=== PATIENT | female | born 1955 | race Caucasian/White ===

== ENCOUNTER 2024-05-09 22:50 | Inpatient (IN) ==
--- OUTSIDE RECORDS SUMMARY | 2024-05-09 22:58 | External Medical Summary | Summary of Care ---
Author Name Unknown Organization [facility] Address [address] [place] [address] Phone [phone] Care Team Providers Care Press Setup Operator Name Role Phone Tawanna Limon DO Primary Care Provider [phone] Reason for Visit * Reason Onset Date Comments Advice 05/06/202405/07 Information 05/06/202405/06 Encounter Details Date Type Department Care Team (Late st Contact Info) Description 05/06/2024 Telephone Family Practice [address], [place] [address] [place] [address] Tawanna Limon DO [address] [place] [address] Advice (05/07); Information (05/06) Allergies Active Allergy Reactions Criticality Noted Date Comments Adhesive Tape Edema face/lips/tongue High 02/17/2011 States she is allergic to bandaid and it causes throat swelling. Adalimumab Itching 11/23/2023 Pt reports that she took Humira approx 1 year ago and had to stop it due to itchiness. Ibuprofen Nausea/vomiting 11/30/2011 Latex 05/15/2017 Nsaids 10/14/1997 stomache upset Sulfa Antibiotics 10/14/1997 Eyes like on fire documented as of this encounter (statuses as of 05/08/2024) Medications Medication Sig Dispensed Refills Start Date End Date Status OMEGA-3 FISH OIL 1000 MG PO CAPS Take 1 Capsule by mouth in the morning. Active ASPIRIN 325 MG PO TABSIndications:TI A (transient ischemic attack) Take 1 Tablet by mouth every evening. Active Cyanocobalamin 1000 MCG Oral Tablet Take 1 Tablet by mouth in the morning. 30 Tab 5 07/22/2016 Active TRAVATAN Z 0.004 % ophthalmic solution Instill 1 Drop into both eyes at bedtime. 07/11/2017 Active Cholecalciferol (VITAMIN D3) 1000 units CAPS Take 1 Capsule by mouth in the morning. 01/25/2018 Active Coconut Oil OIL Take by mouth every morning. Patient mixes a spoon of Louana Non Hydrogenated Trans Fat Coconut Oil in her coffee every morning, for brain health. Active Nebulizers (NEBULIZER COMPRESSOR) [facility] Inhale via nebulizer. Use as directed. 1 Each 1 05/14/2019 Active Dicyclomine HCl 10 MG Oral Capsule (Bentyl)Indication s:Abdominal cramping TAKE ONE CAPSULE BY MOUTH THREE TIMES DAILY NEEDED for abdominal pain 270 Capsule 1 05/16/2022 Active Albuterol Sulfate (2.5 MG/3ML) 0.083% Inhalation Nebulization Solution (Proventil)Indicat ions:Moderate persistent asthma, unspecified whether complicated Inhale 1 Vial via nebulizer every 6 hours as needed for Wheezing. 120 mL 11/01/2022 Active cycloSPORINE 0.05 % Ophthalmic Emulsion (Restasis) Instill 1 Drop into both eyes in the morning and 1 Drop before bedtime. 12/01/2022 Active Lisinopril 20 MG Oral Tablet (Prinivil)Indicati ons:Benign hypertension with CKD (chronic kidney disease) stage III (HCC) Take 1 Tablet by mouth in the morning. 90 Tablet 3 04/13/2023 Active Montelukast Sodium 10 MG Oral Tablet (Singulair)Indicat ions:Moderate persistent asthma without complication,Envir onmental and seasonal allergies Take 1 Tablet by mouth at bedtime. 90 Tablet 3 04/14/2023 Active Metamucil 0.36 GM Oral Capsule (Psyllium) Take by mouth daily. Active DULoxetine HCl 20 MG Oral Capsule Delayed Release Particles (Cymbalta) Take 2 Capsules by mouth in the morning and 2 Capsules before bedtime. 120 Capsule 3 09/20/2023 Active Fluticasone-Salmet onesimo 500-50 MCG/ACT Inhalation Aerosol Powder Breath Activated (Advair Diskus)Indications :Moderate persistent asthma without complication INHALE ONE PUFF BY MOUTH TWICE A DAY DIRECTED 180 Each 1 11/03/2023 Active Fluticasone Propionate 50 MCG/ACT Nasal Suspension (Flonase)Indicatio ns:Chronic rhinitis Administer 2 Sprays into each nostril at bedtime. 16 g 5 11/03/2023 Active Famotidine 40 MG Oral Tablet (Pepcid)Indication s:Gastroesophageal reflux disease without esophagitis Take 1 Tablet by mouth in the morning. 100 Tablet 1 11/03/2023 Active NATURAL SUPPLEMENT Take by mouth 2 times a day. Focus Factor Active Rosuvastatin Calcium 20 MG Oral Tablet (Crestor) Take 1 Tablet by mouth in the morning. 90 Tablet 1 01/31/2024 Active Azelastine HCl 0.1 % Nasal Solution (Astelin) Administer 1 Brandon into nostril in the morning and 1 Brandon before bedtime. 30 mL 12 03/04/2024 Active buPROPion HCl ER (SR) 100 MG Oral Tablet Extended Release 12 Hour (Wellbutrin SR) Take 1 Tablet by mouth daily. 03/06/2024 Active Omeprazole 20 MG Oral Capsule Delayed Release (PriLOSEC)Indicati ons:Gastroesophage al reflux disease without esophagitis,Pharyn goesophageal dysphagia Take 1 capsule by mouth once a day 1 hour before the first meal of the day 100 Capsule 1 04/15/2024 Active Erythromycin 5 MG/GM Ophthalmic Ointment Apply as directed to eye lid, brow and under eye 04/03/2024 Active traZODone HCl 150 MG Oral Tablet (Desyrel) Take 2 Tablets by mouth at bedtime. Active Albuterol Sulfate HFA 108 (90 Base) MCG/ACT Inhalation Aerosol SolutionIndication s:Moderate persistent asthma without complication Inhale 2 Puffs by mouth every 4 hours as needed for Wheezing. 18 g 5 04/19/2024 Active Meclizine HCl 12.5 MG Oral Tablet (Antivert)Indicati ons:Vertigo Take 1 Tablet by mouth 3 times a day as needed for Dizziness. 30 Tablet 1 04/19/2024 Active tiZANidine HCl 2 MG Oral Tablet (Zanaflex)Indicati ons:Myalgia,Muscle cramps TAKE 1 TABLET BY MOUTH EVERY 6 HOURS NEEDED FOR MUSCLE SPASMS 120 Tablet 04/19/2024 Active predniSONE 10 MG Oral Tablet (Deltasone)Indicat ions:Wheezing,Acut e cough Take 5 tabs for 2 days, 4 tabs for 2 days, 3 tabs for 2 days, 2 tabs for 2 days 1 tab for 2 days 30 Tablet 04/26/2024 Active Rinvoq 15 MG Oral Tablet Extended Release 24 Hour (Upadacitinib ER)Indications:Rhe umatoid arthritis involving multiple sites with positive rheumatoid factor (HCC) Take 1 tablet by mouth in the morning. 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 02/24/2021 Hypertensive kidney disease with stage 3b chronic kidney disease 02/24/2021 Primary open-angle glaucoma, bilateral, mild sta ge 03/10/2020 Other atherosclerosis of ramírez marley arteries of extremities, bilateral legs 03/10/2020 Gastroesophageal reflux disease without esophagi tis 03/10/2020 Moderate persistent asthma without complication 03/10/2020 Intellectual disability 03/10/2020 Diffuse dermatitis 12/18/2019 HTN, goal below 140/90 07/20/2016 Rheumatoid arthritis involvi ng multiple sites with positive rheumatoid factor 07/04/2016 Depression with anxiety 01/14/2016 Encounter for long-term (current) use of medicat ions 06/02/2015 COMFORT on CPAP 01/04/2011 Overview: [facility] 01/11/11 to 03/21/11 compliant with CPAP 11/26/12 set pressure to 14 cm of water pressure DYSLIPIDEMIA, GOAL LDL BELOW 100 10/15/2009 Overview: Per Lipid Taxonomy. History of migraine 09/15/2009 Sensorineural hearing loss 08/21/2007 Overview: Dr. 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 Eller Acquired hypothyroidism 07/05/2006 PTSD (post-traumatic stress disorder) 07/05/2006 Overview: With severe depression documented as of this encounter (statuses as of 05/08/2024) Resolved Problems Problem Noted Date Diagnosed Date Resolved Date Body mass index (BMI) of 40. 0 to 44.9 in adult 02/12/2024 03/20/2024 Overview: Per Obesity protocol Body mass index (BMI) 40.0-44.9, adult 11/23/2023 12/21/2023 Morbid obesity with BMI of 45.0-49.9, adult 10/11/2021 02/15/2024 Overview: Per Obesity protocol Body mass index (BMI) of 45. 0 to 49.9 in adult 04/20/2021 10/21/2021 Overview: Per Obesity protocol - Chronic obstructive pulmonary disease 03/10/2020 02/24/2021 Major depressive disorder, r ecurrent, moderate 09/20/2019 05/19/2021 Overview: More specific dx. On the problem list Benign hypertension with CKD (chronic kidney disease) stage III 04/24/2019 05/19/2021 Overview: duplicate Body mass index (BMI) of 40. 0 to 44.9 in adult 10/15/2018 04/22/2021 Overview: Per Obesity protocol #1 Kidney disease, chronic, sta ge III (GFR 30-59 ml/min) 09/21/2015 09/05/2017 Overview: Per CKD protocol #1 GERD (gastroesophageal reflux disease) 06/10/2013 04/19/2019 Rheumatoid arthritis 05/14/2012 016 Generalized osteoarthritis 03/27/2012 0 01/16/2017 Acute sinusitis 08/20/2011 09/05/2017 Obesity, morbid (more than 1 00 lbs over ideal weight or BMI > 40) 02/02/2010 07/27/2018 Overview: Per Obesity Taxonomy ICD-10 update of inactive term Chronic otitis externa 09/19/200802/09 Asthma with severity to be determined 07/10/2008 04/16/2013 Overview: ICD-10 update of inactive term Asthma, moderate persistent 07/10/2008 12/30/2020 Overview: duplicate KIDNEY DZ,CHRONIC (GFR>30-59) STAGE III 01/08/2008 02/23/2015 Overview: Added per CKD clinical protocol 1 Infective otitis externa 08/21/200702/2008 Overview: Dr. Eller Acute pharyngitis 08/21/2007 07/10/2008 Overview: Dr. Eller Reflux esophagitis 08/21/2007 9 Overview: Dr. Eller Temporomandibular joint diso rders, unspecified 08/21/2007 02/09/2011 Overview: Dr. Eller Otalgia 08/21/2007 07/27/2018 Overview: Dr. 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 7 Anemia 07/27/2018 OBESITY, UNSPECIFIED 010 Overview: Per Obesity Taxonomy documented as of this encounter (statuses as of 05/08/2024) Immunizations Name Administration Dates Next Due COVID-19 mRNA, LNP-s, No Pre serve, 2-Dose Series ([employer]) 09/07/2021,02/26/2021,02/05/2021 COVID-19, LNP-s, No Preserve , James-sucrose, Ages 12+ ([employer]) 05/26/2022 COVID-19, MRNA-LNP, 23-24, P F, 30 MCG/0.3 mL, 12 YRS AND ABOVE, IM ([employer]) 11/23/2023 Covid-19, Mrna, Lnp-s, Pf, B ivalent, 30 Mcg, IM, 12 yrs and above ([employer]) 04/17/2023 Pneumococcal Conjugate Vacc, 13 Valent (Prevnar) 05/05/2015 Pneumococcal Polysaccharide PPV23 (Pneumovax) 12/28/2020,07/09/2014,01/07/2009 Seasonal Influenza, PF, 6 M & above, IM , (FluLaval or Fluzone) 09/02/2020,07/27/2018 Seasonal Influenza, Quadriva lent Hd (Fluzone Hd) 08/15/2023,07/14/2022 Seasonal Influenza, Quadriva lent, No Preserve, IM 09/01/2019,07/19/2017,07/18/2016 Seasonal Influenza, Split, I IV3, With Preserve, Inj 07/16/2015,10/08/2014,09/05/2013,08/20,08/15/2011,08/03/2010,07/22/2009 ,09/09/2008,10/02/2007,10/17/2006 Seasonal Influenza, Trivalen t, High Dose, No Preserve, IM 08/20/2021 TDAP (age 10 and older)(Boostrix) 05/26/2021 Zoster Vaccine Recombinant (Shingrix) 09/27/2021 ,07/19/2021 documented as of this encounter Social History Tobacco Use Types Packs/Day Years Used Date Smoking Tobacco: Never Passive Smoke Exposure: Past Smokeless Tobacco: Never Alcohol Use Standard Drinks/Week Comments No 0 (1 standard drink = 0.6 oz pur e alcohol) PHQ-2 Answer Date Recorded PHQ Adult Total Score 0 04/19/2024 Hunger Vital Sign Answer Date Recorded Within the past 12 months, y ou worried that your food would run out before you got the money to buy more. Never true 04/09/20 24 Within the past 12 months, t he food you bought just didn't last and you didn't have money to get more. Never true 04/09/2024 Childcare Answer Date Recorded Do you feel overwhelmed with taking care of a child, family member or friend? No 04/09/2024 Does your family need help f inding childcare? (Household - for ages 0-17 years) Not on file 04/09/2024 Clothing Answer Date Recorded Have you been unable to get clothing when it was really needed? No 04/09/2024 Is your family able to get c lothes or diapers when needed? (Household - for ages 0-17 years) Not on file 04/09/2024 Personal Safety Answer Date Recorded Do you feel unsafe or have concerns for your saf ety? No 04/09/2024 Do you have concerns for you r family's safety? (Household - for ages 0-17 years) Not on file 04/09/2024 Utilities Answer Date Recorded Do you have trouble paying y our heating, water, or electric bill? No 04/09/2024 Is your family able to pay t he heat, water, or electric bill? (Household - for ages 0-17 years) Not on file 04/09/2024 Does your family have access to good internet? (Household - for ages 0-17 years) Not on file 04/09/2024 Employment Status Answer Date Recorded Are you unemployed or without regular income? No 04/09/2024 Does the household have a re gular source of income? (Household - for ages 0-17 years) Not on file 04/09/2024 Social Connections Answer Date Recorded How often do you feel lonely or isolated from th ose around you? Never 04/09/2024 Financial Resource Strain Answer Date R ecorded Do you have any trouble payi ng for your medications, or do you think you might in the future? No 04/09/2024 Does your family have troubl e paying for medicine? (Household - for ages 0-17 years) Not on file 04/09/2024 Transportation Needs Answer Date Record ed READ ONLY Do you have troubl e getting a ride to medical visits or work? Never True 04/09/2024 Does your family have a hard time getting a ride to doctors visits? (Household - for ages 0-17 years) Not on file 04/09/2024 Has lack of transportation k ept you from medical appointments, meetings, work, or from getting things needed for daily living? Check all that apply. (Adult - for ages 18 years and over) Not on file 04/09/2024 Do you (or your family) have trouble finding or paying for a ride (transportation)? (Household - for ages 0-17 years) Not on file 04/09/2024 Housing Stability Answer Date Recorded Do you currently live in a s helter or have no steady place to sleep at night? No 04/09/2024 READ ONLY Do you think you a re at risk of becoming homeless? No 04/09/2024 Does your family worry about paying for your home or becoming homeless? (Household - for ages 0-17 years) Not on file 0 04/09/2024 Are you homeless or worried that you might be in the future? (Adult - for ages 18 years and over) Not on file Are you (or your family) max eless or worried that you might be in the future? (Household - for ages 0-17 years) Not on file Food Insecurity Answer Date Recorded Do you need food for this week? No 04/09/2024 Are you able to get enough f ood for your family? (Household - for ages 0-17 years) Not on file 04/09/2024 Does your family need food t his week? (Household - for ages 0-17 years) Not on file 04/09/2024 Do you always have enough fo od for your family? (Household - for ages 0-17 years) Not on file 04/09/2024 Sex and Gender Information Value Date Recorded Sex Assigned at Female 04/24/2019 12:12 PM EDT Gender Identity Female 04/24/2019 12:12 PM EDT Sexual Orientation Straight 04/24/2019 12 :12 PM EDT Job Start Date Occupation Industry Not on file Not on file Not on file documented as of this encounter Miscellaneous Notes * Telephone Encounter - Tawanna Limon DO - 05/08/2024 3:32 PM EDT Noted. * Telephone Encounter - Ritika Oliva LPN - 05/07/2024 9:20 AM EDT Call placed to patient and relayed information from Dr. Limon. Pt acknowledged understanding andstates she will comply. Pt states she is feeling better today and her breathing is "much better". * Telephone Encounter - Tawanna Limon DO - 05/07/2024 7:58 AM EDT Should not take the Sudephrine. Can use flonase and plain antihistamine (claritin, zyrtec, or harshad). Avoid other decongestants as likely getting rebound congestion. How is her breathing? * Telephone Encounter - Ritika Oliva LPN - 05/06/2024 9:55 AM EDT Call placed to patient. Pt reports she has a sore throat and headache. States she is using a oral antiseptic throat spray which is helping her sore throat. Also taking allergy medication which has helped her headache. (Suphedrine PE). States she does not have a cough or fever. Pt completed antibiotic and prednisone. Usingnebulizer prn - used last night. Pt asking if Dr. Limon has any other recommendations. * Telephone Encounter - Domonique Barrow, COMFORT - 05/06/2024 8:02 AM EDT Has cold back. She has a spray to make throat numb and is taking allergy meds Will that be enough or does she need to come in Please advise documented in this encounter Plan of Treatment Upcoming Encounters Date Type Department Care Team (Late st Contact Info) Description 05/24/2024 1:00 PM EDT Office Visit Family Practice [address] [place] [address] [address] [place] [address] Tawanna Limon, [address] [place] [address] 05/30/2024 11:00 AM EDT Office Visit Rheumatology [place] [address] [employer] [address] Leland Novoa MD [facility] [facility] [place] [address] 06/04/2024 1:00 PM EDT Rehab Services Voice Lab [facility] [address] [facility] [place] [address] Víctor Lees, [facility] ENGINEER TECHNICIAN [address] [facility] [place] [address] 06/04/2024 1:00 PM EDT Office Visit Otolaryngology [facility] [address] [facility] [place] [address] Bettye Schwartz MD [address] [facility] [place] [address] Scheduled Procedures Name Priority Associated Diagnoses Date/Ti me COLONOSCOPY FLEXIBLE PROXIMA L DIAGNOSTIC Recall Encounter for screening colonoscopy Health Maintenance Due Date Last Done Comments Cologuard 2000 Sigmoidoscopy 2000 Fecal Occult Blood Test 04/03/2015 04/03/2014, 12/26 COVID-19 Vaccine (7 - 2023-24 season) 2024 11/23/2023, 04/17/2023, 05/26/2022, Additional history exists Mammogram 05/24/2024 05/24/2023, 05/06, 04/07/2022, Additional history exists Influenza Vaccine (FLU shot) (#1) 2024 08/15/2023, 07/14/2022, 08/20/2021, Additional history exists Albumin/Creatinine Ratio 08/15/2024 023, 07/14/2022, 04/24/2019, Additional history exists GFR 10/26/2024 04/26/2024, 02/05, 01/15/2024, Additional history exists HbA1c 11/23/2024 11/23/2023, 09/06, 02/23/2015, Additional history exists CKD PHOS USE SMARTSET 93991 02/25/202502/05, 02/10/2023, 02/15/2022, Additional history exists TSH 02/25/2025 02/26/2024, 04/0 05/2023, 02/15/2022, Additional history exists Depression Monitoring 04/19/2025 04/19/2024 CKD HGB USE SMARTSET [id number] 04/26/202504/26, 04/26/2024, 01/15/2024, Additional history exists Colonoscopy 02/14/2027 02/14/2017, 02/04, 01/02/2007, Additional history exists Colorectal Cancer Screening 02/14/2027 DXA Scan 03/08/2030 03/08/2023, 02/03/2016 DTaP,Tdap,and Td Vaccines (2 - Td or Tdap) 05/26/2031 05/26/2021, 07/27/2005, 05/29/1996 Pap Smear Discontinued 09/17/2018, 09/06, 04/20/2015, Additional history exists Pneumococcal Vaccine: 65+ Years Completed 12/28/2020, 05/05/2015, 07/09/2014, Additional history exists Zoster Vaccines Completed 09/27/2021, 07/19/2021 HPV (Gardasil) Vaccine Aged Out No lo nger eligible based on patient's age to complete this topic Hepatitis B Vaccine Aged Out No longe r eligible based on patient's age to complete this topic MENINGOCOCCAL (MENACTRA/MENVEO) Aged Out No longer eligible based on patient's age to complete this topic documented as of this encounter Medical Devices Not on filedocumented as of this encounter Advance Directives Healthcare Agents on File Name Relationship Healthcare Agent Relationship Communication Marcos Breaux Other - (no specific identity) Health Care Master [employer] (appointed verbally by patient or by statute hierarchy) Bob Manjarrez Adult Child Health Care Master [employer] (appointed verbally by patient or by statute hierarchy) Care Teams Press Setup Operator Relationship Specialty Start Date End Date Tawanna Limon DO [address] [place] [address] PCP - General Family Medicine 04/18/24 documented as of this encounter
--- OUTSIDE RECORDS SUMMARY | 2024-05-09 22:58 | External Medical Summary | Summary of Care ---
Author Name Unknown Organization [facility] Address [address] [place] [address] Phone [phone] Care Team Providers Care Transport Driver Name Role Phone Tawanna Limon DO Primary Care Provider [phone] Reason for Visit * Reason Onset Date Comments Appointment 04/25/2024 Encounter Details Date Type Department Care Team (Late st Contact Info) Description 04/25/2024 Telephone Family Practice [address], [place] [address] [place] [address] Tawanna Limon DO [address] [place] [address] Appointment Allergies Active Allergy Reactions Criticality Noted Date [...] as of this encounter (statuses as of 05/02/2024) Medications Medication Sig Dispensed Refills Start Date [...] for brain health. Active Nebulizers (NEBULIZER COMPRESSOR) [facility] Inhale via nebulizer. Use as directed. 1 [...] 0.1 % Nasal Solution (Astelin) Administer 1 [place] into nostril in the morning and 1 [place] before bedtime. 30 mL 12 03/04/2024 Active [...] FOR MUSCLE SPASMS 120 Tablet 04/19/2024 Active documented as of this encounter (statuses as of 05/02/2024) Active Problems Problem Noted Date Diagnosed Date [...] as of this encounter (statuses as of 05/02/2024) Resolved Problems Problem Noted Date Diagnosed Date [...] as of this encounter (statuses as of 05/02/2024) Immunizations Name Administration Dates Next Due COVID-19 mRNA, LNP-s, No Pre serve, 2-Dose Series (Dataium) 09/07/2021,02/26/2021,02/05/2021 COVID-19, LNP-s, No Preserve , James-sucrose, Ages 12+ (Pfizer) 05/26/2022 COVID-19, MRNA-LNP, 23-24, P F, 30 MCG/0.3 mL, 12 YRS AND ABOVE, IM ([facility]Com[facility]) 11/23/2023 Covid-19, Mrna, Lnp-s, Pf, B ivalent, 30 Mcg, IM, 12 yrs and above (Dataium) 04/17/2023 Pneumococcal Conjugate Vacc, 13 Valent (Prevnar) [...] 04/09/2024 Does the household have a re lar source of income? (Household - for ages [...] encounter Miscellaneous Notes * Telephone Encounter - Domonique Cooley OSA - 04/25/2024 4:53 PM EDT Appt added * Telephone Encounter - Celestina Guthrie LPN - 04/25/2024 4:30 PM EDT Patient calling, states on Monday she started not feeling well. Problems with cough and states in chest. Denies fever and chills currently, used neb last night but only using at night. Advised to use now and before bed and again in the morning. Advised to use nasal saline and nasal spray as directed. Please add to schedule tomorrow for 8:20 am Patient had audible wheezing. Thank you documented in this encounter Plan of Treatment Upcoming Encounters Date Type Department Care Team (Late st Contact Info) Description 05/24/2024 1:00 PM EDT Office Visit Family Practice [address] [facility], [place] 293 [place] [address] Tawanna Limon DO [address] [place] [address] 05/30/2024 11:00 AM EDT Office Visit Rheumatology [place] [id number] [place] [address] Leland Novoa MD [facility] [place] [address] 06/04/2024 1:00 PM EDT Rehab Services Voice Lab [facility] 132 [facility] [place] [facility] [place] [address] Víctor Lees, [facility] 132 [place] [address] 06/04/2024 1:00 PM EDT Office Visit Otolaryngology [facility] 132 [facility] [place] [address] Bettye Schwartz MD 132 [facility] [address] Scheduled Procedures Name Priority Associated Diagnoses Date/Ti me COLONOSCOPY FLEXIBLE PROXIMA L DIAGNOSTIC Recall Encounter for screening colonoscopy Health Maintenance Due Date Last Done Comments Cologuard 2000 Sigmoidoscopy 2000 Fecal Occult Blood Test 04/03/2015 04/03/2014, 12/26 COVID-19 Vaccine ( season) 2024 11/23/2023, 04/17/2023, 05/26/2022, Additional history exists Mammogram 05/24/2024 05/24/2023, 05/06, 04/07/2022, Additional history exists Albumin/Creatinine Ratio 08/15/2024 023, 07/14/2022, 04/24/2019, Additional history exists GFR 10/26/2024 04/26/2024, 02/05, 01/15/2024, Additional history exists HbA1c 11/23/2024 11/23/2023, 09/06, 02/23/2015, Additional history exists CKD PHOS USE SMARTSET 48885 02/25/202502/05, 02/10/2023, 02/15/2022, Additional history exists TSH 02/25/2025 02/26/2024, 04/0 05/2023, 02/15/2022, Additional history exists Depression Monitoring 04/19/2025 04/19/2024 CKD HGB USE SMARTSET 33631 04/26/202504/26, 04/26/2024, 01/15/2024, Additional history exists Colonoscopy 02/14/2027 02/14/2017, 02/04, 01/02/2007, Additional history exists Colorectal Cancer Screening 02/14/2027 DXA Scan 03/08/2030 03/08/2023, 02/03/2016 DTaP,Tdap,and Td Vaccines (2 - Td or Tdap) 05/26/2031 05/26/2021, 07/27/2005, 05/29/1996 Pap Smear Discontinued 09/17/2018, 09/06, 04/20/2015, Additional history exists Pneumococcal Vaccine: 65+ Years Completed 12/28/2020, 05/05/2015, 07/09/2014, Additional history exists Zoster Vaccines Completed 09/27/2021, 07/19/2021 Influenza Vaccine (FLU shot) Completed 08/15/2023, 07/14/2022, 08/20/2021, Additional history exists GARDASIL-HPV IMMUNIZATION SERIES Aged Out No longer eligible based on patient's age to complete this topic Hepatitis B Aged Out No longer eligi ble based on patient's age to complete this topic MENINGOCOCCAL (MENACTRA/MENVEO) Aged Out No longer eligible based on patient's age to complete this topic documented as of this encounter Medical Devices Not on filedocumented as of this encounter Advance Directives Healthcare Agents on File Name Relationship Healthcare Agent Relationship Communication Marcos Breaux Other - (no specific identity) Health Care Duralumin Mechanic (appointed verbally by patient or by statute hierarchy) Bob Manjarrez Adult Child Health Care Duralumin Mechanic (appointed verbally by patient or by statute hierarchy) Care Teams Transport Driver Relationship Specialty Start Date End Date Tawanna Limon DO [address] [place] [address] PCP - General Family Medicine 04/18/24 documented as of this encounter
--- OUTSIDE RECORDS SUMMARY | 2024-05-09 22:59 | External Medical Summary | Summary of Care ---
Author Name Unknown Organization [facility] Address [address] [place] [address] Phone [phone] Care Team Providers Care Director Vaccine Name Role Phone Tawanna Stuart DO Primary Care Provider [phone] Reason for Visit * Reason Onset Date Comments Medication Refill 04/30/2024 Encounter Details Date Type Department Care Team (Late st Contact Info) Description 04/30/2024 Refill Family Practice [address], [place] [address] [place] [address] Tawanna Stuart DO [address] [place] [address] Hypothyroidism Allergies Active Allergy Reactions Criticality Noted Date [...] as of this encounter (statuses as of 04/30/2024) Medications Medication Sig Dispensed Refills Start Date End Date Status OMEGA-3 FISH OIL 1000 MG PO CAPS Take 1 Capsule by mouth in the morning. Active ASPIRIN 325 MG PO TABSIndications:T IA (transient ischemic attack) Take 1 Tablet by [...] for brain health. Active Nebulizers (NEBULIZER COMPRESSOR) MISC Inhale via nebulizer. Use as directed. 1 Each 1 05/14/2019 Active Dicyclomine HCl 10 MG Oral Capsule (Bentyl)Indicatio ns:Abdominal cramping TAKE ONE CAPSULE BY MOUTH THREE TIMES DAILY NEEDED for abdominal pain 270 Capsule 1 05/16/2022 Active Albuterol Sulfate (2.5 MG/3ML) 0.083% Inhalation Nebulization Solution (Proventil)Indica tions:Moderate persistent asthma, unspecified whether complicated Inhale 1 Vial via nebulizer every 6 hours as needed for Wheezing. 120 mL 11/01/2022 Active cycloSPORINE 0.05 % Ophthalmic Emulsion (Restasis) Instill 1 Drop into both eyes in the morning and 1 Drop before bedtime. 12/01/2022 Active Lisinopril 20 MG Oral Tablet (Prinivil)Indicat ions:Benign hypertension with CKD (chronic kidney disease) stage III (HCC) Take 1 Tablet by mouth in the morning. 90 Tablet 3 04/13/2023 Active Montelukast Sodium 10 MG Oral Tablet (Singulair)Indica tions:Moderate persistent asthma without complication,Envi ronmental and seasonal allergies Take 1 Tablet by mouth at bedtime. 90 Tablet 3 04/14/2023 Active Metamucil 0.36 GM Oral Capsule (Psyllium) Take by mouth daily. Active DULoxetine HCl 20 MG Oral Capsule Delayed Release Particles (Cymbalta) Take 2 Capsules by mouth in the morning and 2 Capsules before bedtime. 120 Capsule 3 09/20/2023 Active Fluticasone-Salme terol 500-50 MCG/ACT Inhalation Aerosol Powder Breath Activated (Advair Diskus)Indication s:Moderate persistent asthma without complication INHALE ONE PUFF BY MOUTH TWICE A DAY DIRECTED 180 Each 1 11/03/2023 Active Fluticasone Propionate 50 MCG/ACT Nasal Suspension (Flonase)Indicati ons:Chronic rhinitis Administer 2 Sprays into each nostril at bedtime. 16 g 5 11/03/2023 Active Famotidine 40 MG Oral Tablet (Pepcid)Indicatio ns:Gastroesophage al reflux disease without esophagitis Take 1 Tablet by mouth in the morning. 100 Tablet 1 11/03/2023 Active NATURAL SUPPLEMENT Take by mouth 2 times a day. Focus Factor Active Rosuvastatin Calcium 20 MG Oral Tablet (Crestor) Take 1 Tablet by mouth in the morning. 90 Tablet 1 01/31/2024 Active Azelastine HCl 0.1 % Nasal Solution (Astelin) Administer 1 [place] into nostril in the morning and 1 [place] before bedtime. 30 mL 12 03/04/2024 Active buPROPion HCl ER (SR) 100 MG Oral Tablet Extended Release 12 Hour (Wellbutrin SR) Take 1 Tablet by mouth daily. 03/06/2024 Active Omeprazole 20 MG Oral Capsule Delayed Release (PriLOSEC)Indicat ions:Gastroesopha geal reflux disease without esophagitis,Phary ngoesophageal dysphagia Take 1 capsule by mouth once [...] HFA 108 (90 Base) MCG/ACT Inhalation Aerosol SolutionIndicatio ns:Moderate persistent asthma without complication Inhale 2 Puffs by mouth every 4 hours as needed for Wheezing. 18 g 5 04/19/2024 Active Meclizine HCl 12.5 MG Oral Tablet (Antivert)Indicat ions:Vertigo Take 1 Tablet by mouth 3 times a day as needed for Dizziness. 30 Tablet 1 04/19/2024 Active tiZANidine HCl 2 MG Oral Tablet (Zanaflex)Indicat ions:Myalgia,Musc le cramps TAKE 1 TABLET BY MOUTH EVERY 6 HOURS NEEDED FOR MUSCLE SPASMS 120 Tablet 04/19/2024 Active predniSONE 10 MG Oral Tablet (Deltasone)Indica tions:Wheezing,Ac barrett cough Take 5 tabs for 2 days, 4 tabs for 2 days, 3 tabs for 2 days, 2 tabs for 2 days 1 tab for 2 days 30 Tablet 04/26/2024 Active Doxycycline Hyclate 100 MG Oral CapsuleIndication s:Wheezing,Acute cough Take 1 Capsule by mouth in the morning and 1 Capsule before bedtime. Do all this for 10 days. Until gone.. 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 30 Tablet 2 04/29/2024 Active Levothyroxine Sodium 50 MCG Oral Tablet (Levoxyl)Indicati ons:Hypothyroidis m TAKE ONE-HALF TABLET BY MOUTH DAILY AT LEAST 30 MINUTES BEFORE BREAKFAST AND OTHER MEDICATIONS 135 Tablet 2 04/30/2024 Active Levothyroxine Sodium 50 MCG Oral Tablet (Levoxyl)Indicati ons:Hypothyroidis m TAKE ONE-HALF TABLET BY MOUTH DAILY AT LEAST 30 MINUTES BEFORE BREAKFAST AND OTHER MEDICATIONS 135 Tablet 3 04/22/2023 4 Discontinu ed(Refill) documented as of this encounter (statuses as of 04/30/2024) Active Problems Problem Noted Date Diagnosed Date [...] as of this encounter (statuses as of 04/30/2024) Resolved Problems Problem Noted Date Diagnosed Date [...] as of this encounter (statuses as of 04/30/2024) Immunizations Name Administration Dates Next Due COVID-19 mRNA, LNP-s, No Pre serve, 2-Dose Series (Strut) 09/07/2021,02/26/2021,02/05/2021 COVID-19, LNP-s, No Preserve , James-sucrose, Ages 12+ (Strut) 05/26/2022 COVID-19, MRNA-LNP, 23-24, P F, 30 MCG/0.3 mL, 12 YRS AND ABOVE, IM ([facility]-Comirnat) 11/23/2023 Covid-19, Mrna, Lnp-s, Pf, B ivalent, 30 Mcg, IM, 12 yrs and above (Strut) 04/17/2023 Pneumococcal Conjugate Vacc, 13 Valent (Prevnar) [...] encounter Miscellaneous Notes * Telephone Encounter - Rob Lowry [facility] - 04/30/2024 3:44 PM EDT Signed Prescriptions: Disp Refills Levothyroxine Sodium 50 MCG Oral Tablet (L*135 Ta*2 Sig: TAKE ONE-HALF TABLET BY MOUTH DAILY AT LEAST 30 MINUTES BEFORE BREAKFAST AND OTHER MEDICATIONS Authorizing Provider: TAWANNA STUART User: ROB LOWRY * Telephone Encounter - Michelle Huerta CPhT - 04/30/2024 8:35 AM EDT Did you pend patient's preferred pharmacy and medication before forwarding?yes [id number] [address] [facility] Pending Prescriptions: Disp Refills Levothyroxine Sodium 50 MCG Oral Tablet (*135 Ta*3 Sig: TAKE ONE-HALF TABLET BY MOUTH DAILY AT LEAST 30 MINUTES BEFORE BREAKFAST AND OTHER MEDICATIONS Last Visit: 04/26/2024 (in office), 04/15/2024 (telemedicine) Next Visit: 05/24/2024 If no future appointments scheduled, and last appointment is greater than a year ago, please schedule patient for a follow-up appointment Last date the medication was ordered: 04.22.23 Is this request for a controlled substance?No Urine Drug Screen:No results found. However, due to the size of the patient record, not all encounters were searched. Please check Results Review for a complete set of results. Patient Phone Numbers Labs: Lab Results Component Value Date/Time CREAT 1.5 (H) 04/26/2024 09:57 AM CREAT 1.1 (H) 08/04/2020 10:27 AM POTASSIUM 3.6 04/26/2024 09:57 AM POTASSIUM 4.5 04/13/2020 11:36 AM TSH 0.65 02/26/2024 02:04 PM TSH 1.07 04/13/2020 11:36 AM LDLCALC 174 (H) 01/15/2024 10:01 AM LDLCALC 57 04/13/2020 11:36 AM LDLDIRECT NOT APPLICABLE 04/13/2020 11:36 AM LDLDIRECT 81 04/24/2019 01:46 PM ALT 20 01/15/2024 10:01 AM ALT 23 08/04/2020 10:27 AM HGBA1C 5.7 (H) 11/23/2023 01:52 PM HGBA1C 4.9 02/23/2015 04:15 PM documented in this encounter Plan of Treatment Upcoming Encounters Date Type Department Care Team (Late st Contact Info) Description 05/24/2024 1:00 PM EDT Office Visit Family Practice [address] [place] [address] [address] [place] [address] [facility] [address] 05/30/2024 11:00 AM EDT Office Visit Rheumatology [facility] [address] [place] [address] Leland Novoa MD [address] [place], [place] [address] 06/04/2024 1:00 PM EDT Rehab Services Voice Lab [facility] [address] [place] [address] Víctor Lees, [facility] [address] [place] [address] 06/04/2024 1:00 PM EDT Office Visit Otolaryngology [facility] [address] [place] [address] Bettye Schwartz MD [address] [place] [address] Scheduled Procedures Name Priority Associated Diagnoses Date/Ti [...] Additional history exists CKD PHOS USE SMARTSET 34538 02/25/202502/05, 02/10/2023, 02/15/2022, Additional history exists TSH 02/25/2025 02/26/2024, 04/0 05/2023, 02/15/2022, Additional history exists Depression Monitoring 04/19/2025 04/19/2024 CKD HGB USE SMARTSET 29215 04/26/202504/26, 04/26/2024, 01/15/2024, Additional history exists Colonoscopy [...] Not on filedocumented as of this encounter Visit Diagnoses Diagnosis Hypothyroidism Unspecified hypothyroidism documented in this encounter Advance Directives Healthcare Agents on File Name Relationship Healthcare Agent Relationship Communication Marcos Breaux Other - (no specific identity) Health Care Branch Credit Counselor (appointed verbally by patient or by statute hierarchy) Bob Manjarrez Adult Child Health Care Branch Credit Counselor (appointed verbally by patient or by statute hierarchy) Care Teams Director Vaccine Relationship Specialty Start Date End Date Tawanna Stuart DO Mauricio [place] [address] PCP - General Family Medicine 04/18/24 documented as of this encounter
--- OUTSIDE RECORDS SUMMARY | 2024-05-09 22:59 | External Medical Summary | Summary of Care ---
Author Name Unknown Organization [facility] Address [address] [place] [address] Phone [phone] Care Team Providers Care Supervisor Network Control Operators Name Role Phone Tawanna Limon DO Primary Care Provider [phone] Reason for Visit * Reason Onset Date Comments Medication Refill 04/19/2024 Encounter Details Date Type Department Care Team (Late st Contact Info) Description 04/19/2024 Refill Family Practice [address] [place] [address] [place] [phone] Tawanna Limon DO [address] [place] [address] Moderate persistent asthma without complication; Vertigo; Myalgia; Muscle cramps Allergies Active Allergy Reactions Criticality Noted Date [...] as of this encounter (statuses as of 04/19/2024) Medications Medication Sig Dispensed Refills Start Date [...] Capsule (Psyllium) Take by mouth daily. Active Levothyroxine Sodium 50 MCG Oral Tablet (Levoxyl)Indicati ons:Hypothyroidis m TAKE ONE-HALF TABLET BY MOUTH DAILY AT LEAST 30 MINUTES BEFORE BREAKFAST AND OTHER MEDICATIONS 135 Tablet 3 04/22/2023 Active DULoxetine HCl 20 MG Oral Capsule [...] 2 times a day. 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 30 Tablet 2 01/12/2024 Active Rosuvastatin Calcium 20 MG Oral Tablet (Crestor) Take 1 Tablet by mouth in the morning. 90 Tablet 1 01/31/2024 Active Azelastine HCl 0.1 % Nasal Solution (Astelin) Administer 1 [place] into nostril in the morning and 1 [place] before bedtime. 30 mL 12 03/04/2024 Active [...] FOR MUSCLE SPASMS 120 Tablet 04/19/2024 Active Albuterol Sulfate HFA 108 (90 Base) MCG/ACT Inhalation Aerosol SolutionIndicatio ns:Moderate persistent asthma without complication Inhale 2 Puffs by mouth every 4 hours as needed for Wheezing. 18 g 5 05/26/2021 4 Discontinu ed(Refill) Meclizine HCl 12.5 MG Oral Tablet (Antivert)Indicat ions:Vertigo Take 1 Tablet by mouth 3 times a day as needed for Dizziness. 30 Tablet 1 08/25/2023 4 Discontinu ed(Refill) tiZANidine HCl 2 MG Oral Tablet (Zanaflex)Indicat ions:Myalgia,Musc le cramps TAKE 1 TABLET BY MOUTH EVERY 6 HOURS NEEDED FOR MUSCLE SPASMS 120 Tablet 02/26/2024 4 Discontinu ed(Refill) documented as of this encounter (statuses as of 04/19/2024) Active Problems Problem Noted Date Diagnosed Date [...] as of this encounter (statuses as of 04/19/2024) Resolved Problems Problem Noted Date Diagnosed Date [...] 07/10/2008 Overview: Dr. Eller Reflux esophagitis 08/21/2007 Overview: Dr. Eller Temporomandibular joint diso rders, [...] as of this encounter (statuses as of 04/19/2024) Immunizations Name Administration Dates Next Due COVID-19 mRNA, LNP-s, No Pre serve, 2-Dose Series ([employer]) 09/07/2021,02/26/2021,02/05/2021 COVID-19, LNP-s, No Preserve , James-sucrose, Ages 12+ (Pfizer) 05/26/2022 COVID-19, MRNA-LNP, 23-24, P F, 30 MCG/0.3 mL, 12 YRS AND ABOVE, IM ([facility]) 11/23/2023 Covid-19, Mrna, Lnp-s, Pf, B ivalent, 30 Mcg, IM, 12 yrs and above ([employer]s) 04/17/2023 Pneumococcal Conjugate Vacc, 13 Valent (Prevnar) [...] money to get more. Never true 04/09/2024 Sex and Gender Information Value Date Recorded Sex Assigned at Female 04/24/2019 12:12 PM EDT Gender Identity Female 04/24/2019 12:12 PM EDT Sexual Orientation Straight 04/24/2019 12 :12 PM EDT Job Start Date Occupation Industry Not on file Not on file Not on file documented as of this encounter Miscellaneous Notes * Telephone Encounter - Alexandra Jackson, - 04/19/2024 5:03 PM EDTSigned Prescriptions: Disp Refills Albuterol Sulfate HFA 108 (90 Base) MCG/AC*18 g 5 Sig: Inhale 2 Puffs by mouth every 4 hours as needed for Wheezing.Authorizing Provider: ALEXANDRA JACKSON Meclizine HCl 12.5 MG Oral Tablet (Antiver*30 Tab*1 Sig: Take 1 Tablet by mouth 3 times a day as needed for Dizziness.Authorizing Provider: ALEXANDRA JACKSON tiZANidine HCl 2 MG Oral Tablet (Zanaflex) 120 Ta*0 Sig: TAKE 1 TABLET BY MOUTH EVERY 6 HOURS NEEDED FOR MUSCLE SPASMSAuthorizing Provider: ALEXANDRA JACKSON * Telephone Encounter - Celestina Smith RN - 04/19/2024 11:08 AM EDT Did you pend patient's preferred pharmacy and medication before forwarding?yes [id number] [address] Pending Prescriptions: Disp Refills Albuterol Sulfate HFA 108 (90 Base) MCG/A*18 g 5 Sig: Inhale 2 Puffs by mouth every 4 hours as needed for Wheezing. Meclizine HCl 12.5 MG Oral Tablet (Antive*30 Tab*1 Sig: Take 1 Tablet by mouth 3 times a day as needed for Dizziness. tiZANidine HCl 2 MG Oral Tablet (Zanaflex)120 Ta*0 Sig: TAKE 1 TABLET BY MOUTH EVERY 6 HOURS NEEDED FOR MUSCLE SPASMS Last Visit: 02/26/2024 (in office), 04/15/2024 (telemedicine) Next Visit: 05/24/2024 If no future appointments scheduled, and last appointment is greater than a year ago, please schedule patient for a follow-up appointment Last date the medication was ordered: Albuterol inahaler 05/26/2021 Meclizine 08/25/2023 Tizanidine 02/26/2024 Is this request for a controlled substance?No Urine Drug Screen:No results found. However, due to the size of the patient record, not all encounters were searched. Please check Results Review for a complete set of results. Patient Phone Numbers Labs: Lab Results Component Value Date/Time CREAT 1.2 (H) 02/26/2024 02:04 PM CREAT 1.1 (H) 08/04/2020 10:27 AM POTASSIUM 4.6 02/26/2024 02:04 PM POTASSIUM 4.5 04/13/2020 11:36 AM TSH 0.65 [...] 1:00 PM EDT Office Visit Family Practice [address] [place] [address] 293 [facility] [place] [address] Tawanna Limon DO [address] [place] [address] 05/30/2024 11:00 AM EDT Office Visit Rheumatology [address] [place] [address] Leland Novoa MD [address] [place] [address] [place] [address] 06/04/2024 1:00 PM EDT Rehab Services Voice Lab [facility] 132 [facility] [place] [address] Víctor Lees, [facility] [address] [place] [address] 06/04/2024 1:00 PM EDT Office Visit Otolaryngology [facility] [address] [place] [address] Bettye Schwartz MD 132 [facility] [place] [address] Scheduled Procedures Name Priority Associated Diagnoses Date/Ti [...] 023, 07/14/2022, 04/24/2019, Additional history exists GFR 08/27/2024 02/26/2024, 01/04, 08/15/2023, Additional history exists HbA1c 11/23/2024 11/23/2023, 09/06, 02/23/2015, Additional history exists CKD HGB USE SMARTSET 20481 01/14/202501/14, 01/15/2024, 08/15/2023, Additional history exists CKD PHOS USE SMARTSET 72936 02/25/202502/05, 02/10/2023, 02/15/2022, Additional history exists TSH 02/25/2025 02/26/2024, 04/0 05/2023, 02/15/2022, Additional history exists Depression Monitoring 04/19/2025 04/19/2024 Colonoscopy 02/14/2027 02/14/2017, 02/04, 01/02/2007, Additional history [...] as of this encounter Visit Diagnoses Diagnosis Moderate persistent asthma without complication Unspecified asthma Vertigo Dizziness and giddiness Myalgia Mylagia and myositis, unspecified Muscle cramps Cramp of limb documented in this encounter Advance Directives Healthcare Agents on File Name Relationship Healthcare Agent Relationship Communication Marcos Breaux Other - (no specific identity) Health Care Master [employer] (appointed verbally by patient or by statute hierarchy) Bob Manjarrez Adult Child Health Care Master [employer] (appointed verbally by patient or by statute hierarchy) Care Teams Supervisor Network Control Operators Relationship Specialty Start Date End Date Tawanna Limon DO [address] [place] [address] PCP - General Family Medicine 04/18/24 documented as of this encounter
--- OUTSIDE RECORDS SUMMARY | 2024-05-09 22:59 | External Medical Summary | Summary of Care ---
Author Name Unknown Organization [facility] Address [address] [place] [address] Phone [phone] Care Team Providers Care Supervisor Fine Grading Name Role Phone Tawanna Limon DO Primary Care Provider [phone] Reason for Visit * Reason Comments Outpatient Testing Encounter Details Date Type Department Care Team (Late st Contact Info) Description 04/26/2024 10:10 AM EDT Laboratory [facility], [facility] [address] [facility] [id number] [facility] [address] [place] [address] Routine medical exam; Encounter for long-term (current) use of medications; Wheezing; Acute cough Allergies Active Allergy Reactions Criticality Noted Date [...] as of this encounter (statuses as of 04/26/2024) Medications Medication Sig Dispensed Refills Start Date [...] for brain health. Active Nebulizers (NEBULIZER COMPRESSOR) MIS Inhale via nebulizer. Use as directed. 1 [...] 0.1 % Nasal Solution (Astelin) Administer 1 [place] into nostril in the morning and 1 [place] before bedtime. 30 mL 12 03/04/2024 Active [...] 04/26/2024 Active Doxycycline Hyclate 100 MG Oral CapsuleIndications :Wheezing,Acute cough Take 1 Capsule by mouth in the morning and 1 Capsule before bedtime. Do all this for 10 days. Until gone.. 20 Capsule 04/26/2024 4 Active documented as of this encounter (statuses as of 04/26/2024) Active Problems Problem Noted Date Diagnosed Date [...] as of this encounter (statuses as of 04/26/2024) Resolved Problems Problem Noted Date Diagnosed Date [...] as of this encounter (statuses as of 04/26/2024) Immunizations Name Administration Dates Next Due COVID-19 mRNA, LNP-s, No Pre serve, 2-Dose Series (Zoosk) 09/07/2021,02/26/2021,02/05/2021 COVID-19, LNP-s, No Preserve , James-sucrose, Ages 12+ (Zoosk) 05/26/2022 COVID-19, MRNA-LNP, 23-24, P F, 30 MCG/0.3 mL, 12 YRS AND ABOVE, IM ([facility]) 11/23/2023 Covid-19, Mrna, Lnp-s, Pf, B ivalent, 30 Mcg, IM, 12 yrs and above (Zoosk) 04/17/2023 Pneumococcal Conjugate Vacc, 13 Valent (Prevnar) [...] on file documented as of this encounter Plan of Treatment Upcoming Encounters Date Type Department Care Team (Late st Contact Info) Description 05/24/2024 1:00 PM EDT Office Visit Family Practice [address] [facility], [place] 293 [place] [address] Tawanna Limon DO 293 [place] [address] 05/30/2024 11:00 AM EDT Office Visit Rheumatology [place] [id number] [facility] [place] [address] Leland Novoa MD [facility] [facility] [place] [address] 06/04/2024 1:00 PM EDT Rehab Services Voice Lab [facility] 132 [facility] [place] [address] Víctor Lees, [facility] INSTALLER [place] [address] [facility] [place] [address] 06/04/2024 1:00 PM EDT Office Visit Otolaryngology [facility] 132 [place] [address] Bettye Schwartz MD [address] [facility] [place] [address] Pending Results Name Type Priority Associated Diagnoses Date /Time MAGNESIUM Lab Routine Routine medical exam Encounter for long-term (current) use of medications 04/26/2024 9:57 AM EDT BASIC METABOLIC PANEL Lab STAT Wheezing Acute cough 04/26/2024 9:57 AM EDT CBC WITH WBC DIFFERENTIAL Lab STAT Wheezing Acute cough 04/26/2024 9:57 AM EDT CBC Lab STAT Wheezing Acute cough 04/26/2024 9:57 AM EDT DIFFERENTIAL, AUTOMATED Lab STAT Wheezing Acute cough 04/26/2024 9:57 AM EDT Scheduled Procedures Name Priority Associated Diagnoses Date/Ti me COLONOSCOPY FLEXIBLE PROXIMA L DIAGNOSTIC Recall Encounter for screening colonoscopy Health Maintenance Due Date Last Done Comments Cologuard 2000 Sigmoidoscopy 2000 Fecal Occult Blood Test 04/03/2015 04/03/2014, 12/26 COVID-19 Vaccine ( season) 2024 11/23/2023, 04/17/2023, 05/26/2022, Additional history exists Postponed from 01/18/2024 (Acute Illness) Mammogram 05/24/2024 05/24/2023, 05/06, 04/07/2022, Additional history exists Albumin/Creatinine Ratio 08/15/2024 023, 07/14/2022, 04/24/2019, Additional history exists GFR 08/27/2024 02/26/2024, 01/04, 08/15/2023, Additional history exists HbA1c 11/23/2024 11/23/2023, 09/06, 02/23/2015, Additional history exists CKD HGB USE SMARTSET 62955 01/14/202501/14, 01/15/2024, 08/15/2023, Additional history exists CKD PHOS USE SMARTSET 76875 02/25/202502/05, 02/10/2023, 02/15/2022, Additional history exists TSH [...] as of this encounter Visit Diagnoses Diagnosis Routine medical exam Routine general medical examination at a health care facility Encounter for long-term (current) use of medications Encounter for long-term (current) use of other medications Wheezing Acute cough documented in this encounter Advance Directives Healthcare Agents on File Name Relationship Healthcare Agent Relationship Communication Marcos Breaux Other - (no specific identity) Health Care Teacher Home Therapy (appointed verbally by patient or by statute hierarchy) Bob Manjarrez Adult Child Health Care Teacher Home Therapy (appointed verbally by patient or by statute hierarchy) Care Teams Supervisor Fine Grading Relationship Specialty Start Date End Date Tawanna Limon DO [address] [place], [place] [address] [address] PCP - General Family Medicine 04/18/24 documented as of this encounter
--- OUTSIDE RECORDS SUMMARY | 2024-05-09 22:59 | External Medical Summary ---
Author Name Unknown Address Unknown Organization K0G:[facility] [address] [place] [id number] Laboratory Report Ordering Provider Test Date Status NARCISO RHODES 04/26/2024 09:57:40 Final Observation Date Value Abnormality Reference (Units ) Status WBC, Total 04/26/2024 09:57:40 7.58 4.00-10.8 0 (K/uL) Final RBC 04/26/2024 09:57:40 3.43 3.85-5.15 (M/uL) Final Hemoglobin 04/26/2024 09:57:40 11.4 Below low normal 12 .0-15.3 (g/dL) Final HCT 04/26/2024 09:57:40 35.0 Below low normal 36. 0-45.2 (%) Final MCV 04/26/2024 09:57:40 102.0 81.5-97.5 (fL) Final MCH 04/26/2024 09:57:40 33.2 27.0-34.0 (pg) Final MCHC 04/26/2024 09:57:40 32.6 32.0-36.0 (g/dL) Final RDW 04/26/2024 09:57:40 12.0 11.5-15.5 (%) Final Platelets 04/26/2024 09:57:40 209 140-400 (K /uL) Final MPV 04/26/2024 09:57:40 9.6 6.6-11.1 ( fL) Final Performing Location [facility] [address] [place] [id number]
--- OUTSIDE RECORDS SUMMARY | 2024-05-09 22:59 | External Medical Summary | Summary of Care ---
Author Name Unknown Organization [facility] Address [address] [facility] [address] Phone [phone] Care Team Providers Care Teacher Ballet Name Role Phone Tawanna Limon Primary Care Provider [phone] Encounter Details Date Type Department Care Team (Late st Contact Info) Description 04/29/2024 Population Health External Data Unspecified Department Allergies Active Allergy Reactions Criticality Noted Date [...] for brain health. Active Nebulizers (NEBULIZER COMPRESSOR) [facility] Inhale via nebulizer. Use as directed. 1 [...] 0.1 % Nasal Solution (Astelin) Administer 1 [place] into nostril in the morning and 1 [place] before bedtime. 30 mL 12 03/04/2024 Active [...] the morning. 30 Tablet 2 04/29/2024 Active documented as of this encounter (statuses [...] mRNA, LNP-s, No Pre serve, 2-Dose Series (Acumatica) 09/07/2021,02/26/2021,02/05/2021 COVID-19, LNP-s, No Preserve , James-sucrose, Ages 12+ (Pfizer) 05/26/2022 COVID-19, MRNA-LNP, 23-24, P F, 30 MCG/0.3 mL, 12 YRS AND ABOVE, [facility] 11/23/2023 Covid-19, Mrna, Lnp-s, Pf, B ivalent, 30 Mcg, IM, 12 yrs and above (Acumatica) 04/17/2023 Pneumococcal Conjugate Vacc, 13 Valent (Prevnar) [...] PM EDT Office Visit Family Practice [address], [place] [address] [facility] [place] [address] Tawanna Limon, 293 [place] [address] 05/30/2024 11:00 AM EDT Office Visit Rheumatology [place] [address] [facility] [place] [address] Leland Novoa MD [address] [place] [address] [place] [address] 06/04/2024 1:00 PM EDT Rehab Services Voice Lab [facility] 132 [facility] [place] [address] Víctor Lees, [facility] INSTALLER 132 [facility] [place] [address] 06/04/2024 1:00 PM EDT Office Visit Otolaryngology [facility] 132 [facility] [place] [address] Bettye Schwartz MD 132 [facility] [place] [address] Scheduled Procedures Name Priority Associated Diagnoses Date/Ti [...] Additional history exists CKD PHOS USE SMARTSET 06102 02/25/202502/05, 02/10/2023, 02/15/2022, Additional history exists TSH 02/25/2025 02/26/2024, 04/05/2023, 02/15/2022, Additional history exists Depression Monitoring 04/19/2025 04/19/2024 CKD HGB USE SMARTSET 91984 04/26/202504/26, 04/26/2024, 01/15/2024, Additional history exists Colonoscopy [...] Other - (no specific identity) Health Care Public Health Professor (appointed verbally by patient or by statute hierarchy) Bob Manjarrez Adult Child Health Care Public Health Professor (appointed verbally by patient or by statute hierarchy) Care Teams Teacher Ballet Relationship Specialty Start Date End Date Tawanna Limon DO [address] [place] [address] PCP - General Family Medicine 04/18/24 documented as of this encounter
--- OUTSIDE RECORDS SUMMARY | 2024-05-09 22:59 | External Medical Summary ---
Author Name Unknown Address Unknown Organization K0G:LABORATORY [facility] [address] [place] [address] Laboratory Report Ordering Provider Test Date Status NARCISO RHODES 04/26/2024 09:57:40 Final Observation Date Value Abnormality Reference (Units ) Status BUN 04/26/2024 09:57:40 20 6-20 (mg/dL) Final Creatinine 04/26/2024 09:57:40 1.5 Above high normal 0.5-1.0 (mg/dL) Final Glomerular filtration rate/1.73 sq M.predicted [Volume Rate/Area] in Serum, Plasma or Blood by Creatinine-based formula (CKD-EPI) 04/26/2024 09:57:40 38 Below low normal >=60 (mL/min) Final eGFR is calculated based on the CKD-EPI 2020 equation Sodium 04/26/2024 09:57:40 136 135-146 (m mol/L) Final Potassium 04/26/2024 09:57:40 3.6 3.5-5.1 (m mol/L) Final Cl 04/26/2024 09:57:40 99 98-107 (mm ol/L) Final CO2 04/26/2024 09:57:40 23 22-32 (mmo l/L) Final Anion gap 04/26/2024 09:57:40 14 7-15 (mmol /L) Final Glucose 04/26/2024 09:57:40 131 Above high normal 70 -120 (mg/dL) Final Calcium 04/26/2024 09:57:40 9.7 8.4-10.2 ( mg/dL) Final Performing Location LABORATORY [place] [address] [place] [address]
--- OUTSIDE RECORDS SUMMARY | 2024-05-09 22:59 | External Medical Summary | Summary of Care ---
Author Name Unknown Organization [facility] Address [address] [place] [address] Phone [phone] Care Team Providers Care Continuity Reader Name Role Phone Tawanna Limon DO Primary Care Provider [phone] Reason for Visit * Reason Comments Acute Encounter Details Date Type Department Care Team (Late st Contact Info) Description 04/26/2024 8:20 AM EDT Office Visit Family Practice [address] [place] [address] [place] [id number] Tawanna Limon DO [address] [place] [address] Wheezing*; Acute cough; Risk and functional assessment Allergies Active Allergy Reactions Criticality Noted Date [...] for brain health. Active Nebulizers (NEBULIZER COMPRESSOR) [facility] [place] via nebulizer. Use as directed. 1 [...] 0.1 % Nasal Solution (Astelin) Administer 1 [place] into nostril in the morning and 1 [place] before bedtime. 30 mL 12 03/04/2024 Active [...] in the morning. 30 Tablet 2 01/12/2024 4 Discontinu ed(Refill) Hospital, Clinic, or Other Facility Administered Medication Ordered Dose Route Frequency Start Date End Date Status Albuterol Sulfate (Proventil) (2.5 MG/3ML) 0.083% inhalation solution 2.5 mgIndications:Wheezing, Acute cough 2.5 mg NEBULIZER ONCE 04/26/2024 04/26/2024 Ended documented as of this encounter (statuses as [...] mRNA, LNP-s, No Pre serve, 2-Dose Series ([facility]) 09/07/2021,02/26/2021,02/05/2021 COVID-19, LNP-s, No Preserve , James-sucrose, Ages 12+ ([facility]) 05/26/2022 COVID-19, MRNA-LNP, 23-24, P F, 30 MCG/0.3 mL, 12 YRS AND ABOVE, IM ([facility] [employer]) 11/23/2023 Covid-19, Mrna, Lnp-s, Pf, B ivalent, 30 Mcg, IM, 12 yrs and above ([facility]) 04/17/2023 Pneumococcal Conjugate Vacc, 13 Valent (Prevnar) [...] Passive Smoke Exposure: Past Smokeless Tobacco: Never Tobacco Cessation:Counseling Given: Yes Alcohol Use Standard Drinks/Week Comments No 0 [...] on file documented as of this encounter Last Filed Vital Signs Vital Sign Reading Time Taken Comments Blood Pressure 116/66 04/26/2024 8:26 AM EDT Pulse 76 04/26/2024 9:24 AM EDT Temperature 36.8 C (98.3 F) 04/26/2024 8:26 AM ED T Respiratory Rate 18 04/26/2024 8:26 AM EDT Oxygen Saturation 94% 04/26/2024 9:24 AM EDT Inhaled Oxygen Concentration - - Weight 121 kg (266 lb 12.8 oz) 04/26/2024 8:26 A M EDT Height 166.4 cm (5' 5.5") 04/26/2024 8:26 AM EDT Body Mass Index 43.72 04/26/2024 8:26 AM EDT documented in this encounter Patient Instructions * Patient Instructions* Ritika Oliva LPN - 04/26/2024 8:21 AM EDT Patient Instructions - Fall Prevention (This education is for all patients over 65 regardless of symptoms) Remember to take your current medications as prescribed. In order to prevent falls, you are encouraged to: Exercise Utilize assistive/adaptive devices Avoid multifocal lenses when walking Avoid hazards in home Maintain a regular toileting schedule Any questions please contact our office. Preventing Falls in the Home (This education is for all patients over 65 regardless of symptoms) As you get older, falls are more likely. Thats because your reaction time slows. Your muscles and joints may also get stiffer, making them less flexible. Illness, medications, and vision changes can also affect your balance. A fall could leave you unable to live on your own. To make your home safer, follow these tips: Floors Put nonskid pads under area rugs Remove throw rugs Replace worn floor coverings Tack carpets firmly to each step on carpeted stairs. Put nonskid strips on the edges of uncarpeted stairs Keep floors and stairs free of clutter and cords Arrange furniture so there are clear pathways Clean up any spills right away Bathrooms Install grab bars in the tub or shower Apply nonskid strips or put a nonskid rubber mat in the tub or shower Sit on a bath chair to bathe Use bathmats with nonskid backing Lighting Keep a flashlight in each room Put a nightlight along the pathway between the bedroom and the bathroom Low Patient Education Copyright 2008 - 2010 Low except where otherwise noted Preventing Falls: Exercises to Improve Balance, Flexibility, Strength, and Staying Power (This education is for all patients over 65 regardless of symptoms) Certain types of exercises may help make you less likely to fall. Try the ones below. Or do other exercises that your healthcare provider suggests. Depending on your health, you may need to start slowly. Dont let that stop you. Even small amounts of exercise can help you. Be sure to talk to yourhealthcare provider before starting any exercise program. Improve Balance Many types of exercise can help improve balance. Nick chi and yoga are good examples. Heres another one to try. You can do it anytime and almost anywhere. Stand next to a counter or solid support. Push yourself up onto your tiptoes. Hold for 5 seconds. If you start to lose your balance, hold on to the counter. Rest and repeat 5 times. Work up to holding for 20 to 30 seconds, if you can. Increase Flexibility Being more flexible makes it easier for you to move around safely. Try exercises like the seated hamstring stretch. Sit in a chair and put one foot on a stool. Straighten your leg and reach with both hands down either side of your leg. Reach as far down your leg as you can. Hold for about 20 seconds. Go back to the starting position. Then repeat 5 times. Switch legs. Build Strength Resistance exercises help build strength. You can do them without equipment. Or you can use weights, elastic bands, or special machines. One such exercise is called the biceps curl. You can hold a 1 pound weight or even a can of soup. Do this exercise at least 3 times a week. Strive for everyday. Sit up straight in a chair. Keep your elbow close to your body and your wrist straight. Bend your arm, moving your hand up to your shoulder. Then slowly lower your arm. Repeat 5 times. Switch to the other arm. Build Your Staying Power Aerobic exercises make your heart and lungs stronger so you can keep moving longer. Walking and swimming are two of the best types of exercises you can do. Using a stationary bike is great, too. Find an aerobic exercise that you enjoy. Start slowly and build up. Even 5 minutes is helpful. Aimfor a goal of 30 minutes, at least 3 times a week. You dont have to do 30 minutes in one session. Break it up and walk a little throughout the day. More Helpful Tips Start easy. Slowly work up to doing more. Talk with your healthcare provider about the best exercises for you. Call senior centers or health clubs about exercise programs. If needed, have a family member watch you walk every so often to check your stability. Exercise with a friend. Choose an activity you both enjoy. Try exercises that you can do anytime, anywhere. Here are two examples. Have someone with you when you first try these: Practice walking by placing one foot right in front of the other. Stand up and sit down 10 times. Repeat this throughout the day. [facility] Patient Education Copyright 2009 - 2010 Low except where otherwise noted. Preventing Falls: Moving Safely Using a Cane or Walker (This education is for all patients over 65 regardless of symptoms) Keep the cane away from your feet so you dont trip. A walking aid, such as a cane or walker, can help you stay more independent and avoid falls. Remember to keep your walking aid within easy reach when youre in a chair or in bed. And learn how to use it safely so you dont injure yourself. Using a Cane If you have a stronger side, hold the cane on that side. Get your balance. Move the cane and your weaker leg forward. Support your weight on both the cane and your weaker side. Step with your stronger leg. Start again from step 1. If youre using a folding walker, be sure you know how to lock it open. Check that its locked open before each use. Using a Walker Roll the walker (or lift it, if youre using one without wheels) forward about 12 inches. Step forward with your weaker leg first. Use the walker to help keep your balance. Bring your other foot forward to the center of the walker. Start again from step 1. Helpful Tips Check with your healthcare provider about the right walking aid to use. Ask about a walker with a seat attached. Check the tips of your cane or walker to make sure they have nonskid covers. Move slowly from room to room. Dont alexis. Sit down to get dressed. Use a gautam pack or backpack to keep your hands free. Get help for jobs that mean climbing, even on a stepstool. Low Patient Education Copyright 2008 - 2010 Low except where otherwise noted. Urinary Incontinence Plan of Care Documentation: (This education is for all patients over 65 regardless of symptoms) Current medications reconciled. Patient encouraged to: Practice kegal exercises Provide education materials Use the restroom every 2 hours throughout the day Limit caffeine, alcohol, spicy foods and acidic foods Keep a bladder diary Limit fluid intake 3-4 hours before bed Lose weight Prevent constipation Take fluid pills at a time when you can get to the bathroom quickly Control sugar better if diabetic Limit fluid intake to 60 oz. per day Wear support stockings (TEDs)if you have edema Ritika Oliva LPN 04/26/2024 Kegel Exercises Kegel exercises dont require special clothing or equipment. Theyre easy to learn and simple to do. And if you do them right, no one can tell youre doing them, so they can be done almost anywhere. Your doctor, nurse, or physical therapist can answer any questions you have and help you get started. A Weak Pelvic Floor The pelvic floor muscles may weaken due to aging, and vaginal childbirth, injury, surgery, chronic cough, or lack of exercise. If the pelvic floor is weak, your bladder and other pelvic organs may sag out of place. The urethra may also open too easily and allow urine to leak out. Kegel exercises can help you strengthen your pelvic floor muscles so they can better support the pelvic organs and control urine flow. How Kegel Exercises Are Done Try each of the Kegel exercises described below. When youre doing them, try not to move your leg, buttock, or stomach muscles. While youre urinating, try to stop the flow of urine. Start and stop it as often as you can. Contract as if you were stopping your urine stream, but do it when youre not urinating. Tighten your rectum as if trying not to pass gas. Contract your anus, but dont move your buttocks. Helpful Hints Do your Kegels as often as you can. The more you do them, the faster youll feel the results. Pick an activity you do often as a reminder. For instance, do your Kegels every time you sit down. Tighten your pelvic floor before you sneeze, get up from a chair, cough, laugh, or lift. This protects your pelvic floor from injury and can help prevent urine leakage. Try to hold each Kegel for a slow count to five. You probably wont be able to hold them for thatlong at first, but keep practicing. It will get easier as your pelvic floor gets stronger. Eventually, special weights that you place in your vagina may be recommended to help make your Kegels even more effective. Low Patient Education Copyright 2009 - 2010 Low except where otherwise noted. Here are some helpful tips for your urinary incontinence: (This education is for all patients over 65 regardless of symptoms) Practice Kegel exercises Use the restroom every 2 hours throughout the day Limit caffeine, alcohol, spicy foods, and acidic foods Keep a bladder diary Limit fluid intake 3-4 hours before bed Lose weight Prevent constipation Take fluid pills at a time when can get to the bathroom quickly Control sugar better if diabetic Limit fluid intake to 60 oz. per day Any questions, please feel free to contact our office. documented in this encounter Progress Notes * Tawanna Limon, DO - 04/26/2024 8:31 AM EDT SUBJECTIVE: Chief Complaint Patient presents with Acute HPI: Alena Manjarrez is a 68 year old female who presents today with complaints of cough and congestion. It started a week ago. She is wheezing. She does not feel short of breath. She had temperatures to 99. The last time she checked was Monday night. She notes she mostly slept. She notes that she was falling because she felt dizzy. She has a history of vertigo. She notes that she has been eating and drinking. She notes no sick contacts. Has lost 7lbs in a week. PHM: Patient Active Problem List Diagnosis Acquired hypothyroidism PTSD (post-traumatic stress disorder) Sensorineural hearing loss Presbyacusis History of migraine DYSLIPIDEMIA, GOAL LDL BELOW 100 COMFORT on CPAP Encounter for long-term (current) use of medications Depression with anxiety Rheumatoid arthritis involving multiple sites with positive rheumatoid factor ([facility]) HTN, goal below 140/90 Diffuse dermatitis Primary open-angle glaucoma, bilateral, mild stage Other atherosclerosis of cheesh-na arteries of extremities, bilateral legs ([facility]) Gastroesophageal reflux disease without esophagitis Moderate persistent asthma without complication Intellectual disability Major depressive disorder, recurrent, severe with psychotic symptoms ([facility]) Early onset Alzheimer's dementia without behavioral disturbance ([facility]) Hypertensive kidney disease with stage 3b chronic kidney disease ([facility]) Prediabetes Body mass index (BMI) of 45.0 to 49.9 in adult ([facility]) Current Outpatient Medications Medication Sig Dispense Refill OMEGA-3 FISH OIL 1000 MG PO CAPS Take 1 Capsule by mouth in the morning. ASPIRIN 325 MG PO TABS Take 1 Tablet by mouth every evening. Cyanocobalamin 1000 MCG Oral Tablet Take 1 Tablet by mouth in the morning. 30 Tab 5 TRAVATAN Z 0.004 % ophthalmic solution Instill 1 Drop into both eyes at bedtime. Cholecalciferol (VITAMIN D3) 1000 units CAPS Take 1 Capsule by mouth in the morning. Coconut Oil OIL Take by mouth every morning. Patient mixes a spoon of Louana Non Hydrogenated TransFat Coconut Oil in her coffee every morning, for brain health. Dicyclomine HCl 10 MG Oral Capsule (Bentyl) TAKE ONE CAPSULE BY MOUTH THREE TIMES DAILY NEEDED for abdominal pain 270 Capsule 1 Albuterol Sulfate (2.5 MG/3ML) 0.083% Inhalation Nebulization Solution (Proventil) Inhale 1 Vial via nebulizer every 6 hours as needed for Wheezing. 120 mL 0 cycloSPORINE 0.05 % Ophthalmic Emulsion (Restasis) Instill 1 Drop into both eyes in the morning and1 Drop before bedtime. Lisinopril 20 MG Oral Tablet (Prinivil) Take 1 Tablet by mouth in the morning. 90 Tablet 3 Montelukast Sodium 10 MG Oral Tablet (Singulair) Take 1 Tablet by mouth at bedtime. 90 Tablet 3 Metamucil 0.36 GM Oral Capsule (Psyllium) Take by mouth daily. Levothyroxine Sodium 50 MCG Oral Tablet (Levoxyl) TAKE ONE-HALF TABLET BY MOUTH DAILY AT LEAST 30 MINUTES BEFORE BREAKFAST AND OTHER MEDICATIONS 135 Tablet 3 DULoxetine HCl 20 MG Oral Capsule Delayed Release Particles (Cymbalta) Take 2 Capsules by mouth in the morning and 2 Capsules before bedtime. 120 Capsule 3 Fluticasone-Salmeterol 500-50 MCG/ACT Inhalation Aerosol Powder Breath Activated (Advair Diskus) INHALE ONE PUFF BY MOUTH TWICE A DAY DIRECTED 180 Each 1 Fluticasone Propionate 50 MCG/ACT Nasal Suspension (Flonase) Administer 2 Sprays into each nostril at bedtime. 16 g 5 Famotidine 40 MG Oral Tablet (Pepcid) Take 1 Tablet by mouth in the morning. 100 Tablet 1 NATURAL SUPPLEMENT Take by mouth 2 times a day. Focus Factor Rinvoq 15 MG Oral Tablet Extended Release 24 Hour (Upadacitinib ER) Take 1 tablet by mouth in the morning. 30 Tablet 2 Rosuvastatin Calcium 20 MG Oral Tablet (Crestor) Take 1 Tablet by mouth in the morning. 90 Tablet 1 Azelastine HCl 0.1 % Nasal Solution (Astelin) Administer 1 [place] into nostril in the morning and 1 [place] before bedtime. 30 mL 12 buPROPion HCl ER (SR) 100 MG Oral Tablet Extended Release 12 Hour (Wellbutrin SR) Take 1 Tablet by mouth daily. Omeprazole 20 MG Oral Capsule Delayed Release (PriLOSEC) Take 1 capsule by mouth once a day 1 hour before the first meal of the day 100 Capsule 1 Erythromycin 5 MG/GM Ophthalmic Ointment Apply as directed to eye lid, brow and under eye traZODone HCl 150 MG Oral Tablet (Desyrel) Take 2 Tablets by mouth at bedtime. Albuterol Sulfate HFA 108 (90 Base) MCG/ACT Inhalation Aerosol Solution Inhale 2 Puffs by mouth every 4 hours as needed for Wheezing. 18 g 5 Meclizine HCl 12.5 MG Oral Tablet (Antivert) Take 1 Tablet by mouth 3 times a day as needed for Dizziness. 30 Tablet 1 tiZANidine HCl 2 MG Oral Tablet (Zanaflex) TAKE 1 TABLET BY MOUTH EVERY 6 HOURS NEEDED FOR MUSCLE SPASMS 120 Tablet 0 Nebulizers (NEBULIZER COMPRESSOR) MISC Inhale via nebulizer. Use as directed. 1 Each 1 No current facility-administered medications for this visit. Past Medical History: Diagnosis Date Acute pharyngitis 08/21/07 Dr. Eller Anemia Asthma, moderate persistent 07/10/2008 PER PROVIDER PROTOCOL. Dyslipidemia, goal LDL below 100 10/15/2009 Per Lipid [facility]. Hypothyroidism Infective otitis externa 08/21/07 Dr. Eller Obesity, BMI not known COMFORT on CPAP 01/04/2011 [facility] 01/11/11 to 03/21/11 compliant with CPAP 11/26/12 set pressure to 14 cm of water pressure Otalgia 08/21/07 Dr. 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 Eller PTSD (post-traumatic stress disorder) 07/05/2006 With severe depression Reflux esophagitis 08/21/07 Dr. Eller Rheumatoid arthritis(714.0) 05/14/2012 Sensorineural hearing loss 08/21/07 Dr. Eller SLEEP APNEA, UNSPECIFIED: AHI 12.6 [facility] to 03/21/11 compliant with CPAP Temporomandibular joint disorders, unspecified 08/21/07 Dr. Eller Past Surgical History: Procedure Laterality Date DELIVERY X 2 COLONOSCOPY 04/10 normal (Dr. Quezada) COLONOSCOPY, DIAGNOSTIC (RECTUM) 02/14/2017 diverticulosis, repeat 10 yrs/COLONOSCOPY FLEXIBLE PROXIMAL DIAGNOSTIC performed by Alanis Zarate DO at END[facility]COPY [facility] EGD, FLEXIBLE, DIAGNOSTIC 07/02/2013 UPPER GI ENDOSCOPY DIAGNOSTIC performed by Alanis Zarate DO at [facility] EGD, FLEXIBLE, DIAGNOSTIC 10/09/2019 chronic inactive gastric inflammation / [facility] FRACTURE NOS left ankle LAPAROSCOPY; CHOLECYSTECTOMY 02/07/2013 02/07/2013 laparoscopic cholecystectomy [facility] Dr. Maddy Ospina LIGATE/CUT OVIDUCT(S) Review of patient's allergies indicates: Allergen Reactions Adhesive Tape Edema face/lips/tongue States she is allergic to bandaid and it causes throat swelling. Humira [Adalimumab] Itching Pt reports that she took Humira approx 1 year ago and had to stop it due to itchiness. Ibuprofen Nausea/vomiting Latex Nsaids stomache upset Sulfa Antibiotics Eyes like on fire Family History Problem Relation Name Age of Onset Osteoarthritis Mother Alzheimer's disease Mother Dementia Mother Lung Disorder Father "Black Lung" Gastro-intestinal disorder Sister Honey No Known Problems Daughter Lung cancer Brother Leland Mental retardation Son mild Schizophrenia Son Brain cancer Uncle (Unspecified) Kidney cancer Uncle (Unspecified) Diabetes Niece Neyda 11 Type I Arthritis Aunt (Maternal) Breast Cancer No significant family history Family Status Relation Status Mo Fa Sis Alive Sis Alive Carlo Alive Bro Alive Bro Alive Bro Son Alive schizophrenia UNCLE (Not Specified) UNCLE (Not Specified) Niece (Not Specified) MAUNT mother's sister-suffocated from neck bending/ neck swelling No history (Not Specified) Social History Tobacco Use Smoking status: Never Passive exposure: Past Smokeless tobacco: Never Substance Use Topics Alcohol use: No Vaping/E-Cigarette Use Vaping/E-Cigarette Use Never User Vaping/E-Cigarette Substances Vaping/E-Cigarette Devices REVIEW OF SYSTEMS: Review of Systems Constitutional: Positive for fatigue. Negative for chills, fever and unexpected weight change. HENT: Positive for congestion. Respiratory: Positive for cough and shortness of breath. Negative for chest tightness and wheezing. Cardiovascular: Negative for chest pain, palpitations and leg swelling. Gastrointestinal: Negative for abdominal pain, constipation, diarrhea, nausea and vomiting. Musculoskeletal: Negative for arthralgias, gait problem and joint swelling. Skin: Negative for color change, pallor and rash. Neurological: Positive for dizziness. OBJECTIVE: BP 116/66 (BP Site: Left Arm, BP Position: Sitting, BP Cuff Size: Large) | Pulse 64 | Temp 36.8 C(98.3 F) (Tympanic) | Resp 18 | Ht 1.664 m (5' 5.5") | Wt 121 kg (266 lb 12.8 oz) | LMP 09/16/2003 | SpO2 93% | BMI 43.72 kg/m | BSA 2.36 m PHYSICAL EXAM: Physical Exam Constitutional: General: She is not in acute distress. Appearance: She is well-developed. Cardiovascular: Rate and Rhythm: Normal rate and regular rhythm. Heart sounds: Normal heart sounds. No murmur heard. No friction rub. No gallop. Pulmonary: Effort: Pulmonary effort is normal. No respiratory distress. Breath sounds: Normal breath sounds. No wheezing or rales. Abdominal: General: Bowel sounds are normal. There is no distension. Palpations: Abdomen is soft. Tenderness: There is no abdominal tenderness. There is no guarding. Musculoskeletal: General: No tenderness or deformity. Normal range of motion. Skin: General: Skin is warm and dry. Coloration: Skin is not pale. Findings: No erythema or rash. Neurological: Mental Status: She is alert and oriented to person, place, and time. ASSESSMENT/PLAN: (R06.2) Wheezing (primary encounter diagnosis) (R05.1) Acute cough Plan: XR CHEST 2 VIEWS, NEBULIZER TREATMENTS, Albuterol Sulfate (Proventil) (2.5 MG/3ML) 0.083% inhalation solution 2.5 mg, BASIC METABOLIC PANEL, CBC WITH WBC DIFFERENTIAL, predniSONE 10 MG Oral Tablet (Deltasone), Doxycycline Hyclate 100 MG Oral Capsule X-ray with no obvious pneumonia, ? Atelectasis in right base. Nebulizer in clinic today. Start prednisone and doxycycline. Complete lab studies today. Will await results. (Z13.9) Risk and functional assessment Plan: See nursing note. Follow-up: as scheduled Total time today including reviewing chart before the visit, pertinent labs, imaging reports, face to face time, and documentation time was 45 minutes. Tawanna Limon DO * Ritika Oliva LPN - 04/26/2024 8:21 AM EDT Fall Risk Plan of Care Documentation: - Current medications reconciled Patient encouraged to: - Exercise - Provide education materials for Core strengthening - Utilize assistive/adaptive devices - Provide education materials - Avoid multifocal lenses when walking - Avoid hazards in home - Provide education materials - Maintain a regular toileting schedule Ritika Oliva LPN 04/26/2024 Urinary Incontinence Plan of Care Documentation: (This education is for all patients over 65 regardless of symptoms) Current medications reconciled. Patient encouraged to: Practice kegal exercises Provide education materials Use the restroom every 2 hours throughout the day Limit caffeine, alcohol, spicy foods and acidic foods Keep a bladder diary Limit fluid intake 3-4 hours before bed Lose weight Prevent constipation Take fluid pills at a time when you can get to the bathroom quickly Control sugar better if diabetic Limit fluid intake to 60 oz. per day Wear support stockings (TEDs)if you have edema Ritika Oliva LPN 04/26/2024 documented in this encounter Nursing Notes * Ritika Oliva LPN - 04/26/2024 9:03 AM EDT Nebulizer treatment per physician order. Pt tolerated nebulizer treatment. States she feels she is breathing "a little better". Pulse ox 94%, pulse 76. * Ritika Oliva LPN - 04/26/2024 8:17 AM EDT Patient here for acute visit. Reports symptoms started with sore throat that started on Monday, worsened on Monday. Reports cough, shortness of breath, fever, chills, and dizziness. Very fatigued -sleeping most of the day. Did not do COVID test. Fell Monday taking the dog out, was not injured, fell Monday morning getting up to go to the bathroom, fell Monday getting up to go to the bathroom. States she fell onto things. Reports worsening chronic neck and jaw pain. States not new, but has been getting worse. documented in this encounter Plan of Treatment Upcoming Encounters Date Type Department Care Team (Late st Contact Info) Description 05/24/2024 1:00 PM EDT Office Visit Family Practice [address] [place] [address] 293 [facility] [address] Taw[facility] Limon [facility] [address] 05/30/2024 11:00 AM EDT Office Visit Rheumatology [place] [id number] [place] [address] Leland Novoa MD [address] [facility] [address] 06/04/2024 1:00 PM EDT Rehab Services Voice Lab [facility] [address] [place] [address] Víctor Lees, [facility] [address] [place] [address] 06/04/2024 1:00 PM EDT Office Visit Otolaryngology [facility] [address] [place] [address] Bettye Schwartz MD [address] [place] [address] Scheduled Orders Name Type Priority Associated Diagnoses Orde r Schedule NEBULIZER TREATMENTS Procedures Routine Wheezing Acute cough Ordered: 04/26/2024 Scheduled Procedures Name Priority Associated Diagnoses Date/Ti [...] Additional history exists CKD PHOS USE SMARTSET 20267 02/25/202502/05, 02/10/2023, 02/15/2022, Additional history exists TSH 02/25/2025 02/26/2024, 04/0 05/2023, 02/15/2022, Additional history exists Depression Monitoring 04/19/2025 04/19/2024 CKD HGB USE SMARTSET 39255 04/26/202504/26, 04/26/2024, 01/15/2024, Additional history exists Colonoscopy [...] Not on filedocumented as of this encounter Procedures Procedure Name Priority Date/Time Associated Diagnosis Comments XR CHEST 2 VIEWS STAT 04/26/2024 9:01 AM EDT Wheezing Acute cough documented in this encounter Results * (ABNORMAL) BASIC METABOLIC PANEL (04/26/2024 9:57 AM EDT) BUN 20 6 - 20 mg/dL 04/26/2024 10:47 AM EDT [facility] Creatinine 1.5(H) 0.5 - 1.0 mg/dL 04/26/2024 10:47 AM EDT [facility] Estimated Glomerular Filtration Rate 38(L) >=60 mL/min 04/26/2024 10:47 AM EDT [facility] Comment:eGFR is calculated b ased on the CKD-EPI 2020 equation Sodium 136 135 - 146 mmol/L 04/26/2024 10:47 AM EDT [facility] Potassium 3.6 3.5 - 5.1 mmol/L 04/26/2024 10:47 AM EDT [facility] Chloride 99 98 - 107 mmol/L 04/26/2024 10:47 AM EDT [facility] CO2 23 22 - 32 mmol/L 04/26/2024 10:47 AM EDT [facility] Anion Gap 14 7 - 15 mmol/L 04/26/2024 10:47 AM EDT [facility] Glucose 131(H) 70 - 120 mg/dL 04/26/2024 10:47 AM EDT [facility] Calcium 9.7 8.4 - 10.2 mg/dL 04/26/2024 10:47 AM EDT [facility] Blood Venous blood specimen / Unknown Venipuncture / Unknown 04/26/2024 9:57 AM EDT 04/26/2024 9:57 AM EDT Tawanna Limon DO LAB BLOOD ORDERABLES Performing Organization Address City/State/[facility] Co de Phone Number [facility] 132 [place] [address] * XR CHEST 2 VIEWS (04/26/2024 9:01 AM EDT) Anatomical Region Laterality Modality Chest Digital Radiogra phy 04/26/2024 9:10 AM EDT Impressions 04/26/2024 9:08 AM EDT IMPRESSION No acute cardiopulmonary findings. Narrative 04/26/2024 9:08 AM EDT EXAM XR CHEST 2 VIEWS-04/26/2024 9:01 am HISTORY cough and wheezing COMPARISON 01/16/2017 TECHNIQUE PA and lateral FINDINGS The heart size and pulmonary vascularity are normal. Mild atherosclerotic calcifications thoracic aorta. The dana are normal. Lungs are clear. No infiltrate. No pleural effusion. No pneumothorax. No tracheal deviation. No mediastinal widening. The visualized osseous structures are intact. Surgical clips upper abdomen. Procedure Note Diego Bearden MD - 04/26/2024 EXAM XR CHEST 2 VIEWS-04/26/2024 9:01 am HISTORY cough and wheezing COMPARISON 01/16/2017 TECHNIQUE PA and lateral FINDINGS The heart size and pulmonary vascularity are normal. Mild atheroscleroticcalcifications thoracic aorta. The dana are normal. Lungs are clear. Noinfiltrate. No pleural effusion. No pneumothorax. No tracheal deviation.No mediastinal widening. The visualized osseous structures are intact.Surgical clips upper abdomen. IMPRESSION IMPRESSION No acute cardiopulmonary findings. Tawanna Limon DO RADIOLOGY (RAD GENER AL) documented in this encounter Visit Diagnoses Diagnosis Wheezing- Primary Acute cough Risk and functional assessment Screening for unspecified condition documented in this encounter Administered Medications Inactive Administered Medications - up to 3 most recent administrations Medication Order MAR Action Action Date Dose Rate Site Albuterol Sulfate (Proventil) (2.5 MG/3ML) 0.083% inhalation solution 2.5 mg 2.5 mg, Nebulizer, ONCE, On Mon04/26/24 at 0930, For 1 dose Given 04/26/2024 9:02 AM EDT 2.5 mg documented in this encounter Advance Directives Healthcare Agents on File Name Relationship Healthcare Agent Relationship Communication Marcos Breaux Other - (no specific identity) Health Care Volunteer Fire Fighter (appointed verbally by patient or by statute hierarchy) Bob Manjarrez Adult Child Health Care Volunteer Fire Fighter (appointed verbally by patient or by statute hierarchy) Care Teams Continuity Reader Relationship Specialty Start Date End Date Tawanna Limon DO 293 [place] [address] PCP - General Family Medicine 04/18/24 documented as of this encounter
--- OUTSIDE RECORDS SUMMARY | 2024-05-09 22:59 | External Medical Summary | Summary of Care ---
Author Name Unknown Organization [facility] Address [address] [place] [address] Phone [phone] Care Team Providers Care Checker Cashier Name Role Phone Tawanna Limon DO Primary Care Provider [phone] Reason for Visit * Reason Onset Date Comments Test Results 04/26/202404/26 Encounter Details Date Type Department Care Team (Late st Contact Info) Description 04/26/2024 Telephone Family Practice [address], [place] 293 [place] [phone] Tawanna Limon DO 293 [place], [place] [phone] Test Results (04/26) Allergies Active Allergy Reactions Criticality Noted Date [...] for brain health. Active Nebulizers (NEBULIZER COMPRESSOR) [facility] Inhale via nebulizer. Use as directed. 1 [...] 0.1 % Nasal Solution (Astelin) Administer 1 [place] into nostril in the morning and 1 [place] before bedtime. 30 mL 12 03/04/2024 Active [...] mRNA, LNP-s, No Pre serve, 2-Dose Series ([employer]) 09/07/2021,02/26/2021,02/05/2021 COVID-19, LNP-s, No Preserve , James-sucrose, Ages 12+ ([employer]) 05/26/2022 COVID-19, MRNA-LNP, 23-24, P F, 30 MCG/0.3 mL, 12 YRS AND ABOVE, IM ([facility]) 11/23/2023 Covid-19, Mrna, Lnp-s, Pf, B ivalent, 30 Mcg, IM, 12 yrs and above ([employer]) 04/17/2023 Pneumococcal Conjugate Vacc, 13 Valent (Prevnar) [...] encounter Miscellaneous Notes * Telephone Encounter - Ritika Oliva LPN - 04/26/2024 1:34 PM EDT Call placed to patient and relayed information from Dr. Limon. Pt acknowledged understanding andstates she will comply. * Telephone Encounter - Tawanna Limon DO - 04/26/2024 1:11 PM EDT Please let pt know: Her chest x-ray looked good. Her lab studies show that her kidney function is a bit worse than usual. She appears to be a bit dehydrated from her illness. Please advise her to stay hydrated. Can use water and sugar free gatoradeif needed. documented in this encounter Plan of Treatment Upcoming Encounters Date Type Department Care Team (Late st Contact Info) Description 04/29/2024 10:00 AM EDT Nurse Only Family Practice 65 [facility] 293 [facility] [place] [phone] College, Nurse Fam Prac [address] [place] [address] 05/24/2024 1:00 PM EDT Office Visit Family Practice 65 [facility] 293 [facility] [phone] Tawanna Limon DO 293 [place] [address] 05/30/2024 11:00 AM EDT Office Visit [address]umatology [address] [address] Leland Novoa MD [address] [facility] [place] [address] 06/04/2024 1:00 PM EDT Rehab Services Voice Lab [facility] [address] [place] [address] Víctor Lees, [facility] [address] [facility] [place] [address] 06/04/2024 1:00 PM EDT Office Visit Otolaryngology [facility] [address] [place] [address] Bettye Schwartz MD 132 [facility] [place] [address] Scheduled Procedures Name Priority Associated Diagnoses Date/Ti [...] Additional history exists CKD PHOS USE SMARTSET 79425 02/25/202502/05, 02/10/2023, 02/15/2022, Additional history exists TSH 02/25/2025 02/26/2024, 04/0 05/2023, 02/15/2022, Additional history exists Depression Monitoring 04/19/2025 04/19/2024 CKD HGB USE SMARTSET 87446 04/26/202504/26, 04/26/2024, 01/15/2024, Additional history exists Colonoscopy [...] Other - (no specific identity) Health Care Art Handler (appointed verbally by patient or by statute hierarchy) Bob Manjarrez Adult Child Health Care Art Handler (appointed verbally by patient or by statute hierarchy) Care Teams Checker Cashier Relationship Specialty Start Date End Date Tawanna Limon DO [address] [place], [place] [address] [address] PCP - General Family Medicine 04/18/24 documented as of this encounter
--- OUTSIDE RECORDS SUMMARY | 2024-05-09 22:59 | External Medical Summary ---
Author Name Unknown Address Unknown Organization K01:[facility] - [address] [place] [address] Laboratory Report Ordering Provider Test Date Status JEAN-PAUL HARTLEY 04/26/2024 09:57:40 Final Observation Date Value Abnormality Reference (Units ) Status Magnesium 04/26/2024 09:57:40 2.0 1.5-2.6 (m g/dL) Final Performing Location [facility] - [address] [place] [address]
--- OUTSIDE RECORDS SUMMARY | 2024-05-09 22:59 | External Medical Summary | Summary of Care ---
Author Name Unknown Organization [facility] Address [address] [place] [address] Phone [phone] Care Team Providers Care Mds Manager Name Role Phone Tawanna Limon DO Primary Care Provider [phone] Reason for Visit * Reason Onset Date Comments Nurse Documentation 04/29/202404/29 Encounter Details Date Type Department Care Team (Late st Contact Info) Description 04/29/2024 10:00 AM EDT Scheduled Telephone Family Practice 65 [facility] [place] 293 [place] [phone] College, Nurse [facility] Prac [address] [facility] 293 [place] [address] Allergies Active Allergy Reactions Criticality Noted Date [...] for brain health. Active Nebulizers (NEBULIZER COMPRESSOR) [facility] Inhale via nebulizer. Use as directed. 1 [...] 0.1 % Nasal Solution (Astelin) Administer 1 [place] into nostril in the morning and 1 [place] before bedtime. 30 mL 12 03/04/2024 Active [...] 01/04/2011 Overview: [facility] 01/11/11 to 5/16/11 compliant with CPAP 11/26/12 set pressure to [...] mRNA, LNP-s, No Pre serve, 2-Dose Series ([employer]) 09/07/2021,02/26/2021,02/05/2021 COVID-19, LNP-s, No Preserve , James-sucrose, Ages 12+ ([employer]) 05/26/2022 COVID-19, MRNA-LNP, 23-24, P F, 30 MCG/0.3 mL, 12 YRS AND ABOVE, IM ([facility]) 11/23/2023 Covid-19, Mrna, Lnp-s, Pf, B ivalent, 30 Mcg, IM, 12 yrs and above ([employer]) 04/17/2023 Pneumococcal Conjugate Vacc, 13 Valent (Prevnar) [...] Telephone Encounter - Tawanna Limon DO - 04/30/2024 7:49 AM EDT Noted. * Telephone Encounter - Ritika Oliva LPN - 04/29/2024 4:53 PM EDT Call placed to patient. Reports she is feeling just a little bit better; cough continues. States she woke up during the night with a sore throat, took some aspirin and did a nebulizer treatment. States it helped and she was able to fall back to sleep. States she is using nebulizer, taking prednisone, and antibiotic. States she is drinking fluids well. Denies fever. Reports she went to audiology appt today and was told she might have an ear infection. Instructed to contact office with worsening symptoms. Please advise with any additional recommendations. * Telephone Encounter - Ritika Oliva LPN - 04/29/2024 2:24 PM EDT Another message left for pt to return call. * Telephone Encounter - Ritika Oliva LPN - 04/29/2024 11:18 AM EDT Nurse phone call placed to patient. No answer. Message left to return call to [phone]. documented in this encounter Plan of Treatment Upcoming Encounters Date Type Department Care Team (Late st Contact Info) Description 05/24/2024 1:00 PM EDT Office Visit Family Practice 65 [facility] [place] [address] [facility] [place] [address] Tawanna Limon DO 293 [place] [address] 05/30/2024 11:00 AM EDT Office Visit Rheumatology [facility] 2520 [facility] [place] [address] Leland Novoa MD 2520 [facility] [place] [address] 06/04/2024 1:00 PM EDT Rehab Services Voice Lab [facility] 132 [facility] [place] [address] Víctor Lees, [facility] 132 [facility] [place] [address] 06/04/2024 1:00 PM EDT Office Visit Otolaryngology [facility] 132 [facility] [place] [address] Bettye Schwartz MD 132 [facility] [place] [address] Scheduled Procedures Name Priority Associated Diagnoses Date/Ti [...] Additional history exists CKD PHOS USE SMARTSET 55506 02/25/202502/05, 02/10/2023, 02/15/2022, Additional history exists TSH 02/25/2025 02/26/2024, 04/0 05/2023, 02/15/2022, Additional history exists Depression Monitoring 04/19/2025 04/19/2024 CKD HGB USE SMARTSET 55654 04/26/202504/26, 04/26/2024, 01/15/2024, Additional history exists Colonoscopy [...] Other - (no specific identity) Health Care Police Booking Officer (appointed verbally by patient or by statute hierarchy) Bob Manjarrez Adult Child Health Care Police Booking Officer (appointed verbally by patient or by statute hierarchy) Care Teams Mds Manager Relationship Specialty Start Date End Date Tawanna Limon DO [address] [place] [address] PCP - General Family Medicine 04/18/24 documented as of this encounter
--- OUTSIDE RECORDS SUMMARY | 2024-05-09 22:59 | External Medical Summary ---
Author Name Unknown Address Unknown Organization K0G:[facility] [place] [facility] - [address] [place] [address] Laboratory Report Ordering Provider Test Date Status JIM RHODESJORGEVENECIA 04/26/2024 09:57:40 Final Observation Date Value Abnormality Reference (Units ) Status SYNC LEUKOCYTES IN BLOOD BY AUTOMATED COUNT 04/26/2024 09:57:40 7.58 4.00-10.80 (K/uL) Final Segs 04/26/2024 09:57:40 63.0 40.0-75.0 (%) Final Lymphs % 04/26/2024 09:57:40 22.7 18.0-42.0 (%) Final Monos 04/26/2024 09:57:40 13.1 Above high normal 1.0-11.0 (%) Final Eosinophils 04/26/2024 09:57:40 1.1 0.0-6.0 (%) Final Basos 04/26/2024 09:57:40 0.1 0.0-2.0 (%) Final Absolute Segs 04/26/2024 09:57:40 4.78 1.80-7.70 (K/uL) Final Lymphs, absolute 04/26/2024 09:57:40 1.72 1.00-4.80 (K/ul) Final Monos, Abs 04/26/2024 09:57:40 0.99 0.00-1.10 (K/uL) Final Eos, Abs 04/26/2024 09:57:40 0.08 0.00-0.70 (K/uL) Final Basos, Abs 04/26/2024 09:57:40 0.01 0.00-0.20 (K/uL) Final Performing Location [facility] 0 - [address] [place] [address]
--- OUTSIDE RECORDS SUMMARY | 2024-05-09 22:59 | External Medical Summary | Summary of Care ---
Author Name Unknown Organization [facility] Address [address] [place] [address] Phone [phone] Care Team Providers Care Freight Checker Name Role Phone Tawanna Limon DO Primary Care Provider [phone] Reason for Referral * Ancillary Services (Within 24 hrs (call dept; emergent)) - Authorized Specialty Diagnoses / Procedures Referred By Contac t Referred To Contact Audiology Diagnoses Sensorineural hearing loss (SNHL), unspecified laterality Tawanna Limon DO 293 [place] [address] Referral ID Status Reason Start Date Expiration Date Visits Requested Visits Authorized [id number] Authorized Ancillary Services Required 04/26/2024 999 999 Question Answer Referral Priority Within 24 hrs (call dept; emergent) Where should this appointment be scheduled? External - [facility] Reason for Referral: Other Condition - hearing exam Comments Pt scheduled for hearing exam on 04/29/24. Reason for Visit * Reason Onset Date Comments Referral 04/26/2024 Audiology referr al Encounter Details Date Type Department Care Team (Late st Contact Info) Description 04/26/2024 Telephone Family Practice 65 [facility] [place] 293 [place] [phone] Tawanna Limon DO 293 [place] [address] Referral (Audiology referral) Allergies Active Allergy Reactions Criticality Noted Date [...] 0.1 % Nasal Solution (Astelin) Administer 1 [place] into nostril in the morning and 1 [place] before bedtime. 30 mL 12 03/04/2024 Active [...] mRNA, LNP-s, No Pre serve, 2-Dose Series ([employer]) 09/07/2021,02/26/2021,02/05/2021 COVID-19, LNP-s, No Preserve , James-sucrose, Ages 12+ (Pfizer) 05/26/2022 COVID-19, MRNA-LNP, 23-24, P F, 30 MCG/0.3 mL, 12 YRS AND ABOVE, IM ([employer]) 11/23/2023 Covid-19, Mrna, Lnp-s, Pf, B ivalent, 30 Mcg, IM, 12 yrs and above (Pfizer) 04/17/2023 Pneumococcal Conjugate Vacc, 13 Valent (Prevnar) [...] Miscellaneous Notes * Telephone Encounter - Domonique Barrow OSA - 04/26/2024 12:36 PM EDT Referral faxed * Telephone Encounter - Tawanna Limon DO - 04/26/2024 12:31 PM EDT Signed. Please fax. * Telephone Encounter - Ritika Oliva LPN - 04/26/2024 11:47 AM EDT Referral pended. medical front desk specialist - please fax when referral is signed. Thank you * Telephone Encounter - Domonique Cooley OSA - 04/26/2024 11:09 AM EDT Celestina, [facility], calling to request a referral for audiology as pt is scheduled on Monday for an overdue hearing exam. She asked this be faxed to [phone] documented in this encounter Plan of Treatment Upcoming Encounters Date Type Department Care Team (Late st Contact Info) Description 04/29/2024 10:00 AM EDT Nurse Only Family Practice 65 [facility] 293 [place] [phone] College, Nurse [facility] Prac [address] [address] 05/24/2024 1:00 PM EDT Office Visit Family Practice [address] [place] [address] 293 [place] [phone] Tawanan Limon, 293 [place] [address] 05/30/2024 11:00 AM EDT Office Visit Rheumatology [address] [place] [address] Leland Novoa MD [facility] [place] [place] [address] 06/04/2024 1:00 PM EDT Rehab Services Voice Lab [facility] 132 [facility] [place] [address] Víctor Lees, [facility] AGE LEAD TEACHER [address] [place] [address] 06/04/2024 1:00 PM EDT Office Visit Otolaryngology [facility] [address] [place] [address] Bettye Schwartz MD 132 [facility] [place] [address] Scheduled Procedures Name Priority Associated Diagnoses Date/Ti me COLONOSCOPY FLEXIBLE PROXIMA L DIAGNOSTIC Recall Encounter for screening colonoscopy Scheduled Referrals Name Type Priority Associated Diagnoses Orde r Schedule AUDIOLOGY REFERRAL OP Referral Within 24 hrs (call dept; emergent) Sensorineural hearing loss (SNHL), unspecified laterality Ordered: 04/26/2024 Health Maintenance Due Date Last Done Comments [...] Additional history exists CKD PHOS USE SMARTSET 01458 02/25/202502/05, 02/10/2023, 02/15/2022, Additional history exists TSH 02/25/2025 02/26/2024, 04/0 05/2023, 02/15/2022, Additional history exists Depression Monitoring 04/19/2025 04/19/2024 CKD HGB USE SMARTSET 03579 04/26/202504/26, 04/26/2024, 01/15/2024, Additional history exists Colonoscopy [...] as of this encounter Visit Diagnoses Diagnosis Sensorineural hearing loss (SNHL), unspecified laterality- Primary documented in this encounter Advance Directives Healthcare Agents on File Name Relationship Healthcare Agent Relationship Communication Marcos Breaux Other - (no specific identity) Health Care [place] Worker Helper (appointed verbally by patient or by statute hierarchy) Bob Manjarrez Adult Child Health Care [place] Worker Helper (appointed verbally by patient or by statute hierarchy) Care Teams Freight Checker Relationship Specialty Start Date End Date Tawanna Limon DO [address] [place] [address], [place] [address] PCP - General Family Medicine 04/18/24 documented as of this encounter
--- OUTSIDE RECORDS SUMMARY | 2024-05-09 22:59 | External Medical Summary | Summary of Care ---
Author Name Unknown Organization [facility] Address [address] [place] [address] Phone [phone] Care Team Providers Care Baby Formula Worker Name Role Phone Tawanna Limon DO Primary Care Provider [phone] Reason for Referral * Evaluate & Treat - Unlimited Visits (Within 10 days (routine)) - Authorized Specialty Diagnoses / Procedures Referred By Contdeanna t Referred To Contact Physical Therapy / Physical Medicine And Rehab Diagnoses Dizziness Tawanna Limon DO [address] [place] [address] Referral ID Status Reason Start Date Expiration Date Visits Requested Visits Authorized [id number] Authorized Specialty Services Required 04/23/[phone] Question Answer Referral Priority Within 10 days (routine) [facility] should this appointment be scheduled? [facility] Comments Pt having increased dizziness, especially when bending over Pt currently doing PT at [facility] in [place] for other issues Reason for Visit * Reason Onset Date Comments Referral 04/19/2024 Encounter Details Date Type Department Care Team (Late st Contact Info) Description 04/19/2024 Telephone Family Practice 65 [facility] [place] [address] [place] [phone] Tawanna Limon DO [address] [place] [address] Referral Allergies Active Allergy Reactions Criticality Noted Date [...] as of this encounter (statuses as of 04/23/2024) Medications Medication Sig Dispensed Refills Start Date [...] 0.1 % Nasal Solution (Astelin) Administer 1 [place] into nostril in the morning and 1 [place] before bedtime. 30 mL 12 03/04/2024 Active [...] 2 Tablets by mouth at bedtime. Active documented as of this encounter (statuses as of 04/23/2024) Active Problems Problem Noted Date Diagnosed Date [...] as of this encounter (statuses as of 04/23/2024) Resolved Problems Problem Noted Date Diagnosed Date [...] as of this encounter (statuses as of 04/23/2024) Immunizations Name Administration Dates Next Due COVID-19 mRNA, LNP-s, No Pre serve, 2-Dose Series (Five Delta) 09/07/2021,02/26/2021,02/05/2021 COVID-19, LNP-s, No Preserve , James-sucrose, Ages 12+ (Pfizer) 05/26/2022 COVID-19, MRNA-LNP, 23-24, P F, 30 MCG/0.3 mL, 12 YRS AND ABOVE, IM ([facility]) 11/23/2023 Covid-19, Mrna, Lnp-s, Pf, B ivalent, 30 Mcg, IM, 12 yrs and above (Five Delta) 04/17/2023 Pneumococcal Conjugate Vacc, 13 Valent (Prevnar) [...] Telephone Encounter - Domonique Barrow OSA - 04/23/2024 9:50 AM EDT Faxed * Telephone Encounter - Tawanna Limon DO - 04/23/2024 9:33 AM EDT PT order placed. Please fax to [facility]. * Telephone Encounter - Celestina Smith RN - 04/19/2024 11:12 AM EDT Pt in for her AWV today. States she is following with [facility] in [place] for balance and hips, shoulders, arms, knees. She has been having issues with dizziness-fell about 2 weeks ago-bent over to pick something up andgot dizzy and fell-no major injury-sore. States therapist asking for a referral to do head exercises to help with the dizziness. Referral pended for review FYI-pt has sty, or what her eye provider, Danelle Cornejo, thought it was-gave her erythromycin ophthalmic oint-states not helping. Told her to call Dr Cornejo back and let her know it is not helping, otherwise she thinks it is working. Pt agreeable. documented in this encounter Plan of Treatment Upcoming Encounters Date Type Department Care Team (Late st Contact Info) Description 05/24/2024 1:00 PM EDT Office Visit Family Practice [address] [place] [address] 293 [place] [address] Tawanna Limon DO 293 [place] [address] 05/30/2024 11:00 AM EDT Office Visit [facility]umatology [facility] [address] [facility] [place] [address] Leland Novoa MD [address] [place] [address] 06/04/2024 1:00 PM EDT Rehab Services Voice Lab [facility] 132 [facility] [place] [address] Víctor Lees, [facility] ORAL SURGEON 132 [place] [address] 06/04/2024 1:00 PM EDT Office Visit Otolaryngology [facility] 132 [facility] [place] [address] Bettye Schwartz MD 132 [facility] [place] [address] Scheduled Procedures Name Priority Associated Diagnoses Date/Ti me COLONOSCOPY FLEXIBLE PROXIMA L DIAGNOSTIC Recall Encounter for screening colonoscopy Scheduled Referrals Name Type Priority Associated Diagnoses Orde r Schedule PHYSICAL THERAPY REFERRAL OP Referral Within 10 days (routine) Dizziness Ordered: 04/23/2024 Health Maintenance Due Date Last Done Comments [...] Additional history exists CKD HGB USE SMARTSET 55015 01/14/202501/14, 01/15/2024, 08/15/2023, Additional history exists CKD PHOS USE SMARTSET 64624 02/25/202502/05, 02/10/2023, 02/15/2022, Additional history exists TSH [...] as of this encounter Visit Diagnoses Diagnosis Dizziness- Primary Dizziness and giddiness documented in this encounter Advance Directives Healthcare Agents on File Name Relationship Healthcare Agent Relationship Communication Marcos Breaux Other - (no specific identity) Health Care Gameplay Programmer (appointed verbally by patient or by statute hierarchy) Bob Josseline Adult Child Health Care Gameplay Programmer (appointed verbally by patient or by statute hierarchy) Care Teams Baby Formula Worker Relationship Specialty Start Date End Date Tawanna Limon DO [address] [place] [address] PCP - General Family Medicine 04/18/24 documented as of this encounter
--- OUTSIDE RECORDS SUMMARY | 2024-05-09 23:00 | External Medical Summary | Summary of Care ---
Author Name Unknown Organization [facility] Address [address] [facility] [place] [address] Phone [phone] Care Team Providers Care Shredder/Granulator Operator Name Role Phone Tawanna Limon DO Primary Care Provider [phone] Reason for Visit * Reason Comments Medication Management Encounter Details Date Type Department Care Team (Late st Contact Info) Description 04/15/2024 2:20 PM EDT Telemedicine Family Practice 65 [facility] [address] [place] [phone] College, Pharmacist [address] [address] Medication management* Allergies Active Allergy Reactions Criticality Noted Date [...] as of this encounter (statuses as of 04/15/2024) Medications Medication Sig Dispensed Refills Start Date End Date Status OMEGA-3 FISH OIL 1000 MG PO CAPS Take 1 Capsule by mouth in the morning. Active ASPIRIN 325 MG PO TABSIndications:TI A (transient ischemic attack) One pill by mouth once a day with food Active Cyanocobalamin 1000 MCG Oral Tablet Take 1 Tablet by mouth in the morning. 30 Tab 5 07/22/2016 Active TRAVATAN Z 0.004 % ophthalmic solution 1 drop in each eye at bedtime 07/11/2017 Active Cholecalciferol (VITAMIN D3) 1000 units CAPS Take 1 Capsule by mouth in the morning. 01/25/2018 Active Coconut Oil OIL Take by mouth every morning. Patient mixes a spoon of Louana Non Hydrogenated Trans Fat Coconut Oil in her coffee every morning, for brain health. Active Nebulizers (NEBULIZER COMPRESSOR) MISC Inhale via nebulizer. Use as directed. 1 Each 1 05/14/2019 Active traZODone (DESYREL) 150 MG TabletIndications: Depression with anxiety Take 3 Tabs by mouth at bedtime. - 1 Tab 05/17/2019 Active Additional Information Patient taking differently: 300 mgOral HS,(No instructions reported), Reported on 05/12/2023 Albuterol Sulfate HFA 108 (90 Base) MCG/ACT Inhalation Aerosol SolutionIndication s:Moderate persistent asthma without complication Inhale 2 Puffs by mouth every 4 hours as needed for Wheezing. 18 g 5 05/26/2021 Active Dicyclomine HCl 10 MG Oral Capsule [...] OTHER MEDICATIONS 135 Tablet 3 04/22/2023 Active Meclizine HCl 12.5 MG Oral Tablet (Antivert)Indicati ons:Vertigo Take 1 Tablet by mouth 3 times a day as needed for Dizziness. 30 Tablet 1 08/25/2023 Active DULoxetine HCl 20 MG Oral Capsule [...] the morning. 90 Tablet 1 01/31/2024 Active Benzonatate 100 MG Oral CapsuleIndications :Viral URI with cough Take 1 Capsule by mouth 3 times a day as needed for Cough. 30 Capsule 01/31/2024 Active tiZANidine HCl 2 MG Oral Tablet (Zanaflex)Indicati ons:Myalgia,Muscle cramps TAKE 1 TABLET BY MOUTH EVERY 6 HOURS NEEDED FOR MUSCLE SPASMS 120 Tablet 02/26/2024 Active Azelastine HCl 0.1 % Nasal Solution (Astelin) Administer 1 [place] into nostril in the morning and 1 [place] before bedtime. 30 mL 12 03/04/2024 Active buPROPion HCl ER (SR) 100 MG Oral Tablet Extended Release 12 Hour (Wellbutrin SR) 03/06/2024 Active Omeprazole 20 MG Oral Capsule Delayed Release (PriLOSEC)Indicati ons:Gastroesophage al reflux disease without esophagitis,Pharyn goesophageal dysphagia Take 1 capsule by mouth once a day 1 hour before the first meal of the day 100 Capsule 1 04/15/2024 Active Erythromycin 5 MG/GM Ophthalmic Ointment Apply as directed to eye lid, brow and under eye 04/03/2024 Active documented as of this encounter (statuses as of 04/15/2024) Active Problems Problem Noted Date Diagnosed Date [...] as of this encounter (statuses as of 04/15/2024) Resolved Problems Problem Noted Date Diagnosed Date [...] as of this encounter (statuses as of 04/15/2024) Immunizations Name Administration Dates Next Due COVID-19 mRNA, LNP-s, No Pre serve, 2-Dose Series ([place]am) 09/07/2021,02/26/2021,02/05/2021 COVID-19, LNP-s, No Preserve , James-sucrose, Ages 12+ ([place]) 05/26/2022 COVID-19, MRNA-LNP, 23-24, P F, 30 MCG/0.3 mL, 12 YRS AND ABOVE, IM ([facility]) 11/23/2023 Covid-19, Mrna, Lnp-s, Pf, B ivalent, 30 Mcg, IM, 12 yrs and above ([place]) 04/17/2023 Pneumococcal Conjugate Vacc, 13 Valent (Prevnar) [...] Date Recorded PHQ Adult Total Score 0 04/09/2024 Hunger Vital Sign Answer Date Recorded Within [...] on file documented as of this encounter Progress Notes * Grazyna Tavarez RPh - 04/15/2024 3:15 PM EDT CMR completed today in Medication Management encounter (04/15/24). documented in this encounter Plan of Treatment Upcoming Encounters Date Type Department Care Team (Late st Contact Info) Description 04/19/2024 10:00 AM EDT Nurse Only Ancillary [address] [address] College, Nurse Annual Wellness Visit [address] [address] 05/24/2024 1:00 PM EDT Office Visit Family Practice 65 [facility] [address] [place] [address] Tawanna Limon DO 293 [place] [address] 05/30/2024 11:00 AM EDT Office Visit Rheumatology [place] [address] [place] [address] Leland Novoa MD [address] [employer] [address] [place] [address] 06/04/2024 1:00 PM EDT Rehab Services Voice Lab [facility] [address] [place] [address] Víctor Lees, [facility]-SUPERVISOR POLISHING [address] [place] [address] 06/04/2024 1:00 PM EDT Office Visit Otolaryngology [facility] [address] [place] [address] Bettye Schwartz MD [address] [place] [address] Scheduled Procedures Name Priority Associated Diagnoses Date/Ti [...] Additional history exists CKD HGB USE SMARTSET 82651 01/14/202501/14, 01/15/2024, 08/15/2023, Additional history exists CKD PHOS USE SMARTSET 96993 02/25/2025 04/2 12/2023, 02/10/2023, 02/15/2022, Additional history exists TSH 02/25/2025 02/26/2024, 04/0 05/2023, 02/15/2022, Additional history exists Depression Monitoring 04/09/2025 04/09/2024 Colonoscopy 02/14/2027 02/14/2017, 02/04, 01/02/2007, Additional history [...] as of this encounter Visit Diagnoses Diagnosis Medication management- Primary Encounter for long-term (current) use of other medications documented in this encounter Advance Directives Healthcare Agents on File Name Relationship Healthcare Agent Relationship Communication Marcos Breaux Other - (no specific identity) Health Care Veneer Sander (appointed verbally by patient or by statute hierarchy) Bob Manjarrez Adult Child Health Care Veneer Sander (appointed verbally by patient or by statute hierarchy) Care Teams Shredder/Granulator Operator Relationship Specialty Start Date End Date Tawnana Limon DO [address] [place] [address] PCP - General Family Medicine 06/29/23 documented as of this encounter
--- OUTSIDE RECORDS SUMMARY | 2024-05-09 23:00 | External Medical Summary | Summary of Care ---
Author Name Unknown Organization [facility] Address [address] [facility] [address] Phone [phone] Care Team Providers Care Community Health Nurse Name Role Phone Tawanna Limon DO Primary Care Provider [phone] Reason for Visit * Reason Onset Date Comments Precert In Process 03/27/2024 02 ROBERTA PICKERING RINVOQ Encounter Details Date Type Department Care Team (Late st Contact Info) Description 03/27/2024 Telephone Rheumatology [place] Carlos Quintero [address] [facility] [place] [address] César Fraser PA-C [address] [facility] [address] Precert In Process ( [facility] RINVOQ/) Allergies Active Allergy Reactions Criticality Noted Date [...] as of this encounter (statuses as of 04/07/2024) Medications Medication Sig Dispensed Refills Start Date [...] for Dizziness. 30 Tablet 1 08/25/2023 Active Omeprazole 20 MG Oral Capsule Delayed Release (PriLOSEC)Indicati ons:Gastroesophage al reflux disease without esophagitis,Pharyn goesophageal dysphagia One pill by mouth once a day 1 hour before the first meal of the day 100 Capsule 1 08/25/2023 Active DULoxetine HCl 20 MG [...] 0.1 % Nasal Solution (Astelin) Administer 1 [place] into nostril in the morning and 1 [place] before bedtime. 30 mL 12 03/04/2024 Active buPROPion HCl ER (SR) 100 MG Oral Tablet Extended Release 12 Hour (Wellbutrin SR) 03/06/2024 Active documented as of this encounter (statuses as of 04/07/2024) Active Problems Problem Noted Date Diagnosed Date [...] as of this encounter (statuses as of 04/07/2024) Resolved Problems Problem Noted Date Diagnosed Date [...] as of this encounter (statuses as of 04/07/2024) Immunizations Name Administration Dates Next Due COVID-19 mRNA, LNP-s, No Pre serve, 2-Dose Series (BragBet) 09/07/2021,02/26/2021,02/05/2021 COVID-19, LNP-s, No Preserve , James-sucrose, Ages 12+ (BragBet) 05/26/2022 COVID-19, MRNA-LNP, 23-24, P F, 30 MCG/0.3 mL, 12 YRS AND ABOVE, IM ([facility]) 11/23/2023 Covid-19, Mrna, Lnp-s, Pf, B ivalent, 30 Mcg, IM, 12 yrs and above (BragBet) 04/17/2023 Diptheria/Tetanus (Adult) 05/29/1996 Pneumococcal Conjugate Vacc, 13 Valent (Prevnar) 05/05/2015 Pneumococcal Polysaccharide PPV23 (Pneumovax) 12/28/2020,07/09/2014,01/07/2009 Seasonal Influenza, PF, 6 M & above, IM , (FluLaval or Fluzone) 09/02/2020,07/27/2018 Seasonal Influenza, Quadriva lent Hd (Fluzone Hd) 08/15/2023,07/14/2022 Seasonal Influenza, Quadriva lent, No Preserve, IM 09/01/2019,07/19/2017,07/18/2016 Seasonal Influenza, Split, I IV3, With Preserve, Inj 07/16/2015,10/08/2014,09/05/2013,08/20,08/15/2011,08/03/2010,07/22/2009 ,09/09/2008,10/02/2007,10/17/2006,09/07,09/13/1999 Seasonal Influenza, Trivalen t, High Dose, No Preserve, IM 08/20/2021 TD - Tetanus/Diptheria (ADULT) 07/27/2005 TDAP (age 10 and older)(Boostrix) 05/26/2021 Zoster Vaccine Recombinant (Shingrix) 09/27/2021 ,07/19/2021 documented as of this encounter Social History Tobacco Use Types Packs/Day Years Used Date Smoking Tobacco: Never Passive Smoke Exposure: Past Smokeless Tobacco: Never Alcohol Use Standard Drinks/Week Comments No 0 (1 standard drink = 0.6 oz pur e alcohol) PHQ-2 Answer Date Recorded PHQ Adult Total Score 1 11/23/2023 Hunger Vital Sign Answer Date Recorded Within the past 12 months, y ou worried that your food would run out before you got the money to buy more. Never true 11/23/19 24 Within the past 12 months, t he food you bought just didn't last and you didn't have money to get more. Never true 11/23/2023 Sex and Gender Information Value Date Recorded Sex Assigned at Female 04/24/2019 12:12 PM EDT Gender Identity Female 04/24/2019 12:12 PM EDT Sexual Orientation Straight 04/24/2019 12 :12 PM EDT Job Start Date Occupation Industry Not on file Not on file Not on file documented as of this encounter Miscellaneous Notes * Telephone Encounter - Cynthia Govea PHARM Tech - 04/04/2024 1:31 PM EDT Jessica, Just following up on this PA to see if it was submitted yet? It was due to ship on 03/28/24. Thank you very much, Cynthia Govea Shelter Director [facility] Specialty Rx 04/04/2024,1:32 PM * Telephone Encounter - Allyson Bran CPhT - 03/27/2024 12:19 PM EDT New or re-auth: [email or web address] Patient needs a prior authorization for a medication through their [facility] insurance. Medication: rinvoq Formulation: tablets Dosage: 15 mg ID: [id number] [id number] PCN:[id number] Target ship date is 03/28. Thank you very much, Allyson Bran Shelter Director [facility] 03/27/2024,12:20 PM documented in this encounter Plan of Treatment Upcoming Encounters Date Type Department Care Team (Late st Contact Info) Description 04/19/2024 10:00 AM EDT Nurse Only Ancillary 65 [facility] [address] [place] [address] College, Nurse Annual Wellness Visit 65 [facility] 293 [place] [address] 05/24/2024 1:00 PM EDT Office Visit Family Practice 65 [facility] [address] [place] [phone] Tawanna iLmon, [address] [place] [address] 05/30/2024 11:00 AM EDT Office Visit Rheumatology [place] [address] [facility] [address] Leland Novoa MD [facility] [address] 06/04/2024 1:00 PM EDT Rehab Services Voice Lab [facility] 132 [facility] [place] [address] Víctor Lees, [facility]-COMMUNITY LIFE DIRECTOR 132 [facility] [place] [address] 06/04/2024 1:00 PM EDT Office Visit Otolaryngology [facility] [address] [place] [address] Bettye Schwartz MD 132 [facility] [place] [address] Scheduled Procedures Name Priority Associated Diagnoses Date/Ti [...] Additional history exists CKD HGB USE SMARTSET 46740 01/14/202501/14, 01/15/2024, 08/15/2023, Additional history exists CKD PHOS USE SMARTSET 91880 02/25/202502/05, 02/10/2023, 02/15/2022, Additional history exists TSH 02/25/2025 02/26/2024, 04/0 05/2023, 02/15/2022, Additional history exists Colonoscopy 02/14/2027 02/14/2017, 02/04, [...] Other - (no specific identity) Health Care Betting Agency Counter Clerk (appointed verbally by patient or by statute hierarchy) Bob Manjarrez Adult Child Health Care Betting Agency Counter Clerk (appointed verbally by patient or by statute hierarchy) Care Teams Community Health Nurse Relationship Specialty Start Date End Date Tawanna Limon DO [address] [place] [address] PCP - General Family Medicine 06/29/23 documented as of this encounter
--- OUTSIDE RECORDS SUMMARY | 2024-05-09 23:00 | External Medical Summary | Summary of Care ---
Author Name Unknown Organization [facility] Address [address] [facility] [address] Phone [phone] Care Team Providers Care Map Mounter Name Role Phone Tawanna Limon DO Primary Care Provider [phone] Reason for Visit * Reason Onset Date Comments Precert Approved 03/27/2024 RINVOQ Encounter Details Date Type Department Care Team (Late st Contact Info) Description 03/27/2024 Telephone Rheumatology [place] Carlos Quintero [address] [place] [phone] César Fraser PA-C [address] [place] [address] Precert Approved ( RINVOQ/) Allergies Active Allergy Reactions Criticality Noted [...] as of this encounter (statuses as of 04/08/2024) Medications Medication Sig Dispensed Refills Start Date [...] for brain health. Active Nebulizers (NEBULIZER COMPRESSOR) [facility] Inhale via nebulizer. Use as directed. 1 [...] 0.1 % Nasal Solution (Astelin) Administer 1 [place] into nostril in the morning and 1 [place] before bedtime. 30 mL 12 03/04/2024 Active buPROPion HCl ER (SR) 100 MG Oral Tablet Extended Release 12 Hour (Wellbutrin SR) 03/06/2024 Active documented as of this encounter (statuses as of 04/08/2024) Active Problems Problem Noted Date Diagnosed Date [...] as of this encounter (statuses as of 04/08/2024) Resolved Problems Problem Noted Date Diagnosed Date [...] as of this encounter (statuses as of 04/08/2024) Immunizations Name Administration Dates Next Due COVID-19 mRNA, LNP-s, No Pre serve, 2-Dose Series (Genasys) 09/07/2021,02/26/2021,02/05/2021 COVID-19, LNP-s, No Preserve , James-sucrose, Ages 12+ (Pfizer) 05/26/2022 COVID-19, MRNA-LNP, 23-24, P F, 30 MCG/0.3 mL, 12 YRS AND ABOVE, IM ([facility]) 11/23/2023 Covid-19, Mrna, Lnp-s, Pf, B ivalent, 30 Mcg, IM, 12 yrs and above (Pfizer) 04/17/2023 Diptheria/Tetanus (Adult) 05/29/1996 Pneumococcal Conjugate Vacc, [...] 03/28/24. Thank you very much, Cynthia Govea Record [facility] Specialty Rx 04/04/2024,1:32 PM * Telephone Encounter - Allyson Bran CPhT - 03/27/2024 12:19 PM EDT New or re-auth: [email or web address] Patient needs a prior authorization for a medication through their [facility] insurance. Medication: rinvoq Formulation: tablets Dosage: 15 mg ID: [id number] BIN:[id number] PCN:[id number] Target ship date is 03/28. Thank you very much, Allyson Bran Record [facility] III [facility] 03/27/2024,12:20 PM documented in this encounter Plan of Treatment Upcoming Encounters Date Type Department Care Team (Late st Contact Info) Description 04/19/2024 10:00 AM EDT Nurse Only Ancillary 65 [facility] 293 [facility] [place] [address] College, Nurse Annual Wellness Visit [address] [address] 05/24/2024 1:00 PM EDT Office Visit Family Practice 65 [facility] 293 [place] [phone] Tawanna Limon, DO [address] [place] [address] 05/30/2024 11:00 AM EDT Office Visit Rheumatology [address] [place] [address] Leland Novoa MD [facility] [place] [address] 06/04/2024 1:00 PM EDT Rehab Services Voice Lab [facility] 132 [place] [address] Víctor Lees, [facility]-WEIGHT GUESSER 132 [place] [address] 06/04/2024 1:00 PM EDT Office Visit Otolaryngology [facility] 132 [facility] [place] [address] Bettye Schwartz MD 132 [facility] [place] [address] Scheduled Procedures Name Priority Associated Diagnoses Date/Ti [...] Additional history exists CKD HGB USE SMARTSET 64237 01/14/202501/14, 01/15/2024, 08/15/2023, Additional history exists CKD PHOS USE SMARTSET 76575 02/25/202502/05, 02/10/2023, 02/15/2022, Additional history exists TSH 02/25/2025 02/26/2024, 04/05/2023, 02/15/2022, Additional history exists Colonoscopy 02/14/2027 02/14/2017, [...] Other - (no specific identity) Health Care Japanese Professor (appointed verbally by patient or by statute hierarchy) Bob Manjarrez Adult Child Health Care Japanese Professor (appointed verbally by patient or by statute hierarchy) Care Teams Map Mounter Relationship Specialty Start Date End Date Tawanna Limon DO [address] [place] [address] PCP - General Family Medicine 06/29/23 documented as of this encounter
--- OUTSIDE RECORDS SUMMARY | 2024-05-09 23:00 | External Medical Summary | Summary of Care ---
Author Name Unknown Organization [facility] Address [address] [place] [address] Phone [phone] Care Team Providers Care Hatchery Supervisor Name Role Phone Tawanna Limon DO Primary Care Provider Reason for Visit * Reason Onset Date Comments Adult Annual Wellness Visit, Subsequent Visit Adult Annual Wellness Visit, Subsequent Visit Encounter Details Date Type Department Care Team (Late st Contact Info) Description 04/19/2024 10:00 AM EDT Nurse Only Ancillary [address] [place] [address] [place] [address] College, Nurse Annual Wellness Visit [address] [facility] [address] [place] [address] Adult Annual Wellness Visit, Subsequent Vi... Allergies Active Allergy Reactions Criticality Noted Date [...] for brain health. Active Nebulizers (NEBULIZER COMPRESSOR) [facility] Inhale via nebulizer. Use as directed. 1 Each 1 05/14/2019 Active Albuterol Sulfate HFA 108 (90 Base) [...] the morning. 90 Tablet 1 01/31/2024 Active tiZANidine HCl 2 MG Oral Tablet (Zanaflex)Indicati ons:Myalgia,Muscle cramps TAKE 1 TABLET BY MOUTH EVERY 6 HOURS NEEDED FOR MUSCLE SPASMS 120 Tablet 02/26/2024 Active Azelastine HCl 0.1 % Nasal Solution (Astelin) Administer 1 Redmon into nostril in the morning and 1 Redmon before bedtime. 30 mL 12 03/04/2024 Active [...] mRNA, LNP-s, No Pre serve, 2-Dose Series (Enel OGK-5) 09/07/2021,02/26/2021,02/05/2021 COVID-19, LNP-s, No Preserve , James-sucrose, Ages 12+ (Pfizer) 05/26/2022 COVID-19, MRNA-LNP, 23-24, P F, 30 MCG/0.3 mL, 12 YRS AND ABOVE, IM (PFIZER-Comirnat) 11/23/2023 Covid-19, Mrna, Lnp-s, Pf, B ivalent, [...] the money to buy more. Never true 06/04/20 24 Within the past 12 months, t [...] Sign Reading Time Taken Comments Blood Pressure 118/66 04/19/2024 10:23 AM EDT Pulse 104 04/19/2024 10:23 AM EDT Temperature 36.6 C (97.9 F) 04/19/2024 1 0:23 AM EDT Respiratory Rate - - Oxygen Saturation 99% 04/19/2024 10: 23 AM EDT Inhaled Oxygen Concentration - - Weight 124.1 kg (273 lb 9.6 oz) 024 10:23 AM EDT Height 166.4 cm (5' 5.5") 04/19/2024 10 :23 AM EDT Body Mass Index 44.84 04/19/2024 10:23 AM EDT documented in this encounter Patient Instructions * Patient Instructions* Celestina Smith RN - 04/19/2024 10:22 AM EDT Patient Instructions - Fall Prevention [...] 10 times. Repeat this throughout the day. [facility] Patient Education Copyright 2008 - 2010 [facility] except where otherwise noted. Preventing Falls: Moving [...] Wear support stockings (TEDs)if you have edema Celestina Smith RN 04/19/2024 Kegel Exercises Kegel exercises dont require special [...] even more effective. Low Patient Education Copyright 2008 - 2010 [...] please feel free to contact our office. Hi Lisa Josseline, As your primary care physician, I know that regular visits with my patients who have several chronic conditions can go a long way in helping you stay healthy. Many times, the clinic team and I are in touch with you and/or other care team members between office visits to adjust medications, discuss any changes in your health, and review our care plan to make sure it is still meeting your needs. I am dedicated to helping you take a more active role in your overall care. It is important that there are resources available to you, so I created a personalized plan of care with a Health Calendar for you, which is included on the next page of this letter. Below is a list that summarizes your electronic health record: Health Maintenance Due: Health Maintenance Due Topic Date Due COVID-19 Vaccine ( season) 2024 Current Medication List: (as of Visit date not found (in office), Visit date not found (telemedicine) ) Current Outpatient Medications Medication Sig Dispense Refill [...] her coffee every morning, for brain health. Albuterol Sulfate HFA 108 (90 Base) MCG/ACT Inhalation Aerosol Solution Inhale 2 Puffs by mouthevery 4 hours as needed for Wheezing. 18 g 5 Dicyclomine HCl 10 MG Oral Capsule (Bentyl) TAKE ONE CAPSULE BY MOUTH THREE TIMES DAILY NEEDED for abdominal pain 270 Capsule 1 Albuterol Sulfate (2.5 MG/3ML) 0.083% Inhalation Nebulization Solution (Proventil) Inhale 1 Vial via nebulizer every 6 hours as needed for Wheezing. 120 mL 0 cycloSPORINE 0.05 % Ophthalmic Emulsion (Restasis) Instill 1 Drop into both eyes in the morningand 1 Drop before bedtime. Lisinopril 20 MG Oral [...] BREAKFAST AND OTHER MEDICATIONS 135 Tablet 3 Meclizine HCl 12.5 MG Oral Tablet (Antivert) Take 1 Tablet by mouth 3 times a day as needed forDizziness. 30 Tablet 1 DULoxetine HCl 20 MG Oral Capsule Delayed Release Particles (Cymbalta) Take 2 Capsules by mouthin the morning and 2 Capsules before bedtime. [...] mouth in the morning. 90 Tablet 1 tiZANidine HCl 2 MG Oral Tablet (Zanaflex) TAKE 1 TABLET BY MOUTH EVERY 6 HOURS NEEDED FOR MUSCLE SPASMS 120 Tablet 0 Azelastine HCl 0.1 % Nasal Solution (Astelin) Administer 1 Redmon into nostril in the morning and 1 Redmon before bedtime. 30 mL 12 buPROPion HCl ER (SR) 100 MG Oral Tablet Extended Release 12 Hour (Wellbutrin SR) Take 1 Tabletby mouth daily. Omeprazole 20 MG Oral Capsule Delayed Release (PriLOSEC) Take 1 capsule by mouth once a day 1 hour before the first meal of the day 100 Capsule 1 Erythromycin 5 MG/GM Ophthalmic Ointment Apply as directed to eye lid, brow and under eye traZODone HCl 150 MG Oral Tablet (Desyrel) Take 2 Tablets by mouth at bedtime. Nebulizers (NEBULIZER COMPRESSOR) MISC Inhale via nebulizer. Use as directed. 1 Each 1 No current facility-administered medications for this visit. Current List of Allergies: (as of Visit date not found (in office), Visit date not found (telemedicine) ) Review of patient's allergies indicates: Allergen Reactions Adhesive Tape Edema face/lips/tongue States she is allergic to bandaid and it causes throat swelling. Humira [Adalimumab] Itching Pt reports that she took Humira approx 1 year ago and had to stop it due to itchiness. Ibuprofen Nausea/vomiting Latex Nsaids stomache upset Sulfa Antibiotics Eyes like on fire Most Recent Lab Results: Results for orders placed or performed in visit on 02/26/24 PHOSPHORUS Result Value Ref Range Phosphorus 3.1 2.5 - 4.8 mg/dL TSH WITH FREE T4 IF INDICATED Result Value Ref Range TSH 0.65 0.27 - 4.20 uIU/mL BASIC METABOLIC PANEL Result Value Ref Range BUN 12 6 - 20 mg/dL Creatinine 1.2 (H) 0.5 - 1.0 mg/dL Estimated Glomerular Filtration Rate 49 (L) >=60 mL/min Sodium 142 135 - 146 mmol/L Potassium 4.6 3.5 - 5.1 mmol/L Chloride 105 98 - 107 mmol/L CO2 26 22 - 32 mmol/L Anion Gap 11 7 - 15 mmol/L Glucose 115 70 - 120 mg/dL Calcium 9.5 8.4 - 10.2 mg/dL CULTURE, URINE, QUANTITATIVE Specimen: Urine, Clean Catch Result Value Ref Range Culture Growth No significant growth URINALYSIS, POINT OF CARE Result Value Ref Range Color, Urine Light Yellow Light Yellow, Yellow Clarity, Urine Cloudy (A) Clear Glucose, Urine Negative Negative mg/dL Bilirubin, Urine Negative Negative Ketone, Urine Negative Negative mg/dL Specific Simon, Urine 1.015 1.003 - 1.030 Blood, Urine Small (A) Negative pH, Urine 6.5 5.0, 5.5, 6.0, 6.5, 7.0, 7.5 units Protein, Urine 30 (A) Negative mg/dL Urobilinogen, Urine 0.2 0.2, 1.0 mg/dL Nitrite, Urine Negative Negative Esterase, Urine Large (A) Negative *Note: Due to a large number of results and/or encounters for the requested time period, some results have not been displayed. A complete set of results can be found in Results Review. Sincerely, Tawanna Limon, DO 04/19/[address] [facility] Calendar (as of Visit date not found (in office), Visit date not found (telemedicine) ) Care needs Care needs Last completed Due next COVID-19 Vaccine () 11/23/2023 01/18/2024 Mammogram 05/24/2023 05/24/2024 Urine albumin/creatinine test 08/15/2023 08/15/2024 Kidney Function Test 02/26/2024 08/27/2024 A1C blood sugar test 11/23/2023 11/23/2024 Yearly thyroid level check 02/26/2024 02/25/2025 Colorectal cancer screening (colonoscopy 10 years, sigmoidoscopy 5 years, Cologuard 3 years, stool sample 1 year) 02/14/2017 02/14/2027 Bone Density 03/08/2023 03/08/2030 Diphtheria, tetanus & pertussis vaccines (2 - Td or Tdap) 05/26/2021 05/26/2031 As you look over the recommended services, be sure to check with your insurance company to determine what's covered. [employer] is a great tool that helps you review your medical record online, including test results, doctor notes and your health summary. You can also schedule appointments with me and other members of your care team, request prescription refills and ask for advice related to your medical conditions at [employer][email or web address]. documented in this encounter Progress Notes * Celestina Smith RN - 04/19/2024 10:22 AM EDT Fall Risk Plan of Care Documentation: - Current medications reconciled Patient encouraged to: - Exercise - Provide education materials for Core strengthening - Utilize assistive/adaptive devices - Provide education materials - Avoid multifocal lenses when walking - Avoid hazards in home - Provide education materials - Maintain a regular toileting schedule Celestina Smith RN 04/19/2024 Urinary Incontinence Plan of Care Documentation: (This [...] Wear support stockings (TEDs)if you have edema Celestina Smith RN [id number] Dementia Screening Interview Person answering questions: patient Remember, "Yes, a change" indicates that there has been a change in the last several years caused by cognitive (thinking and memory) problems 1. Problems with judgement (eg: problems making decisions, bad financial decisions, problems with thinking). No (0) 2. Less interest in hobbies/activities. No (0) 3. Repeats the same things over and over (questions, stories, or statements). No (0) 4. Trouble learning how to use a tool, appliance, or gadget (eg: VCR, computer, microwave, remote control). No (0) 5. Forgets correct month or year. No (0) 6. Trouble handling complicated financial affairs (eg: balancing checkbook, income taxes, paying bills). Yes (1) 7. Trouble remembering appointments. No (0) 8. Daily problems with thinking and/or memory. No (0) TOTAL AD8: 1 - AD8 Dementia Screening Score The final score is a sum of the number items marked "Yes, A Change". 0 - 1: Normal cognition; 2 or greater: Cognitive impairments is likely to be present - further testing required Adult Annual Wellness Visit: Alena Manjarrez is a 68 year old female who presents for an Adult Annual Wellness Visit. Depression Screening: Did the patient complete the screening questionnaire for Depression? Yes Is the patient's total score for Depression 15 or greater? No, no further intervention needed, unless requested by patient. Did the patient answer positively to the suicide question? No, no further intervention needed, unless requested by patient. In general, compared to other people your age, what would you say that your health is? Fair Ht Readings from Last 1 Encounters: 04/19/24 1.664 m (5' 5.5") Wt Readings from Last 1 Encounters: 04/19/24 124.1 kg (273 lb 9.6 oz) Body Mass Index: BMI Greater than 30 Body mass index is 44.84 kg/m. BP Readings from Last 1 Encounters: 04/19/24 118/66 Medical/Surgical/Family History Reviewed: Yes Past Medical History: Diagnosis Date Acute pharyngitis 08/21/07 Dr. Eller Anemia Asthma, moderate persistent 07/10/2008 PER PROVIDER PROTOCOL. Dyslipidemia, goal LDL below 100 10/15/2009 Per Lipid Taxonomy. Hypothyroidism Infective otitis externa 08/21/07 Dr. Eller Obesity, BMI not known COMFORT on CPAP 01/04/2011 [facility] 01/11/11 to 03/21/11 compliant with CPAP 11/26/12 set pressure to 14 cm of water pressure Otalgia 08/21/07 Dr. 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 Eller PTSD (post-traumatic stress disorder) 07/05/2006 With severe depression Reflux esophagitis 08/21/07 Dr. Eller Rheumatoid arthritis(714.0) 05/14/2012 Sensorineural hearing loss 08/21/07 Dr. Eller SLEEP APNEA, UNSPECIFIED: AHI 12.6 01/04/2011 [facility] 01/11/11 to 03/21/11 compliant with CPAP Temporomandibular joint disorders, unspecified 08/21/07 Dr. Eller Past Surgical History: Procedure Laterality Date DELIVERY X 2 COLONOSCOPY 04/10 normal (Dr. Quezada) COLONOSCOPY, DIAGNOSTIC (RECTUM) 02/14/2017 diverticulosis, repeat 10 yrs/COLONOSCOPY FLEXIBLE PROXIMAL DIAGNOSTIC performed by Alanis Zarate DO at ENDOSCOPY [facility] EGD, FLEXIBLE, DIAGNOSTIC 07/02/2013 UPPER GI ENDOSCOPY DIAGNOSTIC performed by Alanis Zarate DO at ENDOSCOPY [facility] EGD, FLEXIBLE, DIAGNOSTIC 10/09/2019 chronic inactive gastric inflammation / [facility] FRACTURE NOS left ankle LAPAROSCOPY; CHOLECYSTECTOMY 02/07/2013 02/07/2013 laparoscopic cholecystectomy [facility] Dr. Maddy Ospina LIGATE/CUT OVIDUCT(S) Family History Problem Relation Name Age of Onset Osteoarthritis Mother Alzheimer's disease Mother Dementia Mother Lung Disorder Father "Black Lung" Gastro-intestinal disorder Sister Honey No Known Problems Daughter Lung cancer Brother Leland Mental retardation Son mild Schizophrenia Son Brain cancer Uncle (Unspecified) Kidney cancer Uncle (Unspecified) Diabetes Niece Neyda 11 Type I Arthritis Aunt (Maternal) Breast Cancer No significant family history Has patient ever had cancer? No Social History Tobacco Use Smoking status: Never Passive exposure: Past Smokeless tobacco: Never Substance Use Topics Alcohol use: No Vaping/E-Cigarette Use Vaping/E-Cigarette Use Never User Vaping/E-Cigarette Substances Vaping/E-Cigarette Devices Tobacco/Alcohol screening completed today? Yes Hospital Care: Admissions (within the last year): Not Applicable ER within 30 days: No Does the patient have an Advance Directives/Living Will? Yes Last Physical Exam: Last physical exam: 02/26/2024 Does patient see primary provider regularly? Yes Does patient see other providers? Yes, Specialist Patient Care Team updated? Yes Review of patient's allergies indicates: Allergen Reactions Adhesive Tape Edema face/lips/tongue States she is allergic to bandaid and it causes throat swelling. Humira [Adalimumab] Itching Pt reports that she took Humira approx 1 year ago and had to stop it due to itchiness. Ibuprofen Nausea/vomiting Latex Nsaids stomache upset Sulfa Antibiotics Eyes like on fire Immunization History Administered Date(s) Administered COVID-19 mRNA, LNP-s, No Preserve, 2-Dose Series (Enel OGK-5) 02/05/2021, 02/26/2021, 09/07/2021 COVID-19, LNP-s, No Preserve, James-sucrose, Ages 12+ (Enel OGK-5) 05/26/2022 COVID-19, MRNA-LNP, 23-24, PF, 30 MCG/0.3 mL, 12 YRS AND ABOVE, IM ([facility]) 11/23/2023 Covid-19, Mrna, Lnp-s, Pf, Bivalent, 30 Mcg, IM, 12 yrs and above (Enel OGK-5) 04/17/2023 Diptheria/Tetanus (Adult) 05/29/1996 Pneumococcal Conjugate Vacc, 13 Valent (Prevnar) 05/05/2015 Pneumococcal Polysaccharide PPV23 (Pneumovax) 01/07/2009, 07/09/2014, 12/28/2020 Seasonal Influenza, PF, 6 M & above, IM , (FluLaval or Fluzone) 07/27/2018, 09/02/2020 Seasonal Influenza, Quadrivalent Hd (Fluzone Hd) 07/14/2022, 08/15/2023 Seasonal Influenza, Quadrivalent, No Preserve, IM 07/18/2016, 07/19/2017, 09/01/2019 Seasonal Influenza, Split, IIV3, With Preserve, Inj 09/13/1999, 10/03/2000, 10/17/2006, 10/02/2007,09/09/2008, 07/22/2009, 08/03/2010, 08/15/2011, 08/20/2012, 09/05/2013, 10/08/2014, 07/16/2015 Seasonal Influenza, Trivalent, High Dose, No Preserve, IM 08/20/2021 TD - Tetanus/Diptheria (ADULT) 07/27/2005 TDAP (age 10 and older)(Boostrix) 05/26/2021 Zoster Vaccine Recombinant (Shingrix) 07/19/2021, 09/27/2021 Current Outpatient Medications Medication Sig Dispense Refill [...] her coffee every morning, for brain health. Albuterol Sulfate HFA 108 (90 Base) MCG/ACT Inhalation Aerosol Solution Inhale 2 Puffs by mouth every 4 hours as needed for Wheezing. 18 g 5 Dicyclomine HCl 10 MG Oral Capsule (Bentyl) [...] BREAKFAST AND OTHER MEDICATIONS 135 Tablet 3 Meclizine HCl 12.5 MG Oral Tablet (Antivert) Take 1 Tablet by mouth 3 times a day as needed for Dizziness. 30 Tablet 1 DULoxetine HCl 20 MG Oral Capsule Delayed [...] mouth in the morning. 90 Tablet 1 tiZANidine HCl 2 MG Oral Tablet (Zanaflex) TAKE 1 TABLET BY MOUTH EVERY 6 HOURS NEEDED FOR MUSCLE SPASMS 120 Tablet 0 Azelastine HCl 0.1 % Nasal Solution (Astelin) Administer 1 Redmon into nostril in the morning and 1 Redmon before bedtime. 30 mL 12 buPROPion HCl [...] Take 2 Tablets by mouth at bedtime. Nebulizers (NEBULIZER COMPRESSOR) MISC Inhale via nebulizer. Use as directed. 1 Each 1 No current facility-administered medications for this visit. Patient Active Problem List Diagnosis Acquired hypothyroidism PTSD (post-traumatic stress disorder) Sensorineural hearing loss Presbyacusis History of migraine DYSLIPIDEMIA, GOAL LDL BELOW 100 COMFORT on CPAP Encounter for long-term (current) use of medications Depression with anxiety Rheumatoid arthritis involving multiple sites with positive rheumatoid factor (HCC) HTN, goal below 140/90 Diffuse dermatitis Primary open-angle glaucoma, bilateral, mild stage Other atherosclerosis of lumbee arteries of extremities, bilateral legs (HCC) Gastroesophageal reflux disease without esophagitis Moderate persistent asthma without complication Intellectual disability Major depressive disorder, recurrent, severe with psychotic symptoms ([facility]) Early onset Alzheimer's dementia without behavioral disturbance ([facility]) Hypertensive kidney disease with stage 3b chronic kidney disease ([facility]) Prediabetes Body mass index (BMI) of 45.0 to 49.9 in adult ([facility]) Medication Compliance: Patient is able to obtain all of her medications? Yes Patient takes medications as prescribed? Yes Patient manages own medications: Yes Patient uses a pill box? No Dental Exam: Yes: Every 6 Months Eye Screening: Yes: Every 6 months Are you having trouble with hearing? Yes-follows with audiology Do you use an assistive device to help your hearing? Yes Exercise Screening: only the exercise associated with activities at work Nutrition Assessment: Eats a poorly balanced diet and eats 2 meals a day Pain Screening: Are you having any pain? Yes. Pain Scale: 3 out of 10; Location: left hip, When: most of the time, Duration: 1 month, Aggravating Factors: certain movements, Relieved by: PT exercises, asper cream Sleep Screening Tool 'STOP': Do you snore? Yes Do you feel fatigued during the day? No Do you wake up feeling like you haven't slept? No Have you been told you stop breathing at night? Yes Do you gasp for air or choke while sleeping? No Have you been told you have Sleep Apnea? Yes Do you have high blood pressure or are on medication(s) to control high blood pressure? Yes SCORE: If you check YES to two or more questions, make a referral for Obstructive Sleep Apnea Pt diagnosed with sleep apnea and uses c-pap every night-follows with sleep medicine Patient and Caregiver Support System: Patient lives with non-relative Means of Transportation: Drives. Not a concern. Patient lives in [place] Community Resources: Not Applicable Functional Status and ADL Skills: Has patient ever had an amputation? No Functional Assessment: 60- Requires occasional assistance but is able to care for needs Ambulation: Patient ambulates with assistive device. Cane, Walker, and Motorized Wheelchair, scooter Dressing: Gets clothes and dresses without any assistance: Independent Able to move freely in chair or bed including turning over: Independent Repositioning (bed or chair): Not applicable Transfers: Independent Toileting: Goes to bathroom, uses toilet, arranges clothes and returns without any assistance: Independent Toileting: continent of bladder and continent of bowel a little urinary leakage Feeding: Self Bathing: Self; shower inside tub-side cut out. Has seat in shower, grab bars, rubber mats, steps out onto a rug Requires none assistance with ADLs. Instrumental ADL's: Shopping: Minimal Assistance Housekeeping: Minimal Assistance Handling Finances: Moderate Assistance DME Vendor Name: [facility] for c-pap supplies Fall Risk Assessment: Can the patient demonstrate that she can stand from a sitting position? Yes Has the patient had a fall within the last 6 months? Yes Does the patient have a problem with her gait or balance? Yes Does the patient take 4 or more prescription medicines? Yes Does the patient use sedatives or narcotics? Yes Fall Risk Factors Present: History of falls within the past 6 months Yes Cause of fall: bent over to pick something up and lost balance Uses more than 4 medications Uses sedatives or narcotics Uses assistive devices Balance or gait disturbances Lower extremity weakness Qjn-Wd-ego-Go Test: Time began at 10:00. Patient stood from sitting position and walked approximately 10 feet, returnedand sat down. Total time for qwq-ib-pgm-go test was 33.18 seconds. Aqa-Dy-kkc-Go Test completed? Yes Gender Specific Preventative Plan: Health Maintenance Topic Date Due COVID-19 Vaccine ( season) 2024 Mammogram 05/24/2024 Albumin/Creatinine Ratio 08/15/2024 GFR 08/27/2024 HbA1c 11/23/2024 CKD HGB USE SMARTSET 33753 01/14/2025 CKD PHOS USE SMARTSET 08081 02/25/2025 TSH 02/25/2025 Depression Monitoring 04/19/2025 Colorectal Cancer Screening 02/14/2027 DXA Scan 03/08/2030 DTaP,Tdap,and Td Vaccines (2 - Td or Tdap) 05/26/2031 Influenza Vaccine (FLU shot) Completed Zoster Vaccines Completed Pneumococcal Vaccine: 65+ Years Completed Hepatitis B Aged Out MENINGOCOCCAL (MENACTRA/MENVEO) Aged Out GARDASIL-HPV IMMUNIZATION SERIES Aged Out Pap Smear Discontinued Follow Up/ Referrals/Handouts: No further action needed Routine general medical examination at a health care facility (Primary) Risk and functional assessment Moderate persistent asthma without complication Pt states she needs refills on her albuterol inhaler, meclizine, tizanidine-see other encounter. Pt going to [facility] in [place] for PT for different body areas, shoulders, arms, hips, etc and working there on balance. States therapist said to ask for a referral to do exercises on her head for dizziness-having increased issues with dizziness especially when she bends over. Message sent to Dr Limon-see other encounter. Pt fell 2 weeks ago-was bending over and got dizzy-no major injuries. Encouraged to follow regularly with her dentist. Discussed bringing in a copy of her living will to have scanned into her chart. Discussed working on improving her diet-encouraged to make small doable changes and add on as accomplishes. Declines referral to gi technician at this time. Patient has been verbally educated on the need or importance of Immunizations: covid, RSV and has declined topic(s). Pt will consider a covid vaccine closer to fall. Pt scored 33.18 on her TUG test-no referral made to [facility] [address]-pt already following with [facility] in [place]. Celestina Smith RN documented in this encounter Miscellaneous Notes * Pt Handout (on AVS) - Celestina Smith RN - 04/19/2024 10:50 AM EDT Images from the original note were not included. [id number] Preventing Falls: Making Changes in Your Living Space Is your living space filled with hazards that could cause you to fall? Changes can make you safer. They could even save your life. Take a careful look around your home. Change what you can on your own. Hire someone or ask friends or family to help with harder tasks. Be sure to add a nonslip mat to the inside of your shower or bathtub. Always keep a nightlight on. Keep a clear path from your bed to the bathroom. Move items from higher shelves to lower ones. Remove hazards Remove things that can trip you, like throw rugs, boxes, piles of paper, or cords. Nail down rugs or carpeting if you don't want to remove them. Use slip- resistant backing. Don't store items on stairs. Keep walkways clear. Clean up spills right away. Replace glass tables with wooden ones. They're safer if you fall. Add safety devices Add handrails to both sides of stairs. Buy a raised toilet seat. Add grab bars near the toilet and in the shower. Get grabbers to help you reach things and avoid climbing. Improve lighting Add nightlights to halls, bedrooms, and bathrooms. Put light switches at the top and bottom of stairs. Be sure each room and flight of stairs has proper lighting. Use shades or curtains to cut glare from windows. Put flashlights in each room. Replace burned-out bulbs. Get glowing light switches for room entrances. Take other precautions Use nonskid floor wax. Buy a nonslip mat and a liquid soap dispenser for the shower. Put most-used items within easy reach. Add bright paint or tape on the top front edge of steps. Save big jobs, such as moving furniture or other heavy objects, for family or friends. Get professional help installing grab bars. They can be unsafe if not installed the right way. Fix riskier rooms first Don't tackle everything at once. Focus on one room at a time. The bathroom is a common spot for falls, so you may want to start there. Or start with a room you spend lots of time in, such as your bedroom. Make only a few changes at once. This will give you time to adjust to them. Outside safety You might arrange for these changes yourself, or you might need to talk to your certified green building engineer or[employer]ers' association about them. Have loose boards on porches or damaged stairs repaired. Have rough edges, holes, or large cracks in sidewalks or driveways repaired. Remove hazards that could trip you, such as hoses or apollo. Use high-wattage light bulbs (100 larkin or greater) near outside doors and stairs. Add handrails to outside stairs. Have them extend beyond the bottom step. Get help in winter weather with ice or snow removal. Last Reviewed Date: 10/06/202219998958-2311 [employer]. All rights reserved. This information is not intended as a substitute for professional medical care. Always follow your healthcare professional's instructions. * Pt Handout (on AVS) - Celestina Smith RN - 04/19/2024 10:50 AM EDT [id number] Fall Prevention Falls often take place due to slipping, tripping, or losing your balance. Millions of people fall every year and injure themselves. Among older adults in the [place] falls are the most common cause of traumatic brain injuries. Every 20 minutes, an older adult dies from a fall. Here are ways to reduceyour risk of falling again: Think about your fall. Was there anything that caused your fall that can be fixed, removed, or replaced? Make your home safe by keeping walkways clear of objects you may trip over, such as electrical cords. Use nonslip pads under rugs. Don't use area rugs or small throw rugs. Use nonslip mats in bathtubs and showers. Hang grab rails by the toilet and inside and outside the shower. Install handrails and lights on staircases. The handrails should be on both sides of the stairs. Use night lights. Don't walk in poorly lit areas. Don't stand on chairs or wobbly ladders. Use care when reaching overhead or looking up. This position can cause a loss of balance. Be sure your shoes fit well, are in good condition, and have nonslip bottoms. Wear shoes both inside and outside of your home. Don't go barefoot or wear slippers. Be cautious when going up and down stairs, curbs, and when walking on uneven sidewalks. If your balance is poor, consider using a cane or walker. Talk with your healthcare provider about having a balance assessment. If your fall was related to alcohol use, stop or limit alcohol intake. Ask your provider for help if you think you may overuse alcohol and can't stop. If your fall was related to use of sleeping medicines, talk with your provider about this. You may need to reduce your dosage at bedtime if you wake up during the night to go to the bathroom. To reduce the need for nighttime bathroom trips: o Don't drink fluids for several hours before going to bed o Empty your bladder before going to bed o Men can keep a urinal at the bedside Stay as active as you can. Balance, flexibility, strength, and endurance all come from exercise.They all play a role in preventing falls. Ask your provider which types of activity are right for you. Try to do some type of exercise every day. Get your eyes checked once a year or more often if your vision changes If you have pets, know where they are before you stand up or walk so you don't trip over them. Go over all your medicines with a pharmacist or other provider. This is to see if any of them could make you more likely to fall. Have this type of medicine review at least once every year. If your provider advises a new medicine, ask if the side effects will affect your balance. Don't move quickly from one position to another. For instance, don't stand up fast from sitting.This can cause dizziness and may lead to a fall. Sit down when putting on pants, socks, and shoes. This will make you less likely to lose your balance and fall. Always let your provider know if you have fallen since your last visit. Contact your provider right away if you're having balance problems or falling more often. Last Reviewed Date: 11/06/202119998698-1210 [employer]. All rights reserved. This information is not intended as a substitute for professional medical care. Always follow your healthcare professional's instructions. documented in this encounter Plan of Treatment Upcoming Encounters Date Type Department Care Team (Late st Contact Info) Description 05/24/2024 1:00 PM EDT Office Visit Family Practice [address] [place] [address] [address] [place] [address] Tawanna Limon DO [address] [place] [address] 05/30/2024 11:00 AM EDT Office Visit Rheumatology [facility] [address] [place], [place] [address] Leland Novoa MD [address] [place] [address] 06/04/2024 1:00 PM EDT Rehab Services Voice Lab [facility] [address] [facility] [address] Víctor Lees, [facility] 132 [facility] [place] [address] 06/04/2024 1:00 PM EDT Office Visit Otolaryngology [facility] [address] [place] [address] Bettye Schwartz MD [address] [place] [address] Scheduled Procedures Name Priority Associated Diagnoses Date/Ti [...] Additional history exists CKD HGB USE SMARTSET 50545 01/14/202501/14, 01/15/2024, 08/15/2023, Additional history exists CKD PHOS USE SMARTSET 06230 02/25/202502/05, 02/10/2023, 02/15/2022, Additional history exists TSH [...] of this encounter Visit Diagnoses Diagnosis Routine general medical examination at a health care facility- Primary Risk and functional assessment Screening for unspecified condition Moderate persistent asthma without complication Unspecified asthma documented in this encounter Advance Directives Healthcare Agents on File Name Relationship Healthcare Agent Relationship Communication Marcos Breaux Other - (no specific identity) Health Care Commission Agent Livestock (appointed verbally by patient or by statute hierarchy) Bob Manjarrez Adult Child Health Care Commission Agent Livestock (appointed verbally by patient or by statute hierarchy) Care Teams Hatchery Supervisor Relationship Specialty Start Date End Date Tawanna Limon DO [address] [place], [place] [address]riot [place] [address] PCP - General Family Medicine 04/18/24 documented as of this encounter
--- OUTSIDE RECORDS SUMMARY | 2024-05-09 23:00 | External Medical Summary | Summary of Care ---
Author Name Unknown Organization [facility] Address [address] [place] [address] Phone [phone] Care Team Providers Care Avionics Integration Engineer Name Role Phone BraxtonShonnaan Taylor Primary Care Provider [phone] Encounter Details Date Type Department Care Team (Latest Contact Info) Description 04/15/2024 Medication Management [facility] [address] [place] [address] Grazyna Tavarez, [facility] [address] [place] [address] Referred for management of medication therapy* Allergies Active Allergy Reactions Criticality Noted Date [...] for brain health. Active Nebulizers (NEBULIZER COMPRESSOR) [facility] Inhale via nebulizer. Use [...] 0.1 % Nasal Solution (Astelin) Administer 1 Hastings into nostril in the morning and 1 Hastings before bedtime. 30 mL 12 03/04/2024 Active [...] 2 Tablets by mouth at bedtime. Active traZODone (DESYREL) 150 MG TabletIndications :Depression with anxiety Take 3 Tabs by mouth at bedtime. - 1 Tab 05/17/2019 4 Discontinu ed(Medicat ion List Clean Up) predniSONE 10 MG Oral Tablet (Deltasone)Indica tions:Viral URI with cough Take 1 Tablet by mouth in the morning for 5 days. 5 Tablet 01/31/2024 4 Discontinu ed(Medicat ion List Clean Up) Benzonatate 100 MG Oral CapsuleIndication s:Viral URI with cough Take 1 Capsule by mouth 3 times a day as needed for Cough. 30 Capsule 01/31/2024 4 Discontinu ed(Medicat ion List Clean Up) documented as of this encounter (statuses as [...] mRNA, LNP-s, No Pre serve, 2-Dose Series (Jingit) 09/07/2021,02/26/2021,02/05/2021 COVID-19, LNP-s, No Preserve , James-sucrose, Ages 12+ (Jingit) 05/26/2022 COVID-19, MRNA-LNP, 23-24, P F, 30 MCG/0.3 mL, 12 YRS AND ABOVE, IM (SyndicateRoom-Comirnaty) 11/23/2023 Covid-19, Mrna, Lnp-s, Pf, B ivalent, 30 Mcg, IM, 12 yrs and above (Jingit) 04/17/2023 Pneumococcal Conjugate Vacc, 13 Valent (Prevnar) [...] of this encounter Progress Notes * Grazyna Tavarez, [facility] - 04/19/2024 8:50 AM EDT Alena Manjarrez is a 68 year old female. Objective: Review of patient's allergies indicates: Allergen Reactions Adhesive Tape Edema face/lips/tongue States she is allergic to bandaid and it causes throat swelling. Humira [Adalimumab] Itching Pt reports that she took Humira approx 1 year ago and had to stop it due to itchiness. Ibuprofen Nausea/vomiting Latex Nsaids stomache upset Sulfa Antibiotics Eyes like on fire Current Outpatient Medications - WARNING: List may be incomplete due to filtering Medication Sig Dispense Refill traZODone HCl 150 MG Oral Tablet (Desyrel) Take 2 Tablets by mouth at bedtime. Erythromycin 5 MG/GM Ophthalmic Ointment Apply as directed to eye lid, brow and under eye Omeprazole 20 MG Oral Capsule Delayed Release (PriLOSEC) Take 1 capsule by mouth once a day 1 hour before the first meal of the day 100 Capsule 1 buPROPion HCl ER (SR) 100 MG Oral Tablet Extended Release 12 Hour (Wellbutrin SR) Take 1 Tablet by mouth daily. Azelastine HCl 0.1 % Nasal Solution (Astelin) Administer 1 Hastings into nostril in the morning and 1 Hastings before bedtime. 30 mL 12 tiZANidine HCl 2 MG Oral Tablet (Zanaflex) TAKE 1 TABLET BY MOUTH EVERY 6 HOURS NEEDED FOR MUSCLE SPASMS 120 Tablet 0 Rosuvastatin Calcium 20 MG Oral Tablet (Crestor) Take 1 Tablet by mouth in the morning. 90 Tablet 1 Rinvoq 15 MG Oral Tablet Extended Release 24 Hour (Upadacitinib ER) Take 1 tablet by mouth in the morning. 30 Tablet 2 NATURAL SUPPLEMENT Take by mouth 2 times a day. Focus Factor Famotidine 40 MG Oral Tablet (Pepcid) Take 1 Tablet by mouth in the morning. 100 Tablet 1 Fluticasone Propionate 50 MCG/ACT Nasal Suspension (Flonase) Administer 2 Sprays into each nostril at bedtime. 16 g 5 Fluticasone-Salmeterol 500-50 MCG/ACT Inhalation Aerosol Powder Breath Activated (Advair Diskus) INHALE ONE PUFF BY MOUTH TWICE A DAY DIRECTED 180 Each 1 DULoxetine HCl 20 MG Oral Capsule Delayed Release Particles (Cymbalta) Take 2 Capsules by mouth in the morning and 2 Capsules before bedtime. 120 Capsule 3 Meclizine HCl 12.5 MG Oral Tablet (Antivert) Take 1 Tablet by mouth 3 times a day as needed for Dizziness. 30 Tablet 1 Levothyroxine Sodium 50 MCG Oral Tablet (Levoxyl) TAKE ONE-HALF TABLET BY MOUTH DAILY AT LEAST 30 MINUTES BEFORE BREAKFAST AND OTHER MEDICATIONS 135 Tablet 3 Metamucil 0.36 GM Oral Capsule (Psyllium) Take by mouth daily. Montelukast Sodium 10 MG Oral Tablet (Singulair) Take 1 Tablet by mouth at bedtime. 90 Tablet 3 Lisinopril 20 MG Oral Tablet (Prinivil) Take 1 Tablet by mouth in the morning. 90 Tablet 3 cycloSPORINE 0.05 % Ophthalmic Emulsion (Restasis) Instill 1 Drop into both eyes in the morning and1 Drop before bedtime. Albuterol Sulfate (2.5 MG/3ML) 0.083% Inhalation Nebulization Solution (Proventil) Inhale 1 Vial via nebulizer every 6 hours as needed for Wheezing. 120 mL 0 Dicyclomine HCl 10 MG Oral Capsule (Bentyl) TAKE ONE CAPSULE BY MOUTH THREE TIMES DAILY NEEDED for abdominal pain 270 Capsule 1 Albuterol Sulfate HFA 108 (90 Base) MCG/ACT Inhalation Aerosol Solution Inhale 2 Puffs by mouth every 4 hours as needed for Wheezing. 18 g 5 Coconut Oil OIL Take by mouth every morning. Patient mixes a spoon of Louana Non Hydrogenated TransFat Coconut Oil in her coffee every morning, for brain health. Cholecalciferol (VITAMIN D3) 1000 units CAPS Take 1 Capsule by mouth in the morning. TRAVATAN Z 0.004 % ophthalmic solution Instill 1 Drop into both eyes at bedtime. Cyanocobalamin 1000 MCG Oral Tablet Take 1 Tablet by mouth in the morning. 30 Tab 5 ASPIRIN 325 MG PO TABS Take 1 Tablet by mouth every evening. OMEGA-3 FISH OIL 1000 MG PO CAPS Take 1 Capsule by mouth in the morning. Nebulizers (NEBULIZER COMPRESSOR) MIS Inhale via nebulizer. Use as directed. 1 Each 1 Immunization History Administered Date(s) Administered COVID-19 mRNA, LNP-s, No Preserve, 2-Dose Series ([facility]) 02/05/2021, 02/26/2021, 09/07/2021 COVID-19, LNP-s, No Preserve, James-sucrose, Ages 12+ ([facility]) 05/26/2022 COVID-19, MRNA-LNP, 23-24, PF, 30 MCG/0.3 mL, 12 YRS AND ABOVE, IM ([facility]) 11/23/2023 Covid-19, Mrna, Lnp-s, Pf, Bivalent, 30 Mcg, IM, 12 yrs and above (Jingit) 04/17/2023 Diptheria/Tetanus (Adult) 05/29/1996 Methylprednisolone 01/29/2009 Pneumococcal Conjugate Vacc, 13 Valent (Prevnar) 05/05/2015 [...] 05/26/2021 Zoster Vaccine Recombinant (Shingrix) 07/19/2021, 09/27/2021 TMR Interventions TMR Drug Therapy - Rescue Therapy (COPD or Asthma): No rescue inhaler claims TMR Medication Assessment - Maintenance Inhaler Technique: FLUTIC/SALME AER 500/50;FLUTICASONE PROPIONATE/SA,500-50 MCG/ACT,EA Incomplete Encounter MTPs No medication therapy recommendations to display Complete Encounter MTPs Referred for management of medication therapy Current Medication: Albuterol Sulfate HFA 108 (90 Base) MCG/ACT Inhalation Aerosol Solution Rationale: Untreated condition - Needs additional medication therapy - Indication Recommendation: Continue to Monitor Status: Accepted - no CPA Needed Note: Patient reports she hasn't needed the albuterol inhaler or nebulizer lately. Advised patient to check expiration dates and let us know if she needs a new inhaler. Current Medication: Fluticasone-Salmeterol 500-50 MCG/ACT Inhalation Aerosol Powder Breath Activated (Advair Diskus) Rationale: Patient Education - Needs Education - Effectiveness Recommendation: Provide Education Status: Accepted - no CPA Needed Note: Discussed inhaler technique with advair. Patient describes correct technique as well as rinsing mouth out after use. Assessment & Plan Indication, effectiveness, safety and convenience of her medications were reviewed today. The patient's medical conditions were assessed, evaluated, and deemed meeting goals of drug therapy, with thefollowing exceptions. Summary Time Spent: 16-30 min Supervising pharmacist who provided the service: Grazyna Rouse PharmD Takeaway Information Who was the recipient of the CMR service: beneficiary Language Template for the Patient Takeaway: [place] I attest that I have reviewed and updated the patient's conditions, allergies, and medications to the best of my ability. Patient provided medication list gathered by: Alicia Boykin, pharmacy clinical specialist Grazyna Humphrey [facility] 04/19/2024, 8:50 AM documented in this encounter Miscellaneous Notes * MTM Personal Medication List - Grazyna Tavarez, [facility] - 04/19/2024 8:39 AM EDT Medication How I take it Why I use it Prescriber Albuterol Sulfate (2.5 MG/3ML) 0.083% Inhalation Nebulization Solution (Proventil) Inhale 1 Vial via nebulizer every 6 hours as needed for Wheezing. Asthma Tawanna Limon, DO Albuterol Sulfate HFA 108 (90 Base) MCG/ACT Inhalation Aerosol Solution Inhale 2 Puffs by mouth every 4 hours as needed for Wheezing. Asthma Tawanna Limon, DO ASPIRIN 325 MG PO TABS Take 1 Tablet by mouth every evening. Brain health Self Azelastine HCl 0.1 % Nasal Solution (Astelin) Administer 1 Hastings into nostril in the morning and 1 Hastings before bedtime. Allergies Bettye Aurelia Schwratz MD buPROPion HCl ER (SR) 100 MG Oral Tablet Extended Release 12 Hour (Wellbutrin SR) Take 1 Tablet by mouth daily. Weight loss and pain Brenna Hanson PA-C Cholecalciferol (VITAMIN D3) 1000 units CAPS Take 1 Capsule by mouth in the morning. General health- kidney and bone health Self Coconut Oil OIL Take by mouth every morning. Patient mixes a spoon of Louana Non Hydrogenated TransFat Coconut Oil in her coffee every morning, for brain health. General health - memory Self Cyanocobalamin 1000 MCG Oral Tablet Take 1 Tablet by mouth in the morning. General health - energy Self cycloSPORINE 0.05 % Ophthalmic Emulsion (Restasis) Instill 1 Drop into both eyes in the morning and1 Drop before bedtime. Dry Eyes Danelle Cornejo, BERNA Dicyclomine HCl 10 MG Oral Capsule (Bentyl) TAKE ONE CAPSULE BY MOUTH THREE TIMES DAILY NEEDED for abdominal pain Abdominal cramping Tawanna Limon DO DULoxetine HCl 20 MG Oral Capsule Delayed Release Particles (Cymbalta) Take 2 Capsules by mouth in the morning and 2 Capsules before bedtime. Pain Tawanna Limon DO Erythromycin 5 MG/GM Ophthalmic Ointment Apply as directed to eye lid, brow and under eye Eyes Danelle Cornejo, OD Famotidine 40 MG Oral Tablet (Pepcid) Take 1 Tablet by mouth in the morning. Heartburn Tawanna Limon DO Fluticasone Propionate 50 MCG/ACT Nasal Suspension (Flonase) Administer 2 Sprays into each nostril at bedtime. Allergies Tawanna Limon DO Fluticasone-Salmeterol 500-50 MCG/ACT Inhalation Aerosol Powder Breath Activated (Advair Diskus) INHALE ONE PUFF BY MOUTH TWICE A DAY DIRECTED Asthma Tawanna Limon DO Levothyroxine Sodium 50 MCG Oral Tablet (Levoxyl) TAKE ONE-HALF TABLET BY MOUTH DAILY AT LEAST 30 MINUTES BEFORE BREAKFAST AND OTHER MEDICATIONS Thyroid Tawanna Limon DO Lisinopril 20 MG Oral Tablet (Prinivil) Take 1 Tablet by mouth in the morning. High blood pressure and kidney protection Tawanna Limon DO Meclizine HCl 12.5 MG Oral Tablet (Antivert) Take 1 Tablet by mouth 3 times a day as needed for Dizziness. Dizziness Self Metamucil 0.36 GM Oral Capsule (Psyllium) Take as directed by mouth daily. Prevent diarrhea Self Montelukast Sodium 10 MG Oral Tablet (Singulair) Take 1 Tablet by mouth at bedtime. Asthma/Allergies Tawanna Limon DO NATURAL SUPPLEMENT - Focus Factor Take by mouth 2 times a day. General health - memory Self OMEGA-3 FISH OIL 1000 MG PO CAPS Take 1 Capsule by mouth in the morning. General health - Kidney Self Omeprazole 20 MG Oral Capsule Delayed Release (PriLOSEC) Take 1 capsule by mouth once a day 1 hour before the first meal of the day Heartburn Tawanna Limon DO Rinvoq 15 MG Oral Tablet Extended Release 24 Hour (Upadacitinib ER) Take 1 tablet by mouth in the morning. Rheumatoid arthritis César Zachery Evelio, PA-C Rosuvastatin Calcium 20 MG Oral Tablet (Crestor) Take 1 Tablet by mouth in the evening. Cholesteroland heart protection Tawanna Limon, DO tiZANidine HCl 2 MG Oral Tablet (Zanaflex) TAKE 1 TABLET BY MOUTH EVERY 6 HOURS NEEDED FOR MUSCLE SPASMS Muscle cramps Tawanna Limon, DO TRAVATAN Z 0.004 % ophthalmic solution Instill 1 Drop into both eyes at bedtime. Eye pressure Danelle Cornejo, OD traZODone (DESYREL) 150 MG Tablet Take 2 tablets by mouth at bedtime. Sleep Brenna Hanson PA-C * MTM To-Do-List - Grazyna Tavarez RPh - 04/15/2024 3:05 PM EDT Images from the original note were not included. What we talked about: What I should do: The importance of taking your medication as prescribed Your medicine works best when taken as prescribed. It can be hard to remember to take daily medications. Consider making it a part of your daily routine. Pair taking your medication with something you do every day, like brushing your teeth or eating a meal. Consider setting daily alarms to help remind yourself when it is time to take your medicine. Using a pill box can also help you organize your medicines. Pill boxes allow you to fill each day slot with your daily medicine and help you track when your next dose is due. What we talked about: What I should do: Albuterol is important for having on hand as a rescue inhaler. Continue to monitor your expiration date and let us know when you need a new inhaler or nebulizer solution. What we talked about: What I should do: Your Advair inhaler is important for preventing your asthma symptoms. Make sure to take this medication twice a day every day and rinse mouth out after each use. documented in this encounter Plan of Treatment Upcoming Encounters Date Type Department Care Team (Late st Contact Info) Description 05/24/2024 1:00 PM EDT Office Visit Family Practice [address] [place] [address], [place] [address] [facility] [place] [address] Tawanna Limon DO [address] [place] [address] 05/30/2024 11:00 AM EDT Office Visit Rheumatology [facility] [address] [facility] [place] [address] Leland Novoa MD [address] [facility] [place] [address] 06/04/2024 1:00 PM EDT Rehab Services Voice Lab [facility] [place] [address] Víctor Lees, [facility] [place] [address] 06/04/2024 1:00 PM EDT Office Visit Otolaryngology [facility] 132 [facility] [place] [address] Bettye Schwartz MD [facility] [place] [address] Scheduled Procedures Name Priority Associated Diagnoses Date/Ti [...] Additional history exists CKD HGB USE SMARTSET 69767 01/14/202501/14, 01/15/2024, 08/15/2023, Additional history exists CKD PHOS USE SMARTSET 10110 02/25/202502/05, 02/10/2023, 02/15/2022, Additional history exists TSH 02/25/2025 02/26/2024, 04/05/2023, 02/15/2022, Additional history exists Depression Monitoring 04/09/2025 [...] as of this encounter Visit Diagnoses Diagnosis Referred for management of medication therapy- Primary Encounter for long-term (current) use of other medications documented in this encounter Advance Directives Healthcare Agents on File Name Relationship Healthcare Agent Relationship Communication Marcos Breaux Other - (no specific identity) Health Care Process Owner (appointed verbally by patient or by statute hierarchy) Bob Mitchellaver Adult Child Health Care Process Owner (appointed verbally by patient or by statute hierarchy) Care Teams Avionics Integration Engineer Relationship Specialty Start Date End Date Tawanna Limon DO [address] [place] [address] PCP - General Family Medicine 04/18/24 documented as of this encounter
--- OUTSIDE RECORDS SUMMARY | 2024-05-09 23:00 | External Medical Summary | Summary of Care ---
Author Name Unknown Organization [facility] Address [address] [place] [address] Phone [phone] Care Team Providers Care Liaison Inspection Laboratory Assistant Name Role Phone Tawanna Stuart DO Primary Care Provider [phone] Reason for Visit * Reason Comments eRx-Medication Refill Encounter Details Date Type Department Care Team (Late st Contact Info) Description 04/13/2024 Refill Family Practice [address] [place] [address] [place] [phone] Tawanna Stuart DO [address] [place] [address] Routine medical exam*; Gastroesophageal reflux disease without esophagitis; Pharyngoesophageal dysphagia; Encounter for long-term (current) use of medications Allergies Active Allergy Reactions Criticality Noted Date [...] MG PO TABSIndications:T IA (transient ischemic attack) One pill by mouth once a day with food Active Cyanocobalamin 1000 MCG Oral Tablet Take 1 Tablet by mouth in the morning. 30 Tab 5 6 Active TRAVATAN Z 0.004 % ophthalmic solution 1 drop in each eye at bedtime 7 Active Cholecalciferol (VITAMIN D3) 1000 units CAPS Take 1 Capsule by mouth in the morning. 8 Active Coconut Oil OIL Take by mouth every morning. Patient mixes a spoon of Louana Non Hydrogenated Trans Fat Coconut Oil in her coffee every morning, for brain health. Active Nebulizers (NEBULIZER COMPRESSOR) MISC Inhale via nebulizer. Use as directed. 1 Each 1 9 Active traZODone (DESYREL) 150 MG TabletIndications :Depression with anxiety Take 3 Tabs by mouth at bedtime. - 1 Tab 9 Active Additional Information Patient taking differently: 300 mgOral HS,(No instructions reported), Reported on 05/12/2023 Albuterol Sulfate HFA 108 (90 Base) MCG/ACT Inhalation Aerosol SolutionIndicatio ns:Moderate persistent asthma without complication Inhale 2 Puffs by mouth every 4 hours as needed for Wheezing. 18 g 5 1 Active Dicyclomine HCl 10 MG Oral Capsule (Bentyl)Indicatio ns:Abdominal cramping TAKE ONE CAPSULE BY MOUTH THREE TIMES DAILY NEEDED for abdominal pain 270 Capsule 1 2 Active Albuterol Sulfate (2.5 MG/3ML) 0.083% Inhalation Nebulization Solution (Proventil)Indica tions:Moderate persistent asthma, unspecified whether complicated Inhale 1 Vial via nebulizer every 6 hours as needed for Wheezing. 120 mL 2 Active cycloSPORINE 0.05 % Ophthalmic Emulsion (Restasis) Instill 1 Drop into both eyes in the morning and 1 Drop before bedtime. 3 Active Lisinopril 20 MG Oral Tablet (Prinivil)Indicat ions:Benign hypertension with CKD (chronic kidney disease) stage III (HCC) Take 1 Tablet by mouth in the morning. 90 Tablet 3 3 Active Montelukast Sodium 10 MG Oral Tablet (Singulair)Indica tions:Moderate persistent asthma without complication,Envi ronmental and seasonal allergies Take 1 Tablet by mouth at bedtime. 90 Tablet 3 3 Active Metamucil 0.36 GM Oral Capsule (Psyllium) Take by mouth daily. Active Levothyroxine Sodium 50 MCG Oral Tablet (Levoxyl)Indicati ons:Hypothyroidis m TAKE ONE-HALF TABLET BY MOUTH DAILY AT LEAST 30 MINUTES BEFORE BREAKFAST AND OTHER MEDICATIONS 135 Tablet 3 3 Active Meclizine HCl 12.5 MG Oral Tablet (Antivert)Indicat ions:Vertigo Take 1 Tablet by mouth 3 times a day as needed for Dizziness. 30 Tablet 1 3 Active DULoxetine HCl 20 MG Oral Capsule Delayed Release Particles (Cymbalta) Take 2 Capsules by mouth in the morning and 2 Capsules before bedtime. 120 Capsule 3 3 Active Fluticasone-Salme terol 500-50 MCG/ACT Inhalation Aerosol Powder Breath Activated (Advair Diskus)Indication s:Moderate persistent asthma without complication INHALE ONE PUFF BY MOUTH TWICE A DAY DIRECTED 180 Each 1 3 Active Fluticasone Propionate 50 MCG/ACT Nasal Suspension (Flonase)Indicati ons:Chronic rhinitis Administer 2 Sprays into each nostril at bedtime. 16 g 5 3 Active Famotidine 40 MG Oral Tablet (Pepcid)Indicatio ns:Gastroesophage al reflux disease without esophagitis Take 1 Tablet by mouth in the morning. 100 Tablet 1 3 Active NATURAL SUPPLEMENT Take by mouth 2 times a day. 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 30 Tablet 2 4 Active Rosuvastatin Calcium 20 MG Oral Tablet (Crestor) Take 1 Tablet by mouth in the morning. 90 Tablet 1 4 Active Benzonatate 100 MG Oral CapsuleIndication s:Viral URI with cough Take 1 Capsule by mouth 3 times a day as needed for Cough. 30 Capsule 4 Active tiZANidine HCl 2 MG Oral Tablet (Zanaflex)Indicat ions:Myalgia,Musc le cramps TAKE 1 TABLET BY MOUTH EVERY 6 HOURS NEEDED FOR MUSCLE SPASMS 120 Tablet 4 Active Azelastine HCl 0.1 % Nasal Solution (Astelin) Administer 1 [place] into nostril in the morning and 1 [place] before bedtime. 30 mL 12 4 Active buPROPion HCl ER (SR) 100 MG Oral Tablet Extended Release 12 Hour (Wellbutrin SR) 4 Active Omeprazole 20 MG Oral Capsule Delayed Release (PriLOSEC)Indicat ions:Gastroesopha geal reflux disease without esophagitis,Phary ngoesophageal dysphagia Take 1 capsule by mouth once a day 1 hour before the first meal of the day 100 Capsule 1 4 Active Omeprazole 20 MG Oral Capsule Delayed Release (PriLOSEC)Indicat ions:Gastroesopha geal reflux disease without esophagitis,Phary ngoesophageal dysphagia One pill by mouth once a day 1 hour before the first meal of the day 100 Capsule 1 3 04/15/20 24 Discontinued documented as of this encounter (statuses as [...] mRNA, LNP-s, No Pre serve, 2-Dose Series ([employer]í) 09/07/2021,02/26/2021,02/05/2021 COVID-19, LNP-s, No Preserve , James-sucrose, Ages 12+ (Pfizer) 05/26/2022 COVID-19, MRNA-LNP, 23-24, P F, 30 MCG/0.3 mL, 12 YRS AND ABOVE, IM ([employer]) 11/23/2023 Covid-19, Mrna, Lnp-s, Pf, B ivalent, 30 Mcg, IM, 12 yrs and above (Colibrí) 04/17/2023 Pneumococcal Conjugate Vacc, 13 Valent (Prevnar) [...] encounter Miscellaneous Notes * Telephone Encounter - Hortencia Jeong RPh - 04/15/2024 10:29 AM EDT Signed Prescriptions: Disp Refills Omeprazole 20 MG Oral Capsule Delayed Rele*100 Ca*1 Sig: Take 1 capsule by mouth once a day 1 hour before the first meal of the dayAuthorizing Provider: TAWANNA STUART User: HORTENCIA JEONG * Telephone Encounter - Hortencia Jeong RPh - 04/15/2024 10:29 AM EDT Per refill protocol patient needs magnesium lab on file within the past 2 years while using PPIs. Lab work ordered. Patient may obtain with next routine labs. Thank you, Hortencia Jeong, PharmD Clinical Pharmacist [facility] ([facility]) 04/15/24 10:29 AM [phone] * Telephone Encounter - Interface, E-Rx Ss Inbound - 04/15/2024 6:09 AM EDT Pending Prescriptions: Disp Refills Omeprazole 20 MG Oral Capsule Delayed Rele*100 Ca*0 Sig: Take 1 capsule by mouth once a day 1 hour before the first meal of the day documented in this encounter Plan of Treatment Upcoming Encounters Date Type Department Care Team (Late st Contact Info) Description 04/19/2024 10:00 AM EDT Nurse Only Ancillary 65 [facility] [address] [place] [address] College, Nurse Annual Wellness Visit [address] [address] 05/24/2024 1:00 PM EDT Office Visit Family Practice 65 [facility] [address] [place] [phone] Tawanna Stuart DO [address] [place] [address] 05/30/2024 11:00 AM EDT Office Visit Rheumatology [place] [address] [facility] [place], [place] [address] Leland Novoa MD [facility] [place] [address] 06/04/2024 1:00 PM EDT Rehab Services Voice Lab [facility] [address] [place] [address] Víctor Lees, [facility] FIELD TECHNICIAN [address] [place] [address] 06/04/2024 1:00 PM EDT Office Visit Otolaryngology [facility] [address] [place] [address] Bettye Schwartz MD [address] [place] [address] Scheduled Orders Name Type Priority Associated Diagnoses Orde r Schedule MAGNESIUM Lab Routine Routine medical exam Encounter for long-term (current) use of medications Expected: 04/29/2024 (Approximate), Expires: 04/15/2025 Scheduled Procedures Name Priority Associated Diagnoses Date/Ti me COLONOSCOPY FLEXIBLE PROXIMA L DIAGNOSTIC Recall Encounter for screening colonoscopy Health Maintenance Due Date Last Done Comments Cologuard 2000 Sigmoidoscopy 2000 Fecal Occult Blood Test 04/03/2015 04/03/2014, 12/26 COVID-19 Vaccine ( season) 2024 11/23/2023, 04/17/2023, 05/26/2022, Additional history exists Mammogram 05/24/2024 05/24/2023, 05/06, 04/07/2022, Additional history exists Albumin/Creatinine Ratio 08/15/20242 023, 07/14/2022, 04/24/2019, Additional history exists GFR 08/27/2024 02/26/2024, 01/04, 08/15/2023, Additional history exists HbA1c 11/23/2024 11/23/2023, 09/06, 02/23/2015, Additional history exists CKD HGB USE SMARTSET 75628 01/14/202501/14, 01/15/2024, 08/15/2023, Additional history exists CKD PHOS USE SMARTSET 90884 02/25/202502/05, 02/10/2023, 02/15/2022, Additional history exists TSH 02/25/2025 02/26/2024, 05/2023, 02/15/2022, Additional history exists Colonoscopy 02/14/2027 [...] this encounter Visit Diagnoses Diagnosis Routine medical exam- Primary Routine general medical examination at a health care facility Gastroesophageal reflux disease without esophagitis Esophageal reflux Pharyngoesophageal dysphagia Dysphagia, pharyngoesophageal phase Encounter for long-term (current) use of medications Encounter for long-term (current) use of other medications documented in this encounter Advance Directives Healthcare Agents on File Name Relationship Healthcare Agent Relationship Communication Marcos Breaux Other - (no specific identity) Health Care Duct Installer (appointed verbally by patient or by statute hierarchy) Bob Manjarrez Adult Child Health Care Duct Installer (appointed verbally by patient or by statute hierarchy) Care Teams Liaison Inspection Laboratory Assistant Relationship Specialty Start Date End Date Tawanna Stuart DO [address] [place] [facility] [place] [address] PCP - General Family Medicine 06/29/23 documented as of this encounter
--- OUTSIDE RECORDS SUMMARY | 2024-05-09 23:00 | External Medical Summary | Summary of Care ---
Author Name Unknown Organization [facility] Address [address] [place] [address] Phone [phone] Care Team Providers Care Pipe Insulator Helper Name Role Phone BraxtonShonnaawa Vazquez DO Primary Care Provider [phone] Reason for Visit * Reason Onset Date Comments Encounter Created in Error 04/19/2024 Encounter Details Date Type Department Care Team (Latest Contact Info) Description 04/15/2024 Medication Management [facility] [address] [place] [address] Grazyna Tavarez, [facility] [address] [place] [address] Encounter created in error Allergies Active Allergy Reactions Criticality Noted Date [...] 0.1 % Nasal Solution (Astelin) Administer 1 [place] into nostril in the morning and 1 [place] before bedtime. 30 mL 12 03/04/2024 Active [...] brow and under eye 04/03/2024 Active traZODone (DESYREL) 150 MG TabletIndications :Depression [...] mRNA, LNP-s, No Pre serve, 2-Dose Series ([employer]) 09/07/2021,02/26/2021,02/05/2021 COVID-19, LNP-s, No Preserve , James-sucrose, Ages 12+ (Pfizer) 05/26/2022 COVID-19, MRNA-LNP, 23-24, P F, 30 MCG/0.3 mL, 12 YRS AND ABOVE, [facility] ([facility] 11/23/2023 Covid-19, Mrna, Lnp-s, Pf, B ivalent, 30 Mcg, IM, 12 yrs and above ([employer]) 04/17/2023 Pneumococcal Conjugate Vacc, 13 Valent (Prevnar) [...] Progress Notes * Grazyna Tavarez RPh - 04/19/2024 8:52 AM EDT This encounter was created in error. 04/19/2024, 8:53 AM, Grazyna Humphrey RPh documented in this encounter Plan of Treatment Upcoming Encounters Date Type Department Care Team (Late st Contact Info) Description 05/24/2024 1:00 PM EDT Office Visit Family Practice 65 [facility] [place] [facility] [phone] [facility] Limon DO [facility] [address] 05/30/2024 11:00 AM EDT Office Visit Rheumatology [address] [place] [address] Leland Novoa MD [address] [place] [address] 06/04/2024 1:00 PM EDT Rehab Services Voice Lab [facility] [address] [facility] [place] [address] Víctor Lees, [facility] LIAISON [address] [facility] [place] [address] 06/04/2024 1:00 PM EDT Office Visit Otolaryngology [facility] [address] [place] [address] Bettye Schwartz MD [address] [place] [address] Scheduled Procedures Name Priority Associated Diagnoses Date/Ti [...] Additional history exists CKD HGB USE SMARTSET 81823 01/14/202501/14, 01/15/2024, 08/15/2023, Additional history exists CKD PHOS USE SMARTSET 25696 02/25/202502/05, 02/10/2023, 02/15/2022, Additional history exists TSH 02/25/2025 02/26/2024, 05/2023, 02/15/2022, Additional history exists Depression Monitoring [...] as of this encounter Visit Diagnoses Diagnosis Encounter Created In Error- Primary documented in this encounter Advance Directives Healthcare Agents on File Name Relationship Healthcare Agent Relationship Communication Marcos Breaux Other - (no specific identity) Health Care Contract Technical Writer (appointed verbally by patient or by statute hierarchy) Bob Manjarrez Adult Child Health Care Contract Technical Writer (appointed verbally by patient or by statute hierarchy) Care Teams Pipe Insulator Helper Relationship Specialty Start Date End Date Tawanna Limon DO [address] [place] [id number] PCP - General Family Medicine 04/18/24 documented as of this encounter
--- OUTSIDE RECORDS SUMMARY | 2024-05-09 23:01 | External Medical Summary | Summary of Care ---
Author Name Unknown Organization [facility] Address [address] [place] [address] Phone [phone] Care Team Providers Care Geographic Information Systems Manager Name Role Phone Tawanna Limon DO Primary Care Provider [phone] Reason for Visit * Reason Onset Date Comments Test Results Lab 01/17/2024 Encounter Details Date Type Department Care Team (Late st Contact Info) Description 01/17/2024 Telephone Family Practice [address] [place] [address] [place] [phone] Tawanna Limon DO [address] [place], [place] [phone] Test Results Lab Allergies Active Allergy Reactions Criticality Noted Date [...] as of this encounter (statuses as of 03/29/2024) Medications Medication Sig Dispensed Refills Start Date [...] 1 05/14/2019 Active traZODone (DESYREL) 150 MG TabletIndications :Depression [...] the morning. 30 Tablet 2 01/12/2024 Active Pravastatin Sodium 20 MG Oral Tablet (Pravachol)Indica tions:Dyslipidemi a, goal LDL below 100 Take 1 Tab by mouth daily. 90 Tab 1 02/24/2021 4 Discontinu ed(Patient preference /discontin uation) tiZANidine HCl 2 MG Oral Tablet (Zanaflex)Indicat ions:Myalgia,Musc le cramps TAKE 1 TABLET BY MOUTH EVERY 6 HOURS NEEDED FOR MUSCLE SPASMS 120 Tablet 01/19/2022 4 Discontinu ed(Refill) documented as of this encounter (statuses as of 03/29/2024) Active Problems Problem Noted Date Diagnosed Date [...] as of this encounter (statuses as of 03/29/2024) Resolved Problems Problem Noted Date Diagnosed Date [...] as of this encounter (statuses as of 03/29/2024) Immunizations Name Administration Dates Next Due COVID-19 mRNA, LNP-s, No Pre serve, 2-Dose Series ([employer]!) 09/07/2021,02/26/2021,02/05/2021 COVID-19, LNP-s, No Preserve , James-sucrose, Ages 12+ (Pfizer) 05/26/2022 COVID-19, MRNA-LNP, 23-24, P F, 30 MCG/0.3 mL, 12 YRS AND ABOVE, IM [facility] 11/23/2023 Covid-19, Mrna, Lnp-s, Pf, B ivalent, [...] Telephone Encounter - Tawanna Limon DO - 01/31/2024 7:59 AM EDT See other encounter. * Telephone Encounter - Francy Frank RPh - 01/18/2024 3:59 PM EDT Lipid panel completed as per rheumatologic meidcation monitoring protocol for Rinvoq. LDL elevated,but pt has not responded to outreach to verify if taking her pravastatin 20mg (listed as active in chart). Confirmed with pharmacy that patient has not had filled in at least 2 years. Will forward toPCP to advise further. Francy Welch PharmD [facility] Clinical Pharmacist Rheumatology Department [phone] 01/18/2024, 4:02 PM * Telephone Encounter - Francy Frank RPh - 01/18/2024 3:56 PM EDT Called patient's pharmacy spoke to pharmacist - patient has not filled pravastatin within the past 2 years. Will make PCP aware Francy Welch PharmD [facility] Clinical Pharmacist Rheumatology Department [phone] 01/18/2024, 3:58 PM * Telephone Encounter - Francy Frank RPh - 01/18/2024 1:06 PM EDT 2nd attempt, no answer * Telephone Encounter - Francy Frank RP - 01/17/2024 9:39 AM EDT Unable to reach patient at this time. Left message on the answering machine requesting callback regarding lipid panel results. Advised patient to please call [phone]. Please transfer her back tomyself. If I'm not available, transfer to next available [facility]. -please ask patient if she is currently taking her pravastatin. No dispensing history on adherence report. -recent lipid panel results trending up. If she is taking, can consider increase in statin through PCP. -eligible for [employer] mail order Francy Welch, PharmD Clinical Pharmacist Centralized Clinical Pharmacy Services ([facility]) (formerly Telepharmacy) [phone] 01/17/2024, 9:41 AM documented in this encounter Plan of Treatment Upcoming Encounters Date Type Department Care Team (Late st Contact Info) Description 04/19/2024 10:00 AM EDT Nurse Only Ancillary 65 [facility] [address] [place] [address] College, Nurse Annual Wellness Visit [address] [place] [address] 05/24/2024 1:00 PM EDT Office Visit Family Practice 65 [facility] [address] [place] [phone] Tawanna Limon DO [address] [facility] [address] 05/30/2024 11:00 AM EDT Office Visit Rheumatology [place] [id number] [address] [place] [address] Leland Novoa MD [facility] [place] [place] [address] 06/04/2024 1:00 PM EDT Rehab Services Voice Lab [facility] [address] [place] [address] Víctor Lees, [facility] ATTENDANT [address] [place] [address] 06/04/2024 1:00 PM EDT Office Visit Otolaryngology [facility] [address] [place] [address] Bettye Schwartz MD 132 [facility] [place] [address] Scheduled Procedures Name Priority Associated Diagnoses Date/Ti [...] Additional history exists CKD HGB USE SMARTSET 80169 01/14/202501/14, 01/15/2024, 08/15/2023, Additional history exists CKD PHOS USE SMARTSET 76608 02/25/2025 04/12/2023, 02/10/2023, 02/15/2022, Additional history exists TSH 02/25/2025 [...] Not on filedocumented as of this encounter Additional Health Concerns Infection Onset Date Last Indicated Resolved Time Influenza (seasonal) 01/31/2024 01/31/2024 024 12:19 AM EDT documented as of this encounter Advance Directives Healthcare Agents on File Name Relationship Healthcare Agent Relationship Communication Marcos Breaux Other - (no specific identity) Health Care Shift Superintendent Ca[employer]ylate (appointed verbally by patient or by statute hierarchy) Bob Manjarrez Adult Child Health Care Shift Superintendent [employer]ylate (appointed verbally by patient or by statute hierarchy) Care Teams Geographic Information Systems Manager Relationship Specialty Start Date End Date Tawanna Limon DO [address] [place], [place] [address] [address] PCP - General Family Medicine 06/29/23 documented as of this encounter
--- OUTSIDE RECORDS SUMMARY | 2024-05-09 23:01 | External Medical Summary | Summary of Care ---
Author Name Unknown Organization [facility] Address [address] [facility] [address] Phone [phone] Care Team Providers Care Compressor Mechanic Bus Name Role Phone Tawanna Limon DO Primary Care Provider [phone] Reason for Visit * Reason Onset Date Comments Sleep Apnea Device 03/19/2024 Replacement C PAP Encounter Details Date Type Department Care Team (Late st Contact Info) Description 03/19/2024 Telephone Sleep Disorders [facility] [place] [address] Akosua Hager CRNP 132 [facility] [place] [address] Sleep Apnea Device (Replacement CPAP) Allergies Active Allergy Reactions Criticality Noted Date [...] as of this encounter (statuses as of 03/27/2024) Medications Medication Sig Dispensed Refills Start Date [...] 0.1 % Nasal Solution (Astelin) Administer 1 [place] into nostril in the morning and 1 [place] before bedtime. 30 mL 12 03/04/2024 Active buPROPion HCl ER (SR) 100 MG Oral Tablet Extended Release 12 Hour (Wellbutrin SR) 03/06/2024 Active documented as of this encounter (statuses as of 03/27/2024) Active Problems Problem Noted Date Diagnosed Date [...] as of this encounter (statuses as of 03/27/2024) Resolved Problems Problem Noted Date Diagnosed Date [...] as of this encounter (statuses as of 03/27/2024) Immunizations Name Administration Dates Next Due COVID-19 mRNA, LNP-s, No Pre serve, 2-Dose Series (Podcast Ready) 09/07/2021,02/26/2021,02/05/2021 COVID-19, LNP-s, No Preserve , James-sucrose, Ages 12+ (Podcast Ready) 05/26/2022 COVID-19, MRNA-LNP, 23-24, P F, 30 MCG/0.3 mL, 12 YRS AND ABOVE, IM [facility] 11/23/2023 Covid-19, Mrna, Lnp-s, Pf, B ivalent, 30 Mcg, IM, 12 yrs and above (Podcast Ready) 04/17/2023 Pneumococcal Conjugate Vacc, 13 Valent (Prevnar) [...] encounter Miscellaneous Notes * Telephone Encounter - Syed Rea OSA - 03/27/2024 4:09 PM EDT LMhome# asking pt to return call to schedule return appt w/ Akosua Hager in 6- 12 mo. * Telephone Encounter - Aixa Pate LPN - 03/27/2024 10:06 AM EDT Pt aware. Of the below info. Pt states she will be home all day and someone can call to set up the f/up appt * Telephone Encounter - Sundar February COMFORT Smith - 03/19/2024 5:34 PM EDT Called pt, no answer. LM to return call. Added to recall list for apt. * Telephone Encounter - Akosua Hager CRNP - 03/19/2024 4:09 PM EDT Please let the patient know that I reviewed the data from her CPAP unit following her appointment. She is compliant and therapeutic on the current setting of 10-17. However she is maxing out on pressure. An order for replacement CPAP was ordered ([facility]) with new settings to go up to a max of 20 if needed. Have return appointment scheduled in 6-12 months. documented in this encounter Plan of Treatment Upcoming Encounters Date Type Department Care Team (Late st Contact Info) Description 04/19/2024 10:00 AM EDT Nurse Only Ancillary 65 [facility] [address] [place] [address] College, Nurse Annual Wellness Visit 65 [facility] [address] [place] [address] 05/24/2024 1:00 PM EDT Office Visit Family Practice 65 [facility] [address] [place] [phone] Tawanna Limon, DO [address] [place] [address] 05/30/2024 11:00 AM EDT Office Visit Rheumatology [place] [address] [place] [address] Leland Novoa MD [address] [place] [address] [place] [address] 06/04/2024 1:00 PM EDT Rehab Services Voice Lab [facility] 132 [facility] [place] [address] Víctor Lees, [facility] BONDING MACHINE TENDER 132 [facility] [place] [address] 06/04/2024 1:00 PM EDT Office Visit Otolaryngology [facility] [address] [place] [id number] Bettye Schwartz MD [address] [facility] [place] [address] Scheduled Procedures Name Priority Associated Diagnoses Date/Ti [...] Additional history exists CKD HGB USE SMARTSET 61179 01/14/202501/14, 01/15/2024, 08/15/2023, Additional history exists CKD PHOS USE SMARTSET 45926 02/25/202502/05, 02/10/2023, 02/15/2022, Additional history exists TSH [...] Other - (no specific identity) Health Care Shuttle Bus Driver (appointed verbally by patient or by statute hierarchy) Bob Manjarrez Adult Child Health Care Shuttle Bus Driver (appointed verbally by patient or by statute hierarchy) Care Teams Compressor Mechanic Bus Relationship Specialty Start Date End Date Tawanna Limon DO [address] [place] [address] PCP - General Family Medicine 06/29/23 documented as of this encounter
--- OUTSIDE RECORDS SUMMARY | 2024-05-09 23:01 | External Medical Summary | Summary of Care ---
Author Name Unknown Organization [facility] Address [address] [facility] [address] Phone [phone] Care Team Providers Care Freight Tallier Name Role Phone Tawanna Limon DO Primary Care Provider [phone] Reason for Visit * Reason Onset Date Comments Medication Pre-auth 03/27/2024 Encounter Details Date Type Department Care Team (Late st Contact Info) Description 03/27/2024 Telephone Rheumatology [place] [address] [place] [address] César Fraser PA-C [address] [facility] [address] Medication Pre-auth (/) Allergies Active Allergy Reactions Criticality Noted Date [...] as of this encounter (statuses as of 04/04/2024) Medications Medication Sig Dispensed Refills Start Date [...] 0.1 % Nasal Solution (Astelin) Administer 1 [place] into nostril in the morning and 1 [place] before bedtime. 30 mL 12 03/04/2024 Active buPROPion HCl ER (SR) 100 MG Oral Tablet Extended Release 12 Hour (Wellbutrin SR) 03/06/2024 Active documented as of this encounter (statuses as of 04/04/2024) Active Problems Problem Noted Date Diagnosed Date [...] as of this encounter (statuses as of 04/04/2024) Resolved Problems Problem Noted Date Diagnosed Date [...] as of this encounter (statuses as of 04/04/2024) Immunizations Name Administration Dates Next Due COVID-19 mRNA, LNP-s, No Pre serve, 2-Dose Series (GoFormz) 09/07/2021,02/26/2021,02/05/2021 COVID-19, LNP-s, No Preserve , James-sucrose, Ages 12+ (GoFormz) 05/26/2022 COVID-19, MRNA-LNP, 23-24, P F, 30 MCG/0.3 mL, 12 YRS AND ABOVE, IM ([facility]) 11/23/2023 Covid-19, Mrna, Lnp-s, Pf, B ivalent, 30 Mcg, IM, 12 yrs and above (GoFormz) 04/17/2023 Pneumococcal Conjugate Vacc, 13 Valent (Prevnar) [...] 03/28/24. Thank you very much, Cynthia Govea Contract Implementation Analyst mamadou [facility] 04/04/2024,1:32 PM * Telephone Encounter - Allyson Bran CPhT - 03/27/2024 12:19 PM EDT New or re-auth: rauth Patient needs a prior authorization for a medication through their [facility] insurance. Medication: rinvoq Formulation: tablets Dosage: 15 mg ID: [id number] BIN:[id number] PCN:[id number] Target ship date is 03/28. Thank you very much, Allyson Bran Contract Implementation Analyst III [facility] 03/27/2024,12:20 PM documented in this encounter Plan of Treatment Upcoming Encounters Date Type Department Care Team (Late st Contact Info) Description 04/19/2024 10:00 AM EDT Nurse Only Ancillary [address] [place] [address] [place], Nurse Annual Wellness Visit [facility] 293 [place] [address] 05/24/2024 1:00 PM EDT Office Visit Family Practice 65 [facility] 293 [place] [address] Tawanna Limon DO 293 [place] [address] 05/30/2024 11:00 AM EDT Office Visit Rheumatology [place] [address] [employer] [place], [place] [address] Leland Novoa MD [address] [place] [address] 06/04/2024 1:00 PM EDT Rehab Services Voice Lab [facility] 132 [facility] [place] [address] Víctor Lees, [facility] ASSEMBLER 132 [facility] [place] [address] 06/04/2024 1:00 PM EDT Office Visit Otolaryngology [facility] 132 [facility] [place] [address] Bettye Schwartz MD 132 [facility] [place] [address] Scheduled Procedures Name Priority Associated Diagnoses Date/Ti me COLONOSCOPY FLEXIBLE PROXIMA L DIAGNOSTIC Recall Encounter for screening colonoscopy Health Maintenance Due Date Last Done Comments Cologuard 2000 Sigmoidoscopy 2000 Fecal Occult Blood Test 04/03/2015 04/03/2014, 12/26 COVID-19 Vaccine ( season) 2024 11/23/2023, 04/17/2023, 05/26/2022, Additional history exists Mammogram 05/24/2024 05/24/2023, 05/06, 04/07/2022, Additional history exists Albumin/Creatinine Ratio 08/15/2024 10/10/2 023, 07/14/2022, 04/24/2019, Additional history exists GFR 08/27/2024 02/26/2024, 01/04, 08/15/2023, Additional history exists HbA1c 11/23/2024 11/23/2023, 09/06, 02/23/2015, Additional history exists CKD HGB USE SMARTSET 95711 01/14/202501/14, 01/15/2024, 08/15/2023, Additional history exists CKD PHOS USE SMARTSET 56160 02/25/202502/05, 02/10/2023, 02/15/2022, Additional history exists TSH [...] Other - (no specific identity) Health Care Punching Machine Operator (appointed verbally by patient or by statute hierarchy) Bob Manjarrez Adult Child Health Care Punching Machine Operator (appointed verbally by patient or by statute hierarchy) Care Teams Freight Tallier Relationship Specialty Start Date End Date Tawanna Limon DO [address] [place] [address] PCP - General Family Medicine 06/29/23 documented as of this encounter
--- OUTSIDE RECORDS SUMMARY | 2024-05-09 23:01 | External Medical Summary | Summary of Care ---
Author Name Unknown Organization [facility] Address [address] [facility] [address] Phone [phone] Care Team Providers Care Health And Safety Consultant Name Role Phone Luis DanielTawanna cueto Primary Care Provider [phone] Encounter Details Date Type Department Care Team (Late st Contact Info) Description 03/22/2024 Population Health External Data Unspecified Department Allergies [...] 0.1 % Nasal Solution (Astelin) Administer 1 [place] into nostril in the morning and 1 [place] before bedtime. 30 mL 12 03/04/2024 Active [...] mRNA, LNP-s, No Pre serve, 2-Dose Series (Lorena Gaxiola) 09/07/2021,02/26/2021,02/05/2021 COVID-19, LNP-s, No Preserve , James-sucrose, [...] 10:00 AM EDT Nurse Only Ancillary 65 [facility] [address] [place] [address] College, Nurse Annual Wellness Visit 65 [facility] [address] [place] [address] 05/24/2024 1:00 PM EDT Office Visit Family Practice 65 [facility] [address] [place] [address] Tawanna Limon, 293 [place] [address] 05/30/2024 11:00 AM EDT Office Visit Rheumatology [place] [address] [place] [address] Leland Novoa MD [facility] [place] [address] 06/04/2024 1:00 PM EDT Rehab Services Voice Lab [facility] 132 [facility] [place] [address] Víctor Lees, [facility]ARD[facility] DINING ROOM 132 [facility] [place] [address] 06/04/2024 1:00 PM EDT Office Visit Otolaryngology [facility] [address] [place] [address] Bettye Schwartz MD 132 [facility] [place] [address] Scheduled Procedures Name Priority Associated Diagnoses Date/Ti [...] Additional history exists CKD HGB USE SMARTSET 34205 01/14/202501/14, 01/15/2024, 08/15/2023, Additional history exists CKD PHOS USE SMARTSET 24823 02/25/20252 12/2023, 02/10/2023, 02/15/2022, Additional history exists TSH [...] Other - (no specific identity) Health Care Director Career (appointed verbally by patient or by statute hierarchy) Bob Manjarrez Adult Child Health Care Director Career (appointed verbally by patient or by statute hierarchy) Care Teams Health And Safety Consultant Relationship Specialty Start Date End Date Tawanna Limon DO [address] [place] [address] PCP - General Family Medicine 06/29/23 documented as of this encounter
--- OUTSIDE RECORDS SUMMARY | 2024-05-09 23:01 | External Medical Summary | Summary of Care ---
Author Name Unknown Organization [facility] Address [address] [place] [address] Phone [phone] Care Team Providers Care Relief Captain Name Role Phone Tawanna Limon DO Primary Care Provider [phone] Reason for Visit * Reason Onset Date Comments Test Results Lab 01/17/2024 Encounter Details Date Type Department Care Team (Late st Contact Info) Description 01/17/2024 Telephone Family Practice [address] [facility] [place] [address] [place] [phone] Tawanna Limon DO [address] [place], [place] [phone] Test Results Lab Allergies Active Allergy Reactions [...] mRNA, LNP-s, No Pre serve, 2-Dose Series (Audiolife) 09/07/2021,02/26/2021,02/05/2021 COVID-19, LNP-s, No Preserve , James-sucrose, Ages 12+ (Pfizer) 05/26/2022 COVID-19, MRNA-LNP, 23-24, P F, 30 MCG/0.3 mL, 12 YRS AND ABOVE, IM ([facility] 11/23/2023 Covid-19, Mrna, Lnp-s, Pf, B ivalent, [...] toPCP to advise further. Francy Welch PharmD [facility] Clinical Pharmacist Rheumatology Department [phone] 01/18/2024, 4:02 PM * Telephone Encounter - Francy Frank RPh - 01/18/2024 3:56 PM EDT Called patient's pharmacy spoke to pharmacist - patient has not filled pravastatin within the past 2 years. Will make PCP aware Francy Welch PharmD [facility] Clinical Pharmacist Rheumatology Department [phone] 01/18/2024, 3:58 PM * Telephone Encounter - Francy Frank RPh - 01/18/2024 1:06 PM EDT 2nd attempt, no answer * Telephone Encounter - Francy Frank RP - 01/17/2024 9:39 AM EDT Unable to reach patient at this time. Left message on the answering machine requesting callback regarding lipid panel results. Advised patient to please call [phone]. Please transfer her back tomyself. If I'm not available, transfer to next available [facility]. -please ask patient if she is currently taking her pravastatin. No dispensing history on adherence report. -recent lipid panel results trending up. If she is taking, can consider increase in statin through PCP. -eligible for [employer] mail order Francy Welch, PharmD Clinical Pharmacist [facility] ([facility]PS) (formerly Telepharmacy) [phone] 01/17/2024, 9:41 AM documented in this encounter Plan of Treatment Upcoming Encounters Date Type Department Care Team (Late st Contact Info) Description 04/19/2024 10:00 AM EDT Nurse Only Ancillary 65 [facility] 293 [place] [address] College, Nurse Annual Wellness Visit [address] [place] [address] 05/24/2024 1:00 PM EDT Office Visit Family Practice 65 [facility] 293 [place] [address] Tawanna Limon DO 293 [facility] [address] 05/30/2024 11:00 AM EDT Office Visit Rheumatology [place] [address] [place] [address] Leland Novoa MD [facility] [place] [address] 06/04/2024 1:00 PM EDT Rehab Services Voice Lab [facility] [address] [place] [address] Víctor Lees, [facility]LD [employer]-AIRCRAFT LOG CLERK [address] [place] [address] 06/04/2024 1:00 PM EDT Office Visit Otolaryngology [facility] [address] [place] [address] Bettye Schwartz MD 132 [facility] [place] [address] Scheduled Procedures Name Priority Associated Diagnoses Date/Ti [...] Additional history exists CKD HGB USE SMARTSET 29994 01/14/202501/14, 01/15/2024, 08/15/2023, Additional history exists CKD PHOS USE SMARTSET 61318 02/25/2025 04/12/2023, 02/10/2023, 02/15/2022, Additional history exists [...] Other - (no specific identity) Health Care Channel Executive (appointed verbally by patient or by statute hierarchy) Bob Manjarrez Adult Child Health Care Channel Executive (appointed verbally by patient or by statute hierarchy) Care Teams Relief Captain Relationship Specialty Start Date End Date Tawanna Limon DO [address] [place], [place] [address] [address] PCP - General Family Medicine 06/29/23 documented as of this encounter
--- OUTSIDE RECORDS SUMMARY | 2024-05-09 23:01 | External Medical Summary | Summary of Care ---
Author Name Unknown Organization [facility] Address [address] [facility] [address] Phone [phone] Care Team Providers Care Bradley Linebacker Crewmember Name Role Phone Tawanna Limon DO Primary Care Provider [phone] Reason for Visit * Reason Onset Date Comments Medication Pre-auth 03/27/2024 Encounter Details Date Type Department Care Team (Late st Contact Info) Description 03/27/2024 Telephone Rheumatology [place] [address] [place] [address] César Fraser PA-C [address] [facility] [address] Medication Pre-auth (/) Allergies Active Allergy [...] 0.1 % Nasal Solution (Astelin) Administer 1 [place] into nostril in the morning and 1 [place] before bedtime. 30 mL 12 03/04/2024 Active [...] mRNA, LNP-s, No Pre serve, 2-Dose Series (Triton) 09/07/2021,02/26/2021,02/05/2021 COVID-19, LNP-s, No Preserve , James-sucrose, Ages 12+ (Triton) 05/26/2022 COVID-19, MRNA-LNP, 23-24, P F, 30 MCG/0.3 mL, 12 YRS AND ABOVE, IM ([facility]) 11/23/2023 Covid-19, Mrna, Lnp-s, Pf, B ivalent, 30 Mcg, IM, 12 yrs and above (Triton) 04/17/2023 Pneumococcal Conjugate Vacc, 13 Valent (Prevnar) [...] 03/28/24. Thank you very much, Cynthia Govea Electromechanisms Design Drafter mamadou [facility] 04/04/2024,1:32 PM * Telephone Encounter - Allyson Bran CPhT - 03/27/2024 12:19 PM EDT New or re-auth: rauth Patient needs a prior authorization for a medication through their [facility] insurance. Medication: rinvoq Formulation: tablets Dosage: 15 mg ID: [id number] BIN:[id number] PCN:[id number] Target ship date is 03/28. Thank you very much, Allyson Bran Electromechanisms Design Drafter III [facility] 03/27/2024,12:20 PM documented in this encounter Plan of Treatment Upcoming Encounters Date Type Department Care Team (Late st Contact Info) Description 04/19/2024 10:00 AM EDT Nurse Only Ancillary [address] [place] [address] [place], Nurse Annual Wellness Visit [facility] 293 [facility] [place] [address] 05/24/2024 1:00 PM EDT Office Visit Family Practice 65 [facility] 293 [place] [address] Tawanna Limon DO 293 [place] [address] 05/30/2024 11:00 AM EDT Office Visit Rheumatology [place] [address] [employer] [place], [place] [address] Leland Novoa MD [address] [place] [address] 06/04/2024 1:00 PM EDT Rehab Services Voice Lab [facility] 132 [facility] [place] [address] Víctor Lees, [facility]-CHIEF GUARD 132 [facility] [place] [address] 06/04/2024 1:00 PM EDT Office Visit Otolaryngology [facility] 132 [facility] [place] [address] Bettye Schwartz MD 132 [place] [address] Scheduled Procedures Name Priority Associated Diagnoses Date/Ti [...] Additional history exists CKD HGB USE SMARTSET 77070 01/14/202501/14, 01/15/2024, 08/15/2023, Additional history exists CKD PHOS USE SMARTSET 05945 02/25/202502/05, 02/10/2023, 02/15/2022, Additional history exists TSH [...] Other - (no specific identity) Health Care Adjunct Business Instructor (appointed verbally by patient or by statute hierarchy) Bob Manjarrez Adult Child Health Care Adjunct Business Instructor (appointed verbally by patient or by statute hierarchy) Care Teams Bradley Linebacker Crewmember Relationship Specialty Start Date End Date Tawanna Limon DO [address] [place] [address] PCP - General Family Medicine 06/29/23 documented as of this encounter
--- OUTSIDE RECORDS SUMMARY | 2024-05-09 23:01 | External Medical Summary | Summary of Care ---
Author Name Unknown Organization [facility] Address [address] [facility] [address] Phone [phone] Care Team Providers Care Land Leases And Rentals Manager Name Role Phone YumikoTawanna barrera Primary Care Provider [phone] Encounter Details Date Type Department Care Team (Late st Contact Info) Description 03/26/2024 Population Health External Data Unspecified Department Allergies [...] 0.1 % Nasal Solution (Astelin) Administer 1 [place] into nostril in the morning and 1 [place] before bedtime. 30 mL 12 03/04/2024 Active [...] mRNA, LNP-s, No Pre serve, 2-Dose Series ([employer]in[employer]) 09/07/2021,02/26/2021,02/05/2021 COVID-19, LNP-s, No Preserve , James-sucrose, [...] 10:00 AM EDT Nurse Only Ancillary 65 [facility] [address] [place] [address] College, Nurse Annual Wellness Visit 65 [facility] [address] [place] [address] 05/24/2024 1:00 PM EDT Office Visit Family Practice 65 [facility] [address] [place] [address] Tawanna Limon, 293 [place] [address] 05/30/2024 11:00 AM EDT Office Visit Rheumatology [place] [address] [place] [address] Leland Novoa MD [facility] [employer] [place] [address] 06/04/2024 1:00 PM EDT Rehab Services Voice Lab [facility] 132 [facility] [place] [address] Víctor Lees, [facility] SALES AND MANAGEMENT 132 [facility] [place] [address] 06/04/2024 1:00 PM EDT Office Visit Otolaryngology [facility] [address] [place] [address] Bettye Schwartz MD 132 [facility] [place] [address] Scheduled Procedures Name Priority Associated Diagnoses Date/Ti [...] Additional history exists CKD HGB USE SMARTSET 90207 01/14/202501/14, 01/15/2024, 08/15/2023, Additional history exists CKD PHOS USE SMARTSET 05431 02/25/20252 12/2023, 02/10/2023, 02/15/2022, Additional history exists [...] Other - (no specific identity) Health Care Sports Centre Manager (appointed verbally by patient or by statute hierarchy) Bob Manjarrez Adult Child Health Care Sports Centre Manager (appointed verbally by patient or by statute hierarchy) Care Teams Land Leases And Rentals Manager Relationship Specialty Start Date End Date Tawanna Limon DO [address] [place] [address] PCP - General Family Medicine 06/29/23 documented as of this encounter
--- OUTSIDE RECORDS SUMMARY | 2024-05-09 23:02 | External Medical Summary | Summary of Care ---
Author Name Unknown Organization [facility] Address [address] [place] [address] Phone [phone] Care Team Providers Care Jackscrew Worker Name Role Phone Tawanna Stuart DO Primary Care Provider [phone] Reason for Visit * Reason Onset Date Comments Medication Refill 03/14/202403/14 Encounter Details Date Type Department Care Team (Late st Contact Info) Description 03/14/2024 Refill Family Practice [address] [place] [address] [place] [address] Tawanna Stuart DO [address] [place] [address] Myalgia; Muscle cramps Allergies Active Allergy Reactions [...] as of this encounter (statuses as of 03/14/2024) Medications Medication Sig Dispensed Refills Start Date End Date Status OMEGA-3 FISH OIL 1000 MG PO CAPS Take 1 Capsule by mouth in the morning. 0 Active ASPIRIN 325 MG PO TABSIndications:TI A (transient ischemic attack) One pill by mouth once a day with food 0 Active Cyanocobalamin 1000 MCG Oral Tablet Take 1 Tablet by mouth in the morning. 30 Tab 5 07/22/2016 Active TRAVATAN Z 0.004 % ophthalmic solution 1 drop in each eye at bedtime 0 07/11/2017 Active Cholecalciferol (VITAMIN D3) 1000 units CAPS Take 1 Capsule by mouth in the morning. 0 01/25/2018 Active Coconut Oil OIL Take by mouth every morning. Patient mixes a spoon of Louana Non Hydrogenated Trans Fat Coconut Oil in her coffee every morning, for brain health. 0 Active Nebulizers (NEBULIZER COMPRESSOR) MISC Inhale via nebulizer. Use as directed. 1 Each 1 05/14/2019 Active traZODone (DESYREL) 150 MG TabletIndications: Depression with anxiety Take 3 Tabs by mouth at bedtime. - 1 Tab 0 05/17/2019 Active Additional Information Patient taking differently: [...] as needed for Wheezing. 120 mL 0 11/01/2022 Active cycloSPORINE 0.05 % Ophthalmic Emulsion (Restasis) Instill 1 Drop into both eyes in the morning and 1 Drop before bedtime. 0 12/01/2022 Active Lisinopril 20 MG Oral Tablet [...] Oral Capsule (Psyllium) Take by mouth daily. 0 Active Levothyroxine Sodium 50 MCG Oral Tablet [...] mouth 2 times a day. Focus Factor 0 Active Rinvoq 15 MG Oral Tablet Extended [...] day as needed for Cough. 30 Capsule 0 01/31/2024 Active tiZANidine HCl 2 MG Oral Tablet (Zanaflex)Indicati ons:Myalgia,Muscle cramps TAKE 1 TABLET BY MOUTH EVERY 6 HOURS NEEDED FOR MUSCLE SPASMS 120 Tablet 0 02/26/2024 Active Azelastine HCl 0.1 % Nasal Solution (Astelin) Administer 1 [place] into nostril in the morning and 1 [place] before bedtime. 30 mL 12 03/04/2024 Active documented as of this encounter (statuses as of 03/14/2024) Active Problems Problem Noted Date Diagnosed Date Body mass index (BMI) of 40.0 to 44.9 in adult 0 02/12/2024 Overview: Per Obesity protocol Prediabetes 12/18/2023 Overview: Per [...] as of this encounter (statuses as of 03/14/2024) Resolved Problems Problem Noted Date Diagnosed Date Resolved Date Body mass index (BMI) 40.0-44.9, adult 11/23/2023 [...] as of this encounter (statuses as of 03/14/2024) Immunizations Name Administration Dates Next Due COVID-19 mRNA, LNP-s, No Pre serve, 2-Dose Series ([employer]) 09/07/2021,02/26/2021,02/05/2021 COVID-19, LNP-s, No Preserve , James-sucrose, Ages 12+ (Pfizer) 05/26/2022 COVID-19, MRNA-LNP, 23-24, P F, 30 MCG/0.3 mL, 12 YRS AND ABOVE, IM ([facility]) 11/23/2023 Covid-19, Mrna, Lnp-s, Pf, B [...] encounter Miscellaneous Notes * Telephone Encounter - Celestina Guthrie LPN - 03/14/2024 3:06 PM EDT Called pharmacy to confirm medication was picked up, medication was picked up on 02/25. Called, left message for patient to return call. Is patient taking as directed? * Telephone Encounter - Tawanna Stuart DO - 03/14/2024 8:14 AM EDTRefused Prescriptions: Disp Refills tiZANidine HCl 2 MG Oral Tablet (Zanaflex) 120 Ta*0 Sig: TAKE 1 TABLET BY MOUTH EVERY 6 HOURS NEEDED FOR MUSCLE SPASMS Refused By: TAWANNA STUART Reason for Refusal: Too soon * Telephone Encounter - Tawanna Stuart DO - 03/14/2024 8:13 AM EDT This was sent on 02/25 to Brian. Please let pt know. * Telephone Encounter - Aniyah Reveles CPhT - 03/14/2024 8:06 AM EDT Did you pend patient's preferred pharmacy and medication before forwarding?yes Pharmacy: [id number] Pending Prescriptions: Disp Refills tiZANidine HCl 2 MG Oral Tablet (Zanaflex)120 Ta*0 Sig: TAKE 1 TABLET BY MOUTH EVERY 6 HOURS NEEDED FOR MUSCLE SPASMS Last Visit: 02/26/2024 (in office), Visit date not found (telemedicine) Next Visit: 05/24/2024 If no future appointments scheduled, and last appointment is greater than a year ago, please schedule patient for a follow-up appointment Last date the medication was ordered: 02/26/2024 Is this request for a controlled [...] 10:00 AM EDT Nurse Only Ancillary 65 [facility] 293 [place] [address] College, Nurse Annual Wellness Visit [address] [place] [address] 05/24/2024 1:00 PM EDT Office Visit Family Practice [address] [facility] [address] [place] [address] Tawanna Stuart, 293 [place] [address] 05/30/2024 11:00 AM EDT Office Visit Rheumatology [place] [id number] [facility] [place] [address] Leland Novoa MD [facility] [employer] [facility] [place] [address] 06/04/2024 1:00 PM EDT Rehab Services Voice Lab [facility] [place] [address] Víctor Lees, [facility] IN[employer] 132 [facility] [place] [address] 06/04/2024 1:00 PM EDT Office Visit Otolaryngology [facility] [address] [place] [address] Bettye Schwartz MD 132 [facility] [place] [address] Scheduled Procedures Name Priority Associated Diagnoses Date/Ti me COLONOSCOPY FLEXIBLE PROXIMA L DIAGNOSTIC Recall Encounter for screening colonoscopy Health Maintenance Due Date Last Done Comments Cologuard 2000 Sigmoidoscopy 2000 Fecal Occult Blood Test 04/03/2015 04/03/2014, 12/26 Mammogram 05/24/2024 05/24/2023, 05/06, 04/07/2022, Additional history exists Albumin/Creatinine Ratio 08/15/2024 023, 07/14/2022, 04/24/2019, Additional history exists GFR 08/27/2024 02/26/2024, 01/04, 08/15/2023, Additional history exists HbA1c 11/23/2024 11/23/2023, 09/06, 02/23/2015, Additional history exists CKD HGB USE SMARTSET 46472 01/14/202501/14, 01/15/2024, 08/15/2023, Additional history exists CKD PHOS USE SMARTSET 88061 02/25/2025 04/12/2023, 02/10/2023, 02/15/2022, Additional history exists [...] Completed 08/15/2023, 07/14/2022, 08/20/2021, Additional history exists COVID-19 Vaccine Completed 11/23/2023, 10/2023, 05/26/2022, Additional history exists GARDASIL-HPV IMMUNIZATION SERIES Aged [...] as of this encounter Visit Diagnoses Diagnosis Myalgia Mylagia and myositis, unspecified Muscle cramps Cramp of limb documented in this encounter Advance Directives Healthcare Agents on File Name Relationship Healthcare Agent Relationship Communication Marcos Breaux Other - (no specific identity) Health Care Wringer And Setter (appointed verbally by patient or by statute hierarchy) Bob Manjarrez Adult Child Health Care Wringer And Setter (appointed verbally by patient or by statute hierarchy) Care Teams Jackscrew Worker Relationship Specialty Start Date End Date Tawanna Stuart DO [address] [place] [address] PCP - General Family Medicine 06/29/23 documented as of this encounter
--- OUTSIDE RECORDS SUMMARY | 2024-05-09 23:02 | External Medical Summary | Summary of Care ---
Author Name Unknown Organization [facility] Address [address] [place] [address] Phone [phone] Care Team Providers Care Coke Loader Name Role Phone Tawanna Stuart DO Primary Care Provider [phone] Reason for Visit * Reason Onset Date Comments Medication Refill 03/14/2024 Encounter Details Date Type Department Care Team (Late st Contact Info) Description 03/14/2024 Refill Family Practice [address] [place] [address] [place] [phone] Tawanna Stuart DO 293 [place] [address] Myalgia; Muscle cramps Allergies Active Allergy Reactions [...] for Cough. 30 Capsule 0 01/31/2024 Active Additional Information Patient not taking.Reported on 02/26/2024 tiZANidine HCl 2 MG Oral Tablet (Zanaflex)Indicati ons:Myalgia,Muscle cramps TAKE 1 TABLET BY MOUTH EVERY 6 HOURS NEEDED FOR MUSCLE SPASMS 120 Tablet 0 02/26/2024 Active Azelastine HCl 0.1 % Nasal Solution (Astelin) Administer 1 [place] into nostril in the morning and 1 [place] before bedtime. 30 mL 12 03/04/2024 Active [...] mRNA, LNP-s, No Pre serve, 2-Dose Series ([employer]) 09/07/2021,02/26/2021,02/05/2021 COVID-19, LNP-s, No Preserve , James-sucrose, [...] Miscellaneous Notes * Telephone Encounter - Tawanna Stuart DO [...] forwarding?yes Pharmacy: [id number] [facility] Pending Prescriptions: Disp Refills tiZANidine HCl 2 [...] Team (Late st Contact Info) Description 03/14/2024 10:30 AM EDT Office Visit Sleep Disorders Ctr [facility] [place] [address] [place] [phone] Akosua Hager CRNP [address] [place] [address] 04/19/2024 10:00 AM EDT Nurse Only Ancillary 65 [facility] [address] College, Nurse Annual Wellness Visit [address] [address] 05/24/2024 1:00 PM EDT Office Visit Family Practice [address] [place] [address] 293 [facility], [place] [address] Tawanna Stuart DO 293 [facility] [address] 05/30/2024 11:00 AM EDT Office Visit Rheumatology [facility] [address] [facility] [place] [address] Leland Novoa MD [address] [place] [address] 06/04/2024 1:00 PM EDT Rehab Services Voice Lab [facility] 132 [facility] [place] [address] Víctor Lees, [facility] 132 [facility] [place] [address] 06/04/2024 1:00 PM EDT Office Visit [facility] 132 [facility] [place] [address] Bettye Schwartz MD 132 [facility] [place] [address] Scheduled Procedures Name Priority Associated Diagnoses Date/Ti [...] Additional history exists CKD HGB USE SMARTSET 98729 01/14/202501/14, 01/15/2024, 08/15/2023, Additional history exists CKD PHOS USE SMARTSET 63352 02/25/2025 04/2 12/2023, 02/10/2023, 02/15/2022, Additional history [...] Other - (no specific identity) Health Care Nnps (appointed verbally by patient or by statute hierarchy) Bob Manjarrez Adult Child Health Care Nnps (appointed verbally by patient or by statute hierarchy) Care Teams Coke Loader Relationship Specialty Start Date End Date Tawanna Stuart DO [address] [place] [address] PCP - General Family Medicine 06/29/23 documented as of this encounter
--- OUTSIDE RECORDS SUMMARY | 2024-05-09 23:02 | External Medical Summary | Summary of Care ---
Author Name Unknown Organization [facility] Address [address] [facility] [address] Phone [phone] Care Team Providers Care Director Of Grants Name Role Phone Tawanna Limon DO Primary Care Provider [phone] Reason for Visit * Reason Comments Follow Up Here return sleep. O SA. CPAP. Has chip for CPAP with her dropping if off to [place] after her appt today. C/o coughing up thick yellow green phlegm x 2 weeks. SOB. And L ear feels full. T-98.3. Encounter Details Date Type Department Care Team (Late st Contact Info) Description 03/14/2024 10:30 AM EDT Office Visit Sleep Disorders Ctr [facility] 132 [facility] [place] [address] Akosua Hager CRNP 132 [facility] [place] [address] Obstructive sleep apnea*; Nocturnal hypoxemia Allergies Active Allergy Reactions Criticality Noted Date [...] 0.1 % Nasal Solution (Astelin) Administer 1 [place] into nostril in the morning and 1 [place] before bedtime. 30 mL 12 03/04/2024 Active buPROPion HCl ER (SR) 100 MG Oral Tablet Extended Release 12 Hour (Wellbutrin SR) 0 03/06/2024 Active documented as of this encounter [...] mRNA, LNP-s, No Pre serve, 2-Dose Series ([employer]) 09/07/2021,02/26/2021,02/05/2021 COVID-19, LNP-s, No Preserve , James-sucrose, Ages 12+ ([employer]ivalry) 05/26/2022 COVID-19, MRNA-LNP, 23-24, P F, 30 MCG/0.3 mL, 12 YRS AND ABOVE, IM ([employer]) 11/23/2023 Covid-19, Mrna, Lnp-s, Pf, B ivalent, 30 Mcg, IM, 12 yrs and above ([employer]ival[employer]) 04/17/2023 Pneumococcal Conjugate Vacc, 13 Valent (Prevnar) [...] Sign Reading Time Taken Comments Blood Pressure 120/90 03/14/2024 9:53 AM EDT Pulse 65 03/14/2024 9:53 AM EDT Temperature 36.8 C (98.3 F) 03/14/2024 9:53 AM ED T Respiratory Rate 16 03/14/2024 9:53 AM EDT Oxygen Saturation 97% 03/14/2024 9:53 AM EDT Inhaled Oxygen Concentration - - Weight 129.7 kg (286 lb) 03/14/2024 9:53 AM EDT Height 167.6 cm (5' 6") 03/14/2024 9:53 AM EDT Body Mass Index 46.16 03/14/2024 9:53 AM EDT documented in this encounter Progress Notes * Akosua Hager CRNP - 03/14/2024 10:38 AM EDT [facility] Alena Manjarrez is a 68 year old female seen today for yearly follow-up of COMFORT treated on CPAP. PSG 2005: AHI 12 -> treatment wasn't pursued PSG 11/2010 (weight 257 lbs): AHI 12.6, SpO2 corina 80% with 36 mins <91%, PLMI 9.9 Started on aCPAP 5-15 cmH2O in 2010 Adjusted aCPAP 10-17 cmH2O Noct ox APAP 10-17/RA 05/01/20: corina 82%, 3 mins <89%, AHI 3.1, p90% 11.8 Using CPAP 10-17 cmH2O. Interim History: CPAP used nightly, noting ongoing benefit with use. Continues to use a tshirt to protect her skin due to sensitivity/allergy. If her skin gets irrigated, she has a cream that is helpful. Sleeps in recliner in the bedroom. Total sleep time is 7-8 hours. Pain may impact her sleep causing shorter sleep times. Sleep usually is refreshing. She will nap during the day. Denies symptoms suggestive of RLS. Leg cramps noted. Benefits with tonic water. Compliance Data: requested Equipment: DME Provider: [facility] Device: Toxic Attire Settings: 10-17 cmH20 Interface Type: AirTouch F20 Humidifier: not used Cleaning: By hand routinely Melbourne Sleepiness Scale Question 03/14/2024 9:47 AM EDT - Filed by Patient What is the chance you will doze off in the following situation? Sitting and reading No chance of dozing Watching TV High chance of dozing Sitting inactive in a public place, such as a theater or meeting No chance of dozing As a passenger in a car for an hour without a break No chance of dozing Lying down to rest in the afternoon when circumstances permit High chance of dozing When sitting and talking to someone Slight chance of dozing When sitting quietly after lunch without alcohol Slight chance of dozing In a car, while stopped for a few minutes in traffic No chance of dozing Score (range: 0 - 24) 8 Problem List: Patient Active Problem List Diagnosis Code Acquired hypothyroidism E03.9 PTSD (post-traumatic stress disorder) F43.10 Sensorineural hearing loss H90.5 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 History of migraine Z86.69 DYSLIPIDEMIA, GOAL LDL BELOW 100 E78.5 COMFORT on CPAP G47.33 Encounter for long-term (current) use of medications Z79.899 Depression with anxiety F41.8 Rheumatoid arthritis involving multiple sites with positive rheumatoid factor (HCC) M05.79 HTN, goal below 140/90 I10 Diffuse dermatitis L30.9 Primary open-angle glaucoma, bilateral, mild stage H40.1131 Other atherosclerosis of [place] arteries of extremities, bilateral legs (HCC) I70.293 Gastroesophageal reflux disease without esophagitis K21.9 Moderate persistent asthma without complication J45.40 Intellectual disability F79 Major depressive disorder, recurrent, severe with psychotic symptoms (HCC) F33.3 Early onset Alzheimer's dementia without behavioral disturbance ([facility]) G30.0, F02.80 Hypertensive kidney disease with stage 3b chronic kidney disease (HCC) I12.9, N18.32 Prediabetes R73.03 Body mass index (BMI) of 40.0 to 44.9 in adult ([facility]) Z68.41 Current Medications: Outpatient Medications Marked as Taking for the 03/14/24 encounter (Office Visit) with Akosua Hager CRNP Medication Sig buPROPion HCl ER (SR) 100 MG Oral Tablet Extended Release 12 Hour (Wellbutrin SR) Azelastine HCl 0.1 % Nasal Solution (Astelin) Administer 1 [place] into nostril in the morning and 1 [place] before bedtime. tiZANidine HCl 2 MG Oral Tablet (Zanaflex) TAKE 1 TABLET BY MOUTH EVERY 6 HOURS NEEDED FOR MUSCLE SPASMS Benzonatate 100 MG Oral Capsule Take 1 Capsule by mouth 3 times a day as needed for Cough. Rosuvastatin Calcium 20 MG Oral Tablet (Crestor) Take 1 Tablet by mouth in the morning. Rinvoq 15 MG Oral Tablet Extended Release 24 Hour (Upadacitinib ER) Take 1 tablet by mouth in the morning. NATURAL SUPPLEMENT Take by mouth 2 times a day. Focus Factor Famotidine 40 MG Oral Tablet (Pepcid) Take 1 Tablet by mouth in the morning. Fluticasone Propionate 50 MCG/ACT Nasal Suspension (Flonase) Administer 2 Sprays into each nostril at bedtime. Fluticasone-Salmeterol 500-50 MCG/ACT Inhalation Aerosol Powder Breath Activated (Advair Diskus) INHALE ONE PUFF BY MOUTH TWICE A DAY DIRECTED DULoxetine HCl 20 MG Oral Capsule Delayed Release Particles (Cymbalta) Take 2 Capsules by mouth in the morning and 2 Capsules before bedtime. Meclizine HCl 12.5 MG Oral Tablet (Antivert) Take 1 Tablet by mouth 3 times a day as needed for Dizziness. Omeprazole 20 MG Oral Capsule Delayed Release (PriLOSEC) One pill by mouth once a day 1 hour beforethe first meal of the day Levothyroxine Sodium 50 MCG Oral Tablet (Levoxyl) TAKE ONE-HALF TABLET BY MOUTH DAILY AT LEAST 30 MINUTES BEFORE BREAKFAST AND OTHER MEDICATIONS Metamucil 0.36 GM Oral Capsule (Psyllium) Take by mouth daily. Montelukast Sodium 10 MG Oral Tablet (Singulair) Take 1 Tablet by mouth at bedtime. Lisinopril 20 MG Oral Tablet (Prinivil) Take 1 Tablet by mouth in the morning. cycloSPORINE 0.05 % Ophthalmic Emulsion (Restasis) Instill 1 Drop into both eyes in the morning and1 Drop before bedtime. Albuterol Sulfate (2.5 MG/3ML) 0.083% Inhalation Nebulization Solution (Proventil) Inhale 1 Vial via nebulizer every 6 hours as needed for Wheezing. Dicyclomine HCl 10 MG Oral Capsule (Bentyl) TAKE ONE CAPSULE BY MOUTH THREE TIMES DAILY NEEDED for abdominal pain Albuterol Sulfate HFA 108 (90 Base) MCG/ACT Inhalation Aerosol Solution Inhale 2 Puffs by mouth every 4 hours as needed for Wheezing. traZODone (DESYREL) 150 MG Tablet Take 3 Tabs by mouth at bedtime. - (Patient taking differently: Take 2 Tablets by mouth at bedtime.) Nebulizers (NEBULIZER COMPRESSOR) MISC Inhale via nebulizer. Use as directed. Coconut Oil OIL Take by mouth every morning. Patient mixes a spoon of Louana Non Hydrogenated TransFat Coconut Oil in her coffee every morning, for brain health. Cholecalciferol (VITAMIN D3) 1000 units CAPS Take 1 Capsule by mouth in the morning. TRAVATAN Z 0.004 % ophthalmic solution 1 drop in each eye at bedtime Cyanocobalamin 1000 MCG Oral Tablet Take 1 Tablet by mouth in the morning. ASPIRIN 325 MG PO TABS One pill by mouth once a day with food OMEGA-3 FISH OIL 1000 MG PO CAPS Take 1 Capsule by mouth in the morning. Physical Exam: BP 120/90 | Pulse 65 | Temp 36.8 C (98.3 F) (Tympanic) | Resp 16 | Ht 1.676 m (5' 6") | Wt 129.7 kg (286 lb) | LMP 09/16/2003 | SpO2 97% | BMI 46.16 kg/m | BSA 2.46 m Constitutional: Alert, oriented and in no acute distress Skin: No abnormal mask markings on face Cardio: Regular rate and rhythm, no murmur Chest: Normal respiratory effort at rest Neuro: Fluent speech Psych: Appropriate mood and affect. Assessment & Plan: Encounter Diagnoses Name Primary? Obstructive sleep apnea Yes Nocturnal hypoxemia Mild obstructive sleep apnea based on AHI criteria diagnosed in 2010. She reports compliance and benefit with PAP treatment. Her unit is >5 years old, obsolete and may not be working appropriately. Download requested. Plan to order replacement auto CPAP following review. Continue use of CPAP to include all periods of sleep opportunity. Routine cleaning and change of supplies as needed was encouraged. Continue to avoid engaging in activities that require full alertness when feeling sleepy or tired. BRIANA [facility] I spent a total of 20-29 minutes (exact time 21 mins) on the date of service in preparation, delivery, and documentation of the care provided to Alena Manjarrez excluding any time spent in the performance of separately billed services. documented in this encounter Nursing Notes * Danette Lea LPN - 03/14/2024 9:56 AM EDT Chief Complaint Patient presents with Follow Up Here return sleep. COMFORT. CPAP. Has chip for CPAP with her dropping if off to [place] after her appt today. C/o coughing up thick yellow green phlegm x 2 weeks. SOB. And L ear feels full. T-98.3. Travel Screening Question 03/14/2024 9:44 AM EDT - Filed by Patient Do you have any of the following new or worsening symptoms? Cough Shortness of breath Have you recently been in contact with someone who was sick? No / Unsure Melbourne Sleepiness Scale Question 03/14/2024 9:47 AM EDT - Filed by Patient What is the chance you will doze off in the following situation? Sitting and reading No chance of dozing Watching TV High chance of dozing Sitting inactive in a public place, such as a theater or meeting No chance of dozing As a passenger in a car for an hour without a break No chance of dozing Lying down to rest in the afternoon when circumstances permit High chance of dozing When sitting and talking to someone Slight chance of dozing When sitting quietly after lunch without alcohol Slight chance of dozing In a car, while stopped for a few minutes in traffic No chance of dozing Score (range: 0 - 24) 8 documented in this encounter Plan of Treatment Upcoming Encounters Date Type Department Care Team (Late st Contact Info) Description 04/19/2024 10:00 AM EDT Nurse Only Ancillary 65 [facility] 293 [place] [address] College, Nurse Annual Wellness Visit [address] [address] 05/24/2024 1:00 PM EDT Office Visit Family Practice 65 [facility] 293 [place] [address] Tawanna Limon, DO 293 [place] [address] 05/30/2024 11:00 AM EDT Office Visit Rheumatology [address] [address] Leland Novoa MD [address] [place] [address], [place] [address] 06/04/2024 1:00 PM EDT Rehab Services Voice Lab [facility] 132 [facility] [place] [address] Víctor Lees, [facility] 132 [place] [address] 06/04/2024 1:00 PM EDT Office Visit Otolaryngology [facility] 132 [facility] [place] [address] Bettye Schwartz MD 132 [facility] [place] [address] Scheduled Procedures Name Priority Associated Diagnoses Date/Ti [...] Additional history exists CKD HGB USE SMARTSET 41007 01/14/202501/14, 01/15/2024, 08/15/2023, Additional history exists CKD PHOS USE SMARTSET 40682 02/25/202502/05, 02/10/2023, 02/15/2022, Additional history exists TSH [...] as of this encounter Visit Diagnoses Diagnosis Obstructive sleep apnea- Primary Obstructive sleep apnea (adult) (pediatric) Nocturnal hypoxemia Hypoxemia documented in this encounter Advance Directives Healthcare Agents on File Name Relationship Healthcare Agent Relationship Communication Marcos Poee Other - (no specific identity) Health Care Organ Recovery Coordinator (appointed verbally by patient or by statute hierarchy) Bob Manjarrez Adult Child Health Care Organ Recovery Coordinator (appointed verbally by patient or by statute hierarchy) Care Teams Director Of Grants Relationship Specialty Start Date End Date Tawanna Limon DO 293 [place] [address] PCP - General Family Medicine 06/29/23 documented as of this encounter
--- OUTSIDE RECORDS SUMMARY | 2024-05-09 23:02 | External Medical Summary | Summary of Care ---
Author Name Unknown Organization [facility] Address [address] [facility] [place] [address] Phone [phone] Care Team Providers Care Tax Staff Accountant Name Role Phone Tawanna Stuart DO Primary Care Provider [phone] Reason for Visit * Reason Onset Date Comments Medication Refill 03/14/202403/14 Encounter Details Date Type Department Care Team (Late st Contact Info) Description 03/14/2024 Refill Family Practice [address] [place] [address] [place] [address] Tawanna Stuart DO [address] [place] [address] Myalgia; Muscle cramps Allergies Active Allergy Reactions [...] 0.1 % Nasal Solution (Astelin) Administer 1 [place] into nostril in the morning and 1 [place] before bedtime. 30 mL 12 03/04/2024 Active [...] mRNA, LNP-s, No Pre serve, 2-Dose Series (LiquidM) 09/07/2021,02/26/2021,02/05/2021 COVID-19, LNP-s, No Preserve , James-sucrose, Ages 12+ (Pfizer) 05/26/2022 COVID-19, MRNA-LNP, 23-24, P F, 30 MCG/0.3 mL, 12 YRS AND ABOVE, IM ([facility]) 11/23/2023 Covid-19, Mrna, Lnp-s, Pf, B ivalent, [...] Encounter - Celestina Guthrie LPN - 03/14/2024 3:14 PM EDT Patient states she is taking the medication. Does not need refill at this time. Guess that pharmacy did the request. Thank you * Telephone Encounter - Celestina Guthrie LPN [...] pt know. * Telephone Encounter - Aniyah Reveles, [facility] - 03/14/2024 8:06 AM EDT Did you [...] complete set of results. Patient Phone Numbers [facility] [phone] Labs: Lab Results Component Value Date/Time CREAT [...] 10:00 AM EDT Nurse Only Ancillary 65 [facility] [address] [place] [address] College, Nurse Annual Wellness Visit [address] [facility] [address] [place] [address] 05/24/2024 1:00 PM EDT Office Visit Family Practice 65 [facility] [address] [place] [phone] Tawanna Stuart, DO [address] [place] [address] 05/30/2024 11:00 AM EDT Office Visit Rheumatology [place] [address] [place] [address] Leland Novoa MD [facility] [place] [address] 06/04/2024 1:00 PM EDT Rehab Services Voice Lab [facility] 132 [facility] [place] [address] Víctor Lees, [facility] 132 [facility] [place] [address] 06/04/2024 1:00 PM EDT Office Visit Otolaryngology [facility] [address] [place] [address] Bettye Schwartz MD 132 [facility] [place] [address] Scheduled Procedures Name Priority Associated Diagnoses Date/Ti [...] Additional history exists CKD HGB USE SMARTSET 71680 01/14/202501/14, 01/15/2024, 08/15/2023, Additional history exists CKD PHOS USE SMARTSET 22597 02/25/202502/05, 02/10/2023, 02/15/2022, Additional history exists TSH [...] Other - (no specific identity) Health Care Real Estate Administrative Assistant (appointed verbally by patient or by statute hierarchy) Bob Manjarrez Adult Child Health Care Real Estate Administrative Assistant (appointed verbally by patient or by statute hierarchy) Care Teams Tax Staff Accountant Relationship Specialty Start Date End Date Tawanna Stuart DO [address] [place] [address] PCP - General Family Medicine 06/29/23 documented as of this encounter
--- OUTSIDE RECORDS SUMMARY | 2024-05-09 23:02 | External Medical Summary | Summary of Care ---
Author Name Unknown Organization [facility] Address [address] [facility] [address] Phone [phone] Care Team Providers Care Kiln Worker Name Role Phone Tawanna Limon DO Primary Care Provider [phone] Encounter Details Date Type Department Care Team (Late st Contact Info) Description 03/20/2024 Telephone Pulmonary Medicine, [facility] [address] [place] [address] Akosua Hager CRNP [address] [place] [address] Allergies Active Allergy Reactions Criticality Noted Date [...] as of this encounter (statuses as of 03/20/2024) Medications Medication Sig Dispensed Refills Start Date [...] 0.1 % Nasal Solution (Astelin) Administer 1 [place] into nostril in the morning and 1 [place] before bedtime. 30 mL 12 03/04/2024 Active buPROPion HCl ER (SR) 100 MG Oral Tablet Extended Release 12 Hour (Wellbutrin SR) 0 03/06/2024 Active documented as of this encounter (statuses as of 03/20/2024) Active Problems Problem Noted Date Diagnosed Date [...] as of this encounter (statuses as of 03/20/2024) Resolved Problems Problem Noted Date Diagnosed Date [...] as of this encounter (statuses as of 03/20/2024) Immunizations Name Administration Dates Next Due COVID-19 mRNA, LNP-s, No Pre serve, 2-Dose Series (Iotum) 09/07/2021,02/26/2021,02/05/2021 COVID-19, LNP-s, No Preserve , James-sucrose, Ages 12+ (Iotum) 05/26/2022 COVID-19, MRNA-LNP, 23-24, P F, 30 MCG/0.3 mL, 12 YRS AND ABOVE, IM ([facility] 11/23/2023 Covid-19, Mrna, Lnp-s, Pf, B ivalent, 30 Mcg, IM, 12 yrs and above (Iotum) 04/17/2023 Pneumococcal Conjugate Vacc, 13 Valent (Prevnar) [...] encounter Miscellaneous Notes * Telephone Encounter - Ofe Greenwood OSA - 03/20/2024 11:51 AM EDT Replacement CPAP entered in [facility] documented in this encounter Plan of Treatment Upcoming Encounters Date Type Department Care Team (Late st Contact Info) Description 04/19/2024 10:00 AM EDT Nurse Only Ancillary 65 [facility] [address] [place] [address] College, Nurse Annual Wellness Visit [address] [address] 05/24/2024 1:00 PM EDT Office Visit Family Practice 65 [facility] [address] [place] [address] Tawanna Limon, 293 [place] [address] 05/30/2024 11:00 AM EDT Office Visit Rheumatology [facility] [address] [place] [address] Leland Novoa MD [address] [place] [address] 06/04/2024 1:00 PM EDT Rehab Services Voice Lab [facility] 132 [facility] [place] [address] Víctor Lees, [facility] RELATIONS COORDINATOR [address] [place] [address] 06/04/2024 1:00 PM EDT Office Visit Otolaryngology [facility] [address] [place] [address] Bettye Schwartz MD [address] [place] [address] Scheduled Procedures Name Priority Associated Diagnoses Date/Ti [...] Additional history exists CKD HGB USE SMARTSET 24771 01/14/202501/14, 01/15/2024, 08/15/2023, Additional history exists CKD PHOS USE SMARTSET 00658 02/25/202502/05, 02/10/2023, 02/15/2022, Additional history exists TSH [...] Other - (no specific identity) Health Care Health Economist (appointed verbally by patient or by statute hierarchy) Bob Manjarrez Adult Child Health Care Health Economist (appointed verbally by patient or by statute hierarchy) Care Teams Kiln Worker Relationship Specialty Start Date End Date Tawanna Limon DO [address] [place] [address] PCP - General Family Medicine 06/29/23 documented as of this encounter
--- OUTSIDE RECORDS SUMMARY | 2024-05-09 23:02 | External Medical Summary | Summary of Care ---
Author Name Unknown Organization [facility] Address [address] [facility] [address] Phone [phone] Care Team Providers Care Mill Labor Supervisor Name Role Phone Tawanna Limon DO Primary Care Provider [phone] Reason for Visit * Reason Comments Follow [...] AM EDT Office Visit Sleep Disorders Ctr [facility] 132 [facility] [place] [address] Yamilex Orona CRNP 132 [facility] [place] [address] Obstructive sleep apnea*; Nocturnal hypoxemia Allergies Active [...] as of this encounter (statuses as of 03/19/2024) Medications Medication Sig Dispensed Refills Start Date [...] 0.1 % Nasal Solution (Astelin) Administer 1 [place] into nostril in the morning and 1 [place] before bedtime. 30 mL 12 03/04/2024 Active buPROPion HCl ER (SR) 100 MG Oral Tablet Extended Release 12 Hour (Wellbutrin SR) 0 03/06/2024 Active documented as of this encounter (statuses as of 03/19/2024) Active Problems Problem Noted Date Diagnosed Date [...] as of this encounter (statuses as of 03/19/2024) Resolved Problems Problem Noted Date Diagnosed Date [...] as of this encounter (statuses as of 03/19/2024) Immunizations Name Administration Dates Next Due COVID-19 mRNA, LNP-s, No Pre serve, 2-Dose Series (Search to Phone) 09/07/2021,02/26/2021,02/05/2021 COVID-19, LNP-s, No Preserve , James-sucrose, Ages 12+ (Pfizer) 05/26/2022 COVID-19, MRNA-LNP, 23-24, P F, 30 MCG/0.3 mL, 12 YRS AND ABOVE, IM ([facility]) 11/23/2023 Covid-19, Mrna, Lnp-s, Pf, B ivalent, 30 Mcg, IM, 12 yrs and above (Search to Phone) 04/17/2023 Diptheria/Tetanus (Adult) 05/29/1996 Pneumococcal Conjugate Vacc, [...] documented in this encounter Progress Notes * Yamilex Orona CRNP - 03/14/2024 10:38 AM EDT [facility] Alena Manjarrez is a 68 year old female seen today for yearly follow-up of COMFORT treated on CPAP. PSG 2005: AHI 12 -> treatment wasn't pursued PSG 11/2010 (weight 257 lbs): AHI 12.6, SpO2 corina 80% with 36 mins <91%, PLMI 9.9 Started on aCPAP 5-15 cmH2O in 2010 Adjusted aCPAP 10-17 cmH2O Noct ox APAP 10-17/RA 05/01/2020: corina 82%, 3 mins <89%, AHI 3.1, [...] water. Compliance Data: requested Equipment: DME Provider: [facility] Device: Shmoop Settings: 10-17 cmH20 Interface Type: AirTouch F20 Humidifier: not used Cleaning: By hand routinely [place] Sleepiness Scale Question 03/14/2024 9:47 AM EDT [...] bilateral, mild stage H40.1131 Other atherosclerosis of [place] arteries of extremities, bilateral legs (HCC) I70.293 Gastroesophageal reflux disease without esophagitis K21.9 Moderate persistent asthma without complication J45.40 Intellectual disability F79 Major depressive disorder, recurrent, severe with psychotic symptoms ([facility]) F33.3 Early onset Alzheimer's dementia without behavioral disturbance ([facility]) G30.0, F02.80 Hypertensive kidney disease with stage 3b chronic kidney disease ([facility]) I12.9, N18.32 Prediabetes R73.03 Body mass index (BMI) of 40.0 to 44.9 in adult ([facility]) Z68.41 Current Medications: Outpatient Medications Marked as Taking for the 03/14/24 encounter (Office Visit) with Yamilex Orona CRNP Medication Sig buPROPion HCl ER (SR) 100 MG Oral Tablet Extended Release 12 Hour (Wellbutrin SR) Azelastine HCl 0.1 % Nasal Solution (Astelin) Administer 1 [place] into nostril in the morning and 1 [place] before bedtime. tiZANidine HCl 2 MG Oral [...] tired. BRIANA Sherwood [facility] I spent a total of 20-29 minutes (exact time 21 mins) on the date of service in preparation, delivery, and documentation of the care provided to Alena Manjarrez excluding any time spent in the performance of separately billed services. Addendum: 30 day report ending 03/13/2024 % total days used: 100 % days used > 4 hours: 100 Average hours per day used: 9 hours 35 mins Large leak: 3 L/mins AHI: 3.4 on aPAP 10-17 cmH2O P90% pressure: 17 cmH2O Replacement CPAP ordered. Change to aPAP 12-20 cm H2O. documented in this encounter Nursing Notes * [...] someone who was sick? No / Unsure [place] Sleepiness Scale Question 03/14/2024 9:47 AM EDT [...] - 24) 8 documented in this encounter Miscellaneous Notes * Addendum Note - Yamilex Orona CRNP - 03/19/2024 4:08 PM EDTAddended by: YAMILEX ORONA on: 03/19/2024 04:08 PM Modules accepted: Orders documented in this encounter Plan of Treatment Upcoming Encounters Date Type Department Care Team (Late st Contact Info) Description 04/19/2024 10:00 AM EDT Nurse Only Ancillary [address] [address] College, Nurse Annual Wellness Visit [address] [address] 05/24/2024 1:00 PM EDT Office Visit Family Practice 65 [facility] 293 [place] [address] Tawanna Limon DO 293 [place] [address] 05/30/2024 11:00 AM EDT Office Visit Rheumatology [place] [address] [place] [address] Lleand Novoa MD [address] [place], [place] [address] 06/04/2024 1:00 PM EDT Rehab Services Voice Lab [facility] [address] [place] [address] Víctor Lees, [facility] [employer] TEACHER [address] [place] [address] 06/04/2024 1:00 PM EDT Office Visit Otolaryngology [facility] [address] [place] [address] Bettye Schwartz MD [address] [place] [address] Scheduled Procedures Name Priority Associated Diagnoses Date/Ti [...] Additional history exists CKD HGB USE SMARTSET 06900 01/14/202501/14, 01/15/2024, 08/15/2023, Additional history exists CKD PHOS USE SMARTSET 00284 02/25/202502/05, 02/10/2023, 02/15/2022, Additional history exists TSH 02/25/2025 02/26/2024, 0405/2023, 02/15/2022, Additional history exists Colonoscopy 02/14/2027 02/14/2017, [...] Other - (no specific identity) Health Care Steam Table Associate (appointed verbally by patient or by statute hierarchy) Bob Manjarrez Adult Child Health Care Steam Table Associate (appointed verbally by patient or by statute hierarchy) Care Teams Mill Labor Supervisor Relationship Specialty Start Date End Date aTwanna Limon DO [address] [place] [address], [place] [address] PCP - General Family Medicine 06/29/23 documented as of this encounter
--- OUTSIDE RECORDS SUMMARY | 2024-05-09 23:03 | External Medical Summary ---
Author Name Unknown Address Unknown Organization K01:[facility] [address] [place] [address] Laboratory Report Ordering Provider Test Date Status NARCISO RHODES 02/26/2024 14:04:33 Final Observation Date Value Abnormality Reference (Units ) Status Phosphate 02/26/2024 14:04:33 3.1 2.5-4.8 (m g/dL) Final Performing Location [facility] - [address] [place] [address]
--- OUTSIDE RECORDS SUMMARY | 2024-05-09 23:03 | External Medical Summary | Summary of Care ---
Author Name Unknown Organization [facility] Address [address] [place] [address] Phone [phone] Care Team Providers Care Information Coder Name Role Phone Tawanna Limon DO Primary Care Provider [phone] Reason for Visit * Reason Onset Date Comments FYI 02/01/2024 Encounter Details Date Type Department Care Team (Late st Contact Info) Description 02/01/2024 Telephone Family Practice [address] [place] [address] [place] [phone] Tawanna Limon DO 293 [place], [place] [phone] FYI Allergies Active Allergy Reactions Criticality Noted Date [...] as of this encounter (statuses as of 02/01/2024) Medications Medication Sig Dispensed Refills Start Date [...] for Wheezing. 18 g 5 05/26/2021 Active tiZANidine HCl 2 MG Oral Tablet (Zanaflex)Indicati ons:Myalgia,Muscle cramps TAKE 1 TABLET BY MOUTH EVERY 6 HOURS NEEDED FOR MUSCLE SPASMS 120 Tablet 0 01/19/2022 Active Dicyclomine HCl 10 MG Oral Capsule [...] the morning. 90 Tablet 1 01/31/2024 Active predniSONE 10 MG Oral Tablet (Deltasone)Indicat ions:Viral URI with cough Take 1 Tablet by mouth in the morning for 5 days. 5 Tablet 0 01/31/2024 4 Active Benzonatate 100 MG Oral CapsuleIndications :Viral URI with cough Take 1 Capsule by mouth 3 times a day as needed for Cough. 30 Capsule 0 01/31/2024 Active documented as of this encounter (statuses as of 02/01/2024) Active Problems Problem Noted Date Diagnosed Date Prediabetes 12/18/2023 Overview: Per Prediabetes protocol Morbid obesity with BMI of 45.0-49.9, adult 04/2021 Major depressive disorder, r ecurrent, severe with [...] as of this encounter (statuses as of 02/01/2024) Resolved Problems Problem Noted Date Diagnosed Date Resolved Date Body mass index (BMI) 40.0-44.9, adult 11/23/2023 12/21/2023 Body mass index (BMI) of 45. 0 [...] as of this encounter (statuses as of 02/01/2024) Immunizations Name Administration Dates Next Due COVID-19 mRNA, LNP-s, No Pre serve, 2-Dose Series ([employer]) 09/07/2021,02/26/2021,02/05/2021 COVID-19, LNP-s, No Preserve , James-sucrose, Ages 12+ (Pfizer) 05/26/2022 COVID-19, MRNA-LNP, 23-24, P F, 30 MCG/0.3 mL, 12 YRS AND ABOVE, IM ([facility]) 11/23/2023 Covid-19, Mrna, Lnp-s, Pf, B [...] Telephone Encounter - Domonique Cooley OSA - 02/01/2024 10:25 AM EDT Pt calling to let Dr Jackson and Celestina know that she received her Cymbalta and thanks you both. documented in this encounter Plan of Treatment Upcoming Encounters Date Type Department Care Team (Late st Contact Info) Description 02/26/2024 1:40 PM EDT Office Visit Family Practice 65 [facility] 293 [place] [address] Tawanna Limon DO 293 [place] [address] 03/04/2024 10:30 AM EDT Office Visit Otolaryngology [facility] 132 [facility] [place] [address] Bettye Schwartz MD 132 [facility] [place] [address] 03/14/2024 10:30 AM EDT Office Visit Sleep Disorders Ctr [facility] [address] [place] [phone] Akosua Hager CRNP 132 [facility] [place] [address] 04/19/2024 10:00 AM EDT Nurse Only Ancillary 65 [facility] 293 [facility] [address] College, Nurse Annual Wellness Visit [address] [address] 05/30/2024 11:00 AM EDT Office Visit Rheumatology [place] [address] [facility] [place] [address] Leland Novoa MD [address] [place] [address] Scheduled Procedures Name Priority Associated Diagnoses Date/Ti me COLONOSCOPY FLEXIBLE PROXIMA L DIAGNOSTIC Recall Encounter for screening colonoscopy Health Maintenance Due Date Last Done Comments Cologuard 2000 Sigmoidoscopy 2000 Fecal Occult Blood Test 04/03/2015 04/03/2014, 12/26 CKD PHOS USE SMARTSET 01323 02/11/2024 04/0 05/2023, 02/15/2022, 04/13/2020, Additional history exists TSH 02/11/2024 02/10/2023, 02/04, 04/26/2021, Additional history exists Mammogram 05/24/2024 05/24/2023, 05/06, 04/07/2022, Additional history exists GFR 07/17/2024 01/15/2024, 08/06, 03/08/2023, Additional history exists Albumin/Creatinine Ratio 08/15/2024 023, 07/14/2022, 04/24/2019, Additional history exists Depression Screening 11/23/2024 11/23/2023 HbA1c 11/23/2024 11/23/2023, 09/06, 02/23/2015, Additional history exists CKD HGB USE SMARTSET 17402 01/14/202501/14, 01/15/2024, 08/15/2023, Additional history exists Colonoscopy 02/14/2027 02/14/2017, 02/04, [...] Indicated Resolved Time Influenza (seasonal) 01/31/2024 01/31/2024 documented as of this encounter Advance Directives Healthcare Agents on File Name Relationship Healthcare Agent Relationship Communication Marcos Breaux Other - (no specific identity) Health Care Magnetometer Operator (appointed verbally by patient or by statute hierarchy) Bob Manjarrez Adult Child Health Care Magnetometer Operator (appointed verbally by patient or by statute hierarchy) Care Teams Information Coder Relationship Specialty Start Date End Date Tawanna Limon DO [address] [place] [address] PCP - General Family Medicine 06/29/23 documented as of this encounter
--- OUTSIDE RECORDS SUMMARY | 2024-05-09 23:03 | External Medical Summary ---
Author Name Unknown Address Unknown Organization K01:[facility] [address] [place] [address] Laboratory Report Ordering Provider Test Date Status NARCISO RHODES 02/26/2024 14:04:33 Final Observation Date Value Abnormality Reference (Units ) Status TSH 02/26/2024 14:04:33 0.65 0.27-4.20 (uIU/mL) Final Performing Location [facility] - [address] [place] [address]
--- OUTSIDE RECORDS SUMMARY | 2024-05-09 23:03 | External Medical Summary | Summary of Care ---
Author Name Unknown Organization [facility] Address [address] [facility] [place] [address] Phone [phone] Care Team Providers Care Appliance Sales Associate Name Role Phone Tawanna Limon DO Primary Care Provider [phone] Reason for Referral * Evaluate & Treat - Unlimited Visits (Within 10 days (routine)) - Authorized Specialty Diagnoses / Procedures Referred By Brandon castano Referred To Contact Physical Therapy / Physical Medicine And Rehab Diagnoses Chronic pain of left thumb Tawanna Limon DO [address] [place] [address] Referral ID Status Reason Start Date Expiration Date Visits Requested Visits Authorized [id number] Authorized Specialty Services Required 02/26/[phone] Question Answer Referral Priority Within 10 days (routine) Where should this appointment be scheduled? [facility] Comments Left thumb pain Reason for Visit * Reason Comments Follow Up Encounter Details Date Type Department Care Team (Late st Contact Info) Description 02/26/2024 1:40 PM EDT Office Visit Family Practice 65 [facility] [place] [address] [place] [address] Tawanna Limon DO [address] [place] [address] Acquired hypothyroidism*; Hypertensive kidney disease with stage 3b chronic kidney disease (HCC); Myalgia; Muscle cramps; Chronic pain of left thumb; Rheumatoid arthritis involving multiple sites with positive rheumatoid factor (HCC); Risk and functional assessment; Dysuria Allergies Active Allergy Reactions Criticality Noted Date [...] as of this encounter (statuses as of 02/26/2024) Medications Medication Sig Dispensed Refills Start Date End Date Status OMEGA-3 FISH OIL 1000 MG PO CAPS Take 1 Capsule by mouth in the morning. 0 Active ASPIRIN 325 MG PO TABSIndications:T IA [...] 1 01/31/2024 Active Benzonatate 100 MG Oral CapsuleIndication s:Viral URI with cough Take 1 Capsule by mouth 3 times a day as needed for Cough. 30 Capsule 0 01/31/2024 Active Additional Information Patient not taking.Reported on 02/26/2024 tiZANidine HCl 2 MG Oral Tablet (Zanaflex)Indicat ions:Myalgia,Musc le cramps TAKE 1 TABLET BY MOUTH EVERY 6 HOURS NEEDED FOR MUSCLE SPASMS 120 Tablet 0 02/26/2024 Active tiZANidine HCl 2 MG Oral Tablet (Zanaflex)Indicat ions:Myalgia,Musc le cramps TAKE 1 TABLET BY MOUTH EVERY 6 HOURS NEEDED FOR MUSCLE SPASMS 120 Tablet 0 01/19/2022 4 Discontinu ed(Refill) documented as of this encounter (statuses as of 02/26/2024) Active Problems Problem Noted Date Diagnosed Date [...] as of this encounter (statuses as of 02/26/2024) Resolved Problems Problem Noted Date Diagnosed Date [...] diso rders, unspecified 08/21/2007 02/09/2011 Overview: Dr. Rafita Castellano 08/21/2007 07/27/2018 Overview: Dr. 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 7 Anemia 07/27/2018 OBESITY, UNSPECIFIED 010 Overview: Per Obesity Taxonomy documented as of this encounter (statuses as of 02/26/2024) Immunizations Name Administration Dates Next Due COVID-19 mRNA, LNP-s, No Pre serve, 2-Dose Series ([employer]) 09/07/2021,02/26/2021,02/05/2021 COVID-19, LNP-s, No Preserve , James-sucrose, Ages 12+ ([employer]) 05/26/2022 COVID-19, MRNA-LNP, 23-24, P F, 30 MCG/0.3 mL, 12 YRS AND ABOVE, IM ([facility] 11/23/2023 Covid-19, Mrna, Lnp-s, Pf, B ivalent, 30 Mcg, IM, 12 yrs and above ([employer]) 04/17/2023 Pneumococcal Conjugate Vacc, 13 Valent (Prevnar) [...] Sign Reading Time Taken Comments Blood Pressure 130/78 02/26/2024 1:27 PM EDT Pulse 67 02/26/2024 1:27 PM EDT Temperature 36.6 C (97.8 F) 02/26/2024 1:27 PM ED T Respiratory Rate 16 02/26/2024 1:27 PM EDT Oxygen Saturation 96% 02/26/2024 1:27 PM EDT Inhaled Oxygen Concentration - - Weight 129.6 kg (285 lb 11.2 oz) 02/26/2024 1:27 PM EDT Height 167.6 cm (5' 6") 02/26/2024 1:27 PM EDT Body Mass Index 46.11 02/26/2024 1:27 PM EDT documented in this encounter Patient Instructions * Patient Instructions* Ritika OlivaANNN - 02/26/2024 1:27 PM EDT Patient Instructions - Fall Prevention (This [...] 10 times. Repeat this throughout the day. Low Patient Education Copyright 2009 - 2010 [...] support stockings (TEDs)if you have edema Ritika Oilva LPN 02/26/2024 Kegel Exercises Kegel exercises dont require special [...] Progress Notes * Tawanna Limon, DO - 02/26/2024 1:31 PM EDT SUBJECTIVE: Chief Complaint Patient presents with Follow Up HPI: Alena Manjarrez is a 68 year old female who presents today for regular return. Pt has been working with [facility] for her hip pain. She does feel that it is helpful. She does still have pain but notes that PT is working. Pt does follow with podiatry. She continues to wear ankle braces. She feels her ankles are poor. She is asking if they will take her entire breast off for a breast reduction as she finds them uncomfortable. Pt states that she has pain at the base of her left thumb. She will use Aspercreme. She is requesting a refill of tizanadine. Previously prescribed by rheumatology. She notes that she will use it a time or two a week for muscle cramping or pain. PHM: Patient Active Problem List Diagnosis Code Acquired [...] bilateral, mild stage H40.1131 Other atherosclerosis of mo[place] arteries of extremities, bilateral legs (HCC) I70.293 Gastroesophageal reflux disease without esophagitis K21.9 Moderate persistent asthma without complication J45.40 Intellectual disability F79 Major depressive disorder, recurrent, severe with psychotic symptoms (HCC) F33.3 Early onset Alzheimer's dementia without behavioral disturbance (HCC) G30.0, F02.80 Hypertensive kidney disease with stage 3b chronic kidney disease (HCC) I12.9, N18.32 Prediabetes R73.03 Body mass index (BMI) of 40.0 to 44.9 in adult ([facility]) Z68.41 Current Outpatient Medications Medication Sig Dispense Refill OMEGA-3 FISH OIL 1000 MG PO CAPS Take 1 Capsule by mouth in the morning. ASPIRIN 325 MG PO TABS One pill by mouth once a day with food Cyanocobalamin 1000 MCG Oral Tablet Take 1 Tablet by mouth in the morning. 30 Tab 5 TRAVATAN Z 0.004 % ophthalmic solution 1 drop in each eye at bedtime Cholecalciferol (VITAMIN D3) 1000 units CAPS Take 1 Capsule by mouth in the morning. Coconut Oil OIL Take by mouth every morning. Patient mixes a spoon of Louana Non Hydrogenated TransFat Coconut Oil in her coffee every morning, for brain health. Nebulizers (NEBULIZER COMPRESSOR) [facility] Inhale via nebulizer. Use as directed. 1 Each 1 traZODone (DESYREL) 150 MG Tablet Take 3 Tabs by mouth at bedtime. - (Patient taking differently: Take 2 Tablets by mouth at bedtime.) 1 Tab 0 Albuterol Sulfate HFA 108 (90 Base) MCG/ACT [...] as needed for Dizziness. 30 Tablet 1 Omeprazole 20 MG Oral Capsule Delayed Release (PriLOSEC) One pill by mouth once a day 1 hour beforethe first meal of the day 100 Capsule 1 DULoxetine HCl 20 MG Oral Capsule [...] NEEDED FOR MUSCLE SPASMS 120 Tablet 0 Benzonatate 100 MG Oral Capsule Take 1 Capsule by mouth 3 times a day as needed for Cough. (Patientnot taking: Reported on 02/26/2024) 30 Capsule 0 No current facility-administered medications for this visit. Past Medical History: Diagnosis Date Acute pharyngitis 08/21/07 Dr. Eller Anemia Asthma, moderate persistent 07/10/2008 PER PROVIDER PROTOCOL. Dyslipidemia, goal LDL below 100 10/15/2009 Per Lipid Taxonomy. Hypothyroidism Infective otitis externa 08/21/07 Dr. Eller Obesity, BMI not known COMFORT on CPAP 01/04/2011 [facility] 01/11/11 to 03/21/11 compliant [...] performed by Alanis Zarate DO at ENDOSCOPY [facility] EGD, FLEXIBLE, DIAGNOSTIC 07/02/2013 UPPER GI ENDOSCOPY DIAGNOSTIC performed by Alanis Zarate DO at [facility] EGD, FLEXIBLE, DIAGNOSTIC 10/09/2019 chronic inactive gastric inflammation / [facility] FRACTURE NOS left ankle LAPAROSCOPY; CHOLECYSTECTOMY 02/07/2013 02/07/2013 laparoscopic cholecystectomy [facility] Dr. Maddy Ospina LIGATE/CUT OVIDUCT(S) Review of [...] like on fire Family History Problem Relation Age of Onset Osteoarthritis Mother Alzheimer's disease Mother Dementia Mother Lung Disorder Father "Black Lung" Gastro-intestinal disorder Sister No Known Problems Daughter Lung cancer Brother Mental retardation Son mild Schizophrenia Son Brain cancer Uncle (Unspecified) Kidney cancer Uncle (Unspecified) Diabetes Niece 11 Type I Arthritis Aunt (Maternal) Breast [...] REVIEW OF SYSTEMS: Review of Systems Constitutional: Negative for chills, fatigue, fever and unexpected weight change. Respiratory: Negative for cough, chest tightness, shortness of breath and wheezing. Cardiovascular: Negative for chest pain, palpitations and leg swelling. Gastrointestinal: Negative for abdominal pain, constipation, diarrhea, nausea and vomiting. Musculoskeletal: Positive for arthralgias. Negative for gait problem and joint swelling. Skin: Negative for color change, pallor and rash. OBJECTIVE: BP 130/78 (BP Site: Left Arm, BP Position: Sitting, BP Cuff Size: Large) | Pulse 67 | Temp 36.6 C(97.8 F) (Tympanic) | Resp 16 | Ht 1.676 m (5' 6") | Wt 129.6 kg (285 lb 11.2 oz) | LMP 09/16/2003 | SpO2 96% | BMI 46.11 kg/m | BSA 2.46 m PHYSICAL EXAM: Physical Exam Constitutional: General: [...] tenderness. There is no guarding. Musculoskeletal: General: Tenderness (at base of left thumb) present. No deformity. Normal range of motion. Skin: General: Skin is warm and dry. Coloration: Skin is not pale. Findings: No erythema or rash. Neurological: Mental Status: She is alert and oriented to person, place, and time. ASSESSMENT/PLAN: (E03.9) Acquired hypothyroidism (primary encounter diagnosis) Plan: TSH WITH FREE T4 IF INDICATED Pt will complete TSH. She will remain on levothyroxine. (I12.9, N18.32) Hypertensive kidney disease with stage 3b chronic kidney disease (HCC) Plan: PHOSPHORUS, BASIC METABOLIC PANEL Pt will complete lab studies. Will monitor. (M79.10) Myalgia (R25.2) Muscle cramps Plan: tiZANidine HCl 2 MG Oral Tablet (Zanaflex) Pt will use only if needed. Refill sent. (M79.645, G89.29) Chronic pain of left thumb Plan: PHYSICAL THERAPY REFERRAL OP Pt will trial PT. Consider ortho for injection pending. (M05.79) Rheumatoid arthritis involving multiple sites with positive rheumatoid factor (HCC) Plan: Pt will keep f/u with rheumatology as scheduled. (Z13.9) Risk and functional assessment Plan: See nursing note. (R30.0) Dysuria Plan: URINALYSIS, POINT OF CARE (ENTER/EDIT), URINE CULTURE UA today with leuks, blood and protein. Will send culture. Will await results. Follow-up: 3 months Total time today including reviewing chart before the visit, pertinent labs, imaging reports, face to face time, and documentation time was 35 minutes. Tawanna Limon DO * Ritika Oliva LPN - 02/26/2024 1:27 PM EDT Fall Risk Plan of Care Documentation: - Current medications reconciled Patient encouraged to: - Exercise - Provide education materials for Core strengthening - Utilize assistive/adaptive devices - Provide education materials - Avoid multifocal lenses when walking - Avoid hazards in home - Provide education materials - Maintain a regular toileting schedule Ritika Oliva LPN 02/26/2024 Urinary Incontinence Plan of Care Documentation: (This [...] (TEDs)if you have edema Ritika Oliva LPN 02/26/2024 documented in this encounter Nursing Notes * Ritika Olvia LPN - 02/26/2024 1:22 PM EDT Patient here for routine follow up visit. 1. Reports fall last Monday - no injury. 2. Would like to discuss refill of Tizanadine. 3. Patient's dog jumped on left forearm causing skin tear. 4. Pt would like to discuss breast reduction. 5. Reports worsening hip pain - goes to therapy at [facility]. 6. Pt reports pain base of left thumb. 7. States after she urinates, she still has feeling she needs to urinate again. documented in this encounter Plan of Treatment Upcoming Encounters Date Type Department Care Team (Late st Contact Info) Description 03/04/2024 10:30 AM EDT Office Visit Otolaryngology [facility] [address] [address] Bettye Schwartz MD [address] [address] 03/14/2024 10:30 AM EDT Office Visit Sleep Disorders Ctr [facility] [address] [phone] Akosua Hager CRNP [address] [place] [address] 04/19/2024 10:00 AM EDT Nurse Only Ancillary 65 [facility] [address] [facility] [address] [facility], Nurse Annual Wellness Visit [facility] [address] [address] 05/24/2024 1:00 PM EDT Office Visit Family Practice 65 [facility] [address] [address] [facility] [address] [facility] [address] 05/30/2024 11:00 AM EDT Office [address]ology [address] [address] Leland Novoa MD [address] [place] [address] Pending Results Name Type Priority Associated Diagnoses Date /Time PHOSPHORUS Lab Routine Hypertensive kidney disease with stage 3b chronic kidney disease (HCC) 02/26/2024 2:04 PM EDT TSH WITH FREE T4 IF INDICATED Lab Routine Acquired hypothyroidism 02/26/2024 2:04 PM EDT BASIC METABOLIC PANEL Lab Routine Hypertensive kidney disease with stage 3b chronic kidney disease (HCC) 02/26/2024 2:04 PM EDT CULTURE, URINE, QUANTITATIVE Lab Routine Dysuria 02/26/2024 2:08 PM EDT Scheduled Orders Name Type Priority Associated Diagnoses Orde r Schedule TSH WITH FREE T4 IF INDICATED Lab Routine Acquired hypothyroidism Expected: 02/26/2024 (Approximate), Expires: 02/25/2025 BASIC METABOLIC PANEL Lab Routine Hypertensive kidney disease with stage 3b chronic kidney disease (HCC) Expected: 02/26/2024 (Approximate), Expires: 02/25/2025 URINALYSIS, POINT OF CARE (ENTER/EDIT) Point of Care Testing Routine Dysuria Ordered: 02/26/2024 Scheduled Procedures Name Priority Associated Diagnoses Date/Ti me COLONOSCOPY FLEXIBLE PROXIMA L DIAGNOSTIC Recall Encounter for screening colonoscopy Scheduled Referrals Name Type Priority Associated Diagnoses Orde r Schedule PHYSICAL THERAPY REFERRAL OP Referral Within 10 days (routine) Chronic pain of left thumb Ordered: 02/26/2024 Health Maintenance Due Date Last Done Comments Cologuard 2000 Sigmoidoscopy 2000 Fecal Occult Blood Test 04/03/2015 04/03/2014, 12/26 CKD PHOS USE SMARTSET 83641 02/11/2024 04/0 05/2023, 02/15/2022, 04/13/2020, Additional history exists TSH 02/11/2024 02/10/2023, 02/04, 04/26/2021, Additional history exists Mammogram 05/24/2024 05/24/2023, 05/06, 04/07/2022, Additional history exists GFR 07/17/2024 01/15/2024, 08/06, 03/08/2023, Additional history exists Albumin/Creatinine Ratio 08/15/2024 023, 07/14/2022, 04/24/2019, Additional history exists HbA1c 11/23/2024 11/23/2023, 09/06, 02/23/2015, Additional history exists CKD HGB USE SMARTSET 36271 01/14/202501/14, 01/15/2024, 08/15/2023, Additional history exists Colonoscopy [...] Procedure Name Priority Date/Time Associated Diagnosis Comments URINALYSIS, POINT OF CARE MERLY 02/26/2024 2:05 PM EDT documented in this encounter Results * (ABNORMAL) URINALYSIS, POINT OF CARE (02/26/2024 2:05 PM EDT) Color, Urine Light Yellow Light Yellow, Yellow 02/26/2024 2:07 PM EDT [address] Clarity, Urine Cloudy(A) Clear 02/26/2024 2:07 PM EDT [address] Glucose, Urine Negative Negative mg/dL 02/26/2024 2:07 PM EDT [address] Bilirubin, Urine Negative Negative 02/26/2024 2:07 PM EDT [address] Ketone, Urine Negative Negative mg/dL 02/26/2024 2:07 PM EDT [address] Specific [place], Urine 1.015 1.003 - 1.030 02/26/2024 2:07 PM EDT [address] Blood, Urine Small(A) Negative 02/26/2024 2:[address] PM EDT [address] pH, Urine 6.5 5.0, 5.5, 6.0, 6.5, 7.0, 7.5 units 02/26/2024 2:07 PM EDT [address] Protein, Urine 30(A) Negative mg/dL 02/26/2024 2:[address] PM [address]T [address] Urobilinogen, Urine 0.2 0.2, 1.0 mg/dL 02/26/2024 2:07 PM EDT [address] Nitrite, Urine Negative Negative 02/26/2024 2:07 PM EDT [address] Esterase, Urine Large(A) Negative 02/26/2024 2:07 PM EDT [place] [address] Urine 02/26/2024 2:05 PM EDT 02/26/2024 2:07 PM EDT Tawanna Limon DO LAB POINT OF CARE TE ST DOCKED DEVICE UNSOLICITED RESULTS [place] [address] [address] [place] [address], [facility] documented in this encounter Visit Diagnoses Diagnosis Acquired hypothyroidism- Primary Unspecified hypothyroidism Hypertensive kidney disease with stage 3b chronic kidney disease (HCC) Myalgia Mylagia and myositis, unspecified Muscle cramps Cramp of limb Chronic pain of left thumb Rheumatoid arthritis involving multiple sites with positive rheumatoid factor (HCC) Risk and functional assessment Screening for unspecified condition Dysuria documented in this encounter Advance Directives Healthcare Agents on File Name Relationship Healthcare Agent Relationship Communication Marcos Breaux Other - (no specific identity) Health Care Associate Merchandiser (appointed verbally by patient or by statute hierarchy) Bob Mitchellaver Adult Child Health Care Associate Merchandiser (appointed verbally by patient or by statute hierarchy) Care Teams Appliance Sales Associate Relationship Specialty Start Date End Date Tawanna Limon DO [address] [place] [address] PCP - General Family Medicine 06/29/23 documented as of this encounter
--- OUTSIDE RECORDS SUMMARY | 2024-05-09 23:03 | External Medical Summary | Summary of Care ---
Author Name Unknown Organization [facility] Address [address] [facility] [place] [address] Phone [phone] Care Team Providers Care Voice Instructor Name Role Phone Tawanna Limon DO Primary Care Provider [phone] Reason for Referral * Evaluate & Treat - Unlimited Visits (Within 10 days (routine)) - Authorized Specialty Diagnoses / Procedures Referred By Brandon castano Referred To Contact Physical Therapy / Physical Medicine And Rehab Diagnoses Chronic pain of left thumb Tawanna Limon DO [address] [place] [address] Referral ID Status Reason Start Date Expiration Date Visits Requested Visits Authorized [id number] Authorized Specialty Services Required 02/26/[phone] Question Answer Referral Priority Within 10 days (routine) Where should this appointment be scheduled? Yudelka Comments Left thumb pain Reason for Visit * Reason Comments Follow Up Encounter Details Date Type Department Care Team (Late st Contact Info) Description 02/26/2024 1:40 PM EDT Office Visit Family Practice 65 [facility] [address] [place] [address] Tawanna Limon DO [address] [place] [address] Acquired hypothyroidism*; Hypertensive kidney disease with stage [...] mRNA, LNP-s, No Pre serve, 2-Dose Series ([employer]) 09/07/2021,02/26/2021,02/05/2021 COVID-19, LNP-s, No Preserve , James-sucrose, Ages 12+ ([employer]) 05/26/2022 COVID-19, MRNA-LNP, 23-24, P F, 30 MCG/0.3 mL, 12 YRS AND ABOVE, IM ([facility] 11/23/2023 Covid-19, Mrna, Lnp-s, Pf, B ivalent, 30 Mcg, IM, 12 yrs and above ([employer]) 04/17/2023 Pneumococcal Conjugate Vacc, 13 Valent (Prevnar) [...] you have edema Ritika Oliva LPN 02/26/2024 Kegel Exercises Kegel exercises dont [...] bilateral, mild stage H40.1131 Other atherosclerosis of blackfeet arteries of extremities, bilateral legs (HCC) I70.293 [...] (BMI) of 40.0 to 44.9 in adult ([facility]) Z68.41 Current Outpatient Medications Medication Sig Dispense [...] morning, for brain health. Nebulizers (NEBULIZER COMPRESSOR) [facility] Inhale via nebulizer. Use as [...] BMI not known COMFORT on CPAP 01/04/2011 [facility] 01/11/11 to 03/21/11 compliant [...] at ENDOSCOPY [facility] EGD, FLEXIBLE, DIAGNOSTIC 07/02/2013 UPPER GI ENDOSCOPY DIAGNOSTIC performed by Alanis Zarate DO at [facility] E[facility], FLEXIBLE, DIAGNOSTIC 10/09/2019 chronic inactive gastric inflammation / [facility] FRACTURE NOS left ankle LAPAROSCOPY; CHOLECYSTECTOMY 02/07/2013 02/07/[address] [facility] [address]. Maddy Ospina LIGATE/CUT OVIDUCT(S) Review of [...] Nursing Notes * Ritika Oliva LPN - 02/26/2024 1:22 PM EDT Patient [...] 03/04/2024 10:30 AM EDT Office Visit Otolaryngology [facility] [address] [address] Bettye Schwartz MD [address] [address] 03/14/2024 10:30 AM EDT Office Visit Sleep Disorders Ctr [facility] [address] [phone] Akosua Hager CRNP [address] [place] [address] 04/19/2024 10:00 AM EDT Nurse Only Ancillary 65 [facility] [address] [facility] [address] [facility], Nurse Annual Wellness Visit 65 [facility] [address] [facility] [address] 05/24/2024 1:00 PM EDT Office Visit Family Practice 65 [facility] [address] [facility] [address] T[facility] [address] 05/30/2024 11:00 AM EDT Office Visit [address]umatology [address] [address] Leland Novoa MD [address] [place] [address] Pending Results Name Type Priority Associated Diagnoses [...] 04/03/2015 04/03/2014, 12/26 CKD PHOS USE SMARTSET 49766 02/11/2024 04/0 05/2023, 02/15/2022, 04/13/2020, Additional history exists TSH 02/11/2024 02/10/2023, 02/04, 04/26/2021, Additional history exists Mammogram 05/24/2024 05/24/2023, 05/06, 04/07/2022, Additional history exists GFR 07/17/2024 01/15/2024, 08/06, 03/08/2023, Additional history exists Albumin/Creatinine Ratio 08/15/2024 023, 07/14/2022, 04/24/2019, Additional history exists HbA1c 11/23/2024 11/23/2023, 09/06, 02/23/2015, Additional history exists CKD HGB USE SMARTSET 07231 01/14/202501/14, 01/15/2024, 08/15/2023, Additional history exists Colonoscopy [...] Light Yellow, Yellow 02/26/2024 2:07 PM EDT [address] Clarity, Urine Cloudy(A) Clear 02/26/2024 2:07 PM EDT [address] Glucose, Urine Negative Negative mg/dL 02/26/2024 2:07 PM EDT [address] Bilirubin, Urine Negative Negative 02/26/2024 2:07 PM EDT [address] Ketone, Urine Negative Negative mg/dL 02/26/2024 2:07 PM EDT [address] Specific [place], Urine 1.015 1.003 - 1.030 02/26/2024 2:07 PM EDT [address] Blood, Urine Small(A) Negative 02/26/2024 2:07 PM EDT [address] pH, Urine 6.5 5.0, 5.5, 6.0, 6.5, 7.0, 7.5 units 02/26/2024 2:07 PM EDT [address] Protein, Urine 30(A) Negative mg/dL 02/26/2024 2:07 PM EDT [address] Urobilinogen, Urine 0.2 0.2, 1.0 mg/dL 02/26/2024 2:07 PM EDT [address] Nitrite, Urine Negative Negative 02/26/2024 2:07 PM EDT [address] Esterase, Urine Large(A) Negative 02/26/2024 2:07 PM EDT [place] [address] Urine 02/26/2024 2:05 PM EDT 02/26/2024 2:07 PM EDT Tawanna Limon DO LAB POINT OF CARE TE ST DOCKED DEVICE UNSOLICITED RESULTS [place] [address] [address] [place] [address], [facility] documented in this encounter Visit [...] File Name Relationship Healthcare Agent Relationship Communication Marcso Breaux Other - (no specific identity) Health Care Environmental Air Specialist (appointed verbally by patient or by statute hierarchy) Bob Mitchellaver Adult Child Health Care Environmental Air Specialist (appointed verbally by patient or by statute hierarchy) Care Teams Voice Instructor Relationship Specialty Start Date End Date Tawanna Limon DO [address] [place] [address] PCP - General Family Medicine 06/29/23 documented as of this encounter
--- OUTSIDE RECORDS SUMMARY | 2024-05-09 23:03 | External Medical Summary ---
Author Name Unknown Address Unknown Organization K01:[facility] [place] [facility] [address] [place] [id number] Laboratory Report Ordering Provider Test Date Status NARCISO RHODES 02/26/2024 14:04:33 Final Observation Date Value Abnormality Reference (Units ) Status BUN 02/26/2024 14:04:33 12 6-20 (mg/dL) Final Creatinine 02/26/2024 14:04:33 1.2 Above high normal 0.5-1.0 (mg/dL) Final Glomerular filtration rate/1.73 sq M.predicted [Volume Rate/Area] in Serum, Plasma or Blood by Creatinine-based formula (CKD-EPI) 02/26/2024 14:04:33 49 Below low normal >=60 (mL/min) Final eGFR is calculated based on the CKD-EPI 2020 equation Sodium 02/26/2024 14:04:33 142 135-146 (m mol/L) Final Potassium 02/26/2024 14:04:33 4.6 3.5-5.1 (m mol/L) Final Cl 02/26/2024 14:04:33 105 98-107 (mm ol/L) Final CO2 02/26/2024 14:04:33 26 22-32 (mmo l/L) Final Anion gap 02/26/2024 14:04:33 11 7-15 (mmol /L) Final Glucose 02/26/2024 14:04:33 115 70-120 (mg /dL) Final Calcium 02/26/2024 14:04:33 9.5 8.4-10.2 ( mg/dL) Final Performing Location [facility] [place] [facility] [address] [place] [id number]
--- OUTSIDE RECORDS SUMMARY | 2024-05-09 23:03 | External Medical Summary | Summary of Care ---
Author Name Unknown Organization [facility] Address [address] [place] [address] Phone [phone] Care Team Providers Care Delinquent Notice Machine Operator Name Role Phone Tawanna Limon DO Primary Care Provider [phone] Reason for Visit * Reason Onset Date Comments Test Results 02/28/202402/28 Encounter Details Date Type Department Care Team (Late st Contact Info) Description 02/28/2024 Telephone Family Practice [address] [place] [address] [place] [phone] Tawanna Limon DO [address] [place], [place] [phone] Test Results (02/28) Allergies Active Allergy Reactions Criticality Noted Date [...] as of this encounter (statuses as of 02/29/2024) Medications Medication Sig Dispensed Refills Start Date [...] MUSCLE SPASMS 120 Tablet 0 02/26/2024 Active documented as of this encounter (statuses as of 02/29/2024) Active Problems Problem Noted Date Diagnosed Date [...] as of this encounter (statuses as of 02/29/2024) Resolved Problems Problem Noted Date Diagnosed Date [...] as of this encounter (statuses as of 02/29/2024) Immunizations Name Administration Dates Next Due COVID-19 mRNA, LNP-s, No Pre serve, 2-Dose Series ([employer]) 09/07/2021,02/26/2021,02/05/2021 COVID-19, LNP-s, No Preserve , James-sucrose, Ages 12+ ([employer]) 05/26/2022 COVID-19, MRNA-LNP, 23-24, P F, 30 [...] Telephone Encounter - Ritika Oliva LPN - 02/29/2024 9:53 AM EDT Call placed to patient and relayed information from Dr. Limon. Pt acknowledged understanding andstates she will comply. States her urinary symptoms have improved. * Telephone Encounter - Tawanna Limon DO - 02/28/2024 2:26 PM EDT Please let pt know: Her lab studies looked good. Her urine did not show infection. If she has persistent urinary issues, let us know. She should be sure she is drinking enough water. documented in this encounter Plan of Treatment Upcoming Encounters Date Type Department Care Team (Late st Contact Info) Description 03/04/2024 10:30 AM EDT Office Visit Otolaryngology [facility] [address] [address] [address] Bettye Schwartz MD [address] [address] 03/14/2024 10:30 AM EDT Office Visit [facility] Disorders [facility] [address] [phone] Akosua Hager CRNP [address] [address] 04/19/2024 10:00 AM EDT Nurse Only Ancillary [address] [facility] [address] [facility] [address] [place], Nurse Annual Wellness Visit [address] [place] [address] 05/24/2024 1:00 PM EDT Office Visit Family Practice [address] [facility] [address] [facility], [place] [phone] Tawanna Limon DO [address] [facility], [place] [address] 05/30/2024 11:00 AM EDT Office Visit Rheumatology [facility] [address] [place] [address] Leland Novoa MD [address] [place], [place] [address] Scheduled Procedures Name Priority Associated Diagnoses Date/Ti [...] Additional history exists CKD HGB USE SMARTSET 26942 01/14/202501/14, 01/15/2024, 08/15/2023, Additional history exists CKD PHOS USE SMARTSET 68026 02/25/202502/05, 02/10/2023, 02/15/2022, Additional history exists TSH [...] Other - (no specific identity) Health Care Investment Executive (appointed verbally by patient or by statute hierarchy) Bob Manjarrez Adult Child Health Care Investment Executive (appointed verbally by patient or by statute hierarchy) Care Teams Delinquent Notice Machine Operator Relationship Specialty Start Date End Date Tawanna Limon DO [address] [place] [address] PCP - General Family Medicine 06/29/23 documented as of this encounter
--- OUTSIDE RECORDS SUMMARY | 2024-05-09 23:03 | External Medical Summary ---
Author Name Unknown Address Unknown Organization : Laboratory Report Ordering Provider Test Date Status NARCISO RHODES 02/26/2024 14:05:00 Final Observation Date Value Abnormality Reference (Units ) Status Color of Urine by Auto 02/26/2024 14:05:00 Light Yellow Light Yellow, Yellow Final Clarity, Urine 02/26/2024 14:05:00 Cloudy Abnormal Clear Final Glucose [Mass/volume] in Urine by Automated test strip 02/26/2024 14:05:00 Negative Negative (mg/dL) Final Bilirubin.total [Presence] in Urine by Automated test strip 02/26/2024 14:05:00 Negative Negative Final Ketones [Mass/volume] in Urine by Automated test strip 02/26/2024 14:05:00 Negative Negative (mg/dL) Final Specific gravity, Urine 02/26/2024 14:05:00 1.015 1.003-1.030 Final Hemoglobin [Presence] in Urine by Automated test strip 02/26/2024 14:05:00 Small Abnormal Negative Final pH, Urine 02/26/2024 14:05:00 6.5 5.0, 5.5, 6.0, 6.5, 7.0, 7.5 (units) Final Protein [Mass/volume] in Urine by Automated test strip 02/26/2024 14:05:00 30 Abnormal Negative (mg/dL) Final Urobilinogen, Urine 02/26/2024 14:05:00 0.2 0.2, 1.0 (mg/dL) Final Nitrite [Presence] in Urine by Automated test strip 02/26/2024 14:05:00 Negative Negative Final Leukocyte esterase [Presence] in Urine by Automated test strip 02/26/2024 14:05:00 Large Abnormal Negative Final Performing Location
--- OUTSIDE RECORDS SUMMARY | 2024-05-09 23:03 | External Medical Summary ---
Author Name Unknown Address Unknown Organization K01:[facility] [place] - [address] [place] [facility] Laboratory Report Ordering Provider Test Date Status MEAGANNARCISO 02/26/2024 14:08:45 Final Observation Date Value Abnormality Reference (Units) Status Bacteria identified in Specimen by Culture 02/26/2024 14:08:45 No significant growth Final Test: Culture, Urine, Quanti tative
Specimen Source: Urine, Clean Catch
Specimen Type: Urine
Specimen Date: 02/26/2024 2:08 PM
Result Date: 02/27/2024 4:50 PM
Result Status: Final result
Resulting Lab: [facility] [place]
[address]
[place] [address]

CULTURE

No significant growth

null Performing Location [facility] [place] - [address] [facility] [address]
--- OUTSIDE RECORDS SUMMARY | 2024-05-09 23:03 | External Medical Summary | Summary of Care ---
Author Name Unknown Organization [facility] Address [address] [place] [address] Phone [phone] Care Team Providers Care Drier Transfer Car Operator Name Role Phone Tawanna Limon DO Primary Care Provider [phone] Reason for Visit * Reason Comments Acute Encounter Details Date Type Department Care Team (Late st Contact Info) Description 01/31/2024 3:40 PM EDT Office Visit Family Practice [address] [place] [address] [place] [address] Diego Jackson DO [address] [place] [address] Viral URI with cough*; Hypertensive kidney disease with stage 3b chronic kidney disease (HCC); Rheumatoid arthritis involving multiple sites with positive rheumatoid factor (HCC); Acquired hypothyroidism; Moderate persistent asthma without complication; Intellectual disability; Prediabetes; Risk and functional assessment Allergies Active Allergy [...] for 5 days. 5 Tablet 0 01/31/2024 Active Benzonatate 100 MG Oral CapsuleIndications :Viral URI with cough Take 1 Capsule by mouth 3 times a day as needed for Cough. 30 Capsule 0 01/31/2024 Active documented as of this encounter (statuses as of 02/01/2024) Active Problems Problem Noted Date Diagnosed Date Prediabetes 12/18/2023 Overview: Per Prediabetes protocol Morbid obesity with BMI of 45.0-49.9, adult 120 04/2021 Major depressive disorder, r ecurrent, severe [...] mRNA, LNP-s, No Pre serve, 2-Dose Series ([employer]) 09/07/2021,02/26/2021,02/05/2021 COVID-19, LNP-s, No Preserve , James-sucrose, Ages 12+ ([employer]) 05/26/2022 COVID-19, MRNA-LNP, 23-24, P F, 30 [...] Sign Reading Time Taken Comments Blood Pressure 120/70 01/31/2024 3:30 PM EDT Pulse 83 01/31/2024 3:30 PM EDT Temperature 37.4 C (99.4 F) 01/31/2024 3:30 PM ED T Respiratory Rate 14 01/31/2024 3:30 PM EDT Oxygen Saturation 94% 01/31/2024 3:30 PM EDT Inhaled Oxygen Concentration - - Weight 125.6 kg (277 lb) 01/31/2024 3:30 PM EDT Height 167.6 cm (5' 6") 01/31/2024 3:30 PM EDT Body Mass Index 44.71 01/31/2024 3:30 PM EDT documented in this encounter Patient Instructions * Patient Instructions* Celestina Guthrie LPN - 01/31/2024 3:32 PM EDT Patient Instructions - Fall Prevention [...] pathway between the bedroom and the bathroom Lwo Patient Education Copyright 2008 - 2010 Low [...] 10 times. Repeat this throughout the day. [facility] Patient Education Copyright 2008 - 2010 [facility] except where otherwise noted. Preventing Falls: Moving [...] support stockings (TEDs)if you have edema Celestina Guthrie LPN 01/31/2024 Kegel Exercises Kegel exercises dont require special [...] help make your Kegels even more effective. [employer] Patient Education Copyright 2008 - 2010 [employer] except where otherwise noted. Here are some [...] documented in this encounter Progress Notes * Diego Jackson, - 02/01/2024 12:48 PM EDT SUBJECTIVE: Alena Manjarrez is a 68 year old female. Chief Complaint Patient presents with Acute HPI: Patient is a 68 year old female with a history of Rheumatoid Arthritis, Depression, Hyperlipidemia,Intellectual Disability, Migraine Headaches, HTN, PVD, GERD, and Asthma that is seen for productivecough for 3 days. The patient has headache, and myalgias. No chest pain or shortness of breath are present. Weight is down and appetite is fair. Patient Active Problem List Diagnosis Code Acquired [...] bilateral, mild stage H40.1131 Other atherosclerosis of [place] arteries of extremities, bilateral legs ([facility]) I70.293 Gastroesophageal reflux disease without esophagitis K21.9 Moderate persistent asthma without complication J45.40 Intellectual disability F79 Major depressive disorder, recurrent, severe with psychotic symptoms ([facility]) F33.3 Early onset Alzheimer's dementia without behavioral disturbance ([facility]) G30.0, F02.80 Hypertensive kidney disease with stage 3b chronic kidney disease ([facility]) I12.9, N18.32 Morbid obesity with BMI of 45.0-49.9, adult ([facility]) E66.01, Z68.42 Prediabetes R73.03 Current Outpatient Medications Medication Sig Dispense Refill OMEGA-3 FISH OIL 1000 MG PO CAPS Take 1 Capsule by mouth in the morning. ASPIRIN 325 MG PO TABS One pill by mouth once a day with food Cyanocobalamin 1000 MCG Oral Tablet Take 1 Tablet by mouth in the morning. 30 Tab 5 Cholecalciferol (VITAMIN D3) 1000 units CAPS Take 1 Capsule by mouth in the morning. Coconut Oil OIL Take by mouth every morning. Patient mixes a spoon of Louana Non Hydrogenated TransFat Coconut Oil in her coffee every morning, for brain health. traZODone (DESYREL) 150 MG Tablet Take 3 Tabs by mouth at bedtime. - (Patient taking differently: Take 2 Tablets by mouth at bedtime.) 1 Tab 0 Albuterol Sulfate HFA 108 (90 Base) MCG/ACT Inhalation Aerosol Solution Inhale 2 Puffs by mouth every 4 hours as needed for Wheezing. 18 g 5 tiZANidine HCl 2 MG Oral Tablet (Zanaflex) TAKE 1 TABLET BY MOUTH EVERY 6 HOURS NEEDED FOR MUSCLE SPASMS 120 Tablet 0 Dicyclomine HCl 10 MG Oral Capsule (Bentyl) TAKE ONE CAPSULE BY MOUTH THREE TIMES DAILY NEEDED for abdominal pain 270 Capsule 1 Albuterol Sulfate (2.5 MG/3ML) 0.083% Inhalation Nebulization Solution (Proventil) Inhale 1 Vial via nebulizer every 6 hours as needed for Wheezing. 120 mL 0 Lisinopril 20 MG Oral Tablet (Prinivil) Take 1 Tablet by mouth in the morning. 90 Tablet 3 Montelukast Sodium 10 MG Oral Tablet (Singulair) Take 1 Tablet by mouth at bedtime. 90 Tablet 3 Levothyroxine Sodium 50 MCG Oral Tablet (Levoxyl) [...] mouth in the morning. 90 Tablet 1 predniSONE 10 MG Oral Tablet (Deltasone) Take 1 Tablet by mouth in the morning for 5 days. 5 Tablet0 Benzonatate 100 MG Oral Capsule Take 1 Capsule by mouth 3 times a day as needed for Cough. 30 Capsule 0 TRAVATAN Z 0.004 % ophthalmic solution 1 drop in each eye at bedtime Nebulizers (NEBULIZER COMPRESSOR) MISC Inhale via nebulizer. Use as directed. 1 Each 1 cycloSPORINE 0.05 % Ophthalmic Emulsion (Restasis) Instill 1 Drop into both eyes in the morning and1 Drop before bedtime. Metamucil 0.36 GM Oral Capsule (Psyllium) Take by mouth daily. No current facility-administered medications for this visit. The patient's medication list was reviewed and updated as needed. Past Medical History: Diagnosis Date Acute pharyngitis 08/21/07 Dr. Eller Anemia Asthma, moderate persistent 07/10/2008 PER PROVIDER PROTOCOL. Dyslipidemia, goal LDL below 100 10/15/2009 Per Lipid Taxonomy. Hypothyroidism Infective otitis externa 08/21/07 Dr. Eller Obesity, BMI not known COMFORT on CPAP 01/04/2011 [facility] 01/11/11 to 03/21/11 [...] performed by Alanis Zarate DO at ENDOSCOPY [facility] EGD, FLEXIBLE, DIAGNOSTIC 07/02/2013 UPPER GI ENDOSCOPY DIAGNOSTIC performed by Alanis Zarate DO at [facility]COPY [facility] EGD, FLEXIBLE, DIAGNOSTIC 10/09/2019 chronic inactive gastric inflammation / [facility] FRACTURE NOS left ankle LAPAROSCOPY; CHOLECYSTECTOMY 02/07/2013 02/07/2013 laparoscopic cholecystectomy [facility] Dr. Maddy Ospina LIGATE/CUT OVIDUCT(S) Review of patient's allergies indicates: Allergen Reactions Adhesive Tape Edema face/lips/tongue States she is allergic to bandaid and it causes throat swelling. Humira [Adalimumab] Itching Pt reports that she took Humira approx 1 year ago and had to stop it due to itchiness. Ibuprofen Nausea/vomiting Latex Nsaids stomache upset Sulfa Antibiotics Eyes like on fire Review of Systems Constitutional: Positive for appetite change and fatigue. Negative for chills and fever. HENT: Positive for congestion. Negative for postnasal drip, rhinorrhea, sore throat and trouble swallowing. Respiratory: Positive for cough. Negative for shortness of breath and wheezing. Cardiovascular: Negative for chest pain, palpitations and leg swelling. Gastrointestinal: Negative for abdominal pain, diarrhea, nausea and vomiting. Genitourinary: Negative for dysuria, frequency and hematuria. Neurological: Positive for headaches. Negative for dizziness and syncope. Psychiatric/Behavioral: Negative for confusion, decreased concentration and sleep disturbance. OBJECTIVE: BP 120/70 | Pulse 83 | Temp 37.4 C (99.4 F) | Resp 14 | Ht 1.676 m (5' 6") | Wt 125.6 kg (277 lb) | LMP 09/16/2003 | SpO2 94% | BMI 44.71 kg/m | BSA 2.42 m Physical Exam Vitals and nursing note reviewed. Constitutional: General: She is not in acute distress. Appearance: Normal appearance. She is not toxic-appearing. HENT: Head: Normocephalic and atraumatic. Mouth/Throat: Pharynx: Posterior oropharyngeal erythema present. No oropharyngeal exudate. Cardiovascular: Rate and Rhythm: Normal rate and regular rhythm. Heart sounds: Normal heart sounds. No murmur heard. No gallop. Pulmonary: Effort: Pulmonary effort is normal. Breath sounds: Normal breath sounds. No wheezing, rhonchi or rales. Abdominal: General: Bowel sounds are normal. There is no distension. Palpations: Abdomen is soft. Tenderness: There is no abdominal tenderness. Musculoskeletal: Right lower leg: No edema. Left lower leg: No edema. Neurological: Mental Status: She is alert and oriented to person, place, and time. Mental status is at baseline. Motor: No weakness. Gait: Gait normal. Psychiatric: Mood and Affect: Mood normal. Behavior: Behavior normal. PLAN AND ASSESSMENT: Viral URI with cough (Primary) - INFLUENZA A/B RSV SARS-COV2,PCR; Future; Expected date: 01/31/2024 - predniSONE 10 MG Oral Tablet (Deltasone); Take 1 Tablet by mouth in the morning for 5 days. - Benzonatate 100 MG Oral Capsule; Take 1 Capsule by mouth 3 times a day as needed for Cough. - INFLUENZA A/B RSV SARS-COV2,PCR Hypertensive kidney disease with stage 3b chronic kidney disease (HCC) Continue Lisinopril Rheumatoid arthritis involving multiple sites with positive rheumatoid factor (HCC) Continue Rinvoq per Rheumatology Acquired hypothyroidism Continue Levothyroxine Moderate persistent asthma without complication Continue Advair, Montelukast, and Albuterol Intellectual disability Prediabetes Risk and functional assessment Follow Up: Return if symptoms worsen or fail to improve. Diego Jackson DO 12:48 PM 02/01/2024 * Remedios Mata MD - 01/31/2024 3:45 PM EDT Images from the original note were not included. History of Present Illness Alena Manjarrez is a 68 year old female that presents for Acute 68 yo female in the office with h/o cough that started 3 days ago with headaches and bodyache. Her eyes and neck hurt. She is wheezing at times. Has not used her inhaler in a while. Her ears are hurting. No fever, increased SOB, nausea, vomiting, diarrhea. She was around her [id number] on Monday who had cold. She did take nyquil- night and day. Did not take any Tylenol. She has been eating and drinking ok but less than usual. Physical Exam Vitals: 01/31/24 1530 Temp: 37.4 C (99.4 F) Pulse: 83 Resp: 14 SpO2: 94% BP: 120/70 BMI: 44.73 BP Readings from Last 3 Encounters: 01/31/24 120/70 11/23/23 124/72 08/15/23 114/72 Wt Readings from Last 3 Encounters: 01/31/24 125.6 kg (277 lb) 11/23/23 130.6 kg (288 lb) 08/23/23 132.9 kg (293 lb) BMI Readings from Last 3 Encounters: 01/31/24 44.71 kg/m 11/23/23 46.48 kg/m 08/23/23 47.29 kg/m Physical Exam Vitals and nursing note reviewed. Constitutional: General: She is not in acute distress. Appearance: She is ill-appearing. She is not toxic-appearing. HENT: Head: Normocephalic and atraumatic. Right Ear: Tympanic membrane is erythematous. Tympanic membrane is not bulging. Left Ear: Tympanic membrane is erythematous. Tympanic membrane is not bulging. Mouth/Throat: Pharynx: Posterior oropharyngeal erythema present. No oropharyngeal exudate or uvula swelling. Tonsils: 1+ on the right. 1+ on the left. Cardiovascular: Rate and Rhythm: Normal rate and regular rhythm. Heart sounds: Normal heart sounds. No murmur heard. Pulmonary: Effort: Pulmonary effort is normal. Breath sounds: Normal breath sounds. No rales. Comments: Occasional rhonchi++ Skin: General: Skin is warm and dry. Capillary Refill: Capillary refill takes less than 2 seconds. Neurological: General: No focal deficit present. Mental Status: She is alert. Psychiatric: Mood and Affect: Mood normal. I have reviewed the following results: BMP results Recent Labs Units 01/15/24 1001 08/15/23 1214 03/08/23 1226 02/10/23 0956 09/01/22 0844 02/15/22 0839 SODIUM - [facility] mmol/L -- -- -- 141 143 142 POTASSIUM - [facility] mmol/L -- -- -- 4.0 4.4 4.1 CHLORIDE - [facility] mmol/L -- -- -- 105 107 105 CO2 - [facility] mmol/L -- -- -- 25 29 23 CREATININE - [facility] mg/dL 1.2* 1.1* 1.2* 1.1* 1.1* 1.2* BUN - [facility] mg/dL 15 19 -- 19 20 22* CBC results Recent Labs Units 01/15/24 1001 08/15/23 1214 03/08/23 1226 WBC K/uL 6.59 5.64 5.76 HGB g/dL 10.4* 10.6* 11.8* HCT % 32.7* 33.3* 36.3 PLT K/uL 246 255 238 Assessment and Plan Viral URI with cough - INFLUENZA A/B RSV SARS-COV2,PCR; Future - predniSONE 10 MG Oral Tablet (Deltasone); Take 1 Tablet by mouth in the morning for 5 days. - Benzonatate 100 MG Oral Capsule; Take 1 Capsule by mouth 3 times a day as needed for Cough. - INFLUENZA A/B RSV SARS-COV2,PCR Hypertensive kidney disease with stage 3b chronic kidney disease (HCC) - Stable - BP at goal - Ct current regimen Rheumatoid arthritis involving multiple sites with positive rheumatoid factor (HCC) - Doing well on Rinvoq Acquired hypothyroidism - Levoxyl 50 mcg Moderate persistent asthma without complication - Has albuterol inhaler at home for prn Intellectual disability Prediabetes - HbA1c 5.7 - Will consider low dose prednisone in view of the same Risk and functional assessment Wrap-Up Follow Up: Return if symptoms worsen or fail to improve. Patient discussed with DO Rui and plan of care formulated. Please refer to the attending attestation for additional recommendations. Remedios Mata MD PGY-2 Resident, Family Medicine [facility] This note was generated with the help of voice recognition software. Please excuse for any errors. documented in this encounter Nursing Notes * Celestina Guthrie LPN - 01/31/2024 3:35 PM EDT States cough, headache, achy. Going on since Monday documented in this encounter Miscellaneous Notes * Result Encounter Note - Ritika Oliva LPN - 02/01/2024 10:43 AM EDT Spoke to patient - see telephone encounter. documented in this encounter Plan of Treatment Upcoming Encounters Date Type Department Care Team (Late st Contact Info) Description 02/26/2024 1:40 PM EDT Office Visit Family Practice [address] [place] [address] [address] [place] [address] Taw[facility] Limon [facility] [address] [facility] [address] 03/04/2024 10:30 AM EDT Office Visit Otolaryngology [facility] [address] [address] Bettye Schwartz MD [address] [place] [address] 03/14/2024 10:30 AM EDT Office Visit Sleep Disorders Ctr [facility] [address] [place] [phone] Akosua Hager CRNP [address] [place] [address] 04/19/2024 10:00 AM EDT Nurse Only Ancillary [address] [facility] [address] [place] [address] College, Nurse Annual Wellness Visit [address] [address] 05/30/2024 11:00 AM EDT Office Visit Rheumatology [place] [address] [place] [address] [place] [address] Leland Novoa MD [facility] [place] [address] Scheduled Procedures Name Priority Associated Diagnoses Date/Ti me COLONOSCOPY FLEXIBLE PROXIMA L DIAGNOSTIC Recall Encounter for screening colonoscopy Health Maintenance Due Date Last Done Comments Cologuard 2000 Sigmoidoscopy 2000 Fecal Occult Blood Test 04/03/2015 04/03/2014, 12/26 CKD PHOS USE SMARTSET 40664 02/11/2024 04/0 05/2023, 02/15/2022, 04/13/2020, Additional history exists TSH 02/11/2024 02/10/2023, 02/04, 04/26/2021, Additional history exists Mammogram 05/24/2024 05/24/2023, 05/06, 04/07/2022, Additional history exists GFR 07/17/2024 01/15/2024, 08/06, 03/08/2023, Additional history exists Albumin/Creatinine Ratio 08/15/2024 023, 07/14/2022, 04/24/2019, Additional history exists Depression Screening 11/23/2024 11/23/2023 HbA1c 11/23/2024 11/23/2023, 09/06, 02/23/2015, Additional history exists CKD HGB USE SMARTSET 40738 01/14/202501/14, 01/15/2024, 08/15/2023, Additional history exists Colonoscopy [...] Procedure Name Priority Date/Time Associated Diagnosis Comments INFLUENZA A/B RSV SARS-COV2,PCR Routine 01/31/2024 4:19 PM EDT Viral URI with cough documented in this encounter Results * (ABNORMAL) INFLUENZA A/B RSV SARS-COV2,PCR (01/31/2024 4:19 PM EDT) SARS-CoV-2 (COVID-19) Result Negative Negative 02/01/2024 6:32 AM EDT [facility]ORY [facility] Comment: No SARS-CoV2 Coronavirus RNA detected by PCR (amplified probe). This automated test was developed and its performance characteristics determined by [employer]. It has not been cleared or approved by the U.S. Food and Drug Administration (FDA). FDA does not require this test to go thru premarket FDA review. This test is used for clinical purposes. It should not be regarded as investigational or for research. This laboratory is certified under the Clinical Laboratory Improvement Amendments (CLIA) as qualified to perform high complexity clinical laboratory testing. This test is a nucleic acid amplification test (NAAT), a reverse transcriptase polymerase chain reaction (RT-PCR) test, or a Centers for Disease Control- acceptable equivalent. The test is performed in a high complexity Clinical Laboratory Improvement Amendments-(CLIA) certified laboratory. The test is acceptable for SARS-CoV-2 diagnosis, surveillance, and travel within the [facility] and to most countries. Please check with local testing authorities about requirements before travel. The validation of bronchial specimens, tracheal aspirates, and sputum for this assay was developed and performance characteristics determined by [employer]. The validation of alternate specimen types has not been cleared or approved by the U.S. Food and Drug Administration (FDA). It has been determined that such clearance or approval is not necessary. Influenza A PCR Result Positive(A) Negative 02/01/2024 6:32 AM EDT [facility]ORY [facility] Comment:Influenza A RNA dete cted by PCR (amplified probe). Test results reported to [facility]. Influenza B PCR Result Negative Negative 02/01/2024 6:32 AM EDT [facility] Comment:No Influenza B RNA d etected by PCR (amplified probe) RSV PCR Result Negative Negative 02/01/2024 6:32 AM EDT [facility] Comment:No Respiratory Syncy tial Virus RNA detected by PCR (amplified probe) Upper Respiratory Nasopharyngeal swab / Unknown Non-blood Collection / Unknown 01/31/2024 4:19 PM EDT 01/31/2024 4:19 PM EDT Diego Jackson DO LAB MICRO - GENERAL ORDERABLES [facility] [address] [place] [address] documented in this encounter Visit Diagnoses Diagnosis Viral URI with cough- Primary Acute upper respiratory infections of unspecified site Hypertensive kidney disease with stage 3b chronic kidney disease (HCC) Rheumatoid arthritis involving multiple sites with positive rheumatoid factor (HCC) Acquired hypothyroidism Unspecified hypothyroidism Moderate persistent asthma without complication Unspecified asthma Intellectual disability Unspecified intellectual disabilities Prediabetes Other abnormal glucose Risk and functional assessment Screening for unspecified condition documented in this encounter Advance Directives Healthcare Agents on File Name Relationship Healthcare Agent Relationship Communication Marcos Breaux Other - (no specific identity) Health Care Medical Records Administrator (appointed verbally by patient or by statute hierarchy) Bob Manjarrez Adult Child Health Care Medical Records Administrator (appointed verbally by patient or by statute hierarchy) Care Teams Drier Transfer Car Operator Relationship Specialty Start Date End Date Tawanna Limon DO [address] [place] [address] PCP - General Family Medicine 06/29/23 documented as of this encounter
--- OUTSIDE RECORDS SUMMARY | 2024-05-09 23:03 | External Medical Summary | Summary of Care ---
Author Name Unknown Organization [facility] Address [address] [place] [address] Phone [phone] Care Team Providers Care Forming Tube Selector Name Role Phone Tawanna Limon DO Primary Care Provider [phone] Reason for Visit * Reason Comments Follow Up Hoarseness and loss of voice * Evaluate & Treat - Unlimited Visits (Within 10 days (routine)) - Authorized Specialty Diagnoses / Procedures Referred By Brandon castano Referred To Contact Otolaryngology Diagnoses Hoarseness Tawanna Limon DO [address] [place] [address] Referral ID Status Reason Start Date Expiration Date Visits Requested Visits Authorized [id number] Authorized Specialty Services Required [phone] Encounter Details Date Type Department Care Team (Late st Contact Info) Description 03/04/2024 10:30 AM EDT Office Visit Otolaryngology [facility] [address] [facility] [place] [address] Bettye Schwartz MD 132 [facility] [place] [address] Dysphonia* Allergies Active Allergy Reactions Criticality Noted Date [...] as of this encounter (statuses as of 03/04/2024) Medications Medication Sig Dispensed Refills Start Date [...] brain health. 0 Active Nebulizers (NEBULIZER COMPRESSOR) MIS Inhale via [...] 0.1 % Nasal Solution (Astelin) Administer 1 [place] into nostril in the morning and 1 [place] before bedtime. 30 mL 12 03/04/2024 Active documented as of this encounter (statuses as of 03/04/2024) Active Problems Problem Noted Date Diagnosed Date [...] as of this encounter (statuses as of 03/04/2024) Resolved Problems Problem Noted Date Diagnosed Date [...] as of this encounter (statuses as of 03/04/2024) Immunizations Name Administration Dates Next Due COVID-19 mRNA, LNP-s, No Pre serve, 2-Dose Series ([employer]) 09/07/2021,02/26/2021,02/05/2021 COVID-19, LNP-s, No Preserve , James-sucrose, Ages 12+ ([employer]) 05/26/2022 COVID-19, MRNA-LNP, 23-24, P F, 30 MCG/0.3 mL, 12 YRS AND ABOVE, IM (Float: [facility]) 11/23/2023 Covid-19, Mrna, Lnp-s, Pf, B ivalent, 30 Mcg, IM, 12 yrs and above ([employer]) 04/17/2023 Pneumococcal Conjugate Vacc, 13 Valent (Prevnar) [...] Past Smokeless Tobacco: Never Tobacco Cessation:Counseling Given: Not Answered Alcohol Use Standard Drinks/Week Comments No 0 [...] Sign Reading Time Taken Comments Blood Pressure - - Pulse - - Temperature 36.4 C (97.5 F) 03/04/2024 9:48 AM ED T Respiratory Rate - - Oxygen Saturation - - Inhaled Oxygen Concentration - - Weight 130.8 kg (288 lb 4.8 oz) 03/04/2024 9:48 AM EDT Height 167.6 cm (5' 6") 03/04/2024 9:48 AM EDT Body Mass Index 46.53 03/04/2024 9:48 AM EDT documented in this encounter Progress Notes * Bettye Schwartz MD - 03/04/2024 10:54 AM EDT 03/04/2024 HISTORY OF PRESENT ILLNESS This 68 year old year old female is seen today for the initial complaint of throat issues. The provider requesting consultation is Tawanna Limon DO. Nursing Notes: Luther Renee CMA 03/04/24 0949 Signed Chief Complaint Patient presents with Follow Up Hoarseness and loss of voice Alena Manjarrez is a 68 year old female who presents today with hoariness and a loss of her voice that comes and goes. She states that her symptoms have been ongoing for years. She has some neck pain and neck swelling along jaw locking and TMJ pain. She has rheumatoid arthritis. 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 History of migraine Z86.69 DYSLIPIDEMIA, GOAL LDL BELOW 100 E78.5 COMFORT on CPAP G47.33 Encounter for long-term (current) use of medications Z79.899 Depression with anxiety F41.8 Rheumatoid arthritis involving multiple sites with positive rheumatoid factor ([facility]) M05.79 HTN, goal below 140/90 I10 Diffuse dermatitis L30.9 Primary open-angle glaucoma, bilateral, mild stage H40.1131 Other atherosclerosis of three affiliated arteries of extremities, bilateral legs ([facility]) I70.293 Gastroesophageal reflux disease without esophagitis K21.9 Moderate persistent asthma without complication J45.40 Intellectual disability F79 Major depressive disorder, recurrent, severe with psychotic symptoms ([facility]) F33.3 Early onset Alzheimer's dementia without behavioral disturbance ([facility]) G30.0, F02.80 Hypertensive kidney disease with stage 3b chronic kidney disease ([facility]) I12.9, N18.32 Prediabetes R73.03 Body mass index (BMI) of 40.0 to 44.9 in adult ([facility]) Z68.41 Past Medical History: Diagnosis Date Acute pharyngitis 08/21/07 Dr. Eller Anemia Asthma, moderate persistent 07/10/2008 PER PROVIDER PROTOCOL. Dyslipidemia, goal LDL below 100 10/15/2009 Per Lipid Taxonomy. Hypothyroidism Infective otitis externa 08/21/07 Dr. Eller Obesity, BMI not known COMFORT on CPAP 01/04/2011 [facility] 01/11/11 to 03/21/11 compliant with CPAP 11/26/12 set pressure to 14 cm of water pressure Otalgia 10/16/07 Dr. 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 Eller PTSD [...] performed by Alanis Zarate DO at ENDOSCOPY [facility] EGD, FLEXIBLE, DIAGNOSTIC 07/02/2013 UPPER GI ENDOSCOPY DIAGNOSTIC performed by Alanis Zarate DO at ENDOSCOPY [facility] EGD, FLEXIBLE, DIAGNOSTIC 10/09/2019 chronic inactive gastric inflammation / [facility] FRACTURE NOS left ankle LAPAROSCOPY; CHOLECYSTECTOMY 02/07/2013 02/07/2013 laparoscopic cholecystectomy [facility] Dr. Maddy Ospina LIGATE/CUT OVIDUCT(S) Medications Current Outpatient Medications Medication Sig Dispense Refill [...] morning, for brain health. Nebulizers (NEBULIZER COMPRESSOR) [facility] Inhale via nebulizer. Use as directed. 1 [...] 0.1 % Nasal Solution (Astelin) Administer 1 [place] into nostril in the morning and 1 [place] before bedtime. 30 mL 12 Benzonatate 100 MG Oral Capsule Take 1 Capsule by mouth 3 times a day as needed for Cough. (Patientnot taking: Reported on 02/26/2024) 30 Capsule 0 No current facility-administered medications for this visit. Allergies Review of patient's allergies indicates: Allergen Reactions Adhesive Tape Edema face/lips/tongue States she is allergic to bandaid and it causes throat swelling. Humira [Adalimumab] Itching Pt reports that she took Humira approx 1 year ago and had to stop it due to itchiness. Ibuprofen Nausea/vomiting Latex Nsaids stomache upset Sulfa Antibiotics Eyes like on fire Family History Family History Problem Relation Age of Onset Osteoarthritis Mother Alzheimer's disease Mother Dementia Mother Lung Disorder Father "Black Lung" Gastro-intestinal disorder Sister No Known Problems Daughter Lung cancer Brother Mental retardation Son mild Schizophrenia Son Brain cancer Uncle (Unspecified) Kidney cancer Uncle (Unspecified) Diabetes Niece 11 Type I Arthritis Aunt (Maternal) Breast Cancer No significant family history Social History Social History Tobacco Use Smoking status: Never Passive exposure: Past Smokeless tobacco: Never Substance Use Topics Alcohol use: No Vaping/E-Cigarette Use Vaping/E-Cigarette Use Never User Vaping/E-Cigarette Substances Vaping/E-Cigarette Devices Occupational History Work: Review of Systems Negative for constitutional, eyes, cardiac, pulmonary, hepatic, renal, digestive, hematologic, epileptic, syncopal, musculo-skeletal, mental health, integumentary, hypertensive, lipid, arthritic, diabetic, thyroid or neurologic disorders (except as listed in the PMH and Problem List). Physical Examination: Temp 36.4 C (97.5 F) (Tympanic) | Ht 1.676 m (5' 6") | Wt 130.8 kg (288 lb 4.8 oz) | LMP 09/16/2003 | BMI 46.53 kg/m | BSA 2.47 m PHYSICAL EXAM General: This is a healthy appearing female who appears her stated age. The patient is alert and appropriately verbally conversant without hoarseness. Face: The face was inspected and no cutaneous masses or lesions were visualized. There was no erythema or edema noted. Facial movement was symmetric without weakness. No skin lesions were detected. The parotid and submandibular glands were normal to palpation. Eyes: Extra-ocular muscle function was intact. No nystagmus was observed. Pupils were equal. Cranial Nerves: Grossly intact Nose: Examination of the nose prior to decongestion revealed no masses, polyps, mucopus, or other lesion. The nasal septum was non-obstructing. The turbinates were without abnormality. No septal perforation. Oral Cavity: Examination of the oral cavity revealed no mass lesions nor infection. The palate was noted to be intact without evidence of clefting. The tongue exhibited normal mobility. Mucosa was moist without lesion. The lips were free of lesion. Gums were free of inflammation. Dentition: Unremarkable Oropharynx: The oral pharynx was free of mass lesion or mucosal abnormality. The palate was noted to be without lesion. The uvula was normal appearing. The tonsils were unremarkable. Hypopharynx: flexible fiberoptic examination of the hypopharynx revealed normal mucosa. The tongue base was normal. There was no abnormal lymphoid tissue. There were no mass lesions. Larynx: flexible fiberoptic examination of the larynx revealed no mass lesions. Vocal cord mobilitywas normal without paralysis or paresis. No vocal cord masses were visualized. The pyriform sinuseswere free of mass lesion and significant pooling. The mucosa was normal appearing. Ears: Examination of the ears revealed that the auricles were normally formed with no lesions. The external auditory canals were cleaned of any obstructing cerumen. The tympanic membranes were intact. There are no significant retraction pockets. There is no inflammation visualized. No effusions areseen. Neck: Visualization and palpation of the neck revealed no mass lesions, no thyromegaly or thyroid masses. No skin lesions or inflammatory processes were detected. The cervical musculature was normal to palpation. Lymphatics (cervical): There were no palpable lymph nodes in the posterior triangle, submandibular triangle, jugulodigastric region, or central neck. Lungs: Breathing quietly. No use of accessory muscles. Heart: Regular rate. No JVD. Procedure: Due to patient's inability to cooperate with mirror exam or concern for structures otherwise not evaluated, fiberoptic examination of the larynx was performed. The nose was first topically decongested with topical oxymetazoline 0.05% spray and topically anesthetized with topical Lidocaine 4% spray. Nasopharynx, oropharynx, larynx and hypopharynx were carefully examined. Vocal fold motion was evaluated. The patient tolerated the procedure well. Patient should refrain from eating or drinking for 30-45 minutes due to anesthesia of the pharynx and possible interference with swallowing. Specific findings: Pale nasal mucosa bilaterally with drainage. Vocal cords mobile but drainage seen Plan: Dysphonia (Primary) Other orders - Azelastine HCl 0.1 % Nasal Solution (Astelin); Administer 1 [place] into nostril in the morning and1 [place] before bedtime. Will schedule with Víctor and myself for videostroboscopy Recommended nasal saline rinses twice daily. Use distilled water. Perform saline rinse in the shower leaning over so your nose is below your mouth. With gentle pressure use half of this saline rinse in each nostril. Following the saline rinse, instructed the patient to use a nasal steroid spray taking care to NOT spray towards the septum, but to spray out towards the ipsilateral ear. Emphasized that this regimen needs to be repeated twice a day, everyday for 6 weeks to reach maximum effect. This is not a PRN medication. No cerumen built up today Extensive time was spent discussing the above diagnosis, management and treatment. I reviewed all outside documentation, labs, and imaging. Bettye Schwartz MD [facility] Otolaryngology - Head and Neck Surgery [place], [place] 03/04/2024 10:54 AM documented in this encounter Nursing Notes * Luther Renee CMA - 03/04/2024 9:46 AM EDT Chief Complaint Patient presents with Follow Up Hoarseness and loss of voice Alena Manjarrez is a 68 year old female who presents today with hoariness and a loss of her voice that comes and goes. She states that her symptoms have been ongoing for years. She has some neck pain and neck swelling along jaw locking and TMJ pain. She has rheumatoid arthritis. documented in this encounter Plan of Treatment Upcoming Encounters Date Type Department Care Team (Late st Contact Info) Description 03/14/2024 10:30 AM EDT Office Visit Sleep Disorders Ctr [facility] 132 [facility] [place] [phone] Akosua Hager CRNP 132 [facility] [place] [address] 04/19/2024 10:00 AM EDT Nurse Only Ancillary [address] [facility] [address] [place] [address] College, Nurse Annual Wellness Visit [address] [address] 05/24/2024 1:00 PM EDT Office Visit Family Practice [facility] [address] [place] [id number] Tawanna Limon, DO [address] [place] [address] 05/30/2024 11:00 AM EDT Office Visit Rheumatology [address] [place] [address] Leland Novoa MD [address] [place] [address], [place] [address] 06/04/2024 1:00 PM EDT Rehab Services Voice Lab [facility] [address] [facility] [place] [address] Víctor Lees, [facility] 132 [facility] [place] [address] 06/04/2024 1:00 PM EDT Office Visit Otolaryngology [facility] [address] [address] Bettye Schwartz MD 132 [facility] [place] [address] Scheduled Procedures Name Priority Associated Diagnoses Date/Ti [...] Additional history exists CKD HGB USE SMARTSET 10093 01/14/202501/14, 01/15/2024, 08/15/2023, Additional history exists CKD PHOS USE SMARTSET 78979 02/25/202502/05, 02/10/2023, 02/15/2022, Additional history exists TSH [...] as of this encounter Visit Diagnoses Diagnosis Dysphonia- Primary documented in this encounter Advance Directives Healthcare Agents on File Name Relationship Healthcare Agent Relationship Communication Marcos Breaux Other - (no specific identity) Health Care Costume Maker (appointed verbally by patient or by statute hierarchy) Bob Manjarrez Adult Child Health Care Costume Maker (appointed verbally by patient or by statute hierarchy) Care Teams Forming Tube Selector Relationship Specialty Start Date End Date Tawanna Limon DO [address] [place] [id number] PCP - General Family Medicine 06/29/23 documented as of this encounter
--- OUTSIDE RECORDS SUMMARY | 2024-05-09 23:04 | External Medical Summary | Summary of Care ---
Author Name Unknown Organization [facility] Address [address] [place] [address] Phone [phone] Care Team Providers Care Superintendent Plant Name Role Phone YumikoTawanna barrera Taylor CHUN Primary Care Provider + [phone] Reason for Visit * Reason Comments Outpatient Testing Encounter Details Date Type Department Care Team (Late st Contact Info) Description 01/15/2024 10:20 AM EDT Laboratory Laboratory, [place] [address] [place] [address] [place], [facility] [address] [place], [place] [phone] Encounter for long-term (current) use of medications [...] as of this encounter (statuses as of 01/18/2024) Medications Medication Sig Dispensed Refills Start Date [...] mgOral HS,(No instructions reported), Reported on 05/12/2023 Pravastatin Sodium 20 MG Oral Tablet (Pravachol)Indicat ions:Dyslipidemia, goal LDL below 100 Take 1 Tab by mouth daily. 90 Tab 1 02/24/2021 Active Albuterol Sulfate HFA 108 (90 Base) [...] the morning. 30 Tablet 2 01/12/2024 Active documented as of this encounter (statuses as of 01/18/2024) Active Problems Problem Noted Date Diagnosed Date Prediabetes 12/18/2023 Overview: Per Prediabetes protocol Morbid obesity with BMI of 45.0-49.9, adult 12/0 04/2021 Major depressive disorder, r ecurrent, severe [...] as of this encounter (statuses as of 01/18/2024) Resolved Problems Problem Noted Date Diagnosed Date [...] as of this encounter (statuses as of 01/18/2024) Immunizations Name Administration Dates Next Due COVID-19 mRNA, LNP-s, No Pre serve, 2-Dose Series ([facility]) 09/07/2021,02/26/2021,02/05/2021 COVID-19, LNP-s, No Preserve , James-sucrose, Ages 12+ (Pfizer) 05/26/2022 COVID-19, MRNA-LNP, 23-24, P F, 30 MCG/0.3 mL, 12 YRS AND ABOVE, IM (Genomera-Comirnaty) 11/23/2023 Covid-19, Mrna, Lnp-s, Pf, B ivalent, [...] EDT Office Visit Family Practice [address], [address] [place] [address] Tawanna Limon, DO [address] [place] [address] 03/04/2024 10:30 AM EDT Office [facility] [address] Bettye Schwartz MD 132 [place] [address] 03/14/2024 10:30 AM EDT Office Visit Sleep Disorders Ctr [facility] 132 [place] [address] Akosua Hager CRNP 132 [place] [address] 04/19/2024 10:00 AM EDT Nurse Only Ancillary 65 [facility] 293 [place] [address] College, Nurse Annual Wellness Visit [address] [address] 05/30/2024 11:00 AM EDT Office Visit Rheumatology [place] [id number] [facility] [place] [address] Leland Novoa MD [facility]0 [place] [address] Scheduled Procedures Name Priority Associated Diagnoses Date/Ti me COLONOSCOPY FLEXIBLE PROXIMA L DIAGNOSTIC Recall Encounter for screening colonoscopy Health Maintenance Due Date Last Done Comments Cologuard 2000 Sigmoidoscopy 2000 Fecal Occult Blood Test 04/03/2015 04/03/2014, 12/26 CKD PHOS USE SMARTSET 36953 02/11/2024 04/0 05/2023, 02/15/2022, 04/13/2020, Additional history exists TSH 02/11/2024 02/10/2023, 02/04, 04/26/2021, Additional history exists Mammogram 05/24/2024 05/24/2023, 05/06, 04/07/2022, Additional history exists GFR 07/17/2024 01/15/2024, 08/06, 03/08/2023, Additional history exists Albumin/Creatinine Ratio 08/15/2024 023, 07/14/2022, 04/24/2019, Additional history exists Depression Screening 11/23/2024 11/23/2023 HbA1c 11/23/2024 11/23/2023, 09/06, 02/23/2015, Additional history exists CKD HGB USE SMARTSET 72275 01/14/202501/14, 01/15/2024, 08/15/2023, Additional history exists Colonoscopy [...] Procedure Name Priority Date/Time Associated Diagnosis Comments DIFFERENTIAL, AUTOMATED Routine 01/15/2024 10:01 AM EDT Encounter for long-term (current) use of medications LIPID PANEL WITH DIRECT LDL IF TG IS HIGH Routine 01/15/2024 10:01 AM EDT Encounter for long-term (current) use of medications HEPATIC FUNCTION PANEL Routine 01/15/2024 10:01 AM EDT Encounter for long-term (current) use of medications CBC Routine 01/15/2024 10:01 AM EDT Encounter for long-term (current) use of medications BUN Routine 01/15/2024 10:01 AM EDT Encounter for long-term (current) use of medications CREATININE Routine 01/15/2024 10:01 AM EDT Encounter for long-term (current) use of medications CBC Routine 01/15/2024 10:01 AM EDT Encounter for long-term (current) use of medications documented in this encounter Results * DIFFERENTIAL, AUTOMATED (01/15/2024 10:01 AM EDT) WBC 6.59 4.00 - 10.80 K/uL 01/15/2024 4:22 PM EDT [facility] Neutrophils % 61.6 40.0 - 75.0 % 01/15/2024 4:22 PM EDT [facility] Lymphocytes % 25.0 18.0 - 42.0 % 01/15/2024 4:22 PM EDT [facility] Monocytes % 7.9 1.0 - 11.0 % 01/15/2024 4:22 PM EDT [facility] Eosinophils % 3.8 0.0 - 6.0 % 01/15/2024 4:22 PM EDT [facility] Basophils % 0.6 0.0 - 2.0 % 01/15/2024 4:22 PM EDT [facility] Immature Granulocytes % 1.1 0.0 - 2.0 % 01/15/2024 4:22 PM EDT [facility] Absolute Neutrophils 4.06 1.80 - 7.70 K/uL 01/15/2024 4:22 PM EDT [facility] Absolute Lymphocytes 1.65 1.00 - 4.80 K/ul 01/15/2024 4:22 PM EDT [facility] Absolute Monocytes 0.52 0.00 - 1.10 K/uL 01/15/2024 4:22 PM EDT [facility] Absolute Eosinophils 0.25 0.00 - 0.70 K/uL 01/15/2024 4:22 PM EDT [facility] Absolute Basophils 0.04 0.00 - 0.20 K/uL 01/15/2024 4:22 PM EDT [facility] Absolute Immature Granulocytes 0.07 0.00 - 0.20 K/uL 01/15/2024 4:22 PM EDT [facility] Blood Venous blood specimen / Unknown Venipuncture / Unknown 01/15/2024 10:01 AM EDT 01/15/2024 10:01 AM EDT [facility] LAB BLOOD ORDERABLES [facility] [address] [place] [address] * (ABNORMAL) CBC (01/15/2024 10:01 AM EDT) WBC 6.59 4.00 - 10.80 K/uL 01/15/2024 4:22 PM EDT [facility] RBC 3.06 3.85 - 5.15 M/uL 01/15/2024 4:22 PM EDT [facility] HGB 10.4(L) 12.0 - 15.3 g/dL 01/15/2024 4:22 PM EDT [facility] HCT 32.7(L) 36.0 - 45.2 % 01/15/2024 4:22 PM EDT [facility] MCV 106.9 81.5 - 97.5 fL 01/15/2024 4:22 PM EDT [facility] MCH 34.0 27.0 - 34.0 pg 01/15/2024 4:22 PM EDT [facility] MCHC 31.8 32.0 - 36.0 g/dL 01/15/2024 4:22 PM EDT LAB[facility] RDW 12.8 11.5 - 15.5 % 01/15/2024 4:22 PM EDT LAB[facility] PLT 246 140 - 400 K/uL 01/15/2024 4:22 PM EDT LAB[facility] MPV 9.9 6.6 - 11.1 fL 01/15/2024 4:22 PM EDT LAB[facility] nRBCs 0 <=0 /100 WBCs 01/15/2024 4:22 PM EDT LAB[facility] Blood Venous blood specimen / Unknown Venipuncture / Unknown 01/15/2024 10:01 AM EDT 01/15/2024 10:01 AM EDT [facility] LAB BLOOD ORDERABLES [facility] [address] [place] [address] * (ABNORMAL) LIPID PANEL WITH DIRECT LDL IF TG IS HIGH (01/15/2024 10:01 AM EDT) Triglycerides 83 <=174 mg/dL 01/15/2024 3:15 PM EDT LAB[facility]ORY [facility] Comment: Triglyceride Reference Ranges (mg/dL): <150 Acceptable 150-174 Borderline high 175-499 High >=500 Very high Cholesterol 255(H) <200 mg/dL 01/15/2024 3:15 PM EDT LAB[facility]ATORY [facility] Comment: Total Cholesterol Reference Ranges (mg/dL): <200 Desirable 200-239 Borderline high >=240 High HDL Cholesterol 64 >49 mg/dL 3:15 PM EDT LAB[facility]ATORY [facility] Comment: HDL Cholesterol Reference Ranges (mg/dL): >=60 High (Desirable) <50 Low (Undesirable) For Females <40 Low (Undesirable) For Males Non-HDL Cholesterol 191(H) <=159 mg/dL 01/15/2024 3:15 PM EDT LAB[facility]ATORY [facility] Comment: Non-HDL Cholesterol Reference Range (mg/dL): <100 Target level for high risk ASCVD patient <130 Optimal for general population 130-159 Near optimal for general population 160-189 Borderline High 190-219 High >=220 Very High LDL Cholesterol 174(H) <=129 mg/dL 01/15/2024 3:15 PM EDT LAB[facility]ATORY [facility] Comment: LDL Cholesterol Reference Ranges (mg/dL): <70 Target level for high risk ASCVD patient <100 Optimal for general population 100-129 Near optimal for general population 130-159 Borderline high 160-189 High >=190 Very high Blood Venous blood specimen / Unknown Venipuncture / Unknown 01/15/2024 10:01 AM EDT 01/15/2024 10:01 AM EDT [facility] LAB BLOOD ORDERABLES LAB[facility]AT[facility] [address] [place] [address] * HEPATIC FUNCTION PANEL (01/15/2024 10:01 AM EDT) Albumin 4.2 3.8 - 5.0 g/dL 01/15/2024 3:15 PM EDT LAB[facility]ATORY [facility] AST 21 10 - 35 U/L 01/15/2024 3:15 PM EDT LABORATORY C Alkaline Phosphatase 67 35 - 130 U/L 01/15/2024 3:15 PM EDT LAB[facility]ATORY [facility] ALT 20 10 - 35 U/L 01/15/2024 3:15 PM EDT LAB[facility]ATORY [facility] Bilirubin, Total 0.6 <=1.2 mg/dL 01/15/2024 3:15 PM EDT LABORATORY C Bilirubin, Direct <0.2 0.0 - 0.3 mg/dL 01/15/2024 3:15 PM EDT LABORATORY C Protein 6.3 6.0 - 8.3 g/dL 01/15/2024 3:15 PM EDT LAB[facility]ORY [facility] Blood Venous blood specimen / Unknown Venipuncture / Unknown 01/15/2024 10:01 AM EDT 01/15/2024 10:01 AM EDT [facility] LAB BLOOD ORDERABLES LAB[facility] [address] [place], [place] [id number] * (ABNORMAL) CREATININE (01/15/2024 10:01 AM EDT) Creatinine 1.2(H) 0.5 - 1.0 mg/dL 01/15/2024 3:15 PM EDT LABORATORY [facility] Estimated Glomerular Filtration Rate 50(L) >=60 mL/min 01/15/2024 3:15 PM EDT LABORATORY C Comment:eGFR is calculated b ased on the CKD-EPI 2020 equation Blood Venous blood specimen / Unknown Venipuncture / Unknown 01/15/2024 10:01 AM EDT 01/15/2024 10:01 AM EDT [facility] LAB[facility] [address] [place] [address] * BUN (01/15/2024 10:01 AM EDT) BUN 15 6 - 20 mg/dL 01/15/2024 3:15 PM EDT LAB[facility]ATORY [facility] Blood Venous blood specimen / Unknown Venipuncture / Unknown 01/15/2024 10:01 AM EDT 01/15/2024 10:01 AM EDT [facility] LAB BLOOD ORDERABLES LAB[facility]ATORY [facility] [address] [place] [address] documented in this encounter Visit Diagnoses Diagnosis Encounter for long-term (current) use of medications Encounter for long-term (current) use of other medications documented in this encounter Advance Directives Healthcare Agents on File Name Relationship Healthcare Agent Relationship Communication Marcos Breaux Other - (no specific identity) Health Care Regulatory Affairs Coordinator (appointed verbally by patient or by statute hierarchy) Bob Manjarrez Adult Child Health Care Regulatory Affairs Coordinator (appointed verbally by patient or by statute hierarchy) Care Teams Superintendent Plant Relationship Specialty Start Date End Date Tawanna Limon DO [address] [place] [place] [address] PCP - General Family Medicine 06/29/23 documented as of this encounter
--- OUTSIDE RECORDS SUMMARY | 2024-05-09 23:04 | External Medical Summary ---
Author Name Unknown Address Unknown Organization K01:LABORATORY [facility] - [address] [facility] [address] Laboratory Report Ordering Provider Test Date Status FATUMA MORRIS 01/31/2024 16:19:53 Final Observation Date Value Abnormality Reference (Units ) Status SARS Coronavirus 2 01/31/2024 16:19:53 Negative N egative Final No SARS-CoV2 Coronavirus RNA detected by PCR (amplified probe).
This automated test was developed and its performance characteristics determined by [facility]. It has not been cleared or approved [...] (RT-PCR) test, or a Centers for Disease Control-acceptable equivalent. The test is performed in a high complexity Clinical Laboratory Improvement Amendments-(CLIA) certified laboratory. The test is acceptable for SARS-CoV-2 diagnosis, surveillance, and travel within the [place] and to most countries. Please check with local testing authorities about requirements before travel.

The validation of bronchial specimens, tracheal aspirates, and sputum for this assay was developed and performance characteristics determined by [facility]. The validation of alternate specimen types has not been cleared or approved by the U.S. Food and Drug Administration (FDA). It has been determined that such clearance or approval is not necessary. Influenza virus A RNA [Prese nce] in Specimen by BOYD with probe detection 01/31/2024 16:19:53 Positive Abnormal Negative Final Influenza A RNA detected by PCR (amplified probe). Test results reported to [facility]. Influenza virus B RNA [Prese nce] in Specimen by BOYD with probe detection 01/31/2024 16:19:53 Negative Negative Final No Influenza B RNA detected by PCR (amplified probe) Respiratory syncytial virus RNA [Identifier] in Specimen by BOYD with probe detection 01/31/2024 16:19:53 Negative Negative Final No Respiratory Syncytial Vir us RNA detected by PCR (amplified probe) Performing Location LABORATORY [facility] - [facility] N Sadia Navas. [facility] [address]
--- OUTSIDE RECORDS SUMMARY | 2024-05-09 23:04 | External Medical Summary | Summary of Care ---
Author Name Unknown Organization [facility] Address [address] [place] [address] Phone [phone] Care Team Providers Care Media Manager Name Role Phone Tawanna Limon DO Primary Care Provider [phone] Reason for Visit * Reason Onset Date Comments Test Results 02/01/202401/31 Encounter Details Date Type Department Care Team (Late st Contact Info) Description 02/01/2024 Telephone Family Practice [address], [place] [address] [place] [phone] Tawanna Limon DO [address] [place], [place] [phone] Test Results (01/31) Allergies Active Allergy Reactions Criticality Noted Date [...] Overview: Dr. 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 Beresny Acquired hypothyroidism 07/05/2006 PTSD (post-traumatic stress disorder) [...] mRNA, LNP-s, No Pre serve, 2-Dose Series ([employer]) 09/07/2021,02/26/2021,02/05/2021 COVID-19, LNP-s, No Preserve , James-sucrose, Ages 12+ (Pfizer) 05/26/2022 COVID-19, MRNA-LNP, 23-24, P F, 30 MCG/0.3 mL, 12 YRS AND ABOVE, IM ([facility]) 11/23/2023 Covid-19, Mrna, Lnp-s, Pf, B ivalent, [...] Telephone Encounter - Ritika Oliva LPN - 02/01/2024 10:40 AM EDT Call placed to patient and relayed information from Dr. Jackson. Pt acknowledged understanding. Encouraged her to rest and drink fluids. Pt reports she is "feeling much better today." No questions or concerns at this time. * Telephone Encounter - Ritika Oliva LPN - 02/01/2024 10:39 AM EDT ----- Message from Diego Jackson DO sent at 02/01/2024 7:55 AM EDT ----- Patient has Influenza A She has symptoms for 4 days Outside the time window for Tamiflu documented in this encounter Plan of Treatment Upcoming Encounters Date Type Department Care Team (Late st Contact Info) Description 02/26/2024 1:40 PM EDT Office Visit Family Practice [address] [place] [address] [address] [place] [address] Tawanna Limon DO [address] [place] [address] 03/04/2024 10:30 AM EDT Office Visit Otolaryngology [facility] 132 [facility] [place] [address] Bettye Schwartz MD [address] [place] [address] 03/14/2024 10:30 AM EDT Office Visit Sleep Disorders Ctr [facility] 132 [facility] [place] [phone] Akosua Hager CRNP 132 [place] [address] 04/19/2024 10:00 AM EDT Nurse Only Ancillary 65 [facility] 293 [place] [address] College, Nurse Annual Wellness Visit [address], [place] [address] 05/30/2024 11:00 AM EDT Office Visit Rheumatology [facility] [address] [place] [address] Leland Novoa MD [address] [place] [address] Scheduled Procedures Name Priority Associated Diagnoses Date/Ti me COLONOSCOPY FLEXIBLE PROXIMA L DIAGNOSTIC Recall Encounter for screening colonoscopy Health Maintenance Due Date Last Done Comments Cologuard 2000 Sigmoidoscopy 2000 Fecal Occult Blood Test 04/03/2015 04/03/2014, 12/26 CKD PHOS USE SMARTSET 21915 02/11/2024 04/0 05/2023, 02/15/2022, 04/13/2020, Additional history exists TSH 02/11/2024 02/10/2023, 02/04, 04/26/2021, Additional history exists Mammogram 05/24/2024 05/24/2023, 05/06, 04/07/2022, Additional history exists GFR 07/17/2024 01/15/2024, 08/06, 03/08/2023, Additional history exists Albumin/Creatinine Ratio 08/15/2024 023, 07/14/2022, 04/24/2019, Additional history exists Depression Screening 11/23/2024 11/23/2023 HbA1c 11/23/2024 11/23/2023, 09/06, 02/23/2015, Additional history exists CKD HGB USE SMARTSET 48430 01/14/202501/14, 01/15/2024, 08/15/2023, Additional history exists Colonoscopy [...] Other - (no specific identity) Health Care Portable Sawmill Operator (appointed verbally by patient or by statute hierarchy) Bob Manjarrez Adult Child Health Care Portable Sawmill Operator (appointed verbally by patient or by statute hierarchy) Care Teams Media Manager Relationship Specialty Start Date End Date Tawanna Limon DO [address] [place] [address] PCP - General Family Medicine 06/29/23 documented as of this encounter
--- OUTSIDE RECORDS SUMMARY | 2024-05-09 23:04 | External Medical Summary | Summary of Care ---
Author Name Unknown Organization [facility] Address [address] [place] [address] Phone [phone] Care Team Providers Care Cable Tower Operator Name Role Phone Tawanna Limon DO Primary Care Provider [phone] Reason for Visit * Reason Onset Date Comments Test Results 01/31/2024 Information 01/31/202401/30 Encounter Details Date Type Department Care Team (Late st Contact Info) Description 01/31/2024 Telephone Family Practice [address], [place] [address] [place] [address] Tawanna Limon DO [address] [place] [address] Test Results; Information (01/30) Allergies Active Allergy Reactions Criticality Noted Date [...] as of this encounter (statuses as of 01/31/2024) Medications Medication Sig Dispensed Refills Start Date [...] the morning. 90 Tablet 1 01/31/2024 Active Pravastatin Sodium 20 MG Oral Tablet (Pravachol)Indica tions:Dyslipidemi a, goal LDL below 100 Take 1 Tab by mouth daily. 90 Tab 1 02/24/2021 Discontinu ed(Patient preference /discontin uation) documented as of this encounter (statuses as of 01/31/2024) Active Problems Problem Noted Date Diagnosed Date [...] as of this encounter (statuses as of 01/31/2024) Resolved Problems Problem Noted Date Diagnosed Date [...] as of this encounter (statuses as of 01/31/2024) Immunizations Name Administration Dates Next Due COVID-19 mRNA, LNP-s, No Pre serve, 2-Dose Series ([employer]) 09/07/2021,02/26/2021,02/05/2021 COVID-19, LNP-s, No Preserve , James-sucrose, Ages 12+ (Pfizer) 05/26/2022 COVID-19, MRNA-LNP, 23-24, P F, 30 MCG/0.3 mL, 12 YRS AND ABOVE, IM ([facility]) 11/23/2023 Covid-19, Mrna, Lnp-s, Pf, B ivalent, [...] Encounter - Tawanna Limon DO - 01/31/2024 9:14 AM EDT Rx sent for Crestor. * Telephone Encounter - Ritika Oliva LPN - 01/31/2024 9:00 AM EDT Spoke to patient regarding cholesterol medication. Pt states she is not taking medication for cholesterol. Noted Pravastatin listed on Med list - last ordered 02/2021. Pt states she is not taking this. Asked pt if there was a reason she is not taking and she stated "I guess it didn't get refilled". Pt states she is agreeable to statin. Pharmacy confirmed - [facility] in [place]. * Telephone Encounter - Tawanna Limon DO - 01/31/2024 7:59 AM EDT Please let pt know: I received a message from pharmacy team regarding her cholesterol panel. It appears she has not been taking her statin. She really should be on a cholesterol controlling medication. Is she agreeable to this? Was there a reason she stopped it before? documented in this encounter Plan of Treatment Upcoming Encounters Date Type Department Care Team (Late st Contact Info) Description 01/31/2024 3:40 PM EDT Office Visit Family Practice 65 [facility] 293 [place] [phone] Diego [facility] DO [facility] [address] 02/26/2024 1:40 PM EDT Office Visit Family Practice 65 [facility] 293 [facility] [address] Tawanna Limon, DO [address] [place] [address] 03/04/2024 10:30 AM EDT Office Visit Otolaryngology [facility] 132 [facility] [place] [address] Bettye Schwartz MD 132 [facility] [place] [address] 03/14/2024 10:30 AM EDT Office Visit Sleep Disorders Ctr [facility] 132 [facility] [place] [phone] Akosua Hager CRNP 132 [place] [address] 04/19/2024 10:00 AM EDT Nurse Only Ancillary 65 [facility] 293 [place] [address] College, Nurse Annual Wellness Visit [address] [address] 05/30/2024 11:00 AM EDT Office Visit Rheumatology [address] [address] Leland Novoa MD [facility] [place] [address] Scheduled Procedures Name Priority Associated Diagnoses Date/Ti me COLONOSCOPY FLEXIBLE PROXIMA L DIAGNOSTIC Recall Encounter for screening colonoscopy Health Maintenance Due Date Last Done Comments Cologuard 2000 Sigmoidoscopy 2000 Fecal Occult Blood Test 04/03/2015 04/03/2014, 12/26 CKD PHOS USE SMARTSET 59988 02/11/2024 04/0 05/2023, 02/15/2022, 04/13/2020, Additional history exists TSH 02/11/2024 02/10/2023, 02/04, 04/26/2021, Additional history exists Mammogram 05/24/2024 05/24/2023, 05/06, 04/07/2022, Additional history exists GFR 07/17/2024 01/15/2024, 08/06, 03/08/2023, Additional history exists Albumin/Creatinine Ratio 08/15/2024 023, 07/14/2022, 04/24/2019, Additional history exists Depression Screening 11/23/2024 11/23/2023 HbA1c 11/23/2024 11/23/2023, 09/06, 02/23/2015, Additional history exists CKD HGB USE SMARTSET 57366 01/14/202501/14, 01/15/2024, 08/15/2023, Additional history exists Colonoscopy [...] Other - (no specific identity) Health Care Kayaking Instructor (appointed verbally by patient or by statute hierarchy) Bob Mitchellaver Adult Child Health Care Kayaking Instructor (appointed verbally by patient or by statute hierarchy) Care Teams Cable Tower Operator Relationship Specialty Start Date End Date Tawanna Limon DO [address] [place] [address] PCP - General Family Medicine 06/29/23 documented as of this encounter
--- OUTSIDE RECORDS SUMMARY | 2024-05-09 23:04 | External Medical Summary | Summary of Care ---
Author Name Unknown Organization [facility] Address [address] [place] [address] Phone [phone] Care Team Providers Care V Belt Curer Name Role Phone Tawanna Limon DO Primary Care Provider [phone] Reason for Visit * Reason Onset Date Comments Appointment 01/31/202401/30 Encounter Details Date Type Department Care Team (Late st Contact Info) Description 01/31/2024 Telephone Family Practice [address], [place] [address] [place] [phone] Tawanna Limon DO 293 [place], [place] [phone] Appointment (01/30) Allergies Active Allergy Reactions Criticality Noted [...] mRNA, LNP-s, No Pre serve, 2-Dose Series ([employer]) 09/07/2021,02/26/2021,02/05/2021 COVID-19, LNP-s, No Preserve , James-sucrose, Ages 12+ (Pfizer) 05/26/2022 COVID-19, MRNA-LNP, 23-24, P F, 30 MCG/0.3 mL, 12 YRS AND ABOVE, IM ([facility]) 11/23/2023 Covid-19, Mrna, Lnp-s, Pf, [...] Encounter - Ritika Oliva LPN - 02/01/2024 10:38 AM EDT Pt had OV yesterday. * Telephone Encounter - Ritika Oliva LPN - 01/31/2024 8:52 AM EDT Patient reports cold symptoms worsen in the evening - headache, cough, runny nose. Symptoms startedSunday. Pt would like to be seen today. Agreeable to 3:[address] Jackson. desk director - please place pt on Dr Jackson schedule today at 3:40. * Telephone Encounter - Domonique Barrow OSA - 01/31/2024 8:02 AM EDT Has had cough and cold since Monday and can't seem to shake it Wants seen documented in this encounter Plan of Treatment Upcoming Encounters Date Type Department Care Team (Late st Contact Info) Description 02/26/2024 1:40 PM EDT Office Visit Family Practice 65 [facility] 293 [place] [address] Tawanna Limon DO 293 [facility], [place] [address] 03/04/2024 10:30 AM EDT Office Visit Otolaryngology [facility] 132 [facility] [place] [address] Bettye Schwartz MD [address] [place] [address] 03/14/2024 10:30 AM EDT Office Visit Sleep Disorders Ctr [facility] [address] [place] [phone] Akosua Hager CRNP 132 [facility] [place] [address] 04/19/2024 10:00 AM EDT Nurse Only Ancillary 65 [facility] 293 [place] [address] College, Nurse Annual Wellness Visit [address] [place] [address] 05/30/2024 11:00 AM EDT Office Visit Rheumatology [address] [place] [address] Leland Novoa MD [address] [place], [place] [address] Scheduled Procedures Name Priority Associated Diagnoses Date/Ti me COLONOSCOPY FLEXIBLE PROXIMA L DIAGNOSTIC Recall Encounter for screening colonoscopy Health Maintenance Due Date Last Done Comments Cologuard 2000 Sigmoidoscopy 2000 Fecal Occult Blood Test 04/03/2015 04/03/2014, 12/26 CKD PHOS USE SMARTSET 58855 02/11/2024 04/0 05/2023, 02/15/2022, 04/13/2020, Additional history exists TSH 02/11/2024 02/10/2023, 02/04, 04/26/2021, Additional history exists Mammogram 05/24/2024 05/24/2023, 05/06, 04/07/2022, Additional history exists GFR 07/17/2024 01/15/2024, 08/06, 03/08/2023, Additional history exists Albumin/Creatinine Ratio 08/15/2024 023, 07/14/2022, 04/24/2019, Additional history exists Depression Screening 11/23/2024 11/23/2023 HbA1c 11/23/2024 11/23/2023, 09/06, 02/23/2015, Additional history exists CKD HGB USE SMARTSET 02594 01/14/202501/14, 01/15/2024, 08/15/2023, Additional history exists Colonoscopy [...] Other - (no specific identity) Health Care Poultry Sexer (appointed verbally by patient or by statute hierarchy) Bob Manjarrez Adult Child Health Care Poultry Sexer (appointed verbally by patient or by statute hierarchy) Care Teams V Belt Curer Relationship Specialty Start Date End Date Tawnana Limon DO [address] [facility] [address] PCP - General Family Medicine 06/29/23 documented as of this encounter
--- OUTSIDE RECORDS SUMMARY | 2024-05-09 23:04 | External Medical Summary | Summary of Care ---
Author Name Unknown Organization [facility] Address [address] [place] [address] Phone [phone] Care Team Providers Care Blasting Entry Specialist Name Role Phone Tawanna Limon DO Primary Care Provider [phone] Reason for Visit * Reason Onset Date Comments Test Results Lab 01/17/2024 Encounter Details Date Type Department Care Team (Late st Contact Info) Description 01/17/2024 Telephone Family Practice [address], [place] 293 [place] [phone] Tawanna Limon DO 293 [place], [place] [phone] Test Results Lab Allergies Active Allergy Reactions [...] mRNA, LNP-s, No Pre serve, 2-Dose Series ([employer]) 09/07/2021,02/26/2021,02/05/2021 COVID-19, LNP-s, No Preserve , James-sucrose, Ages 12+ (Pfizer) 05/26/2022 COVID-19, MRNA-LNP, 23-24, P F, 30 MCG/0.3 mL, 12 YRS AND ABOVE, IM ([employer]) 11/23/2023 Covid-19, Mrna, Lnp-s, Pf, B ivalent, 30 Mcg, IM, 12 yrs and above ([employer]) 04/17/2023 Diptheria/Tetanus (Adult) 05/29/1996 Pneumococcal Conjugate Vacc, [...] encounter. * Telephone Encounter - Francy Frank [facility] - 01/18/2024 3:59 PM EDT Lipid panel completed as per rheumatologic meidcation monitoring protocol for Rinvoq. LDL elevated,but pt has not responded to outreach to verify if taking her pravastatin 20mg (listed as active in chart). Confirmed with pharmacy that patient has not had filled in at least 2 years. Will forward toPCP to advise further. Francy Welch PharmD [facility] Clinical Pharmacist Rheumatology Department [phone] 01/18/2024, 4:02 PM * Telephone Encounter - Francy Frank [facility] - 01/18/2024 3:56 PM EDT Called patient's pharmacy spoke to pharmacist - patient has not filled pravastatin within the past 2 years. Will make PCP aware Francy Welch PharmD [facility] Clinical Pharmacist Rheumatology Department [phone] 01/18/2024, 3:58 PM * Telephone Encounter - Francy Frank RP - 01/18/2024 1:06 PM EDT 2nd attempt, no answer * Telephone Encounter - Francy Frank RP - 01/17/2024 9:39 AM EDT Unable to reach patient at this time. Left message on the answering machine requesting callback regarding lipid panel results. Advised patient to please call [phone]. Please transfer her back tomyself. If I'm not available, transfer to next available [facility]. -please ask patient if she is currently taking her pravastatin. No dispensing history on adherence report. -recent lipid panel results trending up. If she is taking, can consider increase in statin through PCP. -eligible for [employer] mail order Francy Welch, PharmD Clinical Pharmacist Centralized Clinical Pharmacy Services (CCPS) (formerly Telepharmacy) [phone] 01/17/2024, 9:41 AM documented in this encounter Plan of Treatment Upcoming Encounters Date Type Department Care Team (Late st Contact Info) Description 02/26/2024 1:40 PM EDT Office Visit Family Practice 65 [facility] 293 [facility] [address] Tawanna Limon DO 293 [place] [address] 03/04/2024 10:30 AM EDT Office Visit Otolaryngology [facility] 132 [facility] [place] [address] Bettye Schwartz MD 132 [facility] [place] [address] 03/14/2024 10:30 AM EDT Office Visit Sleep Disorders Ctr [facility] 132 [facility] [place] [phone] Akosua Hager CRNP 132 [facility] [place] [address] 04/19/2024 10:00 AM EDT Nurse Only Ancillary 65 [facility] 293 [facility] [address] College, Nurse Annual Wellness Visit [address] [address] 05/30/2024 11:00 AM EDT Office Visit Rheumatology [address] [place] [address] Leland Novoa MD [address] [place] [address] Scheduled Procedures Name Priority Associated Diagnoses Date/Ti me COLONOSCOPY FLEXIBLE PROXIMA L DIAGNOSTIC Recall Encounter for screening colonoscopy Health Maintenance Due Date Last Done Comments Cologuard 2000 Sigmoidoscopy 2000 Fecal Occult Blood Test 04/03/2015 04/03/2014, 12/26 CKD PHOS USE SMARTSET 74187 02/11/2024 04/0 05/2023, 02/15/2022, 04/13/2020, Additional history exists TSH 02/11/2024 02/10/2023, 02/04, 04/26/2021, Additional history exists Mammogram 05/24/2024 05/24/2023, 05/06, 04/07/2022, Additional history exists GFR 07/17/2024 01/15/2024, 08/06, 03/08/2023, Additional history exists Albumin/Creatinine Ratio 08/15/2024 023, 07/14/2022, 04/24/2019, Additional history exists Depression Screening 11/23/2024 11/23/2023 HbA1c 11/23/2024 11/23/2023, 09/06, 02/23/2015, Additional history exists CKD HGB USE SMARTSET 04099 01/14/202501/14, 01/15/2024, 08/15/2023, Additional history exists Colonoscopy [...] Other - (no specific identity) Health Care Ruby On Rails Web Developer (appointed verbally by patient or by statute hierarchy) Bob Manjarrez Adult Child Health Care Ruby On Rails Web Developer (appointed verbally by patient or by statute hierarchy) Care Teams Blasting Entry Specialist Relationship Specialty Start Date End Date Tawanna Limon DO [address] [place] [address] PCP - General Family Medicine 06/29/23 documented as of this encounter
--- OUTSIDE RECORDS SUMMARY | 2024-05-09 23:04 | External Medical Summary | Summary of Care ---
Author Name Unknown Organization [facility] Address [address] [place] [address] Phone [phone] Care Team Providers Care Assistant Boiler Operator Name Role Phone Tawanna Limon DO Primary Care Provider [phone] Reason for Visit * Reason Onset Date Comments Appointment 01/31/202401/30 Encounter Details Date Type Department Care Team (Late st Contact Info) Description 01/31/2024 Telephone Family Practice [address], [place] 293 [place] [phone] Tawanna Limon DO 293 [place], [place] [phone] Appointment (01/30) Allergies Active Allergy Reactions Criticality [...] mRNA, LNP-s, No Pre serve, 2-Dose Series ([employer]) 09/07/2021,02/26/2021,02/05/2021 COVID-19, LNP-s, No Preserve , James-sucrose, Ages 12+ (Pfizer) 05/26/2022 COVID-19, MRNA-LNP, 23-24, P F, 30 MCG/0.3 mL, 12 YRS AND ABOVE, IM ([facility]) 11/23/2023 Covid-19, Mrna, Lnp-s, Pf, B [...] today. Agreeable to 3:[address] Jackson. trouble locator test desk - please place pt on Dr Jackson [...] 1:40 PM EDT Office Visit Family Practice [address] [place] [address] 293 [place] [address] Tawanna Limon DO 293 [place] [address] 03/04/2024 10:30 AM EDT Office Visit Otolaryngology [facility] [address] [place] [address] Bettye Schwartz MD 132 [place] [address] 03/14/2024 10:30 AM EDT Office Visit Sleep Disorders Ctr [facility] 132 [place] [phone] Akosua Hager CRNP 132 [facility] [place] [address] 04/19/2024 10:00 AM EDT Nurse Only Ancillary [address], [place] 293 [facility], [place] [address] College, Nurse Annual Wellness Visit [address] [place] [address] 05/30/2024 11:00 AM EDT Office Visit Rheumatology [facility] [address] [place] [address] Leland Novoa MD [address] [place] [address] Scheduled Procedures Name Priority Associated Diagnoses Date/Ti me COLONOSCOPY FLEXIBLE PROXIMA L DIAGNOSTIC Recall Encounter for screening colonoscopy Health Maintenance Due Date Last Done Comments Cologuard 2000 Sigmoidoscopy 2000 Fecal Occult Blood Test 04/03/2015 04/03/2014, 12/26 CKD PHOS USE SMARTSET 36223 02/11/2024 040 05/2023, 02/15/2022, 04/13/2020, Additional history exists TSH 02/11/2024 02/10/2023, 02/04, 04/26/2021, Additional history exists Mammogram 05/24/2024 05/24/2023, 05/06, 04/07/2022, Additional history exists GFR 07/17/2024 01/15/2024, 08/06, 03/08/2023, Additional history exists Albumin/Creatinine Ratio 08/15/2024 023, 07/14/2022, 04/24/2019, Additional history exists Depression Screening 11/23/2024 11/23/2023 HbA1c 11/23/2024 11/23/2023, 09/06, 02/23/2015, Additional history exists CKD HGB USE SMARTSET 36768 01/14/202501/14, 01/15/2024, 08/15/2023, Additional history exists Colonoscopy [...] Other - (no specific identity) Health Care Combination Presser (appointed verbally by patient or by statute hierarchy) Bob Manjarrez Adult Child Health Care Combination Presser (appointed verbally by patient or by statute hierarchy) Care Teams Assistant Boiler Operator Relationship Specialty Start Date End Date Tawanna Limon DO Mauricio [place] [address] PCP - General Family Medicine 06/29/23 documented as of this encounter
--- OUTSIDE RECORDS SUMMARY | 2024-05-09 23:04 | External Medical Summary | Summary of Care ---
Author Name Unknown Organization [facility] Address [address] [place] [address] Phone [phone] Care Team Providers Care Metrologist Name Role Phone Tawanna Limon DO Primary Care Provider [phone] Reason for Visit * Reason Onset Date Comments Test Results Lab 01/17/2024 Encounter Details Date Type Department Care Team (Late st Contact Info) Description 01/17/2024 Telephone Family Practice [address], [place] 293 [place] [phone] Tawanna Limon DO 293 [place], [place] [phone] Test Results Lab Allergies Active Allergy Reactions [...] as of this encounter (statuses as of 01/30/2024) Medications Medication Sig Dispensed Refills Start Date [...] as of this encounter (statuses as of 01/30/2024) Active Problems Problem Noted Date Diagnosed Date [...] long-term (current) use of medicat ions 06/02/2015 COMOFRT on CPAP 01/04/2011 Overview: [facility] [...] as of this encounter (statuses as of 01/30/2024) Resolved Problems Problem Noted Date Diagnosed Date [...] as of this encounter (statuses as of 01/30/2024) Immunizations Name Administration Dates Next Due COVID-19 mRNA, LNP-s, No Pre serve, 2-Dose Series ([employer]) 09/07/2021,02/26/2021,02/05/2021 COVID-19, LNP-s, No Preserve , James-sucrose, Ages 12+ (Pfizer) 05/26/2022 COVID-19, MRNA-LNP, 23-24, P F, 30 MCG/0.3 mL, 12 YRS AND ABOVE, IM ([employer]Com[facility]) 11/23/2023 Covid-19, Mrna, Lnp-s, Pf, B ivalent, 30 Mcg, IM, 12 yrs and above ([employer]) 04/17/2023 Pneumococcal Conjugate Vacc, 13 Valent (Prevnar) [...] encounter Miscellaneous Notes * Telephone Encounter - Francy Frank, [facility] - 01/18/2024 3:59 PM EDT Lipid panel completed as per rheumatologic meidcation monitoring protocol for Rinvoq. LDL elevated,but pt has not responded to outreach to verify if taking her pravastatin 20mg (listed as active in chart). Confirmed with pharmacy that patient has not had filled in at least 2 years. Will forward toPCP to advise further. Francy Welch PharmD [facility] Clinical Pharmacist Rheumatology Department [phone] 01/18/2024, 4:02 PM * Telephone Encounter - Francy Frank [facility] - 01/18/2024 3:56 PM EDT Called patient's pharmacy spoke to pharmacist - patient has not filled pravastatin within the past 2 years. Will make PCP aware Francy Welch PharmD [facility] Clinical Pharmacist Rheumatology Department [phone] 01/18/2024, 3:58 PM * Telephone Encounter - Francy Frank [facility] - 01/18/2024 1:06 PM EDT 2nd attempt, no answer * Telephone Encounter - Francy Frank [facility] - 01/17/2024 9:39 AM EDT Unable to reach patient at this time. Left message on the answering machine requesting callback regarding lipid panel results. Advised patient to please call [phone]. Please transfer her back tomyself. If I'm not available, transfer to next available [facility]. -please ask patient if she is currently taking her pravastatin. No dispensing history on adherence report. -recent lipid panel results trending up. If she is taking, can consider increase in statin through PCP. -eligible for [employer] mail order Francy Welch PharmD Clinical Pharmacist Centralized Clinical Pharmacy Services (CCPS) (formerly Telepharmacy) [phone] 01/17/2024, 9:41 AM documented in this encounter Plan of Treatment Upcoming Encounters Date Type Department Care Team (Late st Contact Info) Description 02/26/2024 1:40 PM EDT Office Visit Family Practice 65 [facility] 293 [place] [address] Tawanna Limon DO 293 [place] [address] 03/04/2024 10:30 AM EDT Office Visit Otolaryngology [facility] 132 [facility] [place] [address] Bettye Schwartz MD 132 [facility] [place] [address] 03/14/2024 10:30 AM EDT Office Visit Sleep Disorders Ctr [facility] 132 [facility] [place] [phone] Akosua Hager CRNP 132 [place] [address] 04/19/2024 10:00 AM EDT Nurse Only Ancillary 65 [facility] 293 [place] [address] College, Nurse Annual Wellness Visit [address] [address] 05/30/2024 11:00 AM EDT Office Visit Rheumatology [place] 4[address] Sandra Medina [place], [place] [address] Leland Novoa MD [address] [facility] [place] [address] Scheduled Procedures Name Priority Associated Diagnoses Date/Ti me COLONOSCOPY FLEXIBLE PROXIMA L DIAGNOSTIC Recall Encounter for screening colonoscopy Health Maintenance Due Date Last Done Comments Cologuard 2000 Sigmoidoscopy 2000 Fecal Occult Blood Test 04/03/2015 04/03/2014, 12/26 CKD PHOS USE SMARTSET 10725 02/11/2024 04/0 05/2023, 02/15/2022, 04/13/2020, Additional history exists TSH 02/11/2024 02/10/2023, 02/04, 04/26/2021, Additional history exists Mammogram 05/24/2024 05/24/2023, 05/06, 04/07/2022, Additional history exists GFR 07/17/2024 01/15/2024, 08/06, 03/08/2023, Additional history exists Albumin/Creatinine Ratio 08/15/2024 023, 07/14/2022, 04/24/2019, Additional history exists Depression Screening 11/23/2024 11/23/2023 HbA1c 11/23/2024 11/23/2023, 09/06, 02/23/2015, Additional history exists CKD HGB USE SMARTSET 53884 01/14/202501/14, 01/15/2024, 08/15/2023, Additional history exists Colonoscopy [...] Other - (no specific identity) Health Care Tacker Off (appointed verbally by patient or by statute hierarchy) Bob Manjarrez Adult Child Health Care Tacker Off (appointed verbally by patient or by statute hierarchy) Care Teams Metrologist Relationship Specialty Start Date End Date Tawanna Limon DO 293 [place] [address] PCP - General Family Medicine 06/29/23 documented as of this encounter
--- OUTSIDE RECORDS SUMMARY | 2024-05-09 23:04 | External Medical Summary | Summary of Care ---
Author Name Unknown Organization [facility] Address [address] [place] [address] Phone [phone] Care Team Providers Care Recep Name Role Phone Tawanna Limon DO Primary Care Provider [phone] Reason for Visit * Reason Onset Date Comments FYI 02/01/2024 Encounter Details Date Type Department Care Team (Late st Contact Info) Description 02/01/2024 Telephone Family Practice [address], [place] 293 [place] [phone] Tawanna Limon DO 293 [place], [place] [phone] FYI Allergies Active Allergy Reactions Criticality Noted [...] mRNA, LNP-s, No Pre serve, 2-Dose Series ([employer]) 09/07/2021,02/26/2021,02/05/2021 COVID-19, LNP-s, No Preserve , James-sucrose, Ages 12+ (Pfizer) 05/26/2022 COVID-19, MRNA-LNP, 23-24, P F, 30 MCG/0.3 mL, 12 YRS AND ABOVE, IM ([facility]) 11/23/2023 Covid-19, Mrna, Lnp-s, Pf, [...] PM EDT Office Visit Family Practice 65 [facility] 293 [place] [address] Tawanna Limon DO 293 [place] [address] 03/04/2024 10:30 AM EDT Office Visit Otolaryngology [facility] 132 [facility] [place] [address] Bettye Schwartz MD 132 [facility] [place] [address] 03/14/2024 10:30 AM EDT Office Visit Sleep Disorders Ctr [facility] [address] [place] [phone] Akosua Hager CRNP 132 [facility] [place] [address] 04/19/2024 10:00 AM EDT Nurse Only Ancillary 65 [facility] [address] [facility], Nurse Annual Wellness Visit [address] [address] 05/30/2024 11:00 AM EDT Office Visit Rheumatology [place] 434980 [facility] [place] [address] Leland Novoa MD [address] [place] [address] Scheduled Procedures Name Priority Associated Diagnoses Date/Ti me COLONOSCOPY FLEXIBLE PROXIMA L DIAGNOSTIC Recall Encounter for screening colonoscopy Health Maintenance Due Date Last Done Comments Cologuard 2000 Sigmoidoscopy 2000 Fecal Occult Blood Test 04/03/2015 04/03/2014, 12/26 CKD PHOS USE SMARTSET 37295 02/11/2024 04/0 05/2023, 02/15/2022, 04/13/2020, Additional history exists TSH 02/11/2024 02/10/2023, 02/04, 04/26/2021, Additional history exists Mammogram 05/24/2024 05/24/2023, 05/06, 04/07/2022, Additional history exists GFR 07/17/2024 01/15/2024, 08/06, 03/08/2023, Additional history exists Albumin/Creatinine Ratio 08/15/2024 023, 07/14/2022, 04/24/2019, Additional history exists Depression Screening 11/23/2024 11/23/2023 HbA1c 11/23/2024 11/23/2023, 09/06, 02/23/2015, Additional history exists CKD HGB USE SMARTSET 79794 01/14/202501/14, 01/15/2024, 08/15/2023, Additional history exists Colonoscopy [...] Other - (no specific identity) Health Care Ironworker Wire Fence Erector (appointed verbally by patient or by statute hierarchy) Bob Manjarrez Adult Child Health Care Ironworker Wire Fence Erector (appointed verbally by patient or by statute hierarchy) Care Teams Recep Relationship Specialty Start Date End Date Tawanna Limon DO [address] [place] [address] PCP - General Family Medicine 06/29/23 documented as of this encounter
--- OUTSIDE RECORDS SUMMARY | 2024-05-09 23:05 | External Medical Summary ---
Author Name Unknown Address Unknown Organization K01:[facility] [place] - [facility] [address] [place] [address] Laboratory Report Ordering Provider Test Date Status LORENA DAVIS 01/15/2024 10:01:01 Final Observation Date Value Abnormality Reference (Units ) Status WBC, Total 01/15/2024 10:01:01 6.59 4.00-10.80 (K/uL) Final RBC 01/15/2024 10:01:01 3.06 3.85-5.15 (M/uL) Final Hemoglobin 01/15/2024 10:01:01 10.4 Below low normal 12.0-15.3 (g/dL) Final HCT 01/15/2024 10:01:01 32.7 Below low normal 36.0-45.2 (%) Final MCV 01/15/2024 10:01:01 106.9 81.5-97.5 (fL) Final MCH 01/15/2024 10:01:01 34.0 27.0-34.0 (pg) Final MCHC 01/15/2024 10:01:01 31.8 32.0-36.0 (g/dL) Final RDW 01/15/2024 10:01:01 12.8 11.5-15.5 (%) Final Platelets 01/15/2024 10:01:01 246 140-400 (K/uL) Final MPV 01/15/2024 10:01:01 9.9 6.6-11.1 (fL) Final Nucleated erythrocytes/100 leukocytes [Ratio] in Blood by Automated count 01/15/2024 10:01:01 0 <=0 (/100 WBCs) Final Performing Location [facility] [place] - [address] [place] [address]
--- OUTSIDE RECORDS SUMMARY | 2024-05-09 23:05 | External Medical Summary | Summary of Care ---
Author Name Unknown Organization [facility] Address [address] [place] [address] Phone [phone] Care Team Providers Care Aeronautical Engineering Professor Name Role Phone Tawanna Limon DO Primary Care Provider [phone] Reason for Visit * Reason Onset Date Comments Follow Up Immunization RSV Vaccine 11/23/2023 Encounter Details Date Type Department Care Team (Latest Contact Info) Description 11/23/2023 1:00 PM EST Office Visit Family Practice [address], [place] [address] [place] [address] Tawanna Limon DO [address] [place] [address] Nocturia*; Paresthesias; Rheumatoid arthritis involving multiple sites with positive rheumatoid factor ([facility]); Moderate persistent asthma without complication; Dyslipidemia, goal LDL below 100; Acquired hypothyroidism; PTSD (post-traumatic stress disorder); Major depressive disorder, recurrent, severe with psychotic symptoms ([facility]); Early onset Alzheimer's dementia without behavioral disturbance ([facility]); Intellectual disability; Primary open-angle glaucoma, bilateral, mild stage; HTN, goal below 140/90; Hypertensive kidney disease with stage 3b chronic kidney disease (HCC); Other atherosclerosis of [place] arteries of extremities, bilateral legs ([facility]); COMFORT on CPAP; Body mass index 45.0-49.9, adult ([facility]); Risk and functional assessment; Need for COVID-19 vaccine Allergies Active Allergy Reactions Criticality Noted Date [...] as of this encounter (statuses as of 11/23/2023) Medications Medication Sig Dispensed Refills Start Date [...] before bedtime. 120 Capsule 3 09/20/2023 Active Rinvoq 15 MG Oral Tablet Extended Release 24 Hour (Upadacitinib ER)Indications:Rhe umatoid arthritis involving multiple sites with positive rheumatoid factor (HCC) Take 1 Tablet by mouth in the morning. 30 Tablet 2 10/02/2023 Active Fluticasone-Salmet onesimo 500-50 MCG/ACT Inhalation Aerosol [...] times a day. Focus Factor 0 Active documented as of this encounter (statuses as of 11/23/2023) Active Problems Problem Noted Date Diagnosed Date Body mass index (BMI) 40.0-44.9, adult 4 Morbid obesity with BMI of 45.0-49.9, adult 1204/2021 Major depressive disorder, r ecurrent, severe with [...] as of this encounter (statuses as of 11/23/2023) Resolved Problems Problem Noted Date Diagnosed Date Resolved Date Body mass index (BMI) of 45. 0 [...] as of this encounter (statuses as of 11/23/2023) Immunizations Name Administration Dates Next Due COVID-19 mRNA, LNP-s, No Pre serve, 2-Dose Series (MOBi-LEARN) 09/07/2021,02/26/2021,02/05/2021 COVID-19, LNP-s, No Preserve , James-sucrose, Ages 12+ (Pfizer) 05/26/2022 COVID-19, MRNA-LNP, 23-24, P F, 30 MCG/0.3 mL, 12 YRS AND ABOVE, IM (Korem-Comirnaty) 11/23/2023 Covid-19, Mrna, Lnp-s, Pf, B ivalent, [...] Answer Date Recorded PHQ Adult Total Score 2 08/15/2023 Hunger Vital Sign Answer Date Recorded Within the past 12 months, y ou worried that your food would run out before you got the money to buy more. Never true 05/12/20 23 Within the past 12 months, t he food you bought just didn't last and you didn't have money to get more. Never true 05/12/2023 Sex and Gender Information Value Date Recorded Sex Assigned at Female 04/24/2019 12:12 PM EDT Gender Identity Female 04/24/2019 12:12 PM EDT Sexual Orientation Straight 04/24/2019 12 :12 PM EDT Job Start Date Occupation Industry Not on file Not on file Not on file documented as of this encounter Last Filed Vital Signs Vital Sign Reading Time Taken Comments Blood Pressure 124/72 11/23/2023 1:20 PM EST Pulse 62 11/23/2023 1:20 PM EST Temperature 36.4 C (97.6 F) 11/23/2023 1:20 PM ES T Respiratory Rate 14 11/23/2023 1:20 PM EST Oxygen Saturation 95% 11/23/2023 1:20 PM EST Inhaled Oxygen Concentration - - Weight 130.6 kg (288 lb) 11/23/2023 1:20 PM EST Height 167.6 cm (5' 6") 11/23/2023 1:20 PM EST Body Mass Index 46.48 11/23/2023 1:20 PM EST documented in this encounter Patient Instructions * Patient Instructions* Ritika Oliva LPN - 11/23/2023 1:12 PM EST Patient Instructions - Fall Prevention (This education [...] 10 times. Repeat this throughout the day. [employer] Patient Education Copyright 2008 - 2010 [employer] except where otherwise noted. Preventing Falls: Moving [...] (TEDs)if you have edema Ritika Oliva LPN 11/23/2023 Kegel Exercises Kegel exercises dont require special [...] help make your Kegels even more effective. [employer] Patient Education Copyright 2008 - 2010 [employer] except where otherwise noted. Here are some [...] please feel free to contact our office. Possible side effects of RSV vaccine, (Respiratory Syncytial Virus), are usually mild and can include: Soreness, swelling or redness at injection site Low grade fever Body aches or joint pain Headache Nausea or diarrhea You may use a fever/pain reducing medication for these symptoms. LET YOUR DOCTOR KNOW IMMEDIATELY IF YOU HAVE DIFFICULTY BREATHING OR SWALLOWING, EXPERIENCE ITCHINGOF FEET OR HANDS, HAVE SWELLING OF EYES, FACE OR INSIDE OF NOSE. documented in this encounter Progress Notes * Ritika Oliva LPN - 11/23/2023 1:12 PM EST Fall Risk Plan of Care Documentation: - Current medications reconciled Patient encouraged to: - Exercise - Provide education materials for Core strengthening - Utilize assistive/adaptive devices - Provide education materials - Avoid multifocal lenses when walking - Avoid hazards in home - Provide education materials - Maintain a regular toileting schedule Ritika Oliva LPN 11/23/2023 Urinary Incontinence Plan of Care Documentation: (This [...] (TEDs)if you have edema Ritika Oliva LPN 11/23/2023 Pre-Administration Time Out Procedure Performed: Yes Patient Identified (Ask Name/Date of ): Yes Does the patient have a fever greater than 101 degrees today? No Patient allergic to latex? No, Yes Patient reports able to tolerate injections without issue. Has the patient ever fainted after receiving an injection? No VFC Stock: No Immunization(s) verified: Yes, Immunization Name: COVID, VIS Sheet(s) given: Yes Verified Side and Site: Yes Verified Shot(s) with Parent(s)/Patient: Yes * Tawanna Limon DO - 11/23/2023 1:09 PM EST SUBJECTIVE: Chief Complaint Patient presents with Follow Up Immunization RSV Vaccine HPI: Alena Manjarrez is a 67 year old female who presents today for regular return. Pt notes that her toes are burning. She feels that this just started. She did see podiatry. She states that she was told it was due to her RA. She states that the burning does not hurt as much during the day as it does as night. She is using a heating blanket and feels that it helps. Pt notes that she has some urinary leakage. She states that it is occurring overnight when she is sleeping. She does not realize she is going. She states that her underwear and pants will be wet whenshe wakes up. She denies thirst and notes she is not going to the bathroom more often. 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 History of migraine Z86.69 DYSLIPIDEMIA, GOAL LDL BELOW 100 E78.5 COMFORT on CPAP G47.33 Encounter for long-term (current) use of medications Z79.899 Depression with anxiety F41.8 Rheumatoid arthritis involving multiple sites with positive rheumatoid factor ([facility]) M05.79 HTN, goal below 140/90 I10 Diffuse dermatitis L30.9 Primary open-angle glaucoma, bilateral, mild stage H40.1131 Other atherosclerosis of [place] arteries of extremities, bilateral legs ([facility]) I70.293 Gastroesophageal reflux disease without esophagitis K21.9 Moderate persistent asthma without complication J45.40 Intellectual disability F79 Major depressive disorder, recurrent, severe with psychotic symptoms ([facility]) F33.3 Early onset Alzheimer's dementia without behavioral disturbance ([facility]) G30.0, F02.80 Hypertensive kidney disease with stage 3b chronic kidney disease ([facility]) I12.9, N18.32 Morbid obesity with BMI of 45.0-49.9, adult ([facility]) E66.01, Z68.42 Current Outpatient Medications Medication Sig Dispense Refill [...] by mouth at bedtime.) 1 Tab 0 Pravastatin Sodium 20 MG Oral Tablet (Pravachol) Take 1 Tab by mouth daily. 90 Tab 1 Albuterol Sulfate HFA 108 (90 Base) MCG/ACT Inhalation Aerosol Solution Inhale 2 Puffs by mouth every 4 hours as needed for Wheezing. 18 g 5 tiZANidine HCl 2 MG Oral Tablet (Zanaflex) TAKE 1 TABLET BY MOUTH EVERY 6 HOURS NEEDED FOR MUSCLE SPASMS 120 Tablet 0 Albuterol Sulfate (2.5 MG/3ML) 0.083% Inhalation Nebulization [...] 2 Capsules before bedtime. 120 Capsule 3 Rinvoq 15 MG Oral Tablet Extended Release 24 Hour (Upadacitinib ER) Take 1 Tablet by mouth in the morning. 30 Tablet 2 Fluticasone-Salmeterol 500-50 MCG/ACT Inhalation Aerosol Powder Breath [...] mouth 2 times a day. Focus Factor Nebulizers (NEBULIZER COMPRESSOR) MISC Inhale via nebulizer. Use as directed. 1 Each 1 Dicyclomine HCl 10 MG Oral Capsule (Bentyl) TAKE ONE CAPSULE BY MOUTH THREE TIMES DAILY NEEDED for abdominal pain 270 Capsule 1 No current facility-administered medications for this [...] performed by Alanis Zarate DO at ENDOSCOPY [facility] EGD, FLEXIBLE, DIAGNOSTIC 07/02/2013 UPPER GI ENDOSCOPY DIAGNOSTIC performed by Alanis Zarate DO at ENDOSCOPY [facility] EGD, FLEXIBLE, DIAGNOSTIC 10/09/2019 chronic inactive gastric inflammation / [facility] FRACTURE NOS left ankle LAPAROSCOPY; CHOLECYSTECTOMY 02/07/2013 02/07/2013 laparoscopic cholecystectomy [facility] Dr. Maddy Ospina LIGATE/CUT OVIDUCT(S) [...] for color change, pallor and rash. Neurological: As per HPI OBJECTIVE: BP 124/72 (BP Site: Left Arm, BP Position: Sitting, BP Cuff Size: Large) | Pulse 62 | Temp 36.4 C(97.6 F) (Tympanic) | Resp 14 | Ht 1.676 m (5' 6") | Wt 130.6 kg (288 lb) | LMP 09/16/2003 | NbD021% | BMI 46.48 kg/m | BSA 2.47 m PHYSICAL EXAM: Physical Exam Constitutional: General: [...] tenderness or deformity. Normal range of motion. Right lower leg: Edema (lymphedema) present. Left lower leg: Edema (lymphedema) present. Skin: General: Skin is warm and dry. Coloration: Skin is not pale. Findings: No erythema or rash. Neurological: Mental Status: She is alert and oriented to person, place, and time. ASSESSMENT/PLAN: (R35.1) Nocturia (primary encounter diagnosis) Plan: HEMOGLOBIN A1C, URINALYSIS, POINT OF CARE (ENTER/EDIT), HEMOGLOBIN A1C, URINE CULTURE Pt will complete lab studies. Will await results. UA with leuks and nitrites. Culture sent. She is otherwise asymptomatic. (R20.2) Paresthesias Plan: VITAMIN B12, VITAMIN B12 Will complete lab studies. Check A1c and B12. ?need for gabapentin. Does follow with podiatry. (M05.79) Rheumatoid arthritis involving multiple sites with positive rheumatoid factor (HCC) Plan: Pt follows closely with rheumatology. Seems to be fairly controlled at present. She will monitor. (J45.40) Moderate persistent asthma without complication Plan: pt will remain on current inhaler regimen. No issues. (E78.5) Dyslipidemia, goal LDL below 100 Plan: Pt is on pravastatin. She will continue. (E03.9) Acquired hypothyroidism Plan: Pt will remain on levothyroxine. Tolerating it well. No current issues. (F43.10) PTSD (post-traumatic stress disorder) (F33.3) Major depressive disorder, recurrent, severe with psychotic symptoms ([facility]) (G30.0, F02.80) Early onset Alzheimer's dementia without behavioral disturbance ([facility]) (F79) Intellectual disability Plan: pt will remain on current regimen. She follows with psychiatry. No changes for now. (H40.1131) Primary open-angle glaucoma, bilateral, mild stage Plan: Pt will remain on current eye drops. Keep regular f/u with eye doctor. (I10) HTN, goal below 140/90 (I12.9, N18.32) Hypertensive kidney disease with stage 3b chronic kidney disease (HCC) Plan: BP controlled. No changes for now. (I70.293) Other atherosclerosis of [place] arteries of extremities, bilateral legs (HCC) Plan: Pt follows with podiatry. No significant issues at present. (G47.33) COMFORT on CPAP Plan: pt will need to see sleep medicine for her CPAP supplies per message in chart. desktop support engineer asked to assist with scheduling. (Z68.41) Body mass index (BMI) 45-49.9, adult (HCC) Plan: Weight down a few pounds. She admits she eats junk. Encouraged to work on diet and weight loss. (Z13.9) Risk and functional assessment Plan: see nursing note. (Z23) Need for COVID-19 vaccine Plan: COVID-19, MRNA-LNP, PF, 23-24, 30MCG/0.3ML, IM, 12YRS AND ABOVE (Korem) Vaccine given. See admin record. Follow-up: 3 months Total time today including reviewing chart before the visit, pertinent labs, imaging reports, face to face time, and documentation time was 36 minutes. Tawanna Limon DO documented in this encounter Nursing Notes * Ritika Oliva LPN - 11/23/2023 1:03 PM EST Patient here for routine follow up visit. Reports she received Humira approx 1 year ago and it caused itchiness; states she needed to see dermatology for this. Patient reports her toes are painful and there is a burning sensation. Reports symptoms started approx 2 weeks ago. States she is doing well going to [facility] for therapy. Reports recently she has been waking up with some incontinence, states bladder leaking. Denies burning, frequency. documented in this encounter Plan of Treatment Upcoming Encounters Date Type Department Care Team (Late st Contact Info) Description 11/24/2023 10:30 AM EST [facility] [address] [facility] [place] [phone] Akosua Hager CRNP [address] [facility] [place] [address] 02/26/2024 1:40 PM EDT Office Visit Family Practice [address] [place] [address], [place] [address] [facility] [phone] [facility] [address] 03/04/2024 10:30 AM EDT Office Visit Otol[facility]ology [facility] [address] [place] [address] Bettye Schwartz MD [address] [address] 04/19/2024 10:00 AM EDT Nurse Only Ancillary [address] [facility] [address] [place] [address] College, Nurse Annual Wellness Visit [address] [place] [address] 05/30/2024 11:00 AM EDT Office Visit Rheumatology [place] [phone] [place] [address] Leland Novoa MD [address] [place] [address] Pending Results Name Type Priority Associated Diagnoses Date /Time HEMOGLOBIN A1C Lab Routine Nocturia 11/23/2023 1:52 PM EST VITAMIN B12 Lab Routine Paresthesias 11/23/2023 1:52 PM EST CULTURE, URINE, QUANTITATIVE Lab Routine Nocturia 11/23/2023 2:04 PM EST Scheduled Orders Name Type Priority Associated Diagnoses Orde r Schedule HEMOGLOBIN A1C Lab Routine Nocturia Expected: 11/23/2023 (Approximate), Expires: 11/22/2024 VITAMIN B12 Lab Routine Paresthesias Expected: 11/23/2023 (Approximate), Expires: 11/22/2024 URINALYSIS, POINT OF CARE (ENTER/EDIT) Point of Care Testing Routine Nocturia Ordered: 11/23/2023 Scheduled Procedures Name Priority Associated Diagnoses Date/Ti me COLONOSCOPY FLEXIBLE PROXIMA L DIAGNOSTIC Recall Encounter for screening colonoscopy Health Maintenance Due Date Last Done Comments Cologuard 2000 Sigmoidoscopy 2000 Fecal Occult Blood Test 04/03/2015 04/03/2014, 12/26 CKD PHOS USE SMARTSET 92470 02/11/2024 04/0 05/2023, 02/15/2022, 04/13/2020, Additional history exists TSH 02/11/2024 02/10/2023, 02/04, 04/26/2021, Additional history exists GFR 02/14/2024 08/15/2023, 01/2023, 02/10/2023, Additional history exists Mammogram 05/24/2024 05/24/2023, 12/2021, 04/06/2021, Additional history exists Albumin/Creatinine Ratio 08/15/2024 023, 07/14/2022, 04/24/2019, Additional history exists CKD HGB USE SMARTSET 46568 08/15/202408/15, 08/15/2023, 03/08/2023, Additional history exists Depression Screening 11/23/2024 11/23/2023 Diabetes Screening 02/10/2026 02/10/2023, 1 , 02/15/2022, Additional history exists Colonoscopy 02/14/2027 02/14/2017, [...] Diagnosis Comments URINALYSIS, POINT OF CARE [facility] 11/23/2023 2:00 PM EST documented in this encounter Results * (ABNORMAL) URINALYSIS, POINT OF CARE (11/23/2023 2:00 PM EST) Color, Urine Other(A) Light Yellow, Yellow 11/23/2023 2:02 PM EST LABORATORY [place] [address] Clarity, Urine Cloudy(A) Clear 11/23/2023 2:02 PM EST LABORATORY [address] Glucose, Urine Negative Negative mg/dL 11/23/2023 2:02 PM EST [address] Bilirubin, Urine Negative Negative 11/23/2023 2:02 PM EST LABORATORY [address] Ketone, Urine Negative Negative mg/dL 11/23/2023 2:02 PM EST [address] Specific [place], Urine 1.025 1.003 - 1.030 11/23/2023 2:02 PM EST LAB[facility] [place] [address] Blood, Urine Negative Negative 11/23/2023 2:02 PM [place] [address] pH, Urine 6.0 5.0, 5.5, 6.0, 6.5, 7.0, 7.5 units 11/23/2023 2:02 PM EST [address] Protein, Urine Negative Negative mg/dL 11/23/2023 2:02 PM EST LABORATORY [address] Urobilinogen, Urine 0.2 0.2, 1.0 mg/dL 11/23/2023 2:02 PM EST LABORATORY [address] Nitrite, Urine Positive(A) Negative 11/23/2023 2:02 PM EST [place] [address] Esterase, Urine Trace(A) Negative 11/23/2023 2:02 PM [place] [address] Urine 11/23/2023 2:00 PM EST 11/23/2023 2:02 PM EST Tawanna Limon DO LAB POINT OF CARE TE ST DOCKED DEVICE UNSOLICITED RESULTS [facility] [address] [place] [address], [facility] documented in this encounter Visit Diagnoses Diagnosis Nocturia- Primary Paresthesias Disturbance of skin sensation Rheumatoid arthritis involving multiple sites with positive rheumatoid factor (HCC) Moderate persistent asthma without complication Unspecified asthma Dyslipidemia, goal LDL below 100 Other and unspecified hyperlipidemia Acquired hypothyroidism Unspecified hypothyroidism PTSD (post-traumatic stress disorder) Posttraumatic stress disorder Major depressive disorder, recurrent, severe with psychotic symptoms (HCC) Early onset Alzheimer's dementia without behavioral disturbance (HCC) Intellectual disability Unspecified intellectual disabilities Primary open-angle glaucoma, bilateral, mild stage HTN, goal below 140/90 Unspecified essential hypertension Hypertensive kidney disease with stage 3b chronic kidney disease (HCC) Other atherosclerosis of [place] arteries of extremities, bilateral legs (HCC) COMFORT on CPAP Obstructive sleep apnea (adult) (pediatric) Body mass index 45.0-49.9, adult (HCC) Body Mass Index 45.0-49.9, adult Risk and functional assessment Screening for unspecified condition Need for COVID-19 vaccine documented in this encounter Advance Directives Healthcare Agents on File Name Relationship Healthcare Agent Relationship Communication Marcos Breaux Other - (no specific identity) Health Care Web Database Developer (appointed verbally by patient or by statute hierarchy) Bob Manjarrez Adult Child Health Care Web Database Developer (appointed verbally by patient or by statute hierarchy) Care Teams Aeronautical Engineering Professor Relationship Specialty Start Date End Date Tawanna Limon DO [address] [facility] [address] PCP - General Family Medicine 06/29/23 documented as of this encounter
--- OUTSIDE RECORDS SUMMARY | 2024-05-09 23:05 | External Medical Summary | Summary of Care ---
Author Name Unknown Organization [facility] Address [address] [place] [address] Phone [phone] Care Team Providers Care Cardiac Rehab Nurse Name Role Phone YumikoTawanna barrera Taylor CHUN Primary Care Provider + [phone] Reason for Visit * Reason Comments Outpatient Testing Encounter Details Date Type Department Care Team (Late st Contact Info) Description 01/15/2024 10:20 AM EDT Laboratory Laboratory, [place] [address] [place] [address] [place], [facility] [address] [place], [place] [id number] Encounter for long-term (current) use of medications [...] as of this encounter (statuses as of 01/15/2024) Medications Medication Sig Dispensed Refills Start Date [...] as of this encounter (statuses as of 01/15/2024) Active Problems Problem Noted Date Diagnosed Date [...] 09/15/2009 Sensorineural hearing loss 08/21/2007 Overview: Dr. Ellre Presbyacusis 08/21/2007 Overview: Dr. Eller Acquired hypothyroidism 07/05/2006 PTSD (post-traumatic stress disorder) 07/05/2006 Overview: With severe depression documented as of this encounter (statuses as of 01/15/2024) Resolved Problems Problem Noted Date Diagnosed Date [...] as of this encounter (statuses as of 01/15/2024) Immunizations Name Administration Dates Next Due COVID-19 mRNA, LNP-s, No Pre serve, 2-Dose Series ([employer] (Cuponium)) 09/07/2021,02/26/2021,02/05/2021 COVID-19, LNP-s, No Preserve , James-sucrose, Ages 12+ (Pfizer) 05/26/2022 COVID-19, MRNA-LNP, 23-24, P F, 30 MCG/0.3 mL, 12 YRS AND ABOVE, IM ([employer]-Comirnaty) 11/23/2023 Covid-19, Mrna, Lnp-s, Pf, B ivalent, [...] EDT Office Visit Family Practice [address] [place] [address] Tawanna Limon, DO [address] [place] [address] 03/04/2024 10:30 AM EDT Office Visit Otolaryngology [facility] 132 [facility] [place] [address] [facility] [address] 03/14/2024 10:30 AM EDT Office Visit Sleep Disorders Ctr [facility] 132 [facility] [place] [address] Akosua Hager CRNP [facility] [address] 04/19/2024 10:00 AM EDT Nurse Only Ancillary 65 [facility] [address] [place] [address] College, Nurse Annual Wellness Visit [address] [address] 05/30/2024 11:00 AM EDT Office Visit Rheumatology [place] [address] [place] [address] Leland Novoa MD [facility]0 [facility], [place] [address] Pending Results Name Type Priority Associated Diagnoses Date /Time CBC WITH WBC DIFFERENTIAL Lab Routine Encounter for long-term (current) use of medications 01/15/2024 10:01 AM EDT BUN Lab Routine Encounter for long-term (current) use of medications 01/15/2024 10:01 AM EDT CREATININE Lab Routine Encounter for long-term (current) use of medications 01/15/2024 10:01 AM EDT HEPATIC FUNCTION PANEL Lab Routine Encounter for long-term (current) use of medications 01/15/2024 10:01 AM EDT LIPID PANEL WITH DIRECT LDL IF TG IS HIGH Lab Routine Encounter for long-term (current) use of medications 01/15/2024 10:01 AM EDT CBC Lab Routine Encounter for long-term (current) use of medications 01/15/2024 10:01 AM EDT DIFFERENTIAL, AUTOMATED Lab Routine Encounter for long-term (current) use of medications 01/15/2024 10:01 AM EDT Scheduled Procedures Name Priority Associated Diagnoses Date/Ti me COLONOSCOPY FLEXIBLE PROXIMA L DIAGNOSTIC Recall Encounter for screening colonoscopy Health Maintenance Due Date Last Done Comments Cologuard 2000 Sigmoidoscopy 2000 Fecal Occult Blood Test 04/03/2015 04/03/2014, 12/26 CKD PHOS USE SMARTSET 29768 02/11/20240 05/2023, 02/15/2022, 04/13/2020, Additional history exists TSH 02/11/2024 02/10/2023, 02/04, 04/26/2021, Additional history exists GFR 02/14/2024 08/15/2023, 050 01/2023, 02/10/2023, Additional history exists Mammogram 05/24/2024 05/24/2023, 05/06, 04/07/2022, Additional history exists Albumin/Creatinine Ratio 08/15/2024 023, 07/14/2022, 04/24/2019, Additional history exists CKD HGB USE SMARTSET 23262 08/15/202408/15, 08/15/2023, 03/08/2023, Additional history exists Depression Screening 11/23/2024 11/23/2023 HbA1c 11/23/2024 11/23/2023, 09/06, 02/23/2015, Additional history exists Colonoscopy 02/14/2027 02/14/2017, 02/04, [...] of this encounter Visit Diagnoses Diagnosis Encounter for long-term (current) use of medications Encounter for long-term (current) use of other medications documented in this encounter Advance Directives Healthcare Agents on File Name Relationship Healthcare Agent Relationship Communication Marcos Saeid Other - (no specific identity) Health Care Optometrist Assistant (appointed verbally by patient or by statute hierarchy) Bob Manjarrez Adult Child Health Care Optometrist Assistant (appointed verbally by patient or by statute hierarchy) Care Teams Cardiac Rehab Nurse Relationship Specialty Start Date End Date Tawanna Limon DO [address] [place] [address] PCP - General Family Medicine 06/29/23 documented as of this encounter
--- OUTSIDE RECORDS SUMMARY | 2024-05-09 23:05 | External Medical Summary | Summary of Care ---
Author Name Unknown Organization [facility] Address [address] [place] [address] Phone [phone] Care Team Providers Care Property Specialist Name Role Phone Tawanna Limon DO Primary Care Provider [phone] Reason for Visit * Reason Onset Date Comments Test Results 11/28/202311/28 Encounter Details Date Type Department Care Team (Late st Contact Info) Description 11/28/2023 Telephone Family Practice [address], [place] [address] [place] [id number] Tawanna Limon DO [address] [place], [place] [id number] Test Results (11/28) Allergies Active Allergy Reactions Criticality Noted Date [...] as of this encounter (statuses as of 11/28/2023) Medications Medication Sig Dispensed Refills Start Date [...] times a day. Focus Factor 0 Active Cephalexin 500 MG Oral Capsule Take 1 Capsule by mouth in the morning and 1 Capsule before bedtime. Do all this for 7 days. 14 Capsule 0 11/28/2023 4 Active documented as of this encounter (statuses as of 11/28/2023) Active Problems Problem Noted Date Diagnosed Date [...] as of this encounter (statuses as of 11/28/2023) Resolved Problems Problem Noted Date Diagnosed Date [...] as of this encounter (statuses as of 11/28/2023) Immunizations Name Administration Dates Next Due COVID-19 mRNA, LNP-s, No Pre serve, 2-Dose Series ([employer]) 09/07/2021,02/26/2021,02/05/2021 COVID-19, LNP-s, No Preserve , James-sucrose, Ages 12+ (Pfizer) 05/26/2022 COVID-19, MRNA-LNP, 23-24, P F, 30 MCG/0.3 mL, 12 YRS AND ABOVE, IM ([employer]-Comirnaty) 11/23/2023 Covid-19, Mrna, Lnp-s, Pf, B ivalent, 30 Mcg, IM, 12 yrs and above (Zin.gl) 04/17/2023 Pneumococcal Conjugate Vacc, 13 Valent (Prevnar) [...] Miscellaneous Notes * Telephone Encounter - Celestina Guthrie, MELITON - 11/28/2023 4:24 PM EST Patient is aware and will comply. Thank you * Telephone Encounter - Ritika Oliva LPN - 11/28/2023 12:17 PM EST Call placed to patient - no answer. Message left to return call to [phone]. * Telephone Encounter - Tawanna Limon DO - 11/28/2023 10:56 AM EST Please let pt know: Her urine showed an infection. This may explain some of the new incontinence she was noticing. I have sent an antibiotic to the [facility] pharmacy. Her labs were ok. Sugar went up a bit. She does not need a change in medication but we do need to monitor. documented in this encounter Plan of Treatment Upcoming Encounters Date Type Department Care Team (Late st Contact Info) Description 02/26/2024 1:40 PM EDT Office Visit Family Practice [address] [place] [address] [address] [place] [address] Tawanna Limon DO [address] [place] [address] 03/04/2024 10:30 AM EDT Office Visit Otolaryngology [facility] [address] [place] [address] Bettye Schwartz MD 132 [place] [address] 03/14/2024 10:30 AM EDT Office Visit Sleep Disorders Ctr [facility] 132 [place] [phone] Akosua Hager CRNP 132 [facility] [place] [address] 04/19/2024 10:00 AM EDT Nurse Only Ancillary [address] [place] 293 [facility], [place] [address] College, Nurse Annual Wellness Visit [address], [place] [address] 05/30/2024 11:00 AM EDT Office Visit Rheumatology [facility] [address] [place] [address] Leland Novoa MD [address] [place] [address] Scheduled Procedures Name Priority Associated Diagnoses Date/Ti me COLONOSCOPY FLEXIBLE PROXIMA L DIAGNOSTIC Recall Encounter for screening colonoscopy Health Maintenance Due Date Last Done Comments Cologuard 2000 Sigmoidoscopy 2000 Fecal Occult Blood Test 04/03/2015 04/03/2014, 12/26 CKD PHOS USE SMARTSET 73461 02/11/2024 040 05/2023, 02/15/2022, 04/13/2020, Additional history exists TSH 02/11/2024 02/10/2023, 02/04, 04/26/2021, Additional history exists GFR 02/14/2024 08/15/2023, 050 01/2023, 02/10/2023, Additional history exists Mammogram 05/24/2024 05/24/2023, 0612/2021, 04/06/2021, Additional history exists Albumin/Creatinine Ratio 08/15/2024 023, 07/14/2022, 04/24/2019, Additional history exists CKD HGB USE SMARTSET 43118 08/15/202408/15, 08/15/2023, 03/08/2023, Additional history exists Depression Screening 11/23/2024 11/23/2023 Diabetes Screening 11/23/2026 11/23/2023, 0 02/10/2023, 09/01/2022, Additional history exists Colonoscopy 02/14/2027 02/14/2017, 02/04, [...] Other - (no specific identity) Health Care Whitewasher (appointed verbally by patient or by statute hierarchy) Bob Manjarrez Adult Child Health Care Whitewasher (appointed verbally by patient or by statute hierarchy) Care Teams Property Specialist Relationship Specialty Start Date End Date Tawanna Limon DO [address] [place] [address], [place] [address] PCP - General Family Medicine 06/29/23 documented as of this encounter
--- OUTSIDE RECORDS SUMMARY | 2024-05-09 23:05 | External Medical Summary ---
Author Name Unknown Address Unknown Organization [id number]:LABORATORY [facility] - [address] [facility] [address] Laboratory Report Ordering Provider Test Date Status MEAGANNARCISO 11/23/2023 14:04:50 Final <10,000 colonies/ml mixed no rmal vladislav Observation Date Value Abnormality Reference (Units ) Status Bacteria identified in Specimen by Culture 11/23/2023 14:04:50 [id number]^ESCHE RICHIA COLI Abnormal Final 10,000 to 100,000 colonies/m L Escherichia coli Performing Location [facility] - [address] [facility] [address] Ordering Provider Test Date Status MEAGANNARCISO 11/23/2023 14:04:50 Final Observation Date Value Abnormality Reference (Units ) Status Ampicillin 11/23/2023 14:04:50 16 Intermediate Final Ampicillin + Sulbactam 11/23/2023 14:04:50 4 Susceptible Final Cefazolin 11/23/2023 14:04:50 <=4 Susceptible Final Cefepime susceptibility 11/23/2023 14:04:50 <=1 Susceptible Final Ceftriaxone suceptibility 11/23/2023 14:04:50 <=1 Susceptible Final Ciprofloxacin 11/23/2023 14:04:50 <=0.25 Susceptible Final Due to serious side effects, the FDA has advised against using Ciprofloxacin to treat uncomplicated UTIs and respiratory tract infections unless there are no alternative treatment options. Gentamicin susceptibility 11/23/2023 14:04:50 <=1 Susc eptible Final Nitrofurantoin susceptibility 11/23/2023 14:04:50 <=16 Susceptible Final Piperacillin + Tazobactamsusceptibility 11/23/2023 14:04:50 <=4 Susceptible Final TMP-SMZ susceptibility 11/23/2023 14:04:50 <=20 Suscept ible Final Test: Culture, Urine, Quanti tative
Specimen Source: Urine, Clean Catch
Specimen Type: Urine
Specimen Date: 11/23/2023 2:04 PM
Result Date: 11/25/2023 3:14 PM
Result Status: Final result
Abnormal: Yes
Resulting Lab: [facility]ORY [facility]
[address]
[place] [address]

CULTURE

10,000 to 100,000 colonies/mL Escherichia coli (Abnormal)

<10,000 colonies/ml mixed normal vladislav

SUSCEPTIBILITY

Escherichia coli
METHOD MICROBROTH DILUTIONS

AMPICILLIN 16 Intermediate
AMPICILLIN/SULBACTAM 4 Susceptible
CEFAZOLIN <=4 Susceptible
CEFEPIME <=1 Susceptible
CEFTRIAXONE <=1 Susceptible
CIPROFLOXACIN <=0.25 Susceptible [1]
GENTAMICIN <=1 Susceptible
NITROFURANTOIN <=16 Susceptible
PIPERACILLIN TAZOBACTAM <=4 Susceptible
TRIMETH/SULFAMETHOXAZOLE <=20 Susceptible

[1] Due to serious side effects, the FDA has advised against using
Ciprofloxacin to treat uncomplicated UTIs and respiratory tract infections
unless there are no alternative treatment options.

null Performing Location LABORATORY [facility] - [address] [facility] [address]
--- OUTSIDE RECORDS SUMMARY | 2024-05-09 23:05 | External Medical Summary | Summary of Care ---
Author Name Unknown Organization [facility] Address [address] [facility] [address] Phone [phone] Care Team Providers Care Coil Spring Assembler Name Role Phone BraxtonShonnaan Taylor Primary Care Provider [phone] Reason for Visit * Reason Onset Date Comments Order Request 10/23/2023 Status Check 10/23/2023 Encounter Details Date Type Department Care Team (Late st Contact Info) Description 10/23/2023 Telephone Sleep Disorders Ctr [facility] 132 [facility] [place] [address] Grazyna Tillman CRNP Order Request; Status Check Allergies Active Allergy Reactions Criticality Noted Date [...] as of this encounter (statuses as of 12/22/2023) Medications Medication Sig Dispensed Refills Start Date [...] the morning. 30 Tablet 2 10/02/2023 Active documented as of this encounter (statuses as of 12/22/2023) Active Problems Problem Noted Date Diagnosed Date Prediabetes 12/18/2023 Overview: Per Prediabetes protocol Morbid obesity with BMI of 45.0-49.9, adult 0 04/2021 Major depressive disorder, r ecurrent, severe [...] as of this encounter (statuses as of 12/22/2023) Resolved Problems Problem Noted Date Diagnosed Date [...] as of this encounter (statuses as of 12/22/2023) Immunizations Name Administration Dates Next Due COVID-19 mRNA, LNP-s, No Pre serve, 2-Dose Series ([employer]) 09/07/2021,02/26/2021,02/05/2021 COVID-19, LNP-s, No Preserve , James-sucrose, Ages 12+ ([employer]) 05/26/2022 COVID-19, MRNA-LNP, 23-24, P F, 30 MCG/0.3 mL, 12 YRS AND ABOVE, IM ([employer]-Comirnaty) 11/23/2023 Covid-19, Mrna, Lnp-s, Pf, B ivalent, 30 Mcg, IM, 12 yrs and above ([employer]) 04/17/2023 Diptheria/Tetanus (Adult) 05/29/1996 Pneumococcal Conjugate Vacc, [...] encounter Miscellaneous Notes * Telephone Encounter - Pura Kwok OSA - 12/22/2023 6:44 PM EST Pt scheduled to see Akosua WARREN on 03/14/24. * Telephone Encounter - Aixa Babb LPN - 11/21/2023 10:44 AM EST Pt still needs an appt for updated orders. Message was sent 10/23/23 * Telephone Encounter - Sharon Matthews CPhT - 11/21/2023 8:24 AM EST Pt states she requested these supplies weeks ago and [facility] has still not received an order. Pt calling to check on status of Sleep machine supplies. Caller can be reached at [phone]. Thank you, Amaya Matthews Wellhead Pumper [facility] ([facility]) 11/21/2023,8:24 AM * Telephone Encounter - Aixa Babb LPN - 10/23/2023 12:00 PM EST Pt will need an appt for orders * Telephone Encounter - Ayleen Hager CPhT - 10/23/2023 10:07 AM EST An order was requested for this patient. Name of Requestor: Alena Manjarrez Order Request: Sleep machine supplies, hose, mask, filters and nose cushions - ROUTE TO CLINIC NURSE POOL Diagnosis/Reason for Request: Pt request Does the order need to be faxed somewhere? If so, where?: [facility] Fax Number, if applicable: [phone] Call Back Number: [phone] Thank you, Ruby Hager Cad Designer [facility] ([facility]) 10/23/2023,10:07 AM documented in this encounter Plan of Treatment Upcoming Encounters Date Type Department Care Team (Late st Contact Info) Description 02/26/2024 1:40 PM EDT Office Visit Family Practice 65 [facility] [place] 293 [place] [address] Tawanna Limon DO 293 [facility], [place] [address] 03/04/2024 10:30 AM EDT Office Visit Otolaryngology [facility] 132 [facility] [place] [address] Bettye Schwartz MD 132 [place] [address] 03/14/2024 10:30 AM EDT Office Visit Sleep Disorders Ctr [facility] [address] [place] [phone] Akosua Hager CRNP 132 [facility] [place] [address] 04/19/2024 10:00 AM EDT Nurse Only Ancillary 65 [facility] 293 [place] [address] College, Nurse Annual Wellness Visit [address] [address] 05/30/2024 11:00 AM EDT Office Visit Rheumatology [facility] [address] [place] [address] Leland Novoa MD [address] [place] [address] Scheduled Procedures Name Priority Associated Diagnoses Date/Ti me COLONOSCOPY FLEXIBLE PROXIMA L DIAGNOSTIC Recall Encounter for screening colonoscopy Health Maintenance Due Date Last Done Comments Cologuard 2000 Sigmoidoscopy 2000 Fecal Occult Blood Test 04/03/2015 04/03/2014, 12/26 CKD PHOS USE SMARTSET 19899 02/11/2024 040 05/2023, 02/15/2022, 04/13/2020, Additional history exists TSH 02/11/2024 02/10/2023, 02/04, 04/26/2021, Additional history exists GFR 02/14/2024 08/15/2023, 050 01/2023, 02/10/2023, Additional history exists Mammogram 05/24/2024 05/24/2023, 05/06, 04/07/2022, Additional history exists Albumin/Creatinine Ratio 08/15/2024 023, 07/14/2022, 04/24/2019, Additional history exists CKD HGB USE SMARTSET 75308 08/15/202408/15, 08/15/2023, 03/08/2023, Additional history exists Depression [...] Other - (no specific identity) Health Care Pain Coordinator (appointed verbally by patient or by statute hierarchy) Bob Manjarrez Adult Child Health Care Pain Coordinator (appointed verbally by patient or by statute hierarchy) Care Teams Coil Spring Assembler Relationship Specialty Start Date End Date Tawanna Limon DO [address] [place] [address] PCP - General Family Medicine 06/29/23 documented as of this encounter
--- OUTSIDE RECORDS SUMMARY | 2024-05-09 23:05 | External Medical Summary ---
Author Name Unknown Address Unknown Organization K01:LABORATORY [facility] - [address] [place] [address] Laboratory Report Ordering Provider Test Date Status LORENA DAVIS 01/15/2024 10:01:01 Final Observation Date Value Abnormality Reference (Units ) Status Albumin 01/15/2024 10:01:01 4.2 3.8-5.0 (g/dL) Final AST (Aspartate aminotransferase) 01/15/2024 10:01:01 21 10-35 (U/L) Final Alk Phos 01/15/2024 10:01:01 67 35-130 (U/L) Final ALT (Alanine aminotransferase) 01/15/2024 10:01:01 20 10-35 (U/L) Final Bilirubin, Total 01/15/2024 10:01:01 0.6 <=1.2 (mg/dL) Final Bilirubin, Direct 01/15/2024 10:01:01 <0.2 0.0-0.3 (mg/dL) Final Protein 01/15/2024 10:01:01 6.3 6.0-8.3 (g/dL) Final Performing Location [facility]ORY [facility] - [address] [place] [address]
--- OUTSIDE RECORDS SUMMARY | 2024-05-09 23:05 | External Medical Summary | Summary of Care ---
Author Name Unknown Organization [facility] Address [address] [place] [address] Phone [phone] Care Team Providers Care Inbound Customer Service Representative Name Role Phone Tawanna Limon DO Primary Care Provider [phone] Reason for Visit * Reason Comments Medication Refill Encounter Details Date Type Department Care Team (Late st Contact Info) Description 01/09/2024 Refill Rheumatology, [place] [address], [place] [id number] Leland Novoa MD [address] [place] [address] Rheumatoid arthritis involving multiple sites with positive rheumatoid factor (HCC) Allergies Active Allergy Reactions Criticality Noted Date [...] as of this encounter (statuses as of 01/16/2024) Medications Medication Sig Dispensed Refills Start Date [...] 05/12/2023 Pravastatin Sodium 20 MG Oral Tablet (Pravachol)Indica [...] the morning. 30 Tablet 2 01/12/2024 Active Rinvoq 15 MG Oral Tablet Extended Release 24 Hour (Upadacitinib ER)Indications:Rh eumatoid arthritis involving multiple sites with positive rheumatoid factor (HCC) Take 1 Tablet by mouth in the morning. 30 Tablet 2 10/02/2023 4 Discontinu ed(Refill) documented as of this encounter (statuses as of 01/16/2024) Active Problems Problem Noted Date Diagnosed Date [...] as of this encounter (statuses as of 01/16/2024) Resolved Problems Problem Noted Date Diagnosed Date [...] as of this encounter (statuses as of 01/16/2024) Immunizations Name Administration Dates Next Due COVID-19 mRNA, LNP-s, No Pre serve, 2-Dose Series ([employer]ma) 09/07/2021,02/26/2021,02/05/2021 COVID-19, LNP-s, No Preserve , James-sucrose, Ages 12+ (Pfizer) 05/26/2022 COVID-19, MRNA-LNP, 23-24, P F, 30 MCG/0.3 mL, 12 YRS AND ABOVE, IM ([employer] [employer]) 11/23/2023 Covid-19, Mrna, [...] encounter Miscellaneous Notes * Telephone Encounter - Court Guerra LPN - 01/12/2024 1:55 PM EST Pt notified to get lab work completed.Pt verbalized understanding * Telephone Encounter - Roberto Cartagena PA-C - 01/12/2024 12:04 PM ESTSigned Prescriptions: Disp Refills Rinvoq 15 MG Oral Tablet Extended Release *30 Tab*2 Sig: Take 1 Tablet by mouth in the morning. Authorizing Provider: ROBERTO CARTAGENA * Telephone Encounter - Roberto Cartagena PA-C - 01/12/2024 12:04 PM EST Has active standing orders. Please notify patient to perform labs. * Telephone Encounter - Calixto Deleon RPh - 01/12/2024 11:32 AM ESTPending Prescriptions: Disp Refills Rinvoq 15 MG Oral Tablet Extended Release *30 Tab*2 Sig: Take 1 Tablet by mouth in the morning. * Telephone Encounter - Calixto Deleon RPh - 01/12/2024 11:29 AM EST Rheumatology: Refill Request(s) Per review of the refill parameters, Medication was NOT refilled d/t following concern: Last labs completed greater than protocol allows. Last labs completed 08/15/23. Please advise if you would like held until labs completed. Lab work previously ordered and pended 90 day supply. Please route back and will advise pt of labs if appropriate. Calixto Deleon [facility] Clinical Pharmacist Rheumatology Department 01/12/2024,11:29 AM documented in this encounter Plan of Treatment Upcoming Encounters Date Type Department Care Team (Late st Contact Info) Description 02/26/2024 1:40 PM EDT Office Visit Family Practice 65 [facility] [address] [place] [address] Tawanna Limon DO [address] [place] [address] 03/04/2024 10:30 AM EDT Office Visit Otolaryngology [facility] 132 [facility] [place] [address] Bettye Schwartz MD [facility] [place] [address] 03/14/2024 10:30 AM EDT Office Visit Sleep Disorders Ctr [facility] 132 [facility] [place] [phone] Akosua Hager CRNP [facility] [place] [address] 04/19/2024 10:00 AM EDT Nurse Only Ancillary 65 [facility] [address] [place] [address] College, Nurse Annual Wellness Visit [address] [place] [address] 05/30/2024 11:00 AM EDT Office Visit Rheumatology [facility] [address] [place], [place] [address] Leland Novoa MD [address] [employer] [address] [place] [address] Scheduled Procedures Name Priority Associated Diagnoses Date/Ti me COLONOSCOPY FLEXIBLE PROXIMA L DIAGNOSTIC Recall Encounter for screening colonoscopy Health Maintenance Due Date Last Done Comments Cologuard 2000 Sigmoidoscopy 2000 Fecal Occult Blood Test 04/03/2015 04/03/2014, 12/26 CKD PHOS USE SMARTSET 09365 02/11/2024 040 05/2023, 02/15/2022, 04/13/2020, Additional history exists TSH 02/11/2024 02/10/2023, 02/04, 04/26/2021, Additional history exists Mammogram 05/24/2024 05/24/2023, 05/06, 04/07/2022, Additional history exists GFR 07/17/2024 01/15/2024, 08/06, 03/08/2023, Additional history exists Albumin/Creatinine Ratio 08/15/2024 023, 07/14/2022, 04/24/2019, Additional history exists Depression Screening 11/23/2024 11/23/2023 HbA1c 11/23/2024 11/23/2023, 09/06, 02/23/2015, Additional history exists CKD HGB USE SMARTSET 51337 01/14/202501/14, 01/15/2024, 08/15/2023, Additional history exists Colonoscopy [...] as of this encounter Visit Diagnoses Diagnosis Rheumatoid arthritis involving multiple sites with positive rheumatoid factor (HCC) documented in this encounter Advance Directives Healthcare Agents on File Name Relationship Healthcare Agent Relationship Communication Marcos Breaux Other - (no specific identity) Health Care Catcher Helper (appointed verbally by patient or by statute hierarchy) Bob Manjarrez Adult Child Health Care Catcher Helper (appointed verbally by patient or by statute hierarchy) Care Teams Inbound Customer Service Representative Relationship Specialty Start Date End Date Tawanna Limon DO [address] [place] [address] PCP - General Family Medicine 06/29/23 documented as of this encounter
--- OUTSIDE RECORDS SUMMARY | 2024-05-09 23:05 | External Medical Summary ---
Author Name Unknown Address Unknown Organization [id number]:LABORATORY [facility] - [address] [place] [address] Laboratory Report Ordering Provider Test Date Status NARCISO RHODES 11/23/2023 13:52:34 Final Observation Date Value Abnormality Reference (Units ) Status HbA1C 11/23/2023 13:52:34 5.7 Above high normal 4. 0-5.6 (%) Final The use of HbA1c to monitor glycemic status is based on normal hemoglobin and HbA composition. This test should not be used in patients with abnormal hemoglobin that affects the half life of the red blood cell or the in vivo glycation rates. Glucose, estimated average 11/23/2023 13:52:34 117 <126 (mg/dL) Final Performing Location LABORATORY [facility] - [address] [place] [address]
--- OUTSIDE RECORDS SUMMARY | 2024-05-09 23:05 | External Medical Summary ---
Author Name Unknown Address Unknown Organization [id number]:LABORATORY [facility] - [address] [facility] [place] [address] Laboratory Report Ordering Provider Test Date Status LORENA DAVIS 01/15/2024 10:01:01 Final Observation Date Value Abnormality Reference (Units ) Status SYNC LEUKOCYTES IN BLOOD BY AUTOMATED COUNT 01/15/2024 10:01:01 6.59 4.00-10.80 (K/uL) Final Segs 01/15/2024 10:01:01 61.6 40.0-75.0 (%) Final Lymphs % 01/15/2024 10:01:01 25.0 18.0-42.0 (%) Final Monos 01/15/2024 10:01:01 7.9 1.0-11.0 (%) Final Eosinophils 01/15/2024 10:01:01 3.8 0.0-6.0 (%) Final Basos 01/15/2024 10:01:01 0.6 0.0-2.0 (%) Final Immature Granulocyte, Percent 01/15/2024 10:01:01 1.1 0.0-2.0 (%) Final Absolute Segs 01/15/2024 10:01:01 4.06 1.80-7.70 (K/uL) Final Lymphs, absolute 01/15/2024 10:01:01 1.65 1.00-4.80 (K/ul) Final Monos, Abs 01/15/2024 10:01:01 0.52 0.00-1.10 (K/uL) Final Eos, Abs 01/15/2024 10:01:01 0.25 0.00-0.70 (K/uL) Final Basos, Abs 01/15/2024 10:01:01 0.04 0.00-0.20 (K/uL) Final Immature Granulocytes, Number 01/15/2024 10:01:01 0.07 0.00-0.20 (K/uL) Final Performing Location LABORATORY [facility] - [facility] [address] [facility] [address]
--- OUTSIDE RECORDS SUMMARY | 2024-05-09 23:05 | External Medical Summary ---
Author Name Unknown Address Unknown Organization : Laboratory Report Ordering Provider Test Date Status NARCISO RHODES 11/23/2023 14:00:00 Final Observation Date Value Abnormality Reference (Units ) Status Color of Urine by Auto 11/23/2023 14:00:00 Other Abnormal Light Yellow, Yellow Final Clarity, Urine 11/23/2023 14:00:00 Cloudy Abnormal Clear Final Glucose [Mass/volume] in Urine by Automated test strip 11/23/2023 14:00:00 Negative Negative (mg/dL) Final Bilirubin.total [Presence] in Urine by Automated test strip 11/23/2023 14:00:00 Negative Negative Final Ketones [Mass/volume] in Urine by Automated test strip 11/23/2023 14:00:00 Negative Negative (mg/dL) Final Specific gravity, Urine 11/23/2023 14:00:00 1.025 1.003-1.030 Final Hemoglobin [Presence] in Urine by Automated test strip 11/23/2023 14:00:00 Negative Negative Final pH, Urine 11/23/2023 14:00:00 6.0 5.0, 5.5, 6.0, 6.5, 7.0, 7.5 (units) Final Protein [Mass/volume] in Urine by Automated test strip 11/23/2023 14:00:00 Negative Negative (mg/dL) Final Urobilinogen, Urine 11/23/2023 14:00:00 0.2 0.2, 1.0 (mg/dL) Final Nitrite [Presence] in Urine by Automated test strip 11/23/2023 14:00:00 Positive Abnormal Negative Final Leukocyte esterase [Presence] in Urine by Automated test strip 11/23/2023 14:00:00 Trace Abnormal Negative Final Performing Location
--- OUTSIDE RECORDS SUMMARY | 2024-05-09 23:05 | External Medical Summary ---
Author Name Unknown Address Unknown Organization K01:LABORATORY [facility] - [address] [place] [address] Laboratory Report Ordering Provider Test Date Status LORENA DAVIS 01/15/2024 10:01:01 Final Observation Date Value Abnormality Reference (Units ) Status BUN 01/15/2024 10:01:01 15 6-20 (mg/d L) Final Performing Location LABORATORY [facility] - [address] [place] [address]
--- OUTSIDE RECORDS SUMMARY | 2024-05-09 23:05 | External Medical Summary ---
Author Name Unknown Address Unknown Organization K01:[facility] [address] [place] [address] Laboratory Report Ordering Provider Test Date Status LORENA DAVIS 01/15/2024 10:01:01 Final Observation Date Value Abnormality Reference (Units ) Status Creatinine 01/15/2024 10:01:01 1.2 Above high normal 0.5-1.0 (mg/dL) Final Glomerular filtration rate/1.73 sq M.predicted [Volume Rate/Area] in Serum, Plasma or Blood by Creatinine-based formula (CKD-EPI) 01/15/2024 10:01:01 50 Below low normal >=60 (mL/min) Final eGFR is calculated based on the CKD-EPI 2020 equation Performing Location LAB[facility] [address] [place] [address]
--- OUTSIDE RECORDS SUMMARY | 2024-05-09 23:05 | External Medical Summary | Summary of Care ---
Author Name Unknown Organization [facility] Address [address] [place] [address] Phone [phone] Care Team Providers Care Health Care Consultant Name Role Phone Tawanna Limon DO Primary Care Provider [phone] Reason for Visit * Reason Comments Medication Refill Encounter Details Date Type Department Care Team (Late st Contact Info) Description 01/09/2024 Refill Rheumatology, [place] [address] [place], [place] [phone] Leland Novoa MD [address] [place] [address] Rheumatoid arthritis involving multiple sites [...] as of this encounter (statuses as of 01/12/2024) Medications Medication Sig Dispensed Refills Start Date [...] as of this encounter (statuses as of 01/12/2024) Active Problems Problem Noted Date Diagnosed Date [...] as of this encounter (statuses as of 01/12/2024) Resolved Problems Problem Noted Date Diagnosed Date [...] as of this encounter (statuses as of 01/12/2024) Immunizations Name Administration Dates Next Due COVID-19 mRNA, LNP-s, No Pre serve, 2-Dose Series ([employer]oot) 09/07/2021,02/26/2021,02/05/2021 COVID-19, LNP-s, No Preserve , James-sucrose, Ages 12+ (Pfizer) 05/26/2022 COVID-19, MRNA-LNP, 23-24, P F, 30 MCG/0.3 mL, 12 YRS AND ABOVE, IM ([employer]) 11/23/2023 Covid-19, Mrna, Lnp-s, Pf, B ivalent, [...] completed.Pt verbalized understanding * Telephone Encounter - Roebrto Cartagena PA-C - 01/12/2024 12:04 PM ESTSigned [...] pt of labs if appropriate. Calixto Deleon Replaced by [facility] Clinical Pharmacist Rheumatology Department 01/12/2024,11:29 AM documented in this encounter Plan of Treatment Upcoming Encounters Date Type Department Care Team (Late st Contact Info) Description 02/26/2024 1:40 PM EDT Office Visit Family Practice 65 [facility] 293 [place] [address] Tawanna Limon DO [address] [place] [address] 03/04/2024 10:30 AM EDT Office Visit Otolaryngology [facility] 132 [facility] [place] [address] Bettye Schwartz MD [facility] [place] [address] 03/14/2024 10:30 AM EDT Office Visit Sleep Disorders Ctr [facility] 132 [facility] [place] [phone] Akosua Hager CRNP [address] [facility] [place] [address] 04/19/2024 10:00 AM EDT Nurse Only Ancillary 65 [facility] 293 [place] [address] College, Nurse Annual Wellness Visit [address] [place] [address] 05/30/2024 11:00 AM EDT Office Visit Rheumatology [facility] [address] [place], [place] [address] Leland Novoa MD [address] [employer] [place] [address] Scheduled Procedures Name Priority Associated Diagnoses Date/Ti me COLONOSCOPY FLEXIBLE PROXIMA L DIAGNOSTIC Recall Encounter for screening colonoscopy Health Maintenance Due Date Last Done Comments Cologuard 2000 Sigmoidoscopy 2000 Fecal Occult Blood Test 04/03/2015 04/03/2014, 12/26 CKD PHOS USE SMARTSET 55059 02/11/2024 040 05/2023, 02/15/2022, 04/13/2020, Additional history exists TSH 02/11/2024 02/10/2023, 02/04, 04/26/2021, Additional history exists GFR 02/14/2024 08/15/2023, 050 01/2023, 02/10/2023, Additional history exists Mammogram 05/24/2024 05/24/2023, 05/06, 04/07/2022, Additional history exists Albumin/Creatinine Ratio 08/15/2024 023, 07/14/2022, 04/24/2019, Additional history exists CKD HGB USE SMARTSET 08086 08/15/202408/15, 08/15/2023, 03/08/2023, Additional history exists Depression [...] Other - (no specific identity) Health Care Wool Mixer (appointed verbally by patient or by statute hierarchy) Bob Manjarrez Adult Child Health Care Wool Mixer (appointed verbally by patient or by statute hierarchy) Care Teams Health Care Consultant Relationship Specialty Start Date End Date Tawanna Limon DO [address] [place] [address] PCP - General Family Medicine 06/29/23 documented as of this encounter
--- OUTSIDE RECORDS SUMMARY | 2024-05-09 23:05 | External Medical Summary ---
Author Name Unknown Address Unknown Organization K01:LABORATORY [facility] [place] - [address] [place] [address] Laboratory Report Ordering Provider Test Date Status NARCISO RHODES 11/23/2023 13:52:34 Final Observation Date Value Abnormality Reference (Units ) Status Vitamin B12 11/23/2023 13:52:34 [phone] (pg/mL) Final Performing Location LABORATORY [facility] - [address] [place] [address]
--- OUTSIDE RECORDS SUMMARY | 2024-05-09 23:05 | External Medical Summary | Summary of Care ---
Author Name Unknown Organization [facility] Address [address] [place] [address] Phone [phone] Care Team Providers Care Hat Former Name Role Phone Tawanna Limon DO Primary Care Provider [phone] Reason for Visit * Reason Onset Date Comments Follow Up Immunization RSV Vaccine 11/23/2023 Encounter Details Date Type Department Care Team (Latest Contact Info) Description 11/23/2023 1:00 PM EST Office Visit Family Practice [address] [place] [address] [place] [address] Tawanna Limon DO [address] [place] [address] Nocturia*; Paresthesias; Rheumatoid arthritis involving multiple sites with positive rheumatoid factor ([facility]); Moderate persistent asthma without complication; Dyslipidemia, goal LDL below 100; Acquired hypothyroidism; PTSD (post-traumatic stress disorder); Major depressive disorder, recurrent, severe with psychotic symptoms ([facility]); Early onset Alzheimer's dementia without behavioral disturbance ([facility]); Intellectual disability; Primary open-angle glaucoma, bilateral, mild stage; HTN, goal below 140/90; Hypertensive kidney disease with stage 3b chronic kidney disease (HCC); Other atherosclerosis of paskenta arteries of extremities, bilateral legs ([facility]); COMFORT on CPAP; Body mass index 45.0-49.9, adult ([facility]); Risk and functional assessment; Need for COVID-19 [...] mRNA, LNP-s, No Pre serve, 2-Dose Series ([employer]) 09/07/2021,02/26/2021,02/05/2021 COVID-19, LNP-s, No Preserve , James-sucrose, Ages 12+ (Pfizer) 05/26/2022 COVID-19, MRNA-LNP, 23-24, P F, 30 MCG/0.3 mL, 12 YRS AND ABOVE, IM ([employer]ell[employer]-Comirnaty) 11/23/2023 Covid-19, Mrna, Lnp-s, Pf, B ivalent, [...] 10 times. Repeat this throughout the day. [employer] Patient Education Copyright 2008 - 2010 [employer] except where otherwise noted. Preventing Falls: Moving [...] help make your Kegels even more effective. [employer] Patient Education Copyright 2008 - 2010 [employer] except where otherwise noted. Here are some [...] involving multiple sites with positive rheumatoid factor ([facility]) M05.79 HTN, goal below 140/90 I10 Diffuse dermatitis L30.9 Primary open-angle glaucoma, bilateral, mild stage H40.1131 Other atherosclerosis of paskenta arteries of extremities, bilateral legs ([facility]) I70.293 Gastroesophageal reflux disease without esophagitis K21.9 Moderate persistent asthma without complication J45.40 Intellectual disability F79 Major depressive disorder, recurrent, severe with psychotic symptoms ([facility]) F33.3 Early onset Alzheimer's dementia without behavioral disturbance ([facility]) G30.0, F02.80 Hypertensive kidney disease with stage 3b chronic kidney disease ([facility]) I12.9, N18.32 Morbid obesity with BMI of 45.0-49.9, adult ([facility]) E66.01, Z68.42 Current Outpatient Medications Medication Sig [...] performed by Alanis Zarate DO at ENDOSCOPY [facility] EGD, FLEXIBLE, DIAGNOSTIC 07/02/2013 UPPER GI ENDOSCOPY DIAGNOSTIC performed by Alanis Zarate DO at ENDOSCOPY [facility] EGD, FLEXIBLE, DIAGNOSTIC 10/09/2019 chronic inactive gastric inflammation / [facility] FRACTURE NOS left ankle LAPAROSCOPY; CHOLECYSTECTOMY 02/07/2013 02/07/2013 laparoscopic cholecystectomy [facility] Dr. Maddy Ospina LIGATE/CUT [...] kg (288 lb) | LMP 09/16/2003 | FgC269% | BMI 46.48 kg/m | BSA 2.47 [...] depressive disorder, recurrent, severe with psychotic symptoms ([facility]) (G30.0, F02.80) Early onset Alzheimer's dementia without behavioral disturbance ([facility]) (F79) Intellectual disability Plan: pt will remain [...] changes for now. (I70.293) Other atherosclerosis of paskenta arteries of extremities, bilateral legs (HCC) Plan: Pt follows with podiatry. No significant issues at present. (G47.33) COMFORT on CPAP Plan: pt will need to see sleep medicine for her CPAP supplies per message in chart. help desk agent asked to assist with scheduling. (Z68.41) Body mass index (BMI) 45-49.9, adult (HCC) Plan: Weight down a few pounds. She admits she eats junk. Encouraged to work on diet and weight loss. (Z13.9) Risk and functional assessment Plan: see nursing note. (Z23) Need for COVID-19 vaccine Plan: COVID-19, MRNA-LNP, PF, 23-24, 30MCG/0.3ML, IM, 12YRS AND ABOVE ([employer]ell[employer]oule) Vaccine given. See admin record. Follow-up: 3 [...] EST [facility] 132 [facility] [place] [phone] Akosua Hager CRNP 132 [facility] [place] [address] 02/26/2024 1:40 PM EDT Office Visit Family Practice [address] [place] [address], [place] [facility] [address] Tawanna [facility] [address] 03/04/2024 10:30 AM EDT Office Visit Otolaryngology [facility] [address] [place] [address] Bettye Schawrtz MD [address] [place] [address] 04/19/2024 10:00 AM EDT Nurse Only Ancillary 65 [facility] 293 [place] [address] College, Nurse Annual Wellness Visit [address] [place] [address] 05/30/2024 11:00 AM EDT Office Visit Rheumatology [place] [address] [employer] [place] [address] Leland Novoa MD [address] [place] [address] Pending Results Name Type Priority Associated Diagnoses [...] 04/03/2015 04/03/2014, 12/26 CKD PHOS USE SMARTSET 64417 02/11/2024 04/0 05/2023, 02/15/2022, 04/13/2020, Additional history exists TSH 02/11/2024 02/10/2023, 02/04, 04/26/2021, Additional history exists GFR 02/14/2024 08/15/2023, 01/2023, 02/10/2023, Additional history exists Mammogram 05/24/2024 05/24/2023, 12/2021, 04/06/2021, Additional history exists Albumin/Creatinine Ratio 08/15/2024 023, 07/14/2022, 04/24/2019, Additional history exists CKD HGB USE SMARTSET 72220 08/15/202408/15, 08/15/2023, 03/08/2023, Additional history exists Depression [...] Yellow, Yellow 11/23/2023 2:02 PM EST LABORATORY [place] [address] Clarity, Urine Cloudy(A) Clear 11/23/2023 2:02 PM EST LABORATORY [address] Glucose, Urine Negative Negative mg/dL 11/23/2023 2:02 PM EST [address] Bilirubin, Urine Negative Negative 11/23/2023 2:02 PM EST LABORATORY [address] Ketone, Urine Negative Negative mg/dL 11/23/2023 2:02 PM EST [address] Specific [place], Urine 1.025 1.003 - 1.030 11/23/2023 2:02 PM EST LABORATORY [place] [address] Blood, Urine Negative Negative 11/23/2023 2:02 PM [place] [address] pH, Urine 6.0 5.0, 5.5, 6.0, 6.5, 7.0, 7.5 units 11/23/2023 2:02 PM EST [address] Protein, Urine Negative Negative mg/dL 11/23/2023 2:02 PM EST LABORATORY [address] Urobilinogen, Urine 0.2 0.2, 1.0 mg/dL 11/23/2023 2:02 PM EST LABORATORY [address] Nitrite, Urine Positive(A) Negative 11/23/2023 2:02 PM EST [place] [address] Esterase, Urine Trace(A) Negative 11/23/2023 2:02 PM [place] [address] Urine 11/23/2023 2:00 PM EST 11/23/2023 2:02 PM EST Tawanna Limon DO LAB POINT OF CARE TE ST DOCKED DEVICE UNSOLICITED RESULTS [facility] 56-21 [address] [place] [address], [place] documented in this encounter Visit Diagnoses Diagnosis [...] chronic kidney disease (HCC) Other atherosclerosis of paskenta arteries of extremities, bilateral legs (HCC) COMFORT on CPAP Obstructive sleep apnea (adult) (pediatric) Body mass index 45.0-49.9, adult (HCC) Body Mass Index 45.0-49.9, adult Risk and functional assessment Screening for unspecified condition Need for COVID-19 vaccine documented in this encounter Advance Directives Healthcare Agents on File Name Relationship Healthcare Agent Relationship Communication Marcos Breaux Other - (no specific identity) Health Care Police Chief (appointed verbally by patient or by statute hierarchy) Bob Manjarrez Adult Child Health Care Police Chief (appointed verbally by patient or by statute hierarchy) Care Teams Hat Former Relationship Specialty Start Date End Date Tawanna Limon DO [address] [place] [address] PCP - General Family Medicine 06/29/23 documented as of this encounter
--- OUTSIDE RECORDS SUMMARY | 2024-05-09 23:05 | External Medical Summary ---
Author Name Unknown Address Unknown Organization K01:[facility] [place] [facility] [address] [address] Laboratory Report Ordering Provider Test Date Status LORENA DAVIS 01/15/2024 10:01:01 Final Observation Date Value Abnormality Reference (Units ) Status Triglyceride 01/15/2024 10:01:01 83 <=174 ( mg/dL) Final Triglyceride Reference Range s (mg/dL):
<150 Acceptable
150-174 Borderline high
175-499 High
>=500 Very high Cholesterol 01/15/2024 10:01:01 255 Above high normal <200 (mg/dL) Final Total Cholesterol Reference Ranges (mg/dL):
<200 Desirable
200-239 Borderline high
>=240 High HDL 01/15/2024 10:01:01 64 >49 (mg/dL ) Final HDL Cholesterol Reference Ra nges (mg/dL):
>=60 High (Desirable)
<50 Low (Undesirable) For Females
<40 Low (Undesirable) For Males NON-HDL CHOLESTEROL 01/15/2024 10:01:01 191 Above high normal <=159 (mg/dL) Final Non-HDL Cholesterol Referenc e Range (mg/dL):
<100 Target level for high risk ASCVD patient
<130 Optimal for general population
130-159 Near optimal for general population
160-189 Borderline High
190-219 High
>=220 Very High LDL, (calculated) 01/15/2024 10:01:01 174 Above high n ormal <=129 (mg/dL) Final LDL Cholesterol Reference Ra nges (mg/dL):
<70 Target level for high risk ASCVD patient
<100 Optimal for general population
100-129 Near optimal for general population
130-159 Borderline high
160-189 High
>=190 Very high Performing Location [facility] [place] - [address] [facility] [address]
--- OUTSIDE RECORDS SUMMARY | 2024-05-09 23:06 | External Medical Summary | Summary of Care ---
Author Name Unknown Organization [facility] Address [address] [facility] [address] Phone [phone] Care Team Providers Care Dipper Fish Name Role Phone BraxtonShonnaan Taylor Primary Care Provider [phone] Reason for Visit * Reason Onset Date Comments Order Request 10/23/2023 Encounter Details Date Type Department Care Team (Late st Contact Info) Description 10/23/2023 Telephone Sleep Disorders Ctr [facility] [address] [facility] [place] [address] Grazyna Tillman CRNP Order Request Allergies Active Allergy Reactions Criticality Noted Date Comments Adhesive Tape Edema face/lips/tongue High 02/17/2011 States she is allergic to bandaid and it causes throat swelling. Ibuprofen Nausea/vomiting 11/30/2011 Latex 05/15/2017 Nsaids 10/14/1997 stomache upset Sulfa Antibiotics 10/14/1997 Eyes like on fire documented as of this encounter (statuses as of 11/17/2023) Medications Medication Sig Dispensed Refills Start Date [...] as of this encounter (statuses as of 11/17/2023) Active Problems Problem Noted Date Diagnosed Date Morbid obesity with BMI of 45.0-49.9, adult [...] as of this encounter (statuses as of 11/17/2023) Resolved Problems Problem Noted Date Diagnosed Date [...] as of this encounter (statuses as of 11/17/2023) Immunizations Name Administration Dates Next Due COVID-19 mRNA, LNP-s, No Pre serve, 2-Dose Series ([employer]) 09/07/2021,02/26/2021,02/05/2021 COVID-19, LNP-s, No Preserve , James-sucrose, Ages 12+ (Pfizer) 05/26/2022 Covid-19, Mrna, Lnp-s, Pf, B ivalent, 30 [...] encounter Miscellaneous Notes * Telephone Encounter - Aixa Babb LPN - 10/23/2023 12:00 PM EST Pt will need an appt for orders * Telephone Encounter - Ayleen Hager CPhT - 10/23/2023 10:07 AM EST An order was requested for this patient. Name of Requestor: Alena Jsoseline Order Request: Sleep machine supplies, hose, mask, filters and nose cushions - ROUTE TO CLINIC NURSE POOL Diagnosis/Reason for Request: Pt request Does the order need to be faxed somewhere? If so, [facility] Fax Number, if applicable: [phone] Call Back Number: [phone] Thank you, Ruby Hager Certified Diabetes Educator [facility] (Formerly Telepharmacy) 10/23/2023,10:07 AM documented in this encounter Plan of Treatment Upcoming Encounters Date Type Department Care Team (Late st Contact Info) Description 11/23/2023 1:00 PM EST Office Visit Family Practice [address] [place] [address] [facility] [place] [address] Tawanna Limon DO 293 [place] [address] 04/19/2024 10:00 AM EDT Nurse Only Ancillary 65 [facility] [address] [facility] [place] [address] College, Nurse Annual Wellness Visit 65 [facility] [address] [facility] [place] [address] 05/30/2024 11:00 AM EDT Office Visit Rheumatology [place] [address] [email or web address] [place] [address] Leland Novoa MD [facility] [place] [address] Scheduled Procedures Name Priority Associated Diagnoses Date/Ti me COLONOSCOPY FLEXIBLE PROXIMA L DIAGNOSTIC Recall Encounter for screening colonoscopy Health Maintenance Due Date Last Done Comments Cologuard 2000 Sigmoidoscopy 2000 Fecal Occult Blood Test 04/03/2015 04/03/2014, 12/26 COVID-19 Vaccine ( season) 2023 04/17/2023, 05/26/2022, 09/07/2021, Additional history exists CKD PHOS USE SMARTSET 47267 02/11/2024 040 05/2023, 02/15/2022, 04/13/2020, Additional history exists TSH 02/11/2024 02/10/2023, 02/04, 04/26/2021, Additional history exists GFR 02/14/2024 08/15/2023, 05/0 01/2023, 02/10/2023, Additional history exists Mammogram 05/24/2024 05/24/2023, 06/0 12/2021, 04/06/2021, Additional history exists Albumin/Creatinine Ratio 08/15/2024 023, 07/14/2022, 04/24/2019, Additional history exists CKD HGB USE SMARTSET 80792 08/15/202408/15, 08/15/2023, 03/08/2023, Additional history exists Depression Screening 08/15/2024 08/15/2023 Diabetes Screening 02/10/2026 02/10/2023, 1 , 02/15/2022, [...] Other - (no specific identity) Health Care Textile Slitting Machine Operator (appointed verbally by patient or by statute hierarchy) Bob Manjarrez Adult Child Health Care Textile Slitting Machine Operator (appointed verbally by patient or by statute hierarchy) Care Teams Dipper Fish Relationship Specialty Start Date End Date Tawanna Limon DO [address] [place] [address] PCP - General Family Medicine 06/29/23 documented as of this encounter
--- OUTSIDE RECORDS SUMMARY | 2024-05-09 23:06 | External Medical Summary | Summary of Care ---
Author Name Unknown Organization [facility] Address [address] [facility] [address] Phone [phone] Care Team Providers Care Lane Marker Installer Name Role Phone BraxtonShonnaan Taylor Primary Care Provider [phone] Reason for Visit * Reason Onset Date Comments Order Request 10/23/2023 Status Check 10/23/2023 Encounter Details Date Type Department Care Team (Late st Contact Info) Description 10/23/2023 Telephone Sleep Disorders Ctr [facility] 132 [facility] [place] [address] Grazyna Tillman CRNP Order Request; Status Check Allergies Active Allergy Reactions Criticality Noted Date Comments Adhesive Tape Edema face/lips/tongue High 02/17/2011 States she is allergic to bandaid and it causes throat swelling. Ibuprofen Nausea/vomiting 11/30/2011 Latex 05/15/2017 Nsaids 10/14/1997 stomache upset Sulfa Antibiotics 10/14/1997 Eyes like on fire documented as of this encounter (statuses as of 11/21/2023) Medications Medication Sig Dispensed Refills Start Date [...] as of this encounter (statuses as of 11/21/2023) Active Problems Problem Noted Date Diagnosed Date [...] as of this encounter (statuses as of 11/21/2023) Resolved Problems Problem Noted Date Diagnosed Date [...] as of this encounter (statuses as of 11/21/2023) Immunizations Name Administration Dates Next Due COVID-19 mRNA, LNP-s, No Pre serve, 2-Dose Series (Pfizer) 09/07/2021,02/26/2021,02/05/2021 COVID-19, LNP-s, No Preserve , James-sucrose, [...] she requested these supplies weeks ago and [facility] has still not received an order. Pt calling to check on status of Sleep machine supplies. Caller can be reached at [phone]. Thank you, Amaya Matthews Stave Log Cut Off Saw Operator [facility] ([facility]) (Formerly [...] be faxed somewhere? If so, where?: [facility] Fax Number, if applicable: [phone] Call Back Number: [phone] Thank you, Ruby Hager Inspector Hairspring Truing [facility] (Formerly Telepharmacy) 10/23/2023,10:07 AM documented in this encounter Plan of Treatment Upcoming Encounters Date Type Department Care Team (Late st Contact Info) Description 11/23/2023 1:00 PM EST Office Visit Family Practice [address] [address] Tawanna Limon, [address] [address] 04/19/2024 10:00 AM EDT Nurse Only Ancillary [address] [address] [place], Nurse Annual Wellness Visit [address] [address] 05/30/2024 11:00 AM EDT Office Visit Rheumatology [address] [address] Leland Novoa MD [facility] [place] [address] Scheduled Procedures Name Priority Associated Diagnoses Date/Ti me COLONOSCOPY FLEXIBLE PROXIMA L DIAGNOSTIC Recall Encounter for screening colonoscopy Health Maintenance Due Date Last Done Comments Cologuard 2000 Sigmoidoscopy 2000 Fecal Occult Blood Test 04/03/2015 04/03/2014, 12/26 COVID-19 Vaccine ( season) 2023 04/17/2023, 05/26/2022, 09/07/2021, Additional history exists CKD PHOS USE SMARTSET 12763 02/11/2024 04/0 05/2023, 02/15/2022, 04/13/2020, Additional history exists TSH 02/11/2024 02/10/2023, 02/04, 04/26/2021, Additional history exists GFR 02/14/2024 08/15/2023, 05/0 01/2023, 02/10/2023, Additional history exists Mammogram 05/24/2024 05/24/2023, 0612/2021, 04/06/2021, Additional history exists Albumin/Creatinine Ratio 08/15/2024 023, 07/14/2022, 04/24/2019, Additional history exists CKD HGB USE SMARTSET 82312 08/15/202408/15, 08/15/2023, 03/08/2023, Additional history exists Depression [...] Other - (no specific identity) Health Care Tool Filer (appointed verbally by patient or by statute hierarchy) Bob Manjarrez Adult Child Health Care Tool Filer (appointed verbally by patient or by statute hierarchy) Care Teams Lane Marker Installer Relationship Specialty Start Date End Date Tawanna Limon DO [address] [place] [address] PCP - General Family Medicine 06/29/23 documented as of this encounter
--- OUTSIDE RECORDS SUMMARY | 2024-05-09 23:06 | External Medical Summary | Summary of Care ---
Author Name Unknown Organization [facility] Address [address] [facility] [address] Phone [phone] Care Team Providers Care General Purchasing Agent Name Role Phone BraxtonShonnaan Taylor Primary Care Provider [phone] Reason for Visit * Reason Onset Date Comments Order Request 10/23/2023 Status Check 10/23/2023 Encounter Details Date Type Department Care Team (Late st Contact Info) Description 10/23/2023 Telephone Sleep Disorders Ctr [facility] [address] [facility] [place] [address] Grazyna Tillman CRNP [...] encounter Miscellaneous Notes * Telephone Encounter - Sharon Matthews CPhT - 11/21/2023 8:24 AM EST Pt states she requested these supplies weeks ago and [facility] has still not received an order. Pt calling to check on status of Sleep machine supplies. Caller can be reached at [phone]. Thank you, Amaya Matthews Founder [facility] ([facility]) (Formerly [...] to be faxed somewhere? If so, where?: [facility] Fax Number, if applicable: [phone] Call Back Number: [phone] Thank you, Ruby Hager Worship Leader [facility] (Formerly Telepharmacy) 10/23/2023,10:07 AM documented in this encounter Plan of Treatment Upcoming Encounters Date Type Department Care Team (Late st Contact Info) Description 11/23/2023 1:00 PM EST Office Visit Family Practice 65 [facility] 293 [place] [address] Tawanna Limon 293 [place] [address] 04/19/2024 10:00 AM EDT Nurse Only Ancillary 65 [facility] 293 [place] [address] College, Nurse Annual Wellness Visit [address] [address] 05/30/2024 11:00 AM EDT Office Visit Rheumatology [place] [address] [facility] [place] [address] Leland Novoa MD [address] [facility] [address] Scheduled Procedures Name Priority Associated Diagnoses Date/Ti me COLONOSCOPY FLEXIBLE PROXIMA L DIAGNOSTIC Recall Encounter for screening colonoscopy Health Maintenance Due Date Last Done Comments Cologuard 2000 Sigmoidoscopy 2000 Fecal Occult Blood Test 04/03/2015 04/03/2014, 12/26 COVID-19 Vaccine ( season) 2023 04/17/2023, 05/26/2022, 09/07/2021, Additional history exists CKD PHOS USE SMARTSET 17236 02/11/2024 04/0 05/2023, 02/15/2022, 04/13/2020, Additional history exists TSH 02/11/2024 02/10/2023, 02/04, 04/26/2021, Additional history exists GFR 02/14/2024 08/15/2023, 050 01/2023, 02/10/2023, Additional history exists Mammogram 05/24/2024 05/24/2023, 12/2021, 04/06/2021, Additional history exists Albumin/Creatinine Ratio 08/15/2024 023, 07/14/2022, 04/24/2019, Additional history exists CKD HGB USE SMARTSET 46703 08/15/202408/15, 08/15/2023, 03/08/2023, Additional history exists Depression [...] Other - (no specific identity) Health Care Watch Inspector Final Movement (appointed verbally by patient or by statute hierarchy) Bob Manjarrez Adult Child Health Care Watch Inspector Final Movement (appointed verbally by patient or by statute hierarchy) Care Teams General Purchasing Agent Relationship Specialty Start Date End Date Tawanna Limon DO [address] [place] [address] PCP - General Family Medicine 06/29/23 documented as of this encounter
--- NOTE | 2024-05-09 23:26 | Emergency Department Note ---
Impression & Plan Septic shock, Pneumonia of both lower lobes Admit to the [facility] ED Provider Note NAME: FE GREEN AGE: 68 SEX: Female INFORMANT: Patient ED PROVIDER(S): Carmina Bajwa DO CHIEF COMPLAINT: lethargy and fever PLAN: Disposition: admit to the [facility] MEDICAL DECISION MAKING: This is a 68-year-old female patient who presents to the emergency department with hypotension, tachycardia and hypoxia. Patient had an accidental ingestion earlier today of a leather cleaning solution for which she was seen at [facility]. She thought she was reaching for a bottle of [place] water when the bottle actually had a clear liquid in it which was later cleaning solution. She took 1 mouthful of the solution when she realized what it was. She immediately had burning in her throat. She was in her usual state of health prior to this event. She was seen in that emergency department and cleared and discharged to home. Patient states that she was noted to be hypotensive there and became more lethargic enroute back home. EMS was called to her home because she was febrile and significantly lethargic. On presentation here, the patient was febrile, tachycardic and hypotensive. She was bolused with IV normal saline solution-2 L. Her 30 mL/kg per ideal body weight requirement was approximately 1700 mL. This brought her systolic blood pressure above 100. patient was given an empiric dose of cefepime after IV lock was established, Blood cultures were obtained and antibiotic was obtained from pharmacy. chest x-ray showed evidence of bilateral lower lobe pneumonia. I confirmed with the patient that she was not having any persistent burning in her throat or chest as I considered the possibility of esophageal perforation given the ingestion from earlier today. I also considered the possibility of aspiration pneumonia. The daughter did arrive at the bedside and explained that the patient had just finished a course of antibiotics yesterday for recently diagnosed upper respiratory infection and states that she was feeling much better. Today's laboratory studies reveal white blood cell count of 7.6 with a hemoglobin of 11.7 and hematocrit of 35 point35.1. BUN of 21 and creatinine of 1.3. Glucose was 105. Lactate was significantly elevated at 3.2 and troponin was 17.5. patient will be admitted to the [facility] for septic shock. Patient is considered immunocompromised as she suffers from rheumatoid arthritis and takes Rinvoq and will require additional broad-spectrum antibiotic coverage. I discussed this with the hospitalist. Care/management discussed with: ED case management; the patient's daughter who arrived at the bedside; [facility]: reviewed and agree with them. Vital Signs: reviewed and remarkable for tachycardia, tachypnea, hypotension, fever Additional History obtained from: patient's daughter who arrived at the bedside; EMS Prior/ Outside/ External records reviewed: I did obtain the emergency department records from [facility] through [employer] and reviewed those Differential Diagnosis: sepsis, septic shock, pneumonia, aspiration pneumonia, perforated esophagus Diagnostics, independently interpreted by me: ECG: Sinus tachycardia at [address] segment elevation or signs of ischemia. There was no ectopy. Cardiac Monitoring: Sinus tachycardia at 112 Imaging studies: portable chest x-ray: As per my independent interpretation- bilateral lower lobe opacities consistent with pneumonia HPI: 68 year old Female arrives for evaluation of Lethargy and fever. patient had an accidental ingestion of a leather cleaning solution earlier in the day and was seen at [place] emergency department. she was discharged home after that visit but developed a fever and lethargy which was concerning for the family. They called EMS. She was found to be febrile, hypotensive and tachycardic. Patient was bolused with IV fluid by EMS which supported her blood pressure PAST MEDICAL HISTORY: See Below, PAST SURGICAL HISTORY: See Below, SOCIAL HISTORY: See Below, HOME MEDICATIONS: see list ALLERGIES: see list VITALS: See Below PHYSICAL EXAMINATION: HEENT: Head - normocephalic and atraumatic. Pupils are equal, round, and reactive to light. Extraocular eye muscles are intact, and sclera are anicteric. Nose - moist nasal mucosa without discharge. Mouth - moist buccal mucosa. Oropharynx is nonerythematous and there is no tonsillar exudate or edema noted. Neck: Supple; no JVD, nuchal rigidity, cervical lymphadenopathy, or auscultated bruits. Heart: Tachycardic rate and regular rhythm There is a normal S1 and S2 with no murmurs, clicks, or gallops appreciated. Lungs: Clear to auscultation bilaterally with no wheezes, rales, or rhonchi. Abdomen: Soft, completely nontender, nondistended, with good bowel sounds. There are no palpable pulsatile masses or hepatosplenomegaly. There is no guarding, rigidity, or rebound noted. Extremities: No evidence of cyanosis, clubbing, or edema. There are easily palpable peripheral pulses. Skin: pale,Cold and dry with poor turgor and no rashes. Neuro: Patient is awake, alert and easily able to answer questions. Emergency department course: The patient was evaluated in room A-9. A complete history and physical was performed. A septic protocol was performed. a second IV lock was initiated. The patient was bolused with a liter of fluid to support her blood pressure. Blood cultures were obtained. A twelve-lead EKG was obtained. An order was placed for continuous cardiac monitoring. The patient was in a sinus tachycardia at 112. portable chest x-ray was performed. Upper respiratory bio fire test was obtained. IV cefepime was administered. A second liter of fluid was ordered. Patient was catheterized for urine specimen. I have personally spent greater than 65 minutes of critical care time in the direct management of this patient. This includes bedside care, interpretation of diagnostic studies, and testing, discussion with consultants, patient, and family members, and other required patient management activities. This 65 minutes is in excess of all separately billable procedures. Past Med/Surg History Problem List (Updated 05/11/24 @ 01:57 by Carmina Bajwa DO) Pneumonia of both lower lobes (Acute) Septic shock (Acute) Severe sepsis Encounter for pre-operative examination COPD (chronic obstructive pulmonary disease) (Chronic) RA (rheumatoid arthritis) (Chronic) HTN (hypertension) (Chronic) Vomiting and diarrhea (Acute) Encounter for pre-operative examination Medical History Anemia Anxiety and depression Chronic back pain Chronic kidney disease, stage 3 Chronic obstructive pulmonary disease inhaler prn Glaucoma bilt Hyperlipidemia Hypertension Hypothyroidism Insomnia Memory problem Migraine Rheumatoid arthritis Sleep apnea CPAP at night Temporomandibular joint disorder d/t RA Transient ischemic attack (TIA) 2008 "mini stroke"-no deficits, reason for 325mg aspirin Surgical History History of ankle surgery left ankle in childhood History of section x2 History of cholecystectomy History of colonoscopy History of esophagogastroduodenoscopy (EGD) WITH ESOPHAGEAL STRETCHING History of left cataract surgery History of tooth extraction Family History Brother Family history of diabetes mellitus Family/Other Family history of diabetes mellitus niece Other No family history of adverse response to anesthesia Social History Smoking Status: Never smoker Second Hand Exposure: No; Do You Dip or Chew Tobacco: No; Tobacco Cessation Education Requested by Patient: No Hx Alcohol Use: No Hx Substance Use: No Preferred Language: Danish Communication Ability: Effective Twister Tender Paper Required: No Beliefs That Will Affect Care: None Current Living Situation: Other Current Living Situation Comment: lives at home with friend Lisbeth Other Information That Helps Us Care for You: No Feels Safe at Home: Yes Safety Concerns: Feels Safe At This Time Assistive Devices: Scooter/Electric Scooter and Walker Allergies Allergies Allergy/AdvReac Type Severity Reaction Status Date / Time adalimumab [From Humira] Allergy Intermediate Itching Verified 05/09/24 23:28 Sulfa (Sulfonamide Allergy Intermediate RASH, Verified 05/09/24 23:28 Antibiotics) BURNING EYES adhesive Allergy Mild BAND-AIDS Verified 05/09/24 23:28 = REDNESS hydrocortisone AdvReac Intermediate BURNING IN Verified 05/09/24 23:28 EYES ibuprofen AdvReac Intermediate N/V Verified 05/09/24 23:28 neomycin AdvReac Intermediate BURNING IN Verified 05/09/24 23:28 EYES NSAIDS (Non-Steroidal AdvReac Intermediate N/V Verified 05/09/24 23:28 Anti-Inflamma Penicillins AdvReac Intermediate Gastrointestinal Verified 05/09/24 23:28 Upset polymyxin B AdvReac Intermediate BURNING IN Verified 05/09/24 23:28 EYES latex AdvReac Mild Rash Verified 05/09/24 23:28 Home Meds Home Medications Medication Instructions Recorded Confirmed albuterol sulfate 90 mcg/actuation 2 puff inhalation Q4H PRN Wheezing 09/23/19 05/09/24 aerosol inhaler (Ventolin HFA) aspirin 325 mg tablet 325 mg PO HS 09/23/19 05/09/24 cholecalciferol (vitamin D3) 25 1,000 unit PO QAM 09/23/19 05/09/24 mcg (1,000 unit) capsule (Vitamin D3) cyanocobalamin (vitamin B-12) 1,000 mcg PO QAM 09/23/19 05/09/24 1,000 mcg tablet (Vitamin B-12) dicyclomine 10 mg capsule 10 mg PO TID PRN Abdominal Pain 09/23/19 05/09/24 fluticasone 500 mcg-salmeterol 50 2 inh inhalation BID 09/23/19 05/09/24 mcg/dose blistr powdr for inhalation (Wixela Inhub) levothyroxine 50 mcg tablet 25 mcg PO DAILYBB 09/23/19 05/09/24 lisinopril 20 mg tablet 20 mg PO QAM 09/23/19 05/09/24 montelukast 10 mg tablet 10 mg PO HS 09/23/19 05/09/24 omega 3 350 mg-dha 235 mg-epa 90 1 cap PO QAM 09/23/19 05/09/24 mg-fish oil 597 mg capsule,delay rel ([place]-3) travoprost 0.004 % eye drops 1 drp ophthalmic (eye) HS 09/23/19 05/09/24 trazodone 150 mg tablet 300 mg PO HS 09/23/19 05/09/24 famotidine 40 mg tablet 40 mg PO QAM 12/31/21 05/09/24 Focus Factor 1 tab PO BID 05/09/24 05/09/24 albuterol sulfate 2.5 mg/3 mL 2.5 mg inhalation Q6H PRN Wheezing 05/09/24 05/09/24 (0.083 %) solution for nebulization azelastine 137 mcg (0.1 %) nasal 1 spray intranasal HS 05/09/24 05/09/24 spray aerosol bupropion HCl 100 mg tablet,12 hr 100 mg PO QAM 05/09/24 05/09/24 sustained-release coconut oil (bulk) 1 ea miscellaneous QAM 05/09/24 05/09/24 cyclosporine 0.05 % eye drops in a 1 drp OPB Q12H 05/09/24 05/09/24 dropperette (Restasis) duloxetine 20 mg capsule,delayed See Rx Instructions .Route .COMPLEX 05/09/24 05/09/24 release fluticasone propionate 50 2 spray intranasal HS 05/09/24 05/09/24 mcg/actuation nasal spray,suspension meclizine 12.5 mg tablet 12.5 mg PO TID PRN Dizziness 05/09/24 05/09/24 omeprazole 20 mg capsule,delayed 20 mg PO DAILYBB 05/09/24 05/09/24 release psyllium husk 0.4 gram capsule 0.4 g PO DAILY 05/09/24 05/09/24 (Metamucil) rosuvastatin 20 mg tablet 20 mg PO QAM 05/09/24 05/09/24 tizanidine 2 mg tablet 2 mg PO Q6H PRN MUSCLE SPASMS 05/09/24 05/09/24 upadacitinib 15 mg tablet,extended 15 mg PO QAM 05/09/24 05/09/24 release 24 hr (Rinvoq) Results & Data (ED) Vital Signs Vital Signs - 24 hr 05/09/24 22:54 05/09/24 22:55 05/09/24 23:03 Temperature 37.2 C Temperature Source Oral Pulse Rate 115 H 118 H Pulse Rate [Apical] 117 H Respiratory Rate 31 H 37 H Respiratory Effort / Characteristics Non-Labored Respiratory Pattern Regular Blood Pressure 98/56 L Blood Pressure [Right Arm] 95/58 L Blood Pressure Mean 70 Blood Pressure Mean [Right Arm] 70 Pulse Oximetry 97 95 Oxygen Delivery Method Nasal Cannula Nasal Cannula Oxygen Flow Rate 6 2 Sepsis Recent Fever Within 48 Hours No Sepsis New/Unexplained Change in Mental Status No Sepsis Action Taken by Nursing No Action Required Laboratory Data 05/10/24 10:03 05/10/24 10:03 Lab Results 05/09/24 05/09/24 05/09/24 Range/Units 23:18 23:24 23:38 WBC 7.64 (4.8-10.8) K/ul RBC 3.50 L (4.20-5.40) M/uL Hgb 11.7 L (12.0-16.0) g/dl Hct 35.1 L (37.0-47.0) % MCV 100.3 H (80.0-100.0) fL MCH 33.4 (25.0-34.0) pg MCHC 33.3 (32.0-36.0) g/dL RDW Std Deviation 46.5 H (36.4-46.3) fL RDW Coeff of Doug 12.9 (11.5-14.5) % Plt Count 158 (130-400) K/uL MPV 9.9 (9.4-12.4) fL Immature Gran % (Auto) 0.7 % Neut % (Auto) 90.1 % Lymph % (Auto) 4.8 % Rogers % (Auto) 3.8 % Eos % (Auto) 0.3 % Baso % (Auto) 0.3 % Neut # (Auto) 6.89 H (1.40-6.50) K/uL Lymph # (Auto) 0.37 L (1.20-3.40) K/uL Rogers # (Auto) 0.29 (0.11-0.59) K/uL Eos # (Auto) 0.02 (0.00-0.50) K/uL Baso # (Auto) 0.02 (0.00-0.20) K/uL Immature Gran # (Auto) 0.05 (0.01-0.20) K/uL Sodium TNP Potassium TNP Chloride 98 (98-107) mmol/L Carbon Dioxide 24 (21-32) mmol/L Anion Gap TNP BUN 21 (6-23) mg/dl Creatinine 1.32 H (0.6-1.2) mg/dl Est Cr Clr Drug Dosing 57.1 ml/min Est GFR ( Amer) 47.9 ml/min Est GFR (Non-Af Amer) 41.3 ml/min BUN/Creatinine Ratio 15.9 (10-20) Glucose 105 H (70-99(Fasting)) mg/dl Lactate 3.2 H* (0.4-2.0) mmol/L Calcium 8.8 (8.6-10.3) mg/dl Magnesium TNP Total Bilirubin 1.3 H (0.2-1.0) mg/dl Direct Bilirubin TNP AST TNP ALT 30 (7-52) U/L Alkaline Phosphatase 55 (34-104) U/L Troponin I High Sens 17.5 H (0-14) pg/ml Total Protein 6.2 (6.0-8.3) gm/dl Albumin 3.9 (3.4-5.0) gm/dl Procalcitonin Cancelled Urine Color Yellow Urine Appearance Clear (Clear) Urine pH 5.5 (4.5-7.5) Ur Specific Slater 1.016 (1.000-1.030) Urine Protein Negative (Negative) Urine Glucose (UA) Negative (Negative) Urine Ketones Negative (Negative) Urine Blood Negative (Negative) Urine Nitrite Negative (Negative) Urine Bilirubin Negative (Negative) Urine Urobilinogen Negative (Negative) Ur Leukocyte Esterase Negative (Negative) Adenovirus (PCR) Not Detected (NotDetected) B. pertussis DNA (PCR) Not Detected (NotDetected) B.parapertussis DNA PCR Not Detected (NotDetected) C. pneumoniae DNA (PCR) Not Detected (NotDetected) Coronavirus OC43 (PCR) Not Detected (NotDetected) Coronavirus HKU1 (PCR) Not Detected (NotDetected) Coronavirus 229E (PCR) Not Detected (NotDetected) SARS-CoV-2 (PCR) Not Detected (NotDetected) Coronavirus NL63 (PCR) Not Detected (NotDetected) Human Metapneumovir PCR Not Detected (NotDetected) Influenza Type A (PCR) Not Detected (NotDetected) Influenza Type B (PCR) Not Detected (NotDetected) M. pneumoniae (PCR) Not Detected (NotDetected) Parainfluenza 1 (PCR) Not Detected (NotDetected) Parainfluenza 2 (PCR) Not Detected (NotDetected) Parainfluenza 3 (PCR) Not Detected (NotDetected) Parainfluenza 4 (PCR) Not Detected (NotDetected) RSV (PCR) Not Detected (NotDetected) Entero/Rhino (PCR) Not Detected (NotDetected) 05/10/24 Range/Units 01:02 WBC (4.8-10.8) K/ul RBC (4.20-5.40) M/uL Hgb (12.0-16.0) g/dl Hct (37.0-47.0) % MCV (80.0-100.0) fL MCH (25.0-34.0) pg MCHC (32.0-36.0) g/dL RDW Std Deviation (36.4-46.3) fL RDW Coeff of Doug (11.5-14.5) % Plt Count (130-400) K/uL MPV (9.4-12.4) fL Immature Gran % (Auto) % Neut % (Auto) % Lymph % (Auto) % Rogers % (Auto) % Eos % (Auto) % Baso % (Auto) % Neut # (Auto) (1.40-6.50) K/uL Lymph # (Auto) (1.20-3.40) K/uL Rogers # (Auto) (0.11-0.59) K/uL Eos # (Auto) (0.00-0.50) K/uL Baso # (Auto) (0.00-0.20) K/uL Immature Gran # (Auto) (0.01-0.20) K/uL Sodium 133 L Potassium 3.5 Chloride (98-107) mmol/L Carbon Dioxide (21-32) mmol/L Anion Gap BUN (6-23) mg/dl Creatinine (0.6-1.2) mg/dl Est Cr Clr Drug Dosing ml/min Est GFR ( Amer) ml/min Est GFR (Non-Af Amer) ml/min BUN/Creatinine Ratio (10-20) Glucose (70-99(Fasting)) mg/dl Lactate (0.4-2.0) mmol/L Calcium (8.6-10.3) mg/dl Magnesium 1.0 L Total Bilirubin (0.2-1.0) mg/dl Direct Bilirubin 0.3 H AST 33 ALT (7-52) U/L Alkaline Phosphatase (34-104) U/L Troponin I High Sens (0-14) pg/ml Total Protein (6.0-8.3) gm/dl Albumin (3.4-5.0) gm/dl Procalcitonin 5.52 H Urine Color Urine Appearance (Clear) Urine pH (4.5-7.5) Ur Specific Slater (1.000-1.030) Urine Protein (Negative) Urine Glucose (UA) (Negative) Urine Ketones (Negative) Urine Blood (Negative) Urine Nitrite (Negative) Urine Bilirubin (Negative) Urine Urobilinogen (Negative) Ur Leukocyte Esterase (Negative) Adenovirus (PCR) (NotDetected) B. pertussis DNA (PCR) (NotDetected) B.parapertussis DNA PCR (NotDetected) C. pneumoniae DNA (PCR) (NotDetected) Coronavirus OC43 (PCR) (NotDetected) Coronavirus HKU1 (PCR) (NotDetected) Coronavirus 229E (PCR) (NotDetected) SARS-CoV-2 (PCR) (NotDetected) Coronavirus NL63 (PCR) (NotDetected) Human Metapneumovir PCR (NotDetected) Influenza Type A (PCR) (NotDetected) Influenza Type B (PCR) (NotDetected) M. pneumoniae (PCR) (NotDetected) Parainfluenza 1 (PCR) (NotDetected) Parainfluenza 2 (PCR) (NotDetected) Parainfluenza 3 (PCR) (NotDetected) Parainfluenza 4 (PCR) (NotDetected) RSV (PCR) (NotDetected) Entero/Rhino (PCR) (NotDetected) Administered Medications Acetaminophen (Acetaminophen 325 Mg Tab) 650 mg PO Q4H PRN PRN Reason: Pain or Fever Stop: 06/09/24 22:57 Last Admin: 05/10/24 23:28 Dose: 650 mg Documented By: G Aspirin (Aspirin 325 Mg Ectab) 325 mg PO HS SYD Stop: 06/09/24 20:59 Last Admin: 05/10/24 20:17 Dose: 325 mg Documented By: [facility] [place] Doxycycline Hyclate (Doxycycline Hyclate 100 Mg Cap) 100 mg PO BID SYD Stop: 05/17/24 20:59 Last Admin: 05/10/24 20:17 Dose: 100 mg Documented By: [facility] [place] Duloxetine HCl (Duloxetine Hcl 20 Mg Cap) 20 mg PO DAILY SYD Stop: 06/09/24 08:59 Last Admin: 05/10/24 08:32 Dose: 20 mg Documented By: [facility] Duloxetine HCl (Duloxetine Hcl 20 Mg Cap) 40 mg PO PM SYD Stop: 06/09/24 20:59 Last Admin: 05/10/24 20:16 Dose: 40 mg Documented By: [facility] [place] Famotidine (Famotidine 40 Mg Tablet) 40 mg PO QAM SYD Stop: 06/09/24 08:59 Last Admin: 05/10/24 08:32 Dose: 40 mg Documented By: [facility] Fluticasone/Vilanterol (Fluticasone/Vilanterol 200/25mcg 14 Puffs/Inhaler) 1 puffs INH DAILY SYD Stop: 06/09/24 08:59 Last Admin: 05/10/24 08:32 Dose: 1 puffs Documented By: MODE Heparin Sodium (Porcine) (Heparin Sod 5,000 Unit/0.5 Ml Vial) 5,000 units SQ Q8 SYD Stop: 06/09/24 05:59 Last Admin: 05/10/24 20:18 Dose: 5,000 units Documented By: Admin: 05/10/24 14:41 Dose: 5,000 units Documented By: Admin: 05/10/24 06:03 Dose: 5,000 units Documented By: MATT Piperacillin Sod/Tazobactam (Sod 4.5 gm/ Dextrose) 100 mls @ 25 mls/hr IV Q8H [facility]; Protocol Stop: 05/17/24 17:59 Last Infusion: 05/10/24 22:57 Dose: Infused Documented By: Admin: 05/10/24 18:04 Dose: 25 mls/hr Documented By: DTT Sodium Chloride (Nss) 1,000 mls @ 80 mls/hr IV .[id number] [facility] Stop: 06/09/24 21:14 Last Admin: 05/10/24 21:47 Dose: 80 mls/hr Documented By: BRIDGET Ipratropium [place] (Ipratropium [place] Neb Soln 0.02% 0.5mg/2.5ml Vial) 0.5 mg INH QIDR [facility] Stop: 06/09/24 06:59 Last Admin: 05/10/24 19:44 Dose: 0.5 mg Documented By: Admin: 05/10/24 14:01 Dose: 0.5 mg Documented By: Admin: 05/10/24 10:38 Dose: 0.5 mg Documented By: Admin: 05/10/24 07:33 Dose: 0.5 mg Documented By: VIJAY Levalbuterol HCl (Levalbuterol 1.25 Mg/3 Ml Neb) 1.25 mg NEB QIDR [facility] Stop: 06/09/24 06:59 Last Admin: 05/10/24 19:44 Dose: 1.25 mg Documented By: Admin: 05/10/24 14:01 Dose: 1.25 mg Documented By: Admin: 05/10/24 10:38 Dose: 1.25 mg Documented By: Admin: 05/10/24 07:33 Dose: 1.25 mg Documented By: VIJAY Levothyroxine Sodium (Levothyroxine Sodium 25 Mcg Tablet) 25 mcg PO DAILYBB [facility] Stop: 06/09/24 06:29 Last Admin: 05/10/24 06:07 Dose: 25 mcg Documented By: MATT Montelukast Sodium (Montelukast Sodium 10 Mg Tablet) 10 mg PO [facility] Stop: 06/09/24 20:59 Last Admin: 05/10/24 20:17 Dose: 10 mg Documented By: BRIDGET Nystatin (Nystatin Powder 15gm Btl) 1 appln EXT BID [facility] Stop: 06/09/24 05:09 Last Admin: 05/10/24 20:17 Dose: 1 appln Documented By: Admin: 05/10/24 06:07 Dose: 1 appln Documented By: MATT Pantoprazole Sodium (Pantoprazole 40 Mg Tab) [facility] Stop: 06/09/24 06:29 Last Admin: 05/10/24 06:07 Dose: 40 mg Documented By: MATT Rosuvastatin Calcium (Rosuvastatin Calcium 20 Mg Tab) 20 mg PO [facility] Stop: 06/09/24 08:59 Last Admin: 05/10/24 08:32 Dose: 20 mg Documented By: CAROL Travoprost (Travoprost Z 0.004% Oph Soln 2.5 Ml Btl) 1 drops OP [facility] Stop: 06/09/24 20:59 Last Admin: 05/10/24 20:18 Dose: 1 drops Documented By: BRIDGET Discontinued Medications Acetaminophen (Acetaminophen 500 Mg Tab) 1,000 mg PO NOW STA Stop: 05/09/24 23:21 Last Admin: 05/09/24 23:41 Dose: 1,000 mg Documented By: ANDERS Dexamethasone (Dexamethasone Sod Inj 4 Mg/Ml Vial) 4 mg IV NOW STA Stop: 05/10/24 01:21 Last Admin: 05/10/24 01:23 Dose: 4 mg Documented By: ANDERS Sodium Chloride (Nss) 1,000 mls @ 999 mls/hr IV .Q1H1M [facility] Stop: 05/10/24 01:15 Last Infusion: 05/10/24 01:19 Dose: Infused Documented By: Admin: 05/09/24 23:45 Dose: 999 mls/hr Documented By: Infusion: 05/09/24 23:45 Dose: Infused Documented By: Admin: 05/09/24 23:28 Dose: 999 mls/hr Documented By: ANDERS Cefepime HCl (Maxipime) 2,000 mg in 20 mls @ 5 mls/min IV NOW STA; Protocol Stop: 05/09/24 23:18 Last Admin: 05/10/24 01:14 Dose: 5 mls/min Documented By: ANDERS Sodium Chloride (Nss) 1,000 mls @ 999 mls/hr IV .Q1H1M ONE Stop: 05/10/24 02:31 Last Infusion: 05/10/24 03:30 Dose: Infused Documented By: [facility] Admin: 05/10/24 01:47 Dose: 999 mls/hr Documented By: ANDERS Magnesium Sulfate/Dextrose (Magnesium Sulfate / D5w) 1 gm in 100 mls @ 50 mls/hr IV Q2H SYD Stop: 05/10/24 09:59 Last Infusion: 05/10/24 13:18 Dose: Infused Documented By: [facility] Admin: 05/10/24 08:27 Dose: 50 mls/hr Documented By: [facility] Infusion: 05/10/24 08:18 Dose: Infused Documented By: [facility] Admin: 05/10/24 06:18 Dose: 50 mls/hr Documented By: [facility] Infusion: 05/10/24 06:18 Dose: Infused Documented By: [facility] Admin: 05/10/24 04:27 Dose: 50 mls/hr Documented By: [facility] Infusion: 05/10/24 04:27 Dose: Infused Documented By: [facility] Admin: 05/10/24 02:42 Dose: 50 mls/hr Documented By: ANDERS Piperacillin Sod/Tazobactam Sod (Zosyn) 4.5 gm in 100 mls @ 200 mls/hr IV NOW ONE; Protocol Stop: 05/10/24 02:44 Last Infusion: 05/10/24 03:30 Dose: Infused Documented By: [facility] Admin: 05/10/24 02:42 Dose: 200 mls/hr Documented By: ANDERS Doxycycline Hyclate 100 mg/ (Dextrose) 100 mls @ 50 mls/hr IV NOW STA Stop: 05/10/24 03:55 Last Infusion: 05/10/24 06:00 Dose: Infused Documented By: Admin: 05/10/24 03:54 Dose: 50 mls/hr Documented By: MATT Sodium Chloride (Nss) 1,000 mls @ 500 mls/hr IV .Q2H ONE Stop: 05/10/24 04:59 Last Infusion: 05/10/24 13:18 Dose: Infused Documented By: Infusion: 05/10/24 06:45 Dose: 500 mls/hr Documented By: MARIA LUISA Admin: 05/10/24 02:42 Dose: 100 mls/hr Documented By: ANDERS Lactated Ringer's (Lr) 1,000 mls @ 200 mls/hr IV .Q5H ONE Stop: 05/10/24 09:47 Last Infusion: 05/10/24 10:27 Dose: Infused Documented By: Admin: 05/10/24 06:01 Dose: 200 mls/hr Documented By: MATT Lactated Ringer's (Lr) 1,000 mls @ 80 mls/hr IV .[id number] SYD Stop: 06/09/24 12:59 Last Infusion: 05/10/24 23:11 Dose: Infused Documented By: Infusion: 05/10/24 18:34 Dose: 0 mls/hr Documented By: MARIA LUISA Admin: 05/10/24 14:29 Dose: 80 mls/hr Documented By: MARIA LUISA Piperacillin Sod/Tazobactam (Sod 4.5 gm/ Dextrose) 100 mls @ 200 mls/hr IV NOW ONE; Protocol Stop: 05/10/24 13:29 Last Infusion: 05/10/24 14:09 Dose: Infused Documented By: MARIA LUISA Admin: 05/10/24 13:36 Dose: 200 mls/hr Documented By: MODE Ioversol (Optiray 320 125ml) 125 ml IV ONCE ONE Stop: 05/10/24 02:13 Last Admin: 05/10/24 02:13 Dose: 117 ml Documented By: FABIAN Ipratropium [place] (Ipratropium [place] Neb Soln 0.02% 0.5mg/2.5ml Vial) 0.5 mg INH NOW STA Stop: 05/10/24 02:03 Last Admin: 05/10/24 02:31 Dose: 0.5 mg Documented By: JOEY Levalbuterol HCl (Levalbuterol 1.25 Mg/3 Ml Neb) 1.25 mg NEB NOW STA Stop: 05/10/24 02:03 Last Admin: 05/10/24 02:31 Dose: 1.25 mg Documented By: JOEY Potassium Chloride (Potassium Chloride Pwd 20 Meq Pack) 40 meq PO NOW STA Stop: 05/10/24 07:30 Last Admin: 05/10/24 08:27 Dose: 40 meq Documented By: [facility] Discharge Plan Visit Data Chief Complaint: Illness Stated Complaint: Lethargic, Weakness, SOB ED Provider: Carmina Bajwa Discharge Problem: Septic shock, Pneumonia of both lower lobes Patient Disposition: Admitted As Inpatient Discharge Instructions Interventions: ED Discharge Assessment Last Done: 05/10/24 02:58
[2024-05-09] MEDS: SODIUM CHLORIDE 0.9% 1,000 ML IV SCH (23:28)
[2024-05-09 23:36] LABS: Appearance Urine Clear (Clear); Bilirubin Urine Negative (Negative); Blood Urine Negative (Negative); Color Urine Yellow; Glucose Urine UA Negative (Negative); Ketones Urine Negative (Negative); Leukocyte Esterase Urine Negative (Negative); Nitrite Urine Negative (Negative); Protein Urine Negative (Negative); Specific Gravity Urine 1.016 (1.000-1.030); Urobilinogen Urine Negative (Negative); pH Urine 5.5 (4.5-7.5)
[2024-05-09] MEDS: ACETAMINOPHEN 500 MG TAB PO STA (23:41)
[2024-05-10 00:11] LABS: Hematocrit (blood only) 35.1 % (37.0-47.0); Hemoglobin 11.7 g/dl (12.0-16.0); Mean Corpuscular Hemoglobin 33.4 pg (25.0-34.0); Mean Corpuscular Hgb Conc 33.3 g/dL (32.0-36.0); Mean Corpuscular Volume 100.3 fL (80.0-100.0); Mean Platelet Volume 9.9 fL (9.4-12.4); Platelet Count 158 K/uL (130-400); RDW Coefficient of Variation 12.9 % (11.5-14.5); RDW Standard Deviation 46.5 fL (36.4-46.3); White Blood Count 7.64 K/ul (4.8-10.8)
[2024-05-10 00:31] LABS: Basophils # (auto) 0.02 K/uL (0.00-0.20); Basophils % (auto) 0.3 %; Eosinophils # (auto) 0.02 K/uL (0.00-0.50); Eosinophils % (auto) 0.3 %; Immature Granulocytes # (auto) 0.05 K/uL (0.01-0.20); Immature Granulocytes % (auto) 0.7 %; Lymphocytes # (auto) 0.37 K/uL (1.20-3.40); Lymphocytes % (auto) 4.8 %; Monocytes # (auto) 0.29 K/uL (0.11-0.59); Monocytes % (auto) 3.8 %; Neutrophils # (auto) 6.89 K/uL (1.40-6.50); Neutrophils % (auto) 90.1 %
[2024-05-10 00:42] LABS: Alanine Aminotransferase 30 U/L (7-52); Albumin Level 3.9 gm/dl (3.4-5.0); Alkaline Phosphatase 55 U/L (34-104); BUN Creatinine Ratio 15.9 (10-20); Bilirubin,Total 1.3 mg/dl (0.2-1.0); Blood Urea Nitrogen 21 mg/dl (6-23); Calcium 8.8 mg/dl (8.6-10.3); Carbon Dioxide 24 mmol/L (21-32); Chloride 98 mmol/L (98-107); Creatinine Clr Calc Pharmacy 57.1 ml/min; Est GFR (African American) 47.9 ml/min; Est GFR (Non-African American) 41.3 ml/min; Glucose 105 mg/dl (70-99(Fasting)); Total Protein 6.2 gm/dl (6.0-8.3); Troponin I High Sensitivity 17.5 pg/ml (0-14)
[2024-05-10] MEDS: CEFEPIME 2,000 MG/20 ML VIAL IV STA (01:14)
[2024-05-10 01:17] LABS: Adenovirus PCR Not Detected (NotDetected); Bordetella parapertussis PCR Not Detected (NotDetected); Bordetella pertussis PCR Not Detected (NotDetected); Chlamydia pneumoniae PCR Not Detected (NotDetected); Coronavirus 229E PCR Not Detected (NotDetected); Coronavirus CoV-2 (COVID19)PCR Not Detected (NotDetected); Coronavirus HKU1 PCR Not Detected (NotDetected); Coronavirus NL63 PCR Not Detected (NotDetected); Coronavirus OC43PCR Not Detected (NotDetected); Human Metapneumovirus PCR Not Detected (NotDetected); Influenza A PCR Not Detected (NotDetected); Influenza B PCR Not Detected (NotDetected); Mycoplasma pneumoniae PCR Not Detected (NotDetected); Parainfluenza Virus 1 PCR Not Detected (NotDetected); Parainfluenza Virus 2 PCR Not Detected (NotDetected); Parainfluenza Virus 3 PCR Not Detected (NotDetected); Parainfluenza Virus 4 PCR Not Detected (NotDetected); Respiratory Syncytial VirusPCR Not Detected (NotDetected); Rhinovirus/Enterovirus PCR Not Detected (NotDetected)
[2024-05-10] MEDS: DEXAMETHASONE SOD INJ 4 MG/ML VIAL IV STA (01:23)
[2024-05-10 01:30] LABS: Bilirubin Direct 0.3 mg/dl (0-0.2); Potassium 3.5 mmol/L (3.5-5.1)
[2024-05-10] MEDS: SODIUM CHLORIDE 0.9% 1,000 ML IV ONE ×2 (01:47→02:42)
--- NOTE | 2024-05-10 01:55 | History & Physical Report ---
Date of Service May 10, 2024 Assessment & Plan (1) Severe sepsis: Plan: SIRS plus lactic acidosis plus hypoxemic respiratory failure plus transient encephalopathy Secondary to healthcare associated pneumonia (recent ER visit) possible aspiration Immunocompromised patient, history of RA on Rinvoq Shortness of breath secondary to COPD exacerbation Rule out PE Hypotension secondary to illness ? Possible adrenal insufficiency given recent steroid Rx for bronchitis Troponin elevation secondary to illness in the setting of chronic kidney dysfunction hyperlipidemia on statin Rx COMFORT on CPAP, morbid obesity prediabetes, hemoglobin A1c of 5.12 November 2023 hypothyroidism, chronic anemia, hemoglobin at baseline hx TIA as per records Hypomagnesemia mild cognitive/intellectual impairment, patient mentating well Admit to PCU given hypotension CS, Doxycycline, Zosyn Hold Rinvoq for now given life-threatening infection Monitor lactic acid response to IVF Hold home BP meds for now Follow troponin, TTE for progression CT chest, PE study re: SOB with hypoxemia Decadron 1 dose now for possible adrenal insufficiency followed by prednisone course and nebs RTC for COPD exacerbation Pulmonary consult if without improvement Replace electrolytes DVT prophylaxis with heparin subcu Full code Patient requests for family to be given periodic updates regarding care. Ms. Marcos Breaux (caregiver), contact #[phone] Mr. Bob Manjarrez (son), contact #[phone]. Total critical care time was 45 minutes. Text document was generated using trivago voice recognition software. It may contain grammatical or spelling errors. Kindly contact undersigned for clarification of any documentation item in question. History of Present Illness Chief Complaint: Cough, shortness of breath, lethargy, hypotension as per records Primary Care Provider: Dr. Limon History obtained from patient and records. Medical history significant for hypertension, hyperlipidemia, bronchial asthma/COPD as per records, COMFORT on CPAP, morbid obesity, rheumatoid arthritis on Rinvoq, GERD, prediabetes, hypothyroidism, CRI (baseline creatinine 1.2), chronic anemia (baseline hemoglobin 10-11), TIA as per records, mild cognitive impairment, anxiety/mood disorder, intellectual impairment as per records. Patient seen at PCPs office 2 weeks ago for cough congestion symptoms. Not sure about sick contacts. Admits to occasional coughing with meals/water intake. Patient prescribed doxycycline and prednisone course for bronchitis. No pneumonia on outpatient x-ray. Improved symptoms following medication intake. Patient accidentally took a sip of fluid in spring water bottle at home which contained cleaning product. Denies odynophagia, chest pain, SOB. Patient brought by caregiver to [facility] ER. Chest x-ray negative. Patient discharged home. At home, patient had recurrent junky cough symptoms with worsening SOB. Denies chest pain. Patient noted to be lethargic and weak and looked lemus as per family account. SBP noted to be 70s, heart rate 130s, O2 sats 80s upon EMS arrival. Patient brought to ER for evaluation. Cefepime administered at the ER for sepsis. Lowest SBP of 90s documented at the ER. Medical History as above Surgical History : section, cholecystectomy, BTL Family History : Dementia, brain tumor, DM, kidney cancer, schizophrenia Personal/Social history : Non-smoker, no EtOH intake, retired [employer] employee Allergies Allergy/AdvReac Type Severity Reaction Status Date / Time adalimumab [From Humira] Allergy Intermediate Itching Verified 05/09/24 23:28 Sulfa (Sulfonamide Allergy Intermediate RASH, Verified 05/09/24 23:28 Antibiotics) BURNING EYES adhesive Allergy Mild BAND-AIDS Verified 05/09/24 23:28 = REDNESS hydrocortisone AdvReac Intermediate BURNING IN Verified 05/09/24 23:28 EYES ibuprofen AdvReac Intermediate N/V Verified 05/09/24 23:28 neomycin AdvReac Intermediate BURNING IN Verified 05/09/24 23:28 EYES NSAIDS (Non-Steroidal AdvReac Intermediate N/V Verified 05/09/24 23:28 Anti-Inflamma Penicillins AdvReac Intermediate Gastrointestinal Verified 05/09/24 23:28 Upset polymyxin B AdvReac Intermediate BURNING IN Verified 05/09/24 23:28 EYES latex AdvReac Mild Rash Verified 05/09/24 23:28 Home Medications Medication Instructions Recorded Confirmed Type albuterol sulfate 90 mcg/actuation 2 puff inhalation Q4H PRN Wheezing 09/23/19 05/09/24 History aerosol inhaler (Ventolin HFA) aspirin 325 mg tablet 325 mg PO HS 09/23/19 05/09/24 History cholecalciferol (vitamin D3) 25 1,000 unit PO QAM 09/23/19 05/09/24 History mcg (1,000 unit) capsule (Vitamin D3) cyanocobalamin (vitamin B-12) 1,000 mcg PO QAM 09/23/19 05/09/24 History 1,000 mcg tablet (Vitamin B-12) dicyclomine 10 mg capsule 10 mg PO TID PRN Abdominal Pain 09/23/19 05/09/24 History fluticasone 500 mcg-salmeterol 50 2 inh inhalation BID 09/23/19 05/09/24 History mcg/dose blistr powdr for inhalation (Wixela Inhub) levothyroxine 50 mcg tablet 25 mcg PO DAILYBB 09/23/19 05/09/24 History lisinopril 20 mg tablet 20 mg PO QAM 09/23/19 05/09/24 History montelukast 10 mg tablet 10 mg PO HS 09/23/19 05/09/24 History omega 3 350 mg-dha 235 mg-epa 90 1 cap PO QAM 09/23/19 05/09/24 History mg-fish oil 597 mg capsule,delay rel (Ottosen-3) travoprost 0.004 % eye drops 1 drp ophthalmic (eye) HS 09/23/19 05/09/24 History trazodone 150 mg tablet 300 mg PO HS 09/23/19 05/09/24 History famotidine 40 mg tablet 40 mg PO QAM 12/31/21 05/09/24 History Focus Factor 1 tab PO BID 05/09/24 05/09/24 History albuterol sulfate 2.5 mg/3 mL 2.5 mg inhalation Q6H PRN Wheezing 05/09/24 05/09/24 History (0.083 %) solution for nebulization azelastine 137 mcg (0.1 %) nasal 1 spray intranasal HS 05/09/24 05/09/24 History spray aerosol bupropion HCl 100 mg tablet,12 hr 100 mg PO QAM 05/09/24 05/09/24 History sustained-release coconut oil (bulk) 1 ea miscellaneous QAM 05/09/24 05/09/24 History cyclosporine 0.05 % eye drops in a 1 drp OPB Q12H 05/09/24 05/09/24 History dropperette (Restasis) duloxetine 20 mg capsule,delayed See Rx Instructions .Route .COMPLEX 05/09/24 05/09/24 History release fluticasone propionate 50 2 spray intranasal HS 05/09/24 05/09/24 History mcg/actuation nasal spray,suspension meclizine 12.5 mg tablet 12.5 mg PO TID PRN Dizziness 05/09/24 05/09/24 History omeprazole 20 mg capsule,delayed 20 mg PO DAILYBB 05/09/24 05/09/24 History release psyllium husk 0.4 gram capsule 0.4 g PO DAILY 05/09/24 05/09/24 History (Metamucil) rosuvastatin 20 mg tablet 20 mg PO QAM 05/09/24 05/09/24 History tizanidine 2 mg tablet 2 mg PO Q6H PRN MUSCLE SPASMS 05/09/24 05/09/24 History upadacitinib 15 mg tablet,extended 15 mg PO QAM 05/09/24 05/09/24 History release 24 hr (Rinvoq) Past Med/Surg History Problem List (Updated 05/10/24 @ 04:56 by Monroe Byers MD) Severe sepsis Encounter for pre-operative examination COPD (chronic obstructive pulmonary disease) (Chronic) RA (rheumatoid arthritis) (Chronic) HTN (hypertension) (Chronic) Vomiting and diarrhea (Acute) Encounter for pre-operative examination Medical History Anemia Anxiety and depression Chronic back pain Chronic kidney disease, stage 3 Chronic obstructive pulmonary disease inhaler prn Glaucoma bilt Hyperlipidemia Hypertension Hypothyroidism Insomnia Memory problem Migraine Rheumatoid arthritis Sleep apnea CPAP at night Temporomandibular joint disorder d/t RA Transient ischemic attack (TIA) 2008 "mini stroke"-no deficits, reason for 325mg aspirin Surgical History History of ankle surgery left ankle in childhood History of section x2 History of cholecystectomy History of colonoscopy History of esophagogastroduodenoscopy (EGD) WITH ESOPHAGEAL STRETCHING History of left cataract surgery History of tooth extraction Family History Brother Family history of diabetes mellitus Family/Other Family history of diabetes mellitus niece Other No family history of adverse response to anesthesia Social History Smoking Status: Never smoker Second Hand Exposure: No; Do You Dip or Chew Tobacco: No; Tobacco Cessation Education Requested by Patient: No Hx Alcohol Use: No Hx Substance Use: No Preferred Language: Romanian Communication Ability: Effective Diesel Power Mechanic Required: No Beliefs That Will Affect Care: None Current Living Situation: Other Current Living Situation Comment: lives at home with friend Lisbeth Other Information That Helps Us Care for You: No Feels Safe at Home: Yes Safety Concerns: Feels Safe At This Time Assistive Devices: Glasses, Hearing Aid - Bilateral, Hearing Aid - Left, Hearing Aid - Right, Scooter/Electric Scooter and Walker Review of Systems Review of Systems: As per HPI, all other systems reviewed and negative Physical Exam Physical Exam: GENERAL: Comfortable, morbidly obese, no respiratory distress SKIN: Pallor, warm HEENT: Pale palpebral conjunctivae, no ptosis, dry buccal mucosa NECK : Supple, no tenderness CHEST : Decreased breath sounds, scattered expiratory wheezes, no tenderness HEART : Tachycardic, no obvious murmurs ABDOMEN: Some distention, nontender EXTREMITIES : Minimal LE swelling, no LE tenderness, no other conspicuous deformities noted NEUROLOGIC : Coherent, no facial asymmetry, no other gross focality Results & Data Results & Data Vital Signs (Past 12 Hours) Vital Signs Temp Pulse Pulse Resp BP BP Pulse Ox 05/10/24 01:15 120 H 24 120/40 L 94 05/10/24 01:00 120 H 27 H 92/61 L 94 05/10/24 00:30 115 H 26 H 111/63 95 05/10/24 00:15 36.8 C 121 H 24 94/58 L 94 05/10/24 00:00 119 H 26 H 141/88 H 94 05/09/24 23:45 79 26 H 159/105 H 97 05/09/24 23:30 121 H 34 H 166/85 H 95 05/09/24 23:23 127 H 39 H 93 05/09/24 23:18 38.2 C H 123 H 33 H 118/56 L 93 05/09/24 23:03 117 H 37 H 95/58 L 95 05/09/24 22:55 118 H 05/09/24 22:54 37.2 C 115 H 31 H 98/56 L 97 O2 Del Method O2 Flow Rate 05/10/24 01:15 Nasal Cannula 2 05/10/24 01:00 Nasal Cannula 2 05/10/24 00:30 Nasal Cannula 2 05/10/24 00:15 Nasal Cannula 2 05/10/24 00:00 Nasal Cannula 2 05/09/24 23:45 Nasal Cannula 2 05/09/24 23:30 Nasal Cannula 2 05/09/24 23:23 Nasal Cannula 2 05/09/24 23:18 Nasal Cannula 2 05/09/24 23:03 Nasal Cannula 2 05/09/24 22:55 05/09/24 22:54 Nasal Cannula 6 Laboratory Results Laboratory Results WBC 7.64 K/ul (4.8-10.8) 05/09/24 23:38 RBC 3.50 M/uL (4.20-5.40) L 05/09/24 23:38 Hgb 11.7 g/dl (12.0-16.0) L 05/09/24 23:38 Hct 35.1 % (37.0-47.0) L 05/09/24 23:38 MCV 100.3 fL (80.0-100.0) H 05/09/24 23:38 MCH 33.4 pg (25.0-34.0) 05/09/24 23:38 MCHC 33.3 g/dL (32.0-36.0) 05/09/24 23:38 RDW Std Deviation 46.5 fL (36.4-46.3) H 05/09/24 23:38 RDW Coeff of Doug 12.9 % (11.5-14.5) 05/09/24 23:38 Plt Count 158 K/uL (130-400) 05/09/24 23:38 MPV 9.9 fL (9.4-12.4) 05/09/24 23:38 Immature Gran % (Auto) 0.7 % 05/09/24 23:38 Neut % (Auto) 90.1 % 05/09/24 23:38 Lymph % (Auto) 4.8 % 05/09/24 23:38 [place] % (Auto) 3.8 % 05/09/24 23:38 Eos % (Auto) 0.3 % 05/09/24 23:38 Baso % (Auto) 0.3 % 05/09/24 23:38 Neut # (Auto) 6.89 K/uL (1.40-6.50) H 05/09/24 23:38 Lymph # (Auto) 0.37 K/uL (1.20-3.40) L 05/09/24 23:38 [place] # (Auto) 0.29 K/uL (0.11-0.59) 05/09/24 23:38 Eos # (Auto) 0.02 K/uL (0.00-0.50) 05/09/24 23:38 Baso # (Auto) 0.02 K/uL (0.00-0.20) 05/09/24 23:38 Immature Gran # (Auto) 0.05 K/uL (0.01-0.20) 05/09/24 23:38 Sodium 133 mmol/L (136-145) L 05/10/24 01:02 Potassium 3.5 mmol/L (3.5-5.1) 05/10/24 01:02 Chloride 98 mmol/L (98-107) 05/09/24 23:38 Carbon Dioxide 24 mmol/L (21-32) 05/09/24 23:38 Anion Gap TNP 05/09/24 23:38 BUN 21 mg/dl (6-23) 05/09/24 23:38 Creatinine 1.32 mg/dl (0.6-1.2) H 05/09/24 23:38 Est Cr Clr Drug Dosing 57.1 ml/min 05/09/24 23:38 Est GFR ( Amer) 47.9 ml/min 05/09/24 23:38 Est GFR (Non-Af Amer) 41.3 ml/min 05/09/24 23:38 BUN/Creatinine Ratio 15.9 (10-20) 05/09/24 23:38 Glucose 105 mg/dl (70-99(Fasting)) H 05/09/24 23:38 Lactate 3.2 mmol/L (0.4-2.0) H* 05/09/24 23:38 Calcium 8.8 mg/dl (8.6-10.3) 05/09/24 23:38 Magnesium 1.0 mg/dl (1.7-2.4) L 05/10/24 01:02 Total Bilirubin 1.3 mg/dl (0.2-1.0) H 05/09/24 23:38 Direct Bilirubin 0.3 mg/dl (0-0.2) H 05/10/24 01:02 AST 33 U/L (13-39) 05/10/24 01:02 ALT 30 U/L (7-52) 05/09/24 23:38 Alkaline Phosphatase 55 U/L (34-104) 05/09/24 23:38 Troponin I High Sens 17.5 pg/ml (0-14) H 05/09/24 23:38 Total Protein 6.2 gm/dl (6.0-8.3) 05/09/24 23:38 Albumin 3.9 gm/dl (3.4-5.0) 05/09/24 23:38 Procalcitonin 5.52 ng/ml (0-0.5) H 05/10/24 01:02 Urine Color Yellow 05/09/24 23:18 Urine Appearance Clear (Clear) 05/09/24 23:18 Urine pH 5.5 (4.5-7.5) 05/09/24 23:18 Ur Specific [place] 1.016 (1.000-1.030) 05/09/24 23:18 Urine Protein Negative (Negative) 05/09/24 23:18 Urine Glucose (UA) Negative (Negative) 05/09/24 23:18 Urine Ketones Negative (Negative) 05/09/24 23:18 Urine Blood Negative (Negative) 05/09/24 23:18 Urine Nitrite Negative (Negative) 05/09/24 23:18 Urine Bilirubin Negative (Negative) 05/09/24 23:18 Urine Urobilinogen Negative (Negative) 05/09/24 23:18 Ur Leukocyte Esterase Negative (Negative) 05/09/24 23:18 Adenovirus (PCR) Not Detected (NotDetected) 05/09/24 23:24 B. pertussis DNA (PCR) Not Detected (NotDetected) 05/09/24 23:24 B.parapertussis DNA PCR Not Detected (NotDetected) 05/09/24 23:24 C. pneumoniae DNA (PCR) Not Detected (NotDetected) 05/09/24 23:24 Coronavirus OC43 (PCR) Not Detected (NotDetected) 05/09/24 23:24 Coronavirus HKU1 (PCR) Not Detected (NotDetected) 05/09/24 23:24 Coronavirus 229E (PCR) Not Detected (NotDetected) 05/09/24 23:24 SARS-CoV-2 (PCR) Not Detected (NotDetected) 05/09/24 23:24 Coronavirus NL63 (PCR) Not Detected (NotDetected) 05/09/24 23:24 Human Metapneumovir PCR Not Detected (NotDetected) 05/09/24 23:24 Influenza Type A (PCR) Not Detected (NotDetected) 05/09/24 23:24 Influenza Type B (PCR) Not Detected (NotDetected) 05/09/24 23:24 M. pneumoniae (PCR) Not Detected (NotDetected) 05/09/24 23:24 Parainfluenza 1 (PCR) Not Detected (NotDetected) 05/09/24 23:24 Parainfluenza 2 (PCR) Not Detected (NotDetected) 05/09/24 23:24 Parainfluenza 3 (PCR) Not Detected (NotDetected) 05/09/24 23:24 Parainfluenza 4 (PCR) Not Detected (NotDetected) 05/09/24 23:24 RSV (PCR) Not Detected (NotDetected) 05/09/24 23:24 Entero/Rhino (PCR) Not Detected (NotDetected) 05/09/24 23:24 Diagnostic Findings Chest x-ray as per my interpretation bibasilar infiltrates EKG as per my interpretation : Rate 120, sinus tachycardia, normal axis, septal infarct, multiple artifacts
[2024-05-10] MEDS: OPTIRAY 320 125ml IV ONE (02:13)
[2024-05-10] MEDS: IPRATROPIUM BROMIDE NEB SOLN 0.02% 0.5MG/2.5ML VIAL INH STA (02:31)
[2024-05-10] MEDS: LEVALBUTEROL 1.25 MG/3 ML NEB NEB STA (02:31)
[2024-05-10] MEDS: MAGNESIUM SULFATE / D5W 1 GM/100 ML BAG IV SCH (02:42)
[2024-05-10] MEDS: PIPERACILLIN/TAZOBACTAM 4.5 GM/100 ML BAG IV ONE (02:42)
--- OUTSIDE RECORDS SUMMARY | 2024-05-10 03:38 | External Medical Summary | Summary of Care ---
Author Name Unknown Organization [facility] Address [address] [place] [address] Phone [phone] Care Team Providers Care Facilities Director Name Role Phone Tawanna Limon DO Primary Care Provider + [phone] Reason for Visit * Reason Comments Accidental Drug Ingestion * Auth/Cert Specialty Diagnoses / Procedures Referred By Contac t Referred To Contact [facility] [address] [place] [address] Phone: [phone] Emergency Medicine [facility] [address] [place] [address] Referral ID Status Reason Start Date Expiration Date Visits Re quested Visits Authorized [id number] Encounter Details Date Type Department Care Team (Late st Contact Info) Description 05/09/2024 9:45 AM EDT - 05/09/2024 12:21 PM EDT Emergency [facility] Emergency Department ([facility]) [address] [place] [address] Rob Russo MD [address] [place], [place] [id number] Ingestion of substance, accidental or unintentional, initial encounter (Primary Dx) Discharge Disposition: Home - Self Care Allergies Active Allergy Reactions Criticality Noted Date [...] as of this encounter (statuses as of 05/10/2024) Medications Medication Sig Dispensed Refills Start Date [...] brain health. Active Nebulizers (NEBULIZER COMPRESSOR[place] [facility] via nebulizer. Use [...] 0.1 % Nasal Solution (Astelin) Administer 1 [place] into nostril in the morning and 1 [place] before bedtime. 30 mL 12 03/04/2024 Active [...] as of this encounter (statuses as of 05/10/2024) Active Problems Problem Noted Date Diagnosed Date [...] as of this encounter (statuses as of 05/10/2024) Resolved Problems Problem Noted Date Diagnosed Date [...] as of this encounter (statuses as of 05/10/2024) Immunizations Name Administration Dates Next Due COVID-19 mRNA, LNP-s, No Pre serve, 2-Dose Series ([employer] (formerly [employer])) 09/07/2021,02/26/2021,02/05/2021 COVID-19, LNP-s, No Preserve , James-sucrose, Ages 12+ ([employer] (formerly [employer])) 05/26/2022 COVID-19, MRNA-LNP, 23-24, P F, 30 MCG/0.3 mL, 12 YRS AND ABOVE, IM [facility] 11/23/2023 Covid-19, Mrna, Lnp-s, Pf, B ivalent, 30 Mcg, IM, 12 yrs and above ([employer] (formerly [employer])) 04/17/2023 Pneumococcal Conjugate Vacc, 13 Valent (Prevnar) [...] Sign Reading Time Taken Comments Blood Pressure 95/52 05/09/2024 12:02 PM EDT Pulse 56 05/09/2024 12:02 PM EDT Temperature 36.2 C (97.2 F) 05/09/2024 12:20 PM E DT Respiratory Rate 18 05/09/2024 12:02 PM EDT Oxygen Saturation 92% 05/09/2024 9:52 AM EDT Inhaled Oxygen Concentration - - Weight 121.6 kg (268 lb) 05/09/2024 9:52 AM EDT Height 167.6 cm (5' 6") 05/09/2024 9:52 AM EDT Body Mass Index 43.26 05/09/2024 9:52 AM EDT documented in this encounter Discharge Instructions * Discharge Instructions* Rob Russo MD - 05/09/2024 12:16 PM EDT At this point it is unlikely that you have suffered any harm from the ingestion. You should return here if you develop any vomiting, fever, pain when you swallow or are worse in any way documented in this encounter ED Notes * Rob Russo MD - 05/09/2024 10:34 AM EDT HISTORY OF PRESENT ILLNESS Alena Manjarrez is a 68 year old female who presents to the ED for evaluation of Accidental Drug Ingestion. The patient was seen at 05/09/24 1033. This patient reports that she found a water bowel at home. She thought she was drinking spring water but this bottle contained a chemical from somebody else at work. Apparently this as a boiler cleaner for car dash boards. She noted that it felt burning going down and she drank only a small sip and then no more Pt family reports she was drinking a boiler cleaner for car dashes that was in a water bottle. Family reports she only took a sip of it but it burnt going down. Unsure exactly what the chemical was. Happened roughly 45 minutes prior to arrival Accidental Drug Ingestion The patient's allergies, past history, and medications were reviewed. PHYSICAL EXAM Initial Vitals (see all): BP 121/67 | Pulse 55 | Resp 18 | Temp 97.2 | O2 92 %Weight 121.56 kg | Height 167.6 cm | BMI 43.26 kg/m2 Initial Pain Assessment (see all): 0 (no pain)/10 ([facility] Adult Scale 0-10) PROCEDURES AND TREATMENTS ED Orders | ED Results MEDICAL DECISION MAKING Nursing notes and vital signs were reviewed. ED Course as of 05/09/24 1217 Antionette May 09, 2024 1213 XR Chest 2 Views No acute cardiopulmonary finding. This patient has drank water without any difficulty and without any discomfort [DR] 1215 This point is unlikely that she has ingested anything that will cause her to come to harm. Will discharge home [DR] 1216 Nurses reported decreased blood pressure. However the patient is alert and in no distress. Shehas not sweaty. Her skin is pink warm and dry. Did not think this requires further intervention or evaluation [DR] ED Course User Index [DR] Rob Russo MD Amount and/or Complexity of Data Reviewed Radiology: ordered. Decision-making details documented in ED Course. Clinical Impressions Ingestion of substance, accidental or unintentional, initial encounter Disposition Discharged. The patient's condition at disposition was: stable. Rob Russo * Ellis Rojas RN - 05/09/2024 9:49 AM EDT Pt family reports she was drinking a boiler cleaner for car dashes that was in a water bottle. Family reports she only took a sip of it but it burnt going down. Unsure exactly what the chemical was. Happened roughly 45 minutes prior to arrival documented in this encounter Miscellaneous Notes * ED Ssrs Developer Note - Francoise De Luna RN - 05/09/2024 10:01 AM EDT Pt swallowed a mouthful of the substance from what she thought was water, pt stated it burned when she first swallowed. Tongue and throat appear wnl and pt is able to swallow without difficulty, no burning when swallowing and pt was able to swallow water at home. documented in this encounter Plan of Treatment Upcoming Encounters Date Type Department Care Team (Late st Contact Info) Description 05/24/2024 1:00 PM EDT Office Visit Family Practice [address] [place] [address] [address] [place] [address] Tawanna Limon, [address] [place] [address] 05/30/2024 11:00 AM EDT Office Visit Rheumatology [address] [address] Leland Novoa MD [address] [place] [address] 06/04/2024 1:00 PM EDT Rehab Services Voice Lab [facility] [address] [place] [address] Víctor Lees [facility] [address] [facility] [place] [address] 06/04/2024 1:00 PM EDT Office Visit Otolaryngology [facility] [address] [facility] [place] [address] Bettye Schwartz MD [address] [place] [address] Scheduled Procedures Name Priority Associated Diagnoses Date/Ti [...] Additional history exists CKD PHOS USE SMARTSET 28064 02/25/202502/05, 02/10/2023, 02/15/2022, Additional history exists TSH 02/25/2025 02/26/2024, 04/0 05/2023, 02/15/2022, Additional history exists Depression Monitoring 04/19/2025 04/19/2024 CKD HGB USE SMARTSET 20810 04/26/202504/26, 04/26/2024, 01/15/2024, Additional history exists Colonoscopy [...] Diagnosis Comments XR CHEST 2 VIEWS STAT 05/09/2024 11:1 1 AM EDT documented in this encounter Results * XR CHEST 2 VIEWS (05/09/2024 11:11 AM EDT) Anatomical Region Laterality Modality Chest Digital Radiogra phy 05/09/2024 11:0 1 AM EDT Impressions 05/09/2024 11:44 AM EDT IMPRESSION: No acute cardiopulmonary finding. THIS DOCUMENT HAS BEEN ELECTRONICALLY SIGNED BY ASTRID TAYLOR MD Narrative 05/09/2024 11:44 AM EDT PROCEDURE INFORMATION: Exam: XR Chest Exam date and time: 05/09/2024 11:01 AM Age: 68 years old Clinical indication: Other: Possible ingestion of caustic material TECHNIQUE: Imaging protocol: Radiologic exam of the chest. Views: 2 views. COMPARISON: 1. DX XR CHEST 2 VIEWS 04/26/2024 8:59 AM 2. DX XR SHOULDER, 2 OR MORE VIEWS 03/27/2023 9:38 AM 3. DX XR SHOULDER, 2 OR MORE VIEWS 08/26/2021 9:28 AM FINDINGS: Lungs: Well expanded lungs with mild bronchial wall thickening as previously. Pleural spaces: No pleural effusion. Heart/Mediastinum: Normal heart size. Bones/joints: Global osteopenia. Intraperitoneal space: Clips right upper quadrant. Procedure Note Astrid Taylor MD - 05/09/2024 PROCEDURE INFORMATION: Exam: XR Chest Exam date and time: 05/09/2024 11:01 AM Age: 68 years old Clinical indication: Other: Possible ingestion of caustic material TECHNIQUE: Imaging protocol: Radiologic exam of the chest. Views: 2 views. COMPARISON: 1. DX XR CHEST 2 VIEWS 04/26/2024 8:59 AM 2. DX XR SHOULDER, 2 OR MORE VIEWS 03/27/2023 9:38 AM 3. DX XR SHOULDER, 2 OR MORE VIEWS 08/26/2021 9:28 AM FINDINGS: Lungs: Well expanded lungs with mild bronchial wall thickening aspreviously. Pleural spaces: No pleural effusion. Heart/Mediastinum: Normal heart size. Bones/joints: Global osteopenia. Intraperitoneal space: Clips right upper quadrant. IMPRESSION IMPRESSION: No acute cardiopulmonary finding. THIS DOCUMENT HAS BEEN ELECTRONICALLY SIGNED BY ASTRID TAYLOR MD Rob Russo MD RADIOLOGY ([facility]) documented in this encounter Visit Diagnoses Diagnosis Ingestion of substance, accidental or unintentional, initial encounter- Primary documented in this encounter Advance Directives Healthcare Agents on File Name Relationship Healthcare Agent Relationship Communication Marcos Breaux Other - (no specific identity) Health Care Digestion Operator (appointed verbally by patient or by statute hierarchy) Bob Manjarrez Adult Child Health Care Digestion Operator (appointed verbally by patient or by statute hierarchy) Care Teams Facilities Director Relationship Specialty Start Date End Date Tawanna Limon DO [address] [place] [address], [place] [address] PCP - General Family Medicine 04/18/24 documented as of this encounter
[2024-05-10] MEDS ORDERED: ARTIFICIAL TEARS OP PRN (03:50)
[2024-05-10] MEDS: DOXYCYCLINE HYCLATE 100 MG in DEXTROSE 5% MINI-B 100 ML IV STA (03:54)
[2024-05-10 04:32] LABS: Base Excess VBG -5.7 mEq/L; HCO3 VBG 18 mmol/L; Oxygen Saturation VBG 86.9 %; PCO2 VBG 31 mmHg (38-50); PO2 VBG 51 mmHg; pH VBG 7.38 (7.36-7.41)
--- NOTE | 2024-05-10 04:43 | CT Scan Report ---
Exam(s): CTA CHEST IV Amt: 117 ML OPTIRAY 320 EXAM: CT Angiography Chest With Intravenous Contrast CLINICAL HISTORY: Reason for exam: sob. TECHNIQUE: Axial computed tomographic angiography images of the chest with intravenous contrast. CTDI is 28.14 mGy and DLP is 824.38 mGy-cm. Automated exposure control was utilized for the study. A dose lowering technique was utilized adhering to the principles of ALARA. MIP reconstructed images were created and reviewed. COMPARISON: No relevant prior studies available. FINDINGS: Pulmonary arteries: No pulmonary embolism detected. Aorta: No acute findings. No thoracic aortic aneurysm. Lungs: Multifocal patchy and confluent foci of airspace disease in the lungs, most prominent in the lower lobes. Findings may relate to infection/aspiration changes. Saber-sheath trachea. Findings can be seen with chronic obstructive pulmonary disease. No mass. Pleural space: Unremarkable. No significant effusion. No pneumothorax. Heart: Unremarkable. No cardiomegaly. No significant pericardial effusion. No evidence of RV dysfunction. Thyroid: Left thyroid nodule with substernal extension, incompletely visualized, measuring at least 4.3 cm. ACR White Paper guidelines (Fair JK, et al. JACR 2015;12(2):143-50) suggest further evaluation with thyroid ultrasound. Bones/joints: Flowing osteophyte formations in the spine compatible with diffuse idiopathic skeletal hyperostosis (DISH). Degenerative changes in the spine. No acute fracture. No dislocation. Soft tissues: Unremarkable. Lymph nodes: Unremarkable. No enlarged lymph nodes. IMPRESSION: 1. Left thyroid nodule with substernal extension, incompletely visualized, measuring at least 4.3 cm. ACR White Paper guidelines (Fair JK, et al. JACR 2015;12(2):143-50) suggest further evaluation with thyroid ultrasound. 2. No pulmonary embolism detected. 3. Multifocal patchy and confluent foci of airspace disease in the lungs, most prominent in the lower lobes. Findings may relate to infection/aspiration changes. 4. Saber-sheath trachea. Findings can be seen with chronic obstructive pulmonary disease. 5. No other acute findings. 6. Incidental findings as described. Electronically signed by: Calixto Caldwell MD 05/10/24 04:42 AM
[2024-05-10 05:01] LABS: Troponin I High Sensitivity 25.1 pg/ml (0-14)
[2024-05-10] MEDS: LACTATED RINGER'S 1,000 ML IV ONE (06:01)
[2024-05-10] MEDS: HEPARIN SOD 5,000 UNIT/0.5 ML VIAL SQ SCH (06:03)
[2024-05-10 06:05] LABS: Thyroid Stimulating Hormone 0.179 uIu/ml (0.300-4.500)
[2024-05-10] MEDS: LEVOTHYROXINE SODIUM 25 MCG TABLET PO SCH (06:07)
[2024-05-10] MEDS: PANTOprazole 40 MG TAB PO SCH (06:07)
[2024-05-10] MEDS: NYSTATIN POWDER 15GM BTL EXT SCH (06:07)
[2024-05-10 06:41] LABS: T4 Free Thyroxine 1.11 ng/dl (0.61-1.60)
--- NOTE | 2024-05-10 06:45 | XRay Report ---
XR chest 1V portable CLINICAL HISTORY: Sepsis. COMPARISON STUDY: Chest CT June 2008. Chest radiograph August 21, 2009. FINDINGS: There is no pneumothorax or pleural fusion. Moderate bilateral lower lobe consolidation is present. There is no evidence for pulmonary edema. Cardiac size is within normal limits. IMPRESSION: Bilateral lower lobe consolidation suggestive of pneumonia. Posttreatment radiographs to ensure resolution are recommended. This finding will be called/faxed to the ordering provider at cris e of dictation. ACT 112: Negative or not required by law. Electronically signed by: Elmer Sanders M.D. 05/10/2024 6:43 AM
[2024-05-10] MEDS: LEVALBUTEROL 1.25 MG/3 ML NEB NEB SCH (07:33)
[2024-05-10] MEDS: IPRATROPIUM BROMIDE NEB SOLN 0.02% 0.5MG/2.5ML VIAL INH SCH (07:33)
[2024-05-10] MEDS: POTASSIUM CHLORIDE PWD 20 MEQ PACK PO STA (08:27)
[2024-05-10] MEDS: ROSUVASTATIN CALCIUM 20 MG TAB PO SCH (08:32)
[2024-05-10] MEDS: FLUTICASONE/VILANTEROL 200/25MCG 14 PUFFS/INHALER INH SCH (08:32)
[2024-05-10] MEDS: DULoxetine HCL 20 MG CAP PO SCH ×2 (08:32→20:16)
[2024-05-10] MEDS: FAMOTIDINE 40 MG TABLET PO SCH (08:32)
--- NOTE | 2024-05-10 09:59 | Communication Note ---
Date of Service: May 10, 2024 Patient seen and examined Reports cough, productive of yellowish sputum and weakness for past 2 weeks Reports diarrhea in the past day Had 2 falls yesterday. No head trauma or LOC Exam notable for obese woman in no distress, ill looking, not in resp distress, diminished breath sounds, on nasal cannula, RRR S1 S2, difficult to assess volume status due to body habitus, no pedal edema, Abdomen is soft, not distended, nontender Lab notable for leukocytosis, Elevated lactate, Elevated Procal 5.52 Resp PCR is negative Chest CTA noted multifocal patchy airspace disease especially in lower lobes, left thyroid nodule with substernal extension. Sepsis due to pneumonia Elevated Lactic acid Continue zosyn and doxycycline Blood cultures and sputum cx in lab Cr at baseline. Has CKD3 Monitor lactate. Continue IVF for now Will leave prednisone started on admission for now. Reassess later Continue to hold home lisinopril due to hypotension earlier. Now resolved Elevated trop may be demand ischemia in setting of sepsis. EKG did not show acute ST-T changes. Continue tele monitor and trend trop Get TTE Plan to get PT/OT once stabilized Will need Thyroid USS in future for better eval of thyroid nodule
[2024-05-10 10:41] LABS: BUN Creatinine Ratio 13.4 (10-20); Creatinine Clr Calc Pharmacy 54.9 ml/min; Est GFR (African American) 47.1 ml/min; Est GFR (Non-African American) 40.6 ml/min; Magnesium 2.2 mg/dl (1.7-2.4); Potassium 4.5 mmol/L (3.5-5.1)
[2024-05-10 10:57] LABS: Troponin I High Sensitivity 59.8 pg/ml (0-14)
[2024-05-10 10:59] LABS: Hematocrit (blood only) 30.2 % (37.0-47.0); Hemoglobin 10.1 g/dl (12.0-16.0); Mean Corpuscular Hemoglobin 33.6 pg (25.0-34.0); Mean Corpuscular Hgb Conc 33.4 g/dL (32.0-36.0); Mean Corpuscular Volume 100.3 fL (80.0-100.0); Mean Platelet Volume 9.8 fL (9.4-12.4); Platelet Count 143 K/uL (130-400); Red Blood Count 3.01 M/uL (4.20-5.40); White Blood Count 15.05 K/ul (4.8-10.8)
[2024-05-10 11:41] LABS: Basophils # (auto) 0.02 K/uL (0.00-0.20); Basophils % (auto) 0.1 %; Dohle Bodies Occasional; Immature Granulocytes # (auto) 0.63 K/uL (0.01-0.20); Immature Granulocytes % (auto) 4.2 %; Lymphocytes # (auto) 0.26 K/uL (1.20-3.40); Lymphocytes % (auto) 1.7 %; Monocytes # (auto) 0.57 K/uL (0.11-0.59); Monocytes % (auto) 3.8 %; Neutrophils # (auto) 13.57 K/uL (1.40-6.50); Neutrophils % (auto) 90.2 %; Toxic Vacuolation Occasional
[2024-05-10] MEDS: PIPER/TAZO 4.5g in D5W MINI-B 100 ML IV ONE (13:36)
[2024-05-10] MEDS: LACTATED RINGER'S 1,000 ML IV SCH (14:29)
[2024-05-10] MEDS: PIPERACILLIN/TAZOBACTAM 4.5 GM in DEXTROSE 5% MINI-B 100 ML IV SCH (18:04)
[2024-05-10] MEDS: ASPIRIN 325 MG ECTAB PO SCH (20:17)
[2024-05-10] MEDS: DOXYCYCLINE HYCLATE 100 MG CAP PO SCH (20:17)
[2024-05-10] MEDS: MONTELUKAST SODIUM 10 MG TABLET PO SCH (20:17)
[2024-05-10] MEDS: TRAVOPROST Z 0.004% OPH SOLN 2.5 ML BTL OP SCH (20:18)
[2024-05-10] MEDS: SODIUM CHLORIDE 0.9% 1,000 ML IV SCH (21:47)
--- NOTE | 2024-05-10 22:45 | Electrocardiogram Report ---
Test Reason : Blood Pressure : / mmHG Vent. Rate : 117 BPM Atrial Rate : 117 BPM P-R Int : 158 ms QRS Dur : 084 ms QT Int : 336 ms P-R-T Axes : 072 063 061 degrees QTc Int : 468 ms Sinus tachycardia Otherwise normal ECG When compared with ECG of 21-AUG-2009 19:03, Vent. rate has increased BY 46 BPM Confirmed by Tommy Mon ([id number]) on 05/10/2024 10:45:06 PM Referred By: REFERRED SELF Confirmed By:Tommy Mon
[2024-05-10] MEDS: ACETAMINOPHEN 325 MG TAB PO PRN (23:28)
[2024-05-11 06:16] LABS: Hematocrit (blood only) 26.8 % (37.0-47.0); Mean Corpuscular Hemoglobin 33.3 pg (25.0-34.0); Mean Corpuscular Hgb Conc 33.6 g/dL (32.0-36.0); Mean Corpuscular Volume 99.3 fL (80.0-100.0); Mean Platelet Volume 10.3 fL (9.4-12.4); Platelet Count 113 K/uL (130-400); RDW Coefficient of Variation 13.1 % (11.5-14.5); RDW Standard Deviation 46.7 fL (36.4-46.3)
[2024-05-11 06:40] LABS: Albumin Globulin Ratio 1.3 (0.9-2); Albumin Level 2.8 gm/dl (3.4-5.0); BUN Creatinine Ratio 12.7 (10-20); Calcium 7.8 mg/dl (8.6-10.3); Creatinine Clr Calc Pharmacy 66.9 ml/min; Est GFR (African American) 59.7 ml/min; Est GFR (Non-African American) 51.5 ml/min; Globulin 2.1 gm/dl (2.5-4.0); Potassium 4.5 mmol/L (3.5-5.1); Total Protein 4.9 gm/dl (6.0-8.3)
--- NOTE | 2024-05-11 08:51 | Electrocardiogram Report ---
Test Reason : Blood Pressure : / mmHG Vent. Rate : 102 BPM Atrial Rate : 102 BPM P-R Int : 176 ms QRS Dur : 080 ms QT Int : 342 ms P-R-T Axes : 059 058 058 degrees QTc Int : 445 ms Sinus tachycardia Borderline ECG When compared with ECG of 09-MAY-2024 22:56, No significant change Confirmed by Joaquim Gonzalez ([id number]) on 05/11/2024 8:51:08 AM Referred By: REFERRED SELF Confirmed By:Joaquim Gonzalez
[2024-05-11] MEDS: predniSONE 20 MG TAB PO SCH (09:46)
--- NOTE | 2024-05-11 09:52 | Cardiology Consultation ---
<Statement entered by Ashley Barbour, DO - 05/11/24 12:00> I have reviewed the advanced practitioner's documentation and agree with the plan of care. I accept the responsibility for the associated risk. Pt seen in cardiology consultation due to elevated troponins in the setting sepsis secondary of acute PNA. Her echo is shows normal wall motion and EF. her troponins have trended down. her chest pain is atypically and most likely due to the persistent coughing over the last few weeks. Recommend adding metoprolol and an patient DSE as an outpatient. No further cardiac testing necessary as an inpatient. Please re-consult as necessary Dr. Barbour Date of Consultation May 11, 2024 Assessment & Plan (1) Severe sepsis: (2) Septic shock: (3) Pneumonia of both lower lobes: (4) HTN (hypertension): (5) Elevated troponin: (6) Demand ischemia: Plan Cardiology consultation requested due to elevated troponin (17.5 -> 25.1-> 59.8- > 102.3-> 153.4-> 108.5). Patient asymptomatic in regards to overt angina. EKGs without acute change. Resting echocardiography with preserved LV systolic function, without wall motion abnormality. Suspect elevated troponin represents demand ischemia in a 68-year-old female admitted with sepsis secondary to pneumonia. Recommendations: 1. Add low-dose beta-jp therapy with metoprolol succinate 12.5 mg/day 2. Continue aspirin (81 mg/day from a cardiac standpoint) 3. Continue rosuvastatin 20 mg/day 4. Resume lisinopril as blood pressure permits. 5. Outpatient pharmacological stress test once fully recovered History of Present Illness Reason for Consultation: Elevated troponin, sepsis Requesting Physician: Dr. Brigitte Tate MD Attending Physician: Brigitte Tate MD History of Present Illness Ms. Alena Manjarrez is a very pleasant 68-year-old female who began to have cough, chest congestion, and low-grade fever starting in mid April. Patient was evaluated by PCP on April 26, 2024, treated with albuterol via nebulizer, prednisone taper, doxycycline. Chest x-ray at that time was interpreted by the radiologist as showing no acute cardiopulmonary findings. On May 09, 2024, patient accidentally ingested a cleaning solution that resulted in the sensation of her throat. Patient evaluated at [facility] on May 09, 2024 with x-ray showing no acute findings. She was discharged to home with the thought that she unlikely ingested anything that would cause her harm. Patient then presented to [facility] ER via EMS on May 09, 2024 with cough, chest congestion, lethargy, and fever. Patient was noted to be febrile, hypotensive, and tachy cardic. Chest x-ray showed bilateral lower lobe pneumonia. 2 L fluid resuscitation administered in the ER. Patient empirically treated with cefepime, admitted with a working diagnosis of severe sepsis, hypoxic respiratory failure complicated by transient encephalopathy, possible healthcare acquired pneumonia and immunocompromise patient (rheumatoid arthritis, on Rinvoq). Cardiology consultation requested secondary to elevated troponin. Patient notes bilateral rib pain from coughing incessantly, improving. No substernal chest pain. Breathing has significantly improved today as compared to yesterday. No overt palpitations though she notes intermittently being able to feel and hear her heartbeat in her ears bilaterally. No orthopnea or PND. No syncope. Patient denies prior cardiac history. Patient specifically denies history of CAD, [place], CHF, arrhythmia, heart murmur, rheumatic fever, or scarlet fever. Patient does have multiple cardiac risk factors including hypertension, dysli pidemia, obesity, inactivity, RA, prediabetes Family History: Not notable for CAD Social History: Never smoker. No alcohol. No illegal drug use. Allergies Allergy/AdvReac Type Severity Reaction Status Date / Time adalimumab [From Humira] Allergy Intermediate Itching Verified 05/09/24 23:28 Sulfa (Sulfonamide Allergy Intermediate RASH, Verified 05/09/24 23:28 Antibiotics) BURNING EYES adhesive Allergy Mild BAND-AIDS Verified 05/09/24 23:28 = REDNESS hydrocortisone AdvReac Intermediate BURNING IN Verified 05/09/24 23:28 EYES ibuprofen AdvReac Intermediate N/V Verified 05/09/24 23:28 neomycin AdvReac Intermediate BURNING IN Verified 05/09/24 23:28 EYES NSAIDS (Non-Steroidal AdvReac Intermediate N/V Verified 05/09/24 23:28 Anti-Inflamma Penicillins AdvReac Intermediate Gastrointestinal Verified 05/09/24 23:28 Upset polymyxin B AdvReac Intermediate BURNING IN Verified 05/09/24 23:28 EYES latex AdvReac Mild Rash Verified 05/09/24 23:28 Home Medications Medication Instructions Recorded Confirmed Type albuterol sulfate 90 mcg/actuation 2 puff inhalation Q4H PRN Wheezing 09/23/19 05/09/24 History aerosol inhaler (Ventolin HFA) aspirin 325 mg tablet 325 mg PO HS 09/23/19 05/09/24 History cholecalciferol (vitamin D3) 25 1,000 unit PO QAM 09/23/19 05/09/24 History mcg (1,000 unit) capsule (Vitamin D3) cyanocobalamin (vitamin B-12) 1,000 mcg PO QAM 09/23/19 05/09/24 History 1,000 mcg tablet (Vitamin B-12) dicyclomine 10 mg capsule 10 mg PO TID PRN Abdominal Pain 09/23/19 05/09/24 History fluticasone 500 mcg-salmeterol 50 2 inh inhalation BID 09/23/19 05/09/24 History mcg/dose blistr powdr for inhalation (Wixela Inhub) levothyroxine 50 mcg tablet 25 mcg PO DAILYBB 09/23/19 05/09/24 History lisinopril 20 mg tablet 20 mg PO QAM 09/23/19 05/09/24 History montelukast 10 mg tablet 10 mg PO HS 09/23/19 05/09/24 History omega 3 350 mg-dha 235 mg-epa 90 1 cap PO QAM 09/23/19 05/09/24 History mg-fish oil 597 mg capsule,delay rel ([place]-3) travoprost 0.004 % eye drops 1 drp ophthalmic (eye) HS 09/23/19 05/09/24 History trazodone 150 mg tablet 300 mg PO HS 09/23/19 05/09/24 History famotidine 40 mg tablet 40 mg PO QAM 12/31/21 05/09/24 History Focus Factor 1 tab PO BID 05/09/24 05/09/24 History albuterol sulfate 2.5 mg/3 mL 2.5 mg inhalation Q6H PRN Wheezing 05/09/24 05/09/24 History (0.083 %) solution for nebulization azelastine 137 mcg (0.1 %) nasal 1 spray intranasal HS 05/09/24 05/09/24 History spray aerosol bupropion HCl 100 mg tablet,12 hr 100 mg PO QAM 05/09/24 05/09/24 History sustained-release coconut oil (bulk) 1 ea miscellaneous QAM 05/09/24 05/09/24 History cyclosporine 0.05 % eye drops in a 1 drp OPB Q12H 05/09/24 05/09/24 History dropperette (Restasis) duloxetine 20 mg capsule,delayed See Rx Instructions .Route .COMPLEX 05/09/24 05/09/24 History release fluticasone propionate 50 2 spray intranasal HS 05/09/24 05/09/24 History mcg/actuation nasal spray,suspension meclizine 12.5 mg tablet 12.5 mg PO TID PRN Dizziness 05/09/24 05/09/24 History omeprazole 20 mg capsule,delayed 20 mg PO DAILYBB 05/09/24 05/09/24 History release psyllium husk 0.4 gram capsule 0.4 g PO DAILY 05/09/24 05/09/24 History (Metamucil) rosuvastatin 20 mg tablet 20 mg PO QAM 05/09/24 05/09/24 History tizanidine 2 mg tablet 2 mg PO Q6H PRN MUSCLE SPASMS 05/09/24 05/09/24 History upadacitinib 15 mg tablet,extended 15 mg PO QAM 05/09/24 05/09/24 History release 24 hr (Rinvoq) Patient History Medical History Insomnia Anxiety and depression Memory problem Chronic back pain Hypothyroidism Rheumatoid arthritis Anemia Temporomandibular joint disorder d/t RA Glaucoma bilt Migraine Hypertension Hyperlipidemia Transient ischemic attack (TIA) 2008 "mini stroke"-no deficits, reason for 325mg aspirin Chronic kidney disease, stage 3 Chronic obstructive pulmonary disease inhaler prn Sleep apnea CPAP at night Surgical History History of left cataract surgery History of cholecystectomy History of section x2 History of ankle surgery left ankle in childhood History of colonoscopy History of esophagogastroduodenoscopy (EGD) WITH ESOPHAGEAL STRETCHING History of tooth extraction Family History Brother Family history of diabetes mellitus Family/Other Family history of diabetes mellitus niece Other No family history of adverse response to anesthesia Social History Smoking Status: Never smoker Second Hand Exposure: No; Do You Dip or Chew Tobacco: No; Tobacco Cessation Education Requested by Patient: No Hx Alcohol Use: No Hx Substance Use: No Preferred Language: Uzbek Communication Ability: Effective Senior [employer] Required: No Beliefs That Will Affect Care: None Current Living Situation: Other Current Living Situation Comment: lives at home with friend Lisbeth Other Information That Helps Us Care for You: No Feels Safe at Home: Yes Safety Concerns: Feels Safe At This Time Assistive Devices: Scooter/Electric Scooter and Walker Review of Systems Review of Systems: Complete Review of Systems is as stated above, negative, or noncontributory. Physical Exam Physical Exam: General: A&Ox3. NAD. HENT: Normocephalic. Atraumatic. Eyes: PER. Conjunctiva pink, sclera clear. Neck: No JVD. No HJR. Heart: Regular at 100 bpm. No murmur. No rub. Lungs: Scattered rhonchi. Faint expiratory wheeze. Abdomen: +BS. Soft. Nontender. No masses or organomegaly. Extremities: Thick, without overt pitting edema. No clubbing. No cyanosis Limited neurological examination is without focal deficits. Pulses: Posterior tibial=1/4. Results & Data Vital Signs (Past 12 Hours) Vital Signs Temp Pulse Pulse Resp BP Pulse Ox O2 Del Method 05/11/24 07:21 83 18 97 Nasal Cannula 05/11/24 07:04 36.6 C 95 H 19 115/72 96 Room Air 05/11/24 03:33 05/11/24 03:08 36.9 C 89 19 110/69 96 BiPAP 05/10/24 23:31 111 H 05/10/24 23:15 05/10/24 22:56 38.8 C H 112 H 18 149/74 H 95 Nasal Cannula O2 Del Method O2 Flow Rate O2 Flow Rate 05/11/24 07:21 2 05/11/24 07:04 05/11/24 03:33 Nasal Cannula 2 05/11/24 03:08 05/10/24 23:31 05/10/24 23:15 Nasal Cannula 2 05/10/24 22:56 2 Laboratory Results Cardiac Enzymes 05/10/24 05/10/24 05/10/24 Range/Units 10:03 15:54 21:47 AST (13-39) U/L Troponin I High Sens 59.8 H* D 102.3 H* D 153.4 H* D (0-14) pg/ml 05/11/24 05/11/24 Range/Units 05:38 08:04 AST 28 (13-39) U/L Troponin I High Sens 108.5 H* D (0-14) pg/ml CBC 05/10/24 05/11/24 Range/Units 10:03 05:38 WBC 15.05 H 12.20 H (4.8-10.8) K/ul RBC 3.01 L 2.70 L (4.20-5.40) M/uL Hgb 10.1 L 9.0 L (12.0-16.0) g/dl Hct 30.2 L 26.8 L (37.0-47.0) % Plt Count 143 113 L (130-400) K/uL Neut # (Auto) 13.57 H (1.40-6.50) K/uL Lymph # (Auto) 0.26 L (1.20-3.40) K/uL [place] # (Auto) 0.57 (0.11-0.59) K/uL Eos # (Auto) 0.00 (0.00-0.50) K/uL Baso # (Auto) 0.02 (0.00-0.20) K/uL Comprehensive Metabolic Panel 05/10/24 05/11/24 Range/Units 10:03 05:38 Sodium 133 L 138 (136-145) mmol/L Potassium 4.5 D 4.5 (3.5-5.1) mmol/L Chloride 105 109 H (98-107) mmol/L Carbon Dioxide 19 L 24 (21-32) mmol/L BUN 18 14 (6-23) mg/dl Creatinine 1.34 H 1.10 (0.6-1.2) mg/dl Glucose 192 H 135 H (70-99(Fasting)) mg/dl Calcium 8.0 L 7.8 L (8.6-10.3) mg/dl AST 28 (13-39) U/L ALT 20 (7-52) U/L Alkaline Phosphatase 39 (34-104) U/L Total Protein 4.9 L D (6.0-8.3) gm/dl Albumin 2.8 L (3.4-5.0) gm/dl Intake and Output 05/10/24 05/11/24 05/11/24 22:59 06:59 14:59 Intake Total 726.667 / 3786.000 798.333 / 3786.000 1082.667 / 1082.667 Output Total 1150 / 2250 Balance -423.333 / 1536.000 798.333 / 1859.744 2381.667 / 1082.667 Intake: IV 426.667 / 2881.000 673.333 / 2881.000 1082.667 / 1082.667 Lactated Ringer's 1,000 ml @ 80 326.667 / 1000.000 673.333 / 1000.000 mls/hr IV .[id number] SYD Rx#: [id number] Piperacillin/Tazobactam 4.5 gm 100 / 100 100 / 100 In Dextrose 5% Mini-B 100 ml @ 25 mls/hr IV Q8H SYD Rx#: [id number] Sodium Chloride 0.9% 1,000 ml @ 982.667 / 982.667 80 mls/hr IV .[id number] SYD Rx#: [id number] Oral 300 / 905 125 / 905 Output: Urine 1150 / 2250 Other: # Unmeasured Voids 1 Weight 127.5 kg Weight Measurement Method Built in [facility] Diagnostic Findings May 09, 2024 EKG: Sinus tachycardia 117 bpm, without acute ST segment change. May 10, 2024 EKG: Sinus tachycardia 102 bpm, without acute ST segment change. May 10, 2024 TTE Interpretation Summary ([facility], Dr. Rojas): Normal LV systolic function. EF 60 to 65%. Pulse-wave TDI of the anterior and posterior mitral annulus demonstrates normal LV relaxation. Trace tricuspid regurgitation. Doppler findings do not suggest pulmonary hypertension. Telemetry: Sinus/sinus tachycardia, currently with heart rates in the 80s and 90s.
--- NOTE | 2024-05-11 11:00 | Hospitalist Progress Note ---
Date of Service May 11, 2024 Assessment & Plan (1) Severe sepsis: Plan: Severe sepsis Likely due to Pneumonia Lactic acidosis Acute respiratory failure with hypoxia Immunocompromised patient, history of RA on Rinvoq Possible COPD exacerbation On admission, Labs were notable for leukocytosis, Elevated lactate, Elevated Procal 5.52 Resp PCR is negative Chest CTA noted multifocal patchy airspace disease especially in lower lobes, left thyroid nodule with substernal extension. Leukocytosis improving Continue zosyn and doxycycline Blood cultures and sputum cx in lab Has CKD3 Lactic acidosis resolved Stop IVF Complete 5 days of Prednisone Continue to hold home lisinopril for today due to hypotension on admission BP has been normal to elevated Plan to resume lisinopril later Wean oxygen as tolerated Demand ischemia Elevated trop likely due to demand ischemia in setting of sepsis. EKG did not show acute ST-T changes. TTE reviewed. EF 60-65%, trace TR Trop peaked at 153 Card eval noted Started on metoprolol succinate 12.5mg/day Will need outpatient stress test Hypothyroidism Continue levothyroxine Will need Thyroid USS in future for better eval of thyroid nodule seen on CT Hyperlipidemia on statin Rx COMFORT on CPAP, morbid obesity Prediabetes, hemoglobin A1c of 5.12 November 2023 Chronic anemia Hx TIA as per records Ms. Marcos Breaux (caregiver), contact #[phone] Mr. Bob Manjarrez (son), contact #[phone]. I spent a total of 50 minutes coordinating, documenting and providing care for this patient excluding time spent in performance of separately billed services Admission and Anticipated Discharge Date Admission Date: May 10, 2024 Subjective Patient seen and examined Reports feeling better today Reports cough, productive of sputum Denied SOB, chest pain Reports weakness Denied other complaints on ROS Physical Exam Constitutional: + well hydrated and + obese; no acute di stress Eyes: PERRL, conjunctivae normal, anicteric sclerae ENMT: external ear and nose normal, oropharynx normal Respiratory: Not in resp distress, on nasal cannula, good air entry, +rhonchi Cardiovascular: Rate/Rhythm: regular rate and regular rhythm Gastrointestinal (Abdomen): normal bowel sounds, soft, nontender, no hepatosplenomegaly Musculoskeletal: No pedal edema Bruise on LUE, site of previous IV Neurologic: PERRL, EOMI, accommodation nl, no face palsy, no dysarthria Psychiatric: A+Ox3, euthymic affect Results & Data Results & Data Vital Signs (Past 12 Hours) Vital Signs Temp Pulse Pulse Resp BP Pulse Ox O2 Del Method 05/11/24 10:00 Nasal Cannula 05/11/24 07:21 83 18 97 Nasal Cannula 05/11/24 07:04 36.6 C 95 H 19 115/72 96 Room Air 05/11/24 03:33 05/11/24 03:08 36.9 C 89 19 110/69 96 BiPAP 05/10/24 23:31 111 H 05/10/24 23:15 O2 Del Method O2 Flow Rate O2 Flow Rate 05/11/24 10:00 2 05/11/24 07:21 2 05/11/24 07:04 05/11/24 03:33 Nasal Cannula 2 05/11/24 03:08 05/10/24 23:31 05/10/24 23:15 Nasal Cannula 2 Laboratory Results Abnormal lab results 05/10/24 05/10/24 05/11/24 Range/Units 15:54 21:47 05:38 WBC 12.20 H (4.8-10.8) K/ul RBC 2.70 L (4.20-5.40) M/uL Hgb 9.0 L (12.0-16.0) g/dl Hct 26.8 L (37.0-47.0) % RDW Std Deviation 46.7 H (36.4-46.3) fL Plt Count 113 L (130-400) K/uL Chloride 109 H (98-107) mmol/L Glucose 135 H (70-99(Fasting)) mg/dl Calcium 7.8 L (8.6-10.3) mg/dl Troponin I High Sens 102.3 H* D 153.4 H* D (0-14) pg/ml Total Protein 4.9 L D (6.0-8.3) gm/dl Albumin 2.8 L (3.4-5.0) gm/dl Globulin 2.1 L (2.5-4.0) gm/dl 05/11/24 Range/Units 08:04 WBC (4.8-10.8) K/ul RBC (4.20-5.40) M/uL Hgb (12.0-16.0) g/dl Hct (37.0-47.0) % RDW Std Deviation (36.4-46.3) fL Plt Count (130-400) K/uL Chloride (98-107) mmol/L Glucose (70-99(Fasting)) mg/dl Calcium (8.6-10.3) mg/dl Troponin I High Sens 108.5 H* D (0-14) pg/ml Total Protein (6.0-8.3) gm/dl Albumin (3.4-5.0) gm/dl Globulin (2.5-4.0) gm/dl
[2024-05-11] MEDS: METOPROLOL SUCC 25MG EXT REL TAB PO SCH (13:13)
[2024-05-12 06:35] LABS: Hemoglobin 8.9 g/dl (12.0-16.0); Mean Corpuscular Hemoglobin 33.2 pg (25.0-34.0); Mean Corpuscular Hgb Conc 34.2 g/dL (32.0-36.0); Mean Platelet Volume 10.6 fL (9.4-12.4); Platelet Count 112 K/uL (130-400); RDW Coefficient of Variation 12.2 % (11.5-14.5); RDW Standard Deviation 43.4 fL (36.4-46.3); Red Blood Count 2.68 M/uL (4.20-5.40); White Blood Count 12.57 K/ul (4.8-10.8)
[2024-05-12 07:05] LABS: Albumin Globulin Ratio 1.1 (0.9-2); Albumin Level 2.9 gm/dl (3.4-5.0); BUN Creatinine Ratio 14.3 (10-20); Bilirubin,Total 0.7 mg/dl (0.2-1.0); Calcium 8.3 mg/dl (8.6-10.3); Est GFR (African American) 63.2 ml/min; Est GFR (Non-African American) 54.5 ml/min; Globulin 2.6 gm/dl (2.5-4.0); Potassium 4.2 mmol/L (3.5-5.1); Total Protein 5.5 gm/dl (6.0-8.3)
--- NOTE | 2024-05-12 10:11 | Hospitalist Progress Note ---
Date of Service May 12, 2024 Assessment & Plan (1) Severe sepsis: Plan: Severe sepsis Likely due to Pneumonia Lactic acidosis Acute respiratory failure with hypoxia Immunocompromised patient, history of RA on Rinvoq Possible COPD exacerbation On admission, Labs were notable for leukocytosis, Elevated lactate, Elevated Procal 5.52 Resp PCR is negative Chest CTA noted multifocal patchy airspace disease especially in lower lobes, left thyroid nodule with substernal extension. Continue zosyn and doxycycline Blood cultures and sputum cx negative so far Has CKD3 Lactic acidosis resolved Complete 5 days of Prednisone Weaned off oxygen Resume home lisinopril at half home dose and monitor Demand ischemia Elevated trop likely due to demand ischemia in setting of sepsis. EKG did not show acute ST-T changes. TTE reviewed. EF 60-65%, trace TR Trop peaked at 153 Card eval noted Continue metoprolol succinate 12.5mg/day started this admission Will need outpatient stress test Hypothyroidism Continue levothyroxine Will need Thyroid USS in future for better eval of thyroid nodule seen on CT Hyperlipidemia on statin Rx COMFORT on CPAP, morbid obesity Prediabetes, hemoglobin A1c of 5.12 November 2023 Chronic anemia Hx TIA as per records Awaiting PT/OT eval Ms. Marcos Breaux (caregiver), contact #[phone] Mr. Bob Manjarrez (son), contact #[phone]. I spent a total of 50 minutes coordinating, documenting and providing care for this patient excluding time spent in performance of separately billed services Admission and Anticipated Discharge Date Admission Date: May 10, 2024 Subjective Patient seen and examined Sitting in chair Reports feeling better today Reports cough and generalized weakness are improved Denied other complaints on ROS Physical Exam Constitutional: + well hydrated and + obese; no acute di stress Eyes: PERRL, conjunctivae normal, anicteric sclerae ENMT: external ear and nose normal, oropharynx normal Respiratory: normal respiratory effort, lungs clear to auscultation Cardiovascular: Rate/Rhythm: regular rate and regular rhythm Gastrointestinal (Abdomen): normal bowel sounds, soft, nontender, no hepatosplenomegaly Musculoskeletal: No pedal edema Neurologic: PERRL, EOMI, accommodation nl, no face palsy, no dysarthria Psychiatric: A+Ox3, euthymic affect Results & Data Results & Data Vital Signs (Past 12 Hours) Vital Signs Temp Pulse Pulse Resp BP Pulse Ox O2 Del Method 05/12/24 09:52 Room Air 05/12/24 07:24 91 H 05/12/24 07:18 81 18 95 Room Air 05/12/24 07:02 36.6 C 83 18 131/83 90 Room Air 05/12/24 03:00 05/12/24 02:35 37.5 C 88 18 135/68 95 CPAP 05/11/24 22:51 96 H 05/11/24 22:35 36.8 C 88 18 130/79 94 Room Air O2 Del Method 05/12/24 09:52 05/12/24 07:24 05/12/24 07:18 05/12/24 07:02 05/12/24 03:00 BiPAP 05/12/24 02:35 05/11/24 22:51 05/11/24 22:35 Laboratory Results Abnormal lab results 05/12/24 Range/Units 05:56 WBC 12.57 H (4.8-10.8) K/ul RBC 2.68 L (4.20-5.40) M/uL Hgb 8.9 L (12.0-16.0) g/dl Hct 26.0 L (37.0-47.0) % Plt Count 112 L (130-400) K/uL Sodium 135 L (136-145) mmol/L Glucose 134 H (70-99(Fasting)) mg/dl Calcium 8.3 L (8.6-10.3) mg/dl Total Protein 5.5 L (6.0-8.3) gm/dl Albumin 2.9 L (3.4-5.0) gm/dl
[2024-05-12] MEDS ORDERED: IPRATROPIUM BROMIDE NEB SOLN 0.02% 0.5MG/2.5ML VIAL INH PRN (12:39)
[2024-05-12] MEDS ORDERED: LEVALBUTEROL 1.25 MG/3 ML NEB NEB PRN (12:40)
[2024-05-12] MEDS: lisinopril 10 MG TAB PO SCH (14:42)
[2024-05-13 06:25] LABS: Hematocrit (blood only) 26.3 % (37.0-47.0); Hemoglobin 9.1 g/dl (12.0-16.0); Mean Corpuscular Hgb Conc 34.6 g/dL (32.0-36.0); Mean Corpuscular Volume 98.1 fL (80.0-100.0); Mean Platelet Volume 10.8 fL (9.4-12.4); Platelet Count 129 K/uL (130-400); RDW Coefficient of Variation 12.5 % (11.5-14.5); Red Blood Count 2.68 M/uL (4.20-5.40)
[2024-05-13 06:43] LABS: Albumin Globulin Ratio 1.1 (0.9-2); Albumin Level 2.9 gm/dl (3.4-5.0); BUN Creatinine Ratio 17.1 (10-20); Bilirubin,Total 0.6 mg/dl (0.2-1.0); Calcium 8.4 mg/dl (8.6-10.3); Creatinine Clr Calc Pharmacy 61.9 ml/min; Est GFR (African American) 55.4 ml/min; Est GFR (Non-African American) 47.8 ml/min; Globulin 2.6 gm/dl (2.5-4.0); Potassium 4.2 mmol/L (3.5-5.1); Total Protein 5.5 gm/dl (6.0-8.3)
[2024-05-13] MEDS: lisinopril 10 MG TAB PO ONE (11:21)
--- NOTE | 2024-05-13 15:28 | Discharge Summary ---
Date of Service May 13, 2024 Admission HPI Per Admitting Provider History obtained from patient and records. Medical history significant for hypertension, hyperlipidemia, bronchial asthma/COPD as per records, COMFORT on CPAP, morbid obesity, rheumatoid arthritis on Rinvoq, GERD, prediabetes, hypothyroidism, CRI (baseline creatinine 1.2), chronic anemia (baseline hemoglobin 10-11), TIA as per records, mild cognitive impairment, anxiety/mood disorder, intellectual impairment as per records. Patient seen at PCPs office 2 weeks ago for cough congestion symptoms. Not sure about sick contacts. Admits to occasional coughing with meals/water intake. Patient prescribed doxycycline and prednisone course for bronchitis. No pneumonia on outpatient x-ray. Improved symptoms following medication intake. Patient accidentally took a sip of fluid in spring water bottle at home which contained cleaning product. Denies odynophagia, chest pain, SOB. Patient brought by caregiver to [facility] ER. Chest x-ray negative. Patient discharged home. At home, patient had recurrent junky cough symptoms with worsening SOB. Denies chest pain. Patient noted to be lethargic and weak and looked lemus as per family account. SBP noted to be 70s, heart rate 130s, O2 sats 80s upon EMS arrival. Patient brought to ER for evaluation. Cefepime administered at the ER for sepsis. Lowest SBP of 90s documented at the ER. Medical History as above Surgical History : section, cholecystectomy, BTL Family History : Dementia, brain tumor, DM, kidney cancer, schizophrenia Personal/Social history : Non-smoker, no EtOH intake, retired [employer] employee Admission Exam Per Admitting Provider GENERAL: Comfortable, morbidly obese, no respiratory distress SKIN: Pallor, warm HEENT: Pale palpebral conjunctivae, no ptosis, dry buccal mucosa NECK : Supple, no tenderness CHEST : Decreased breath sounds, scattered expiratory wheezes, no tenderness HEART : Tachycardic, no obvious murmurs ABDOMEN: Some distention, nontender EXTREMITIES : Minimal LE swelling, no LE tenderness, no other conspicuous deformities noted NEUROLOGIC : Coherent, no facial asymmetry, no other gross focality Principal Diagnosis Severe sepsis Pneumonia Demand ischemia Discharge Exam Constitutional + well hydrated and + obese; no acute distress Eyes PERRL, conjunctivae normal, anicteric sclerae ENMT external ear and nose normal, oropharynx normal Respiratory normal respiratory effort, lungs clear to auscultation Cardiovascular Rate/Rhythm: regular rate and regular rhythm S1 S2 Gastrointestinal (Abdomen) normal bowel sounds, soft, nontender, no hepatosplenomegaly Musculoskeletal No pedal edema Neurologic PERRL, EOMI, accommodation nl, no face palsy, no dysarthria Psychiatric A+Ox3, euthymic affect Discharge Data Allergies Allergy/AdvReac Type Severity Reaction Status Date / Time adalimumab [From Humira] Allergy Intermediate Itching Verified 05/09/24 23:28 Sulfa (Sulfonamide Allergy Intermediate RASH, Verified 05/09/24 23:28 Antibiotics) BURNING EYES adhesive Allergy Mild BAND-AIDS Verified 05/09/24 23:28 = REDNESS hydrocortisone AdvReac Intermediate BURNING IN Verified 05/09/24 23:28 EYES ibuprofen AdvReac Intermediate N/V Verified 05/09/24 23:28 neomycin AdvReac Intermediate BURNING IN Verified 05/09/24 23:28 EYES NSAIDS (Non-Steroidal AdvReac Intermediate N/V Verified 05/09/24 23:28 Anti-Inflamma Penicillins AdvReac Intermediate Gastrointestinal Verified 05/09/24 23:28 Upset polymyxin B AdvReac Intermediate BURNING IN Verified 05/09/24 23:28 EYES latex AdvReac Mild Rash Verified 05/09/24 23:28 Consultations 05/10/24 01:25 ED Decision to Admit Stat 05/10/24 16:51 Consult Cardiology Routine Ordered Studies 05/10/24 01:56 CT angio chest PE protocol Stat Hospital Course (1) Severe sepsis: Severe sepsis Likely due to Pneumonia Lactic acidosis Acute respiratory failure with hypoxia Immunocompromised patient, history of RA on Rinvoq Possible COPD exacerbation On admission, Labs were notable for leukocytosis, Elevated lactate, Elevated Procal 5.52 Resp PCR was negative Chest CTA noted multifocal patchy airspace disease especially in lower lobes, left thyroid nodule with substernal extension. Blood cultures and sputum cx negative so far Was managed with zosyn and doxycycline inpatient Discharged on po Augmentin and doxycycline to complete 5 days of treatment Discharged on po prednisone for 1 more day to complete 5 days Has CKD3 Lactic acidosis resolved Weaned off oxygen Hypotension resolved and home lisinopril was initially held Lisinopril later resumed when hypotension resolved Demand ischemia Elevated trop likely due to demand ischemia in setting of sepsis. EKG did not show acute ST-T changes. TTE reviewed. EF 60-65%, trace TR Trop peaked at 153 Card evaluated and started on metoprolol succinate 12.5mg/day Will need to follow up Cardiology for outpatient stress test Hypothyroidism Continue levothyroxine Will need Thyroid USS in future for better eval of thyroid nodule seen on CT Hyperlipidemia on statin Rx COMFORT on CPAP, morbid obesity Prediabetes, hemoglobin A1c of 5.12 November 2023 Chronic anemia Hx TIA as per records Evaluated by PT Can continue home PT/OT Total Time Total Time Spent Total Time Spent (In Minutes): 40 Total Time Includes: Examination of the Patient, Discharge Planning and Medication Reconciliation Discharge Plan Discharge Items Patient Disposition: Home - Self-Care Reason For Visit: SEPSIS,HYPOTENSION Discharge Diagnosis: Severe sepsis Pneumonia Demand ischemia Activity: Resume your previous activity Non-emergency contact: Primary Care Provider and Tannery Worker Call non-emergency contact if: you have any medication questions and your symptoms worsen Follow-up/Referrals: Ramo Rojas DO [Tannery Worker] - (Call for Cardiology appointment) Tawanna Limon DO [Primary Care Provider] - (Dr Limon's office is aware of your discharge and will call you with an appointment. Please call the [facility] office if you do not receive a call.) Diet: Heart Healthy and Low Fat Addtl Attending Provider Instructions: Mrs Manjarrez You were brought to the hospital with worsening cough and shortness of breath. You were managed for the above listed diagnoses. You are being discharged on another day of antibiotics. You were also started on metoprolol by the Tannery Worker (Heart Doctor) while in the hospital. It is important that you follow up with Cardiology outpatient for stress test. Please ensure follow up with your Primary Doctor. It was a pleasure taking care of you. Pending Studies at Discharge: No Stand-Alone Forms: [facility], Smoking Cessation Medications and DC Order Prescriptions: New doxycycline hyclate 100 mg Capsule 100 mg PO BID Qty: 3 0RF prednisone 20 mg Tablet 40 mg PO DAILY 1 Days Qty: 2 0RF metoprolol succinate 25 mg Tablet Extended Release 24 Hr 12.5 mg PO QAM Qty: 30 0RF amoxicillin-pot clavulanate 875-125 mg tablet 1 tab PO BID Qty: 3 0RF Continued aspirin 325 mg Tablet 325 mg PO HS lisinopril 20 mg Tablet 20 mg PO QAM cyanocobalamin (vitamin B-12) [Vitamin B-12] 1,000 mcg Tablet 1,000 mcg PO QAM travoprost 0.004 % Drops 1 drp OPHTHALMIC (EYE) HS levothyroxine 50 mcg Tablet 25 mcg PO DAILYBB trazodone 150 mg Tablet 300 mg PO HS fluticasone propion-salmeterol [Wixela Inhub] 500-50 mcg/dose Blister With Device 2 inh INHALATION BID montelukast 10 mg Tablet 10 mg PO HS albuterol sulfate [Ventolin HFA] 90 mcg/actuation Hfa Aerosol Inhaler 2 puff INHALATION Q4H PRN (Reason: Wheezing) dicyclomine 10 mg Capsule 10 mg PO TID PRN (Reason: Abdominal Pain) cholecalciferol (vitamin D3) [Vitamin D3] 1,000 unit Capsule 1,000 unit PO QAM [place]-3 350 mg-235 mg- 90 mg-597 mg Capsule,Delayed Release(Dr/Ec) 1 cap PO QAM famotidine 40 mg Tablet 40 mg PO QAM tizanidine 2 mg tablet 2 mg PO Q6H PRN (Reason: MUSCLE SPASMS) albuterol sulfate 2.5 mg /3 mL (0.083 %) Solution For Nebulization 2.5 mg INHALATION Q6H PRN (Reason: Wheezing) meclizine 12.5 mg Tablet 12.5 mg PO TID PRN (Reason: Dizziness) bupropion HCl 100 mg tablet sustained-release 12 hr 100 mg PO QAM coconut oil (bulk) Oil 1 ea miscellaneous QAM Rx Instructions: MIXES 1 SPOONFUL IN COFFEE QAM. omeprazole 20 mg capsule,delayed release(DR/EC) 20 mg PO DAILYBB azelastine 137 mcg (0.1 %) aerosol,spray 1 spray INTRANASAL HS fluticasone propionate 50 mcg/actuation Hernandez,Suspension 2 spray INTRANASAL HS Rx Instructions: administer into each nostril cyclosporine [Restasis] 0.05 % Dropperette 1 drp OPB Q12H rosuvastatin 20 mg tablet 20 mg PO QAM duloxetine 20 mg capsule,delayed release(DR/EC) See Rx Instructions .ROUTE .COMPLEX Rx Instructions: TAKES 20 MG QAM, THEN 40 MG QPM PER [facility] psyllium husk [Metamucil] 0.4 gram Capsule 0.4 g PO DAILY Rinvoq 15 mg tablet extended release 24 hr 15 mg PO QAM Focus Factor 1 tab PO BID Discharge Orders: Discharge Order (Routine); Ordered 05/13/24 Ordered By: Brigitte Tate Admission Data Admit Date/Time: 05/10/24 02:00 Attending Provider: Brigitte Tate I. Admit Provider: Monroe Byers Primary Care Provider: Tawanna Limon Other Providers: Monroe Byers; Ramo Rojas
[2024-05-14] MEDS ORDERED: lisinopril 20 MG TAB PO SCH (09:00)
== END 2024-05-13 18:44 | disposition home or self-care (01) | DRG 871 ==
LOC: ED 22:50 → 4W 05-10 02:00